=== PATIENT | female | born 1970 | race Caucasian/White ===

== ENCOUNTER 2020-02-27 15:23 | Outpatient (REF) | payer OTHER, SELFPAY ==
--- NOTE | 2020-02-27 | MM_ITS ---
EXAMINATION: MM SCREENING DIGITAL BREAST TOMOSYNTHESIS, BILATERAL CLINICAL INFORMATION: Screening. Asymptomatic. The lifetime risk of breast cancer based on the Tyrer-Cuzick Model is 11%. COMPARISON: Mammography: 08/27/2018, 07/08/2012 TECHNIQUE: Digital breast tomosynthesis is performed in both the craniocaudal and mediolateral oblique views along with computer-aided detection (CAD). Synthesized 2D images are generated from the tomosynthesis. FINDINGS: There are scattered areas of fibroglandular density (ACR BI-RADS breast composition Category b). There are no significant masses, abnormal calcifications, or other abnormalities. Parenchymal pattern is similar to prior studies. No significant changes. MM/MM tomosynthesis screening BI IMPRESSION: No mammographic evidence of malignancy. ASSESSMENT: BI-RADS 1: Negative RECOMMENDATION: Routine annual mammography screening. This patient's information was entered into a reminder system with a target due date for their next mammogram.
== END 2020-02-27 15:24 | disposition home or self-care (01) ==
LOC: HO.MAMMO 15:23
PROVIDERS: Visit Provider Nurse Practitioner Family
DX: Z12.31 Encounter for screening mammogram for malignant neoplasm of breast (principal)
CPT/HCPCS: 77063; 77067

== ENCOUNTER → 2020-09-26 10:32 | Outpatient (BNVA) | payer OTHER, SELFPAY | PROVIDERS: PCP Nurse Practitioner Family; Visit Provider Physician Assistant | DX: S80.01XA Contusion of right knee, initial encounter (principal); S39.012A Strain of muscle, fascia and tendon of lower back, initial encounter; W18.39XA Other fall on same level, initial encounter | CPT/HCPCS: 73564; 99203 ==

== ENCOUNTER → 2020-10-02 09:33 | Outpatient (BNVA) | payer OTHER, SELFPAY | PROVIDERS: PCP Nurse Practitioner Family; Visit Provider Physician Assistant | DX: S80.01XA Contusion of right knee, initial encounter (principal); S39.012A Strain of muscle, fascia and tendon of lower back, initial encounter; X58.XXXA Exposure to other specified factors, initial encounter | CPT/HCPCS: 99213 ==

== ENCOUNTER → 2020-10-09 09:43 | Outpatient (BNVA) | payer OTHER, SELFPAY | PROVIDERS: PCP Nurse Practitioner Family; Visit Provider Physician Assistant | DX: S80.01XA Contusion of right knee, initial encounter (principal); S39.012A Strain of muscle, fascia and tendon of lower back, initial encounter; X58.XXXA Exposure to other specified factors, initial encounter | CPT/HCPCS: 99213 ==

== ENCOUNTER 2020-10-28 08:16 | Emergency (ER) | payer OTHER, SELFPAY ==
--- NOTE | ~2020-10-28 | XR_ITS ---
EXAMINATION: XR CHEST CLINICAL INFORMATION: Cough, shortness of breath COMPARISON: 11/29/2016 TECHNIQUE: 2 views of the chest were obtained. FINDINGS: No significant abnormality is noted involving the heart, lungs, mediastinum, bony thorax or soft tissues. Right middle and lower lobe calcified granulomas. XR/XR chest 2V IMPRESSION: No acute cardiopulmonary findings.
[2020-10-28 08:45] VITALS: BP 149/86; PULSE 89; RESP 16; TEMP 36.8; O2SAT 99; BMI 21.4
--- NOTE | 2020-10-28 09:09 | ED_ITS ---
HPI - URI/Sore Throat General Chief Complaint: Upper Respiratory Symptoms Stated Complaint: COUGH SORE THROAT Time Seen by Provider: 10/28/20 08:50 Source: patient Mode of arrival: ambulatory Limitations: no limitations History of Present Illness HPI Narrative: 50-year-old female here with dry cough x1 week. No fevers, chills, shortness of breath or chest pain. Patient does smoke cigarettes. She has not received a COVID vaccine Related Data Previous Rx's Medication Instructions Recorded gabapentin 100 mg capsule 100 mg PO TID #90 cap 03/19/20 omeprazole 20 mg capsule,delayed 20 mg PO DAILY #90 cap 04/27/20 release albuterol sulfate 90 mcg/actuation 1 inh INHALATION Q4-6H PRN 30 Days 08/20/20 breath activated powder inhaler #1 ea alprazolam 0.5 mg tablet 0.5 mg PO BID PRN 30 Days #60 tab 09/24/20 lisinopril 5 mg tablet 5 mg PO DAILY #90 tab 10/01/20 azithromycin See Rx Instructions .ROUTE 10/28/20 .COMPLEX #6 tab benzonatate [Tessalon Perles] 100 mg PO TID PRN #20 cap 10/28/20 hydrocodone-homatropine [Hycodan 5 ml PO Q6H PRN 5 Days #236 ml 10/28/20 (with homatropine)] prednisone 40 mg PO DAILY #10 tab 10/28/20 Allergies Allergy/AdvReac Type Severity Reaction Status Date / Time No Known Allergies Allergy Verified 08/20/20 15:42 Review of Systems Review of Systems: Yes all other systems are reviewed and are negative Constitutional: Constitutional: Reports no additional constitutional complaints, Denies body ache(s), Denies chills, Denies fever(s), Denies headache(s) and Denies weakness Eyes: Eyes: Reports no additional eye complaints and Denies change in vision ENT: Reports system reviewed and no additional complaints, except as documented, Denies dizziness, Denies headache(s), Denies nasal congestion, Denies nasal discharge and Denies neck pain Cardiovascular: Cardiovascular: Reports no additional cardiovascular complaints, Denies chest pain, Denies leg edema and Denies dyspnea Respiratory: Respiratory: Reports no additional respiratory complaints, Reports cough and Denies dyspnea Gastrointestinal: Gastrointestinal: Reports no additional gastrointestinal complaints, Denies abdominal pain, Denies diarrhea, Denies nausea and Denies vomiting Genitourinary: Genitourinary: Reports no additional female genitourinary complaints and Denies urinary incontinence Musculoskeletal: Musculoskeletal: Reports no additional musculoskeletal complaints, Denies back pain, Denies arthralgias, Denies joint swelling, Denies neck pain, Denies numbness and Denies tingling Integumentary/Breasts: Skin/Breast: Reports system reviewed and no additional complaints, except as docu and Denies rash Neurologic: Denies Abnormal speech present, Denies dizziness, Denies headache(s), Denies numbness, Denies tingling and Denies weakness PMFSH Past Medical History Attestation statement: The following information was validated with the patient. Source: old records reviewed and nursing notes reviewed Medical History Hypertension Seborrheic keratosis Surgical History History of facial surgery Social History Social History Advance Directives: Yes Advance Directives Information Provided: No Advance Directives on File: No Patient : No Physical Exam Vital Signs: Vital Signs: Last Vital Signs Temp 98.2 F 10/28/20 08:45 Pulse 89 10/28/20 09:26 Resp 16 10/28/20 08:45 BP 149/86 H 10/28/20 08:45 Pulse Ox 99 10/28/20 08:45 Body Mass Index 21.4 Const: General: cooperative, healthy appearing, comfortable and no acute distress Orientation/consciousness: patient oriented x3 Limitations: no limitations HENMT: Head: Yes normal to inspection Ears: hearing grossly normal bilaterally General nose exam: Normal external nose present Face and sinus: Yes normal facial exam Mouth: Normal oral and palatal mucosa present Throat: Yes posterior oropharynx normal Eyes: General: appearance normal, both eyes and all related structures Pupils: Equal, round and reactive pupils present Neck: Neck: Yes normal visual inspection Chest: Chest palpation & inspection: normal inspection of the chest Resp: Other: Mild expiratory wheezing throughout Effort & Inspection: normal respiratory effort Cardio: Rate: regular rate Rhythm: regular rhythm Peripheral pulses: Peripheral pulses 2+ throughout GI: Inspection: Yes normal to inspection Palpation (GI): Soft to palpation and nontender Auscultation: normal bowel sounds Back/Spine/Pelvis: Thoracic/Lumbar Spine: thoracic and lumbar spine normal to inspection Skin: General skin exam: no rashes or lesions noted Neuro: General: patient oriented x3, no focal motor deficits and normal sensation to monofilament Cranial nerves: Yes Equal, round and reactive pupils present Cognition (Neuro): normal cognition Speech: No Abnormal speech present Gait exam (Neuro): Normal gait present Motor exam (neuro): 5/5 motor strength present throughout Extrem: General: Yes normal to inspection, Yes no pedal edema and Yes no calf tenderness Course Course Course Narrative: Dry cough x1 week unrelieved with [id number] medications. Will check x-ray to rule out pneumonia. Check COVID screen. Provide albuterol MDI and reassess 0940-chest x-ray shows no acute finding. COVID screen negative. Will treat with course of antibiotics and prednisone for acute bronchitis. Reviewed worrisome signs and symptoms and when to return to the emergency department. Comfortable discharge home. MDM - URI/Sore Throat MDM Narrative Medical decision making narrative: Pneumonia Differential Diagnosis Differential diagnosis: Likely upper respiratory infection and viral infection Medical Records Attestation: I reviewed the patient's medical records. Lab Data Attestation: I reviewed the patient's lab results. Labs: Lab Results 10/28/20 Range/Units 09:17 COVID-19 ([facility]) Negative (Negative) COVID-19 Clin Com See Note Imaging Data Chest x-ray: Attestation: I personally reviewed and interpreted this imaging study as follows: Radiologist's impression: [address] [id number] ReportSigned Patient: Juliana Altman JMR#: [id number]: 1970Acct:[id number]/Sex: 50 / FADM Date: 10/28/20Loc: [address] Dr: Ordering Physician: ZACHARY VINES NP Date of Service: 10/28/20 Procedure(s): XR chest 2V Accession Number(s): [id number] cc: ZACHARY VINES NP~ EXAMINATION: XR CHEST CLINICAL INFORMATION: Cough, shortness of breath COMPARISON: 11/29/2016 TECHNIQUE: 2 views of the chest were obtained. FINDINGS: No significant abnormality is noted involving the heart, lungs, mediastinum, bony thorax or soft tissues. Right middle and lower lobe calcified granulomas. XR/XR chest 2V IMPRESSION: No acute cardiopulmonary findings. Discharge Plan Discharge Clinical Impression: Bronchitis Patient Disposition: Home, Self-Care Instructions: Acute Bronchitis (ED) Additional Instructions: Use inhaler 2 puffs every 4-6 hours as needed for cough or wheezing Your x-ray did not show pneumonia. Your COVID screen was negative. Increase fluids, rest Take Motrin or Tylenol if able as needed for pain or fever Prescriptions: New azithromycin 250 mg tablet See Rx Instructions .ROUTE .COMPLEX Qty: 6 RF: 0 prednisone 20 mg tablet 40 mg PO DAILY Qty: 10 RF: 0 benzonatate [Tessalon Perles] 100 mg capsule 100 mg PO TID PRN (Reason: cough) Qty: 20 RF: 0 hydrocodone-homatropine [Hycodan (with homatropine)] 5-1.5 mg/5 mL syrup 5 ml PO Q6H PRN (Reason: cough) 5 Days Qty: 236 RF: 0 No Action gabapentin 100 mg capsule 100 mg PO TID Qty: 90 RF: 3 omeprazole 20 mg capsule,delayed release(DR/EC) 20 mg PO DAILY Qty: 90 RF: 1 alprazolam 0.5 mg tablet 0.5 mg PO BID PRN (Reason: anxiety) 30 Days Qty: 60 RF: 0 lisinopril 5 mg tablet 5 mg PO DAILY Qty: 90 RF: 1 albuterol sulfate 90 mcg/actuation aerosol powdr breath activated 1 inh inhalation Q4-6H PRN (Reason: shortness of breath or wheezing) 30 Days Qty: 1 RF: 1 Referrals: Raffaele Desir, PROGRAM SCHEDULER-BC [Primary Care Provider] - 2 days Interventions: ED Discharge Assessment Last Done: 10/28/20 10:18 Discharge Date/Time: 10/28/20 10:18
[2020-10-28 09:26] VITALS: PULSE 89; O2SAT 99
[2020-10-28] MEDS: Albuterol Sulfate 90 MCG 8 GM INHALER 2 PUFF INHALE (09:26)
[2020-10-28 09:37] LABS: COVID-19 Test Negative (Negative); IDNOW Serial# 9DD0AD1C
== END 2020-10-28 10:18 | disposition home or self-care (01) ==
PROVIDERS: Nurse Practitioner Family; Emergency Provider Emergency Medicine; PCP Nurse Practitioner Family
DX: J40 Bronchitis, not specified as acute or chronic (principal); I10 Essential (primary) hypertension; Z20.822 Contact with and (suspected) exposure to COVID-19
CPT/HCPCS: 36415; 71046; 87635; 94640; 94664; 99283; 99284

== ENCOUNTER 2020-11-23 09:34 | Outpatient (REF) | payer OTHER, SELFPAY ==
--- NOTE | ~2020-11-23 | XR_ITS ---
EXAMINATION: XR RIBS, RIGHT CLINICAL INFORMATION: Pleurodynia COMPARISON: Right-sided rib pain. TECHNIQUE: 3 views of the right ribs were obtained. FINDINGS: Multiple views of right ribs reveal no visible fracture or bony abnormality. There are small calcified nodules seen in the right upper lobe, right middle lobe and right lower lobe. A marker has been placed along the right lower lobe. No visible rib fracture or bony abnormality seen where a lead marker has been placed. The lungs are clear. XR/XR ribs RT 2V IMPRESSION: No visible right rib fractures seen. A lead marker has been placed along the chest wall. There are several calcified granulomas in the right upper, mid and lower lobes.
== END 2020-11-23 09:35 | disposition home or self-care (01) ==
LOC: HO.XRAY 09:34
PROVIDERS: PCP Nurse Practitioner Family; Visit Provider Nurse Practitioner Family
DX: R07.81 Pleurodynia (principal)
CPT/HCPCS: 71100

== ENCOUNTER 2020-12-04 09:54 | Outpatient (REF) | payer OTHER, SELFPAY ==
[2020-12-06 09:07] LABS: BV Int Neg Control Negative (Negative); BV Int Pos Control Positive (Positive)
[2020-12-06 09:31] LABS: CT PCR NOT DETECTED (Not Detect.); NG PCR NOT DETECTED (Not Detect.)
[2020-12-07 16:22] LABS: HPV mRNA E6/E7 rflx Not Detected (Not Detected)
== END 2020-12-04 09:55 | disposition home or self-care (01) ==
LOC: HO.LAB 09:54
PROVIDERS: Visit Provider Advanced Practice Midwife
DX: Z01.419 Encounter for gynecological examination (general) (routine) without abnormal findings (principal); Z11.51 Encounter for screening for human papillomavirus (HPV); Z11.3 Encounter for screening for infections with a predominantly sexual mode of transmission; Z20.2 Contact with and (suspected) exposure to infections with a predominantly sexual mode of transmission
CPT/HCPCS: 87480; 87491; 87510; 87591; 87624; 87660; 88142

== ENCOUNTER 2021-09-24 10:00 | Outpatient (RCR) | payer OTHER, SELFPAY ==
--- NOTE | 2021-09-04 14:41 | MHC.PT.EP ---
[facility] Office [place] Office [place] Office [address] Sigifredo Solo [address] [phone] F: [phone] F: [phone] F: [phone] F: [phone] Physical Therapy Plan of Care Date of Evaluation: Date of Surgery: Diagnosis: Patient is a 51 yo female presenting to skilled PT with a script for low back pain. Assessment: Patient is a 51 yo female presenting to skilled PT with a script for low back pain. Patient has a history of back pain starting about a year ago when she was at work attempting to reach while at a vehicle. She hit her R knee, fell back and hit her L side low back on the edge of the door but was able to grab onto the car to prevent further fall to ground. She originally went to work connection 1 year ago and did not have PT as she thought it would improve with time. Now however her pain has started to increase again (about 5 weeks ago; and she has not worked since increasing onset). Pain increases with quick twisting motions, rolling in bed, climbing stairs, walking and driving. She has been using lumbar support, ice and heating pad. Pain is constant, it is located in the left side lower back but then radiates to the leg and into the L foot (pain runs anteriorly down the leg). Pain is described as stabbing, uncomfortable , numbness in leg, and L foot is cold . She went to the [facility] on 08/27, was prescribed a muscle relaxant and anti-inflammatory as well as a script for PT but no work note (still not at work however, waiting to see PCP next week). Assessment reveals pain that ranges up to a 10/10, pain is constant, nonchanging with positional directions and not improving since onset. She demos decreased lumbar and L hip ROM, decreased core, back and BLE strength, impaired gait pattern as described in evaluation above, impaired lumbar joint mobility due to pain with tenderness to light palpation as well as gross functional decline with functional movements, work related tasks and ADL's. She is a good candidate for skilled PT 2x/wk for 5wks. Frequency and Duration: The patient will be seen 2x/wk for 5wks Short Term Goals: I in HEP Centralize symptoms in 2 weeks Improve gait pattern to normal without deviations or increase in pain noted while walking through clinic [facility] Goals: Demos functional lumbar and hip ROM and strength Improve oswestry by at least 10 points Improve pain at the worst to no more than 2/10 Demo proper lifting techniques without increase in pain or radiating symptoms Treatment Plan: Modalities to reduce pain, spasms and effusion. Manual therapy to restore motion and function. Therapeutic exercise to improve strength and flexibility. Neuromuscular re-education for posture and balance. Therapeutic activities to return to functional activities of daily living. Electronically signed by: Marianne Fierro PT Please sign and return to therapist. Thank you for your referral.
--- NOTE | 2021-10-28 17:38 | MHC.PT.DC ---
[facility] [place] Office [place] Office [place] Office [address] Sigifredo Solo 140 [facility] [phone] F: [phone] F: [phone] F: [phone] F: [phone] Physical Therapy Discharge Report Diagnosis: Patient is a 51 yo female presenting to skilled PT with a script for low back pain. Date of Surgery: Date of Evaluation: 09/04/21 Date of Discharge: 10/28/21 Treatments to Date: 7 Cancellations to Date: 0 No Shows to Date: 0 Discharge Status: Discharge Summary: At the last session, patient reporting pain is in the same locations. Her RLE continues to have numbness in the RLE into the foot still as well. States that she has been doing HEP and rolling muscles. She reports STM is very helpful however does not report lasting effects past a day with this and then pain comes back. She has 3 more appts booked but is waiting for workman's comp to start before scheduling more however, patient did not come for remaining visits. Chart was kept open for 30 days and then DC'd. Electronically signed by: Marianne Fierro PT Please sign and return to therapist. Thank you for your referral.
== END 2021-10-28 17:38 | disposition home or self-care (01) ==
LOC: HO.PTCHIC 10:00
PROVIDERS: PCP Nurse Practitioner Family; Visit Provider Internal Medicine
DX: M54.50 Low back pain, unspecified (principal)
CPT/HCPCS: 97014; 97110; 97140; 97162

== ENCOUNTER 2021-11-19 09:35 | Outpatient (REF) | payer OTHER, SELFPAY ==
--- NOTE | ~2021-11-19 | XR_ITS ---
EXAMINATION: XR LUMBOSACRAL SPINE CLINICAL INFORMATION: Low back pain COMPARISON: None TECHNIQUE: Three views of the lumbosacral spine. FINDINGS: There is mild straightening of lumbar lordosis. The vertebral heights and alignment is normal. There is mild loss of L4-L5 and L5-S1 disc levels with mild ventral spondylosis L3-L4, L4-L5 and L5-S1 disc levels. No lytic or sclerotic process seen. SI joints are symmetrical and normal. XR/XR lumbar spine 2-3V IMPRESSION: Mild degenerative disc changes L4-L5 and L5/S1 disc levels with ventral spondylosis. No visible acute fracture or dislocation seen.
== END 2021-11-19 09:36 | disposition home or self-care (01) ==
LOC: HO.XRAY 09:35
PROVIDERS: PCP Nurse Practitioner Family; Visit Provider Nurse Practitioner Family
DX: M54.50 Low back pain, unspecified (principal); M79.606 Pain in leg, unspecified
CPT/HCPCS: 72100

== ENCOUNTER 2021-12-02 10:31 | Outpatient (REF) | payer OTHER, SELFPAY ==
--- NOTE | ~2021-12-02 | MR_ITS ---
EXAMINATION: MR LUMBAR SPINE WITHOUT CONTRAST CLINICAL INFORMATION: Low back pain. COMPARISON: Plain films of the lumbar spine 11/19/2021. CT scan of the abdomen and pelvis 03/05/2017. TECHNIQUE: MRI of the lumbar spine was obtained using routine sequences without contrast. FINDINGS: VERTEBRAL BODIES AND PARASPINAL STRUCTURES: There is a mild levoscoliosis. There is multilevel narrowing of intervertebral disc height with loss of signal which is most severe at L4-L5. There are degenerative endplate contour changes at this level with fatty endplate signal changes; there are similar changes toward the right at L5-S1. There are multilevel Schmorl's nodes at adjacent endplates. Vertebral body heights are maintained and no fractures are demonstrated. Overall, marrow signal is slightly heterogenous. The visualized retroperitoneal structures are unremarkable. The uterus is moderately bulky. CONUS MEDULLARIS AND CAUDA EQUINA: Normal, terminating at the level of T12-L1. The lower thoracic spinal cord appears normal. The cauda equina nerve roots and filum terminale appear normal. SPINAL LEVELS: T12-L1: The facet joints appear normal bilaterally. Disc contour is normal. There is no central stenosis or foraminal narrowing. L1-L2: There is mild bilateral facet arthropathy. Disc contour is normal. There is no central stenosis or foraminal narrowing. L2-L3: There is moderate bilateral facet arthropathy. There is a mild diffuse disc bulge with with minimal distortion of the ventral thecal sac on the left but there is no central stenosis. There are small inferior foraminal disc protrusions bilaterally without exiting nerve root impingement. L3-L4: There is moderate to severe bilateral facet arthropathy with ligamenta flava hypertrophy and facet joint effusions. There is a posterior disc protrusion extending into the neural foramina bilaterally with impingement on the exiting L3 nerve roots. There is narrowing of the bilateral subarticular recesses and there is mild central stenosis. The dorsal thecal sac is compressed by epidural lipomatosis. L4-L5: There is severe bilateral facet arthropathy with ligamenta flava hypertrophy and facet joint effusions. There is a posterior disc protrusion extending into the neural foramina bilaterally, and far laterally on the left with impingement on the extraforaminal left L4 nerve root as well as on the exiting right L4 nerve root. There is narrowing of the bilateral subarticular recesses, and there is mild central stenosis. L5-S1: There is markedly severe right and severe left facet arthropathy. There is a broad-based posterior disc protrusion with an extruded component extending into the right subarticular recess with mass effect on the traversing right S1 nerve root. There is minimal distortion of the ventral thecal sac. There is no central stenosis. The protrusion extends into the right neural foramen with impingement on the exiting right L5 nerve root. MR/MR lumbar spine wo con IMPRESSION: 1. At L5-S1 there is bilateral facet arthropathy and there is a posterior disc protrusion/extrusion extending into the right neural foramen and right subarticular recess with impingement on the exiting right L5 and traversing right S1 nerve roots. There is no central stenosis. 2. At L4-L5 there is severe facet arthropathy. There is a disc protrusion extending far laterally on the left with impingement on the extraforaminal left L4 nerve root. There is mild impingement on the exiting right L4 nerve root. There is mild central stenosis. 3. At L3-L4 there is facet arthropathy. There is a posterior disc protrusion extending into the neural foramina with impingement on the exiting L3 nerve roots. There is mild central stenosis.
== END 2021-12-02 10:32 | disposition home or self-care (01) ==
LOC: HO.MRI 10:31
PROVIDERS: Visit Provider Nurse Practitioner Family
DX: M54.50 Low back pain, unspecified (principal); M79.606 Pain in leg, unspecified
CPT/HCPCS: 72148

== ENCOUNTER 2022-01-02 10:00 | Outpatient (RCR) | payer OTHER, SELFPAY ==
--- NOTE | 2021-11-21 12:40 | MHC.PT.EP ---
[facility] Office [place] Office [place] Office [address] Sigifredo Solo [address] [phone] F: [phone] F: [phone] F: [phone] F: [phone] Physical Therapy Plan of Care Date of Evaluation: Date of Surgery: Diagnosis: Patient is a 51 yo female presenting to skilled PT with a script for low back pain and pain in the leg. Assessment: Patient is a 51 yo female presenting to skilled PT with a script for low back pain and pain in the leg. Patient has recently here at this facility but then stopped coming and her chart was DC'd after 30 days without tx. Patient has a history of back pain starting over a year ago when she was at work attempting to reach while at a vehicle. She hit her R knee, fell back and hit her L side low back on the edge of the door but was able to grab onto the car to prevent further fall to ground. She originally went to work connection when she had the injury but did not have PT as she thought it would improve with time. She then came for 7 appointments of PT this year 2021 from August to September, DC note states: At the last session, patient reporting pain is in the same locations. Her RLE continues to have numbness in the RLE into the foot still as well. States that she has been doing HEP and rolling muscles. She reports STM is very helpful however does not report lasting effects past a day with this and then pain comes back. She has 3 more appts booked but is waiting for workman's comp to start before scheduling more however, patient did not come for remaining visits. Chart was kept open for 30 days and then DC'd. Now she returns without change from PT from a month a go. Pain increases with lifting, bending, climbing, stairs, work related tasks, twisting. She needs assist with ADLs using her UE and her fianc? needs to assist with housework, yardwork and grocery shopping. She had x-ray which showed mild degenerative disc changes L4-5 and L5/S1. She is awaiting an MRI and returns to see her PCP on 12/05. For pain she has been doing the heating pad, 1-3 exercises that she remembers from last time on occasion, she has gotten a new bed and started a new script for meloxicam. Pain is constant, it is located in the left side lower back (achy and sharp) but then radiates to the anterior/lateral L hip (sharp) and into the leg (anterior and tight) and into the L foot (pain runs anteriorly down the leg as well and described as numb and L foot is cold ). Assessment reveals pain that ranges up to a 10/10, pain is pretty much constant, nonchanging with positional directions and not improving since onset or since last PT tx in September 2021. She demos decreased lumbar and L hip ROM, decreased core, back and BLE strength, impaired gait pattern as described in evaluation above, impaired lumbar joint mobility due to pain with tenderness to light palpation at L hip and low back as well as gross functional decline with functional movements, work related tasks and ADL's. She is a fair candidate for skilled PT 2x/wk for 4 wks due to lack of improvements from PT last trial a few months ago. Frequency and Duration: The patient will be seen 2x/wk for 4wks Short Term Goals: I in HEP Centralize symptoms in 2 weeks Improve gait pattern to normal without deviations or increase in pain noted while walking through clinic [employer] Goals: Demos functional lumbar and hip ROM and strength Improve oswestry by at least 10 points Improve pain at the worst to no more than 2/10 Demo proper lifting techniques without increase in pain or radiating symptoms Treatment Plan: Modalities to reduce pain, spasms and effusion. Manual therapy to restore motion and function. Therapeutic exercise to improve strength and flexibility. Neuromuscular re-education for posture and balance. Therapeutic activities to return to functional activities of daily living. Electronically signed by: Marianne Fierro PT Please sign and return to therapist. Thank you for your referral.
--- NOTE | 2021-12-05 14:04 | MHC.PT.EP ---
[facility] [place] [facility] [place] [facility] [place] [facility] [address] Sigifredo Solo [address] [phone] F: [phone] F: [phone] F: [phone] F: [phone] Physical Therapy Plan of Care Date of Evaluation: Date of Surgery: Diagnosis: Patient is a 51 yo female presenting to skilled PT with a script for low back pain and pain in the leg. Assessment: Patient is a 51 yo female presenting to skilled PT with a script for low back pain and pain in the leg. Patient has recently here at this facility but then stopped coming and her chart was DC'd after 30 days without tx. Patient has a history of back pain starting over a year ago when she was at work attempting to reach while at a vehicle. She hit her R knee, fell back and hit her L side low back on the edge of the door but was able to grab onto the car to prevent further fall to ground. She originally went to work [facility] when she had the injury but did not have PT as she thought it would improve with time. She then came for 7 appointments of PT this year 2021 from August to September, DC note states: At the last session, patient reporting pain is in the same locations. Her RLE continues to have numbness in the RLE into the foot still as well. States that she has been doing HEP and rolling muscles. She reports STM is very helpful however does not report lasting effects past a day with this and then pain comes back. She has 3 more appts booked but is waiting for workman's comp to start before scheduling more however, patient did not come for remaining visits. Chart was kept open for 30 days and then DC'd. Now she returns without change from PT from a month a go. Pain increases with lifting, bending, climbing, stairs, work related tasks, twisting. She needs assist with ADLs using her UE and her fianc? needs to assist with housework, yardwork and grocery shopping. She had x-ray which showed mild degenerative disc changes L4-5 and L5/S1. She is awaiting an MRI and returns to see her PCP on 12/05. For pain she has been doing the heating pad, 1-3 exercises that she remembers from last time on occasion, she has gotten a new bed and started a new script for meloxicam. Pain is constant, it is located in the left side lower back (achy and sharp) but then radiates to the anterior/lateral L hip (sharp) and into the leg (anterior and tight) and into the L foot (pain runs anteriorly down the leg as well and described as numb and L foot is cold ). Assessment reveals pain that ranges up to a 10/10, pain is pretty much constant, nonchanging with positional directions and not improving since onset or since last PT tx in September 2021. She demos decreased lumbar and L hip ROM, decreased core, back and BLE strength, impaired gait pattern as described in evaluation above, impaired lumbar joint mobility due to pain with tenderness to light palpation at L hip and low back as well as gross functional decline with functional movements, work related tasks and ADL's. She is a fair candidate for skilled PT 2x/wk for 4 wks due to lack of improvements from PT last trial a few months ago. Frequency and Duration: The patient will be seen 2x/wk for 4wks Short Term Goals: I in HEP Centralize symptoms in 2 weeks Improve gait pattern to normal without deviations or increase in pain noted while walking through clinic [employer] Goals: Demos functional lumbar and hip ROM and strength Improve oswestry by at least 10 points Improve pain at the worst to no more than 2/10 Demo proper lifting techniques without increase in pain or radiating symptoms Treatment Plan: Modalities to reduce pain, spasms and effusion. Manual therapy to restore motion and function. Therapeutic exercise to improve strength and flexibility. Neuromuscular re-education for posture and balance. Therapeutic activities to return to functional activities of daily living. Electronically signed by: Marianne Fierro PT Please sign and return to therapist. Thank you for your referral.
--- NOTE | 2022-06-05 09:30 | MHC.PT.DC ---
[facility] [place] Office [place] [facility] [place] Office [address] Sigifredo Solo [address] [phone] F: [phone] F: [phone] F: [phone] F: [phone] Physical Therapy Discharge Report Diagnosis: Patient is a 51 yo female presenting to skilled PT with a script for low back pain and pain in the leg. Date of Surgery: Date of Evaluation: 11/21/21 Date of Discharge: 06/05/22 Treatments to Date: 8 Cancellations to Date: 0 No Shows to Date: 0 Discharge Status: Independent with HEP Insurance Declined Tx Recommend MD Follow-up Discharge Summary: Pt reports getting relief from PT, but symptoms always return and she has no mcfp gains. Pt continues with an antalgic gait pattern due to pain. Pt DC with F/U with MD recommended. Pt visits limited by insurance. Electronically signed by: Marianne Fierro PT Please sign and return to therapist. Thank you for your referral.
== END 2022-06-05 09:30 | disposition home or self-care (01) ==
LOC: HO.PTCHIC 10:00
PROVIDERS: PCP Nurse Practitioner Family; Visit Provider Nurse Practitioner Family
DX: M54.50 Low back pain, unspecified (principal); M79.605 Pain in left leg; M79.604 Pain in right leg
CPT/HCPCS: 97014; 97110; 97140; 97162

== ENCOUNTER 2022-01-19 16:46 | Emergency (ER) | payer OTHER, SELFPAY ==
[2022-01-19 16:54] VITALS: BP 229/107; PULSE 70; RESP 20; TEMP 36.7; O2SAT 100
[2022-01-19 16:57] VITALS: BP 190/114; PULSE 66; O2SAT 99; BMI 24.0
--- NOTE | 2022-01-19 17:00 | ED_ITS ---
HPI - General Adult General Chief complaint: Nausea/Vomiting/Diarrhea Stated complaint: Nausea vomiting Time Seen by Provider: 01/19/22 17:00 Source: patient and family (father) Mode of arrival: ambulatory Limitations: no limitations History of Present Illness HPI narrative: Patient is a 51 year old female presenting to the emergency department today with nausea and vomiting. Patient states that she had a similar issue 3 years ago. Patient states that she has been vomiting on and off for the last few hours. Patient states that she has a history of hypertension for which is prescribed amlodipine and losartan but she doesn't take those medications like she is supposed to. Patient states that her blood pressure is normally at 200 for the top number . Patient states that she is a daily drinker and does not want to stop or get detox. Patient denies any dizziness, lightheadedness, abdominal pain, fever, chills, blurry vision, double vision, loss of vision, chest pain, difficulty breathing, shortness of breath, back pain, night sweats, pain with urination, increased urinary frequency, increased urinary urgency, blood in her urine or stool, syncope or a near syncopal episode, recent trauma or falls, bowel incontinence, bladder incontinence, bowel retention, bladder retention, or any other complaints at this time. Onset (ago): hour(s) Severity: mild Severity scale (1-10): 2 Relieving factors: none Exacerbating factors: none Associated symptoms: nausea/vomiting Treatments prior to arrival: none Related Data Previous Rx's Medication Instructions Recorded albuterol sulfate 90 mcg/actuation 1 inh inhalation Q4-6H PRN 08/20/20 breath activated powder inhaler shortness of breath or wheezing 30 days #1 ea amlodipine 5 mg tablet 5 mg PO DAILY 90 days #90 tabs 07/31/21 gabapentin 100 mg capsule 100 mg PO TID 30 days #90 caps 10/03/21 losartan 50 mg tablet 50 mg PO DAILY 90 days #90 tabs 10/03/21 cyclobenzaprine 10 mg tablet 10 mg PO BEDTIME #14 tabs 10/15/21 dexamethasone 4 mg tablet 4 mg PO .COMPLEX 9 days #18 tabs 11/25/21 alprazolam 0.5 mg tablet 0.5 mg PO BID PRN anxiety 30 days 12/24/21 #60 tabs omeprazole 20 mg capsule,delayed 20 mg PO DAILY #90 caps 01/02/22 release tramadol 50 mg tablet 50 mg PO BID PRN pain 14 days #14 01/06/22 tabs meloxicam 15 mg tablet 15 mg PO DAILY 30 days #30 tabs 01/13/22 promethazine 12.5 mg rectal 12.5 mg NM TID PRN nausea and 01/19/22 suppository vomiting #12 ea Allergies Allergy/AdvReac Type Severity Reaction Status Date / Time No Known Allergies Allergy Verified 12/05/21 14:16 Review of Systems Constitutional: Constitutional: Reports no additional constitutional complaints, Denies chills, Denies fever(s) and Denies night sweats Eyes: Eyes: Reports no additional eye complaints, Denies blurry vision, Denies change in vision, Denies diplopia, Denies eye discharge, Denies loss of vision and Denies eye pain ENT: Denies dizziness Cardiovascular: Cardiovascular: Reports no additional cardiovascular complaints, Denies chest pain, Denies lightheadedness, Denies Loss of Consciousness and Denies dyspnea Respiratory: Respiratory: Reports no additional respiratory complaints and Denies dyspnea Gastrointestinal: Gastrointestinal: Reports no additional gastrointestinal complaints, Denies abdominal pain, Denies melena, Denies hematochezia, Denies change in bowel habits, Denies change in stool character, Reports nausea and Reports vomiting Genitourinary: Genitourinary: Denies hematuria, Denies urinary frequency, Denies dysuria, Denies urinary incontinence, Denies urinary hesitancy and Denies urinary urgency Musculoskeletal: Musculoskeletal: Reports no additional musculoskeletal complaints, Denies numbness and Denies tingling Neurologic: Denies dizziness, Denies loss of vision, Denies numbness and Denies tingling Psychiatric: Psychiatric: Reports no additional psychiatric complaints Endocrine: Endocrine: Reports no additional endocrine complaints Hematologic/Lymphatic: Hematologic/Lymphatic: Reports no additional hematologic/lymphatic complaints Allergic/Immunologic: Allergic/Immunologic: Reports no additional allerg ic/immunologic complaints [facility] Past Medical History Attestation statement: The following information was validated with the patient. Source: old records reviewed Medical History Hypertension Seborrheic keratosis Surgical History History of facial surgery Family History Family History Maternal Grandmother Mental health disorder Social History Social History Housing: House Alcohol intake: current Alcohol intake frequency: 3 or more drinks per day Alcohol type: hard liquor Patient Tobacco Use Status: Current everyday Tobacco user Cigarettes Per Day: 7 e-Cigarette/Vaping Use: Never Used Second Hand Smoke Exposure: No Use of substances other than those prescribed or required for medical reasons: No Advance Directives: No Advance Directives Information Provided: No Patient : No Current occupational status: unemployed Cognitive needs: No Hearing needs: No Vision needs: Yes Physical Exam ED Vital Signs: Vital Signs - 24 hr 01/19/22 16:54 01/19/22 18:54 01/19/22 19:39 Temperature 98.1 F Pulse Rate 70 68 69 Respiratory Rate 20 18 Blood Pressure 229/107 H 227/105 H 220/98 H Pulse Oximetry 100 99 Oxygen Delivery Method Room Air Room Air 01/19/22 20:10 Temperature Pulse Rate 74 Respiratory Rate 18 Blood Pressure 196/99 H Pulse Oximetry 100 Oxygen Delivery Method Room Air BMI result Body Mass Index 24.0 Const General: cooperative, no acute distress, alert and awake Nutritional Appearance: well nourished Orientation/consciousness: patient oriented x3 Limitations: no limitations HENAL Head: Yes normal to inspection and Yes atraumatic Ears: hearing grossly normal bilaterally and external ears normal General nose exam: Normal external nose present, no nasal discharge noted and no epistaxis Face and sinus: Yes normal facial exam, No abrasion and No laceration Mouth: Normal oral and palatal mucosa present, no drooling and no muffled voice Eyes General: appearance normal, both eyes and all related structures Periorbital: periorbital findings normal Eyelids: Yes eyelids normal Conjunctivae: conjunctivae normal Pupils: Equal, round and reactive pupils present EOM: EOMs intact bilaterally Neck Neck: Yes normal visual inspection, Yes full ROM and Yes no lymphadenopathy Chest Chest palpation & inspection: normal inspection of the chest Resp Effort & Inspection: normal respiratory effort and able to speak in complete sentences Auscultation: clear to auscultation bilaterally Cardio Rate: regular rate Rhythm: regular rhythm GI Inspection: Yes normal to inspection Palpation (GI): Soft to palpation, not firm, nontender, no guarding and not rigid Neuro General: patient oriented x3 and moves all extremities Cranial nerves: Yes Equal, round and reactive pupils present Cognition (Neuro): normal cognition Motor exam (neuro): 5/5 motor strength present throughout Sensory Exam: Normal double simultaneous stimulation for sensation Coordination: [id number] test normal Extrem General: Yes normal to inspection, Yes full ROM and Yes capillary refill normal Psych Appearance: grossly normal Mental Status: mental status grossly normal Affect: normal affect Attitude: cooperative Thought process: Normal thought process present Thought content: Normal thought content present Insight: Good insight present (Psych) Medical Decision Making MDM Narrative Medical decision making narrative: Patient is a 51 year old female presenting to the emergency department today with nausea and vomiting. Patient's physical exam was unremarkable. Patient's blood work showed a slightly decreased sodium of 133 and magnesium of 1.5. Patient's urine showed no acute process. Patient's EKG was unremarkable. Patient was consistently hypertensive throughout her time in the department. Patient was given lopressor IV. Patient's normal blood pressure medications were ordered however, she refused them. I explained to the patient that continuing to refuse taking her medications and letting her blood pressure remain that high could result in , stroke, or permanent disability. Patient verbalized understanding and stated that she still did not want medication for her blood pr essure. Patient asked repeatedly for phenergan and something for her anxiousness. When I explained to the patient that she may be going through alcohol withdrawal, she declined. She stated that it isn't possible because she doesn't drink enough to be going through withdrawal. Patient was able to rudolph erate a PO intake and requested to leave. I explained my physical exam findings as well as all test results to the patient. I answered all questions asked by the patient and the patient's father. I stressed the importance of the patient taking her medication as prescribed. I stressed the importance of the patient following up with her primary care provider. I stressed the importance of the patient returning to the emergency department immediately if her symptoms were to worsen or if she were to develop any dizziness, shortness of breath, difficulty breathing, chest pain, blurry vision, loss of vision, nausea, vomiting, abdominal pain, fever, chills, back pain, or any other complaints. Patient and the patient's father verbalized agreement and understanding with this treatment plan and discharge. Medical Records Medical records reviewed: Yes I reviewed the patient's medical records. Lab Data Lab results reviewed: Yes I reviewed the patient's lab results. Result diagrams: 01/19/22 17:20 01/19/22 18:04 Labs: Lab Results 01/19/22 01/19/22 01/19/22 Range/Units 17:20 17:20 18:04 WBC 7.2 (4.8-10.8) X10*3/uL RBC 3.77 L (4.20-5.50) X10*6/uL Hgb 10.5 L (12.0-16.0) g/dl Hct 32.3 L (37.0-47.0) % MCV 85.7 (80.0-98.0) fL MCH 27.9 (27.0-33.0) pg MCHC 32.5 (31.0-35.0) g/dl RDW 19.1 H (11.0-16.0) % Plt Count 199 (160-400) X10*3/uL MPV 9.4 (9.4-12.3) fL Immature Gran % (Auto) 0.7 H (0.0-0.4) % Neut % (Auto) 90.5 H (45-73) % Lymph % (Auto) 6.0 L (20-40) % Smyth % (Auto) 2.4 (2-11) % Eos % (Auto) 0.0 (0-4) % Baso % (Auto) 0.4 (0-2) % Lymph # (Auto) 0.4 L (1.2-4.9) X10*3/uL Smyth # (Auto) 0.2 (0.1-1.2) X10*3/uL Eos # (Auto) 0.0 (0.0-0.4) X10*3/uL Baso # (Auto) 0.0 (0.0-0.2) X10*3/uL Abs Immat Gran (auto) 0.05 H (0.00-0.03) X10*3/uL Absolute Neuts (auto) 6.5 (2.0-8.3) x10*3/uL Absolute Nucleated RBC 0.000 (0.0-0.012) X10*3/uL Nucleated RBC % (auto) 0.0 (0.0-0.2) /100WBC Smear Tech's Comments VERIFIED Sodium 133 L (135-145) mmol/L Potassium 3.8 (3.3-5.1) mmol/L Chloride 99 (96-108) mmol/L Carbon Dioxide 17 L (22-29) mmol/L Anion Gap 21 H (12-20) BUN 10 (9-16) mg/dL Creatinine 0.98 (0.5-1.4) mg/dL Estim Creat Clear Calc 59.9 Estimated GFR > 60 Random Glucose 136 H (60-115) mg/dL Calcium 9.4 (8.4-10.2) mg/dL Magnesium 1.5 L (1.6-2.6) mg/dL Total Bilirubin 1.0 (0.0-1.0) mg/dL AST 40 H (5-31) U/L ALT 20 (0-31) U/L Alkaline Phosphatase 107 (39-117) U/L Troponin I High Sens < 3.5 (<3.5-17.0) ng/L Total Protein 8.2 H (6.5-8.0) g/dL Albumin 4.6 (3.5-5.0) g/dL Urine Color Urine Appearance Urine pH (5.0-9.0) Ur Specific [place] (1.005-1.025) Urine Protein (Neg-Trace) mg/dL Urine Glucose (UA) (Negative) mg/dL Urine Ketones (Negative) mg/dL Urine Blood (Negative) Urine Nitrite (Negative) Ur Leukocyte Esterase (Negative) Urine RBC (0-2) /HPF Urine WBC (0-5) /HPF Ur Squamous Epith Cells (0-2) /HPF Urine Bacteria (None Seen) Hyaline Casts (0-2) /LPF Urine Opiates Screen (Not Detect) Urine Fentanyl Screen (Not Detect) Ur Barbiturates Screen (Not Detect) Ur Phencyclidine Scrn (Not Detect) Ur Amphetamines Screen (Not Detect) U Benzodiazepines Scrn (Not Detect) Urine Cocaine Screen (Not Detect) U Marijuana (THC) Screen (Not Detect) Ethyl Alcohol < 10 mg/dL 01/19/22 01/19/22 Range/Units 19:02 19:02 WBC (4.8-10.8) X10*3/uL RBC (4.20-5.50) X10*6/uL Hgb (12.0-16.0) g/dl Hct (37.0-47.0) % MCV (80.0-98.0) fL MCH (27.0-33.0) pg MCHC (31.0-35.0) g/dl RDW (11.0-16.0) % Plt Count (160-400) X10*3/uL MPV (9.4-12.3) fL Immature Gran % (Auto) (0.0-0.4) % Neut % (Auto) (45-73) % Lymph % (Auto) (20-40) % Smyth % (Auto) (2-11) % Eos % (Auto) (0-4) % Baso % (Auto) (0-2) % Lymph # (Auto) (1.2-4.9) X10*3/uL Smyth # (Auto) (0.1-1.2) X10*3/uL Eos # (Auto) (0.0-0.4) X10*3/uL Baso # (Auto) (0.0-0.2) X10*3/uL Abs Immat Gran (auto) (0.00-0.03) X10*3/uL Absolute Neuts (auto) (2.0-8.3) x10*3/uL Absolute Nucleated RBC (0.0-0.012) X10*3/uL Nucleated RBC % (auto) (0.0-0.2) /100WBC Smear Tech's Comments Sodium (135-145) mmol/L Potassium (3.3-5.1) mmol/L Chloride (96-108) mmol/L Carbon Dioxide (22-29) mmol/L Anion Gap (12-20) BUN (9-16) mg/dL Creatinine (0.5-1.4) mg/dL Estim Creat Clear Calc Estimated GFR Random Glucose (60-115) mg/dL Calcium (8.4-10.2) mg/dL Magnesium (1.6-2.6) mg/dL Total Bilirubin (0.0-1.0) mg/dL AST (5-31) U/L ALT (0-31) U/L Alkaline Phosphatase (39-117) U/L Troponin I High Sens (<3.5-17.0) ng/L Total Protein (6.5-8.0) g/dL Albumin (3.5-5.0) g/dL Urine Color Yellow Urine Appearance Cloudy Urine pH 6.5 (5.0-9.0) Ur Specific [place] 1.015 (1.005-1.025) Urine Protein 100 (2+) H (Neg-Trace) mg/dL Urine Glucose (UA) 500 H (Negative) mg/dL Urine Ketones 15 (Negative) mg/dL Urine Blood Trace H (Negative) Urine Nitrite Negative (Negative) Ur Leukocyte Esterase Negative (Negative) Urine RBC 0-2 (0-2) /HPF Urine WBC 6-10 (0-5) /HPF Ur Squamous Epith Cells 0-2 (0-2) /HPF Urine Bacteria 4+ (None Seen) Hyaline Casts 0-2 (0-2) /LPF Urine Opiates Screen Not Detected (Not Detect) Urine Fentanyl Screen Not Detected (Not Detect) Ur Barbiturates Screen Not Detected (Not Detect) Ur Phencyclidine Scrn Not Detected (Not Detect) Ur Amphetamines Screen Not Detected (Not Detect) U Benzodiazepines Scrn POSITIVE H (Not Detect) Urine Cocaine Screen Not Detected (Not Detect) U Marijuana (THC) Screen POSITIVE H (Not Detect) Ethyl Alcohol mg/dL ECG Data Attestation: I personally reviewed and interpreted this ECG as follows: Prior ECG tracings: available for review Interpretation: Vent. Rate: 065 BPM ? ? Atrial Rate: 227 BPM P-R Int: 104 ms? QRS Dur: 096 ms QT Int: 462 ms ? ? ? P-R-T Axes: 163 027 030 degrees QTc Int: 480 ms ? Undetermined rhythm Septal infarct , age undetermined Cannot rule out Inferior infarct , age undetermined Abnormal ECG When compared with ECG of 29-NOV-2016 18:37, Current undetermined rhythm precludes rhythm comparison, needs review Minimal criteria for Inferior infarct are now Present ? DD/ [id number] Discharge Plan Discharge Clinical Impression: Nausea, Hypertension Patient Disposition: Home, Self-Care Instructions: Acute Nausea and Vomiting (ED), Hypertension (ED) Additional Instructions: Follow up with your primary care provider. Return to the emergency department immediately if your symptoms worsen or if you develop any dizziness, shortness of breath, difficulty breathing, chest pain, blurry vision, loss of vision, nausea, vomiting, abdominal pain, fever, chills, back pain, or any other complaints. Prescriptions: New promethazine 12.5 mg suppository 12.5 mg NM TID PRN (Reason: nausea and vomiting) Qty: 12 0RF Rx Instructions: do not give 3rd daily dose after evening meal or within 4hr before bed No Action amlodipine 5 mg tablet 5 mg PO DAILY 90 Days Qty: 90 0RF gabapentin 100 mg capsule 100 mg PO TID 30 Days Qty: 90 2RF losartan 50 mg tablet 50 mg PO DAILY 90 Days Qty: 90 1RF dexamethasone 4 mg tablet 4 mg PO .COMPLEX 9 Days Qty: 18 0RF Rx Instructions: 4 mg orally 3 times a day for 3 days, twice a day for 3 days, daily for 3 days; alprazolam 0.5 mg tablet 0.5 mg PO BID PRN (Reason: anxiety) 30 Days Qty: 60 0RF omeprazole 20 mg capsule,delayed release(DR/EC) 20 mg PO DAILY Qty: 90 1RF tramadol 50 mg tablet 50 mg PO BID PRN (Reason: pain) 14 Days Qty: 14 0RF meloxicam 15 mg tablet 15 mg PO DAILY 30 Days Qty: 30 0RF albuterol sulfate 90 mcg/actuation aerosol powdr breath activated 1 inh inhalation Q4-6H PRN (Reason: shortness of breath or wheezing) 30 Days Qty: 1 1RF cyclobenzaprine 10 mg tablet 10 mg PO BEDTIME Qty: 14 0RF Referrals: Raffaele Desir, [employer] [Primary Care Provider] - Interventions: ED Discharge Assessment Last Done: 01/19/22 21:15 Discharge Date/Time: 01/19/22 21:16 Print Language: [place]an
--- NOTE | 2022-01-19 17:05 | ECG_ITS ---
Test Reason : NAUSEA Blood Pressure : / mmHG Vent. Rate : 065 BPM Atrial Rate : 227 BPM P-R Int : 104 ms QRS Dur : 096 ms QT Int : 462 ms P-R-T Axes : 163 027 030 degrees QTc Int : 480 ms Poor data quality, interpretation may be adversely affected Normal sinus rhythm Septal infarct , age undetermined Abnormal ECG When compared with ECG of 29-NOV-2016 18:37, No significant change was found Referred By: Justyna Gómez Electronically Signed By:JOSÉ MANUEL JARAMILLO
[2022-01-19] MEDS: Metoprolol Tartrate 5 MG/5 ML VIAL 2.5 MG IVPUSH (17:29)
[2022-01-19 17:32] LABS: Basophils Percent Auto 0.4 % (0-2); Hematocrit 32.3 % (37.0-47.0); Hemoglobin 10.5 g/dl (12.0-16.0); Imm Gran Abs Auto 0.05 X10*3/uL (0.00-0.03); Imm Gran Pct Auto 0.7 % (0.0-0.4); Lymphocytes Absolute Auto 0.4 X10*3/uL (1.2-4.9); MANUAL DIFF FLAG SCAN; Mean Corpuscular HGB Conc 32.5 g/dl (31.0-35.0); Mean Corpuscular Hemoglobin 27.9 pg (27.0-33.0); Mean Corpuscular Volume 85.7 fL (80.0-98.0); Mean Platelet Volume 9.4 fL (9.4-12.3); Monocytes Absolute Auto 0.2 X10*3/uL (0.1-1.2); Monocytes Percent Auto 2.4 % (2-11); Neutrophils Absolute Auto 6.5 x10*3/uL (2.0-8.3); Neutrophils Percent Auto 90.5 % (45-73); Platelet Count 199 X10*3/uL (160-400); Red Blood Count 3.77 X10*6/uL (4.20-5.50); Red Cell Distribution Width 19.1 % (11.0-16.0); SCAN SMEAR FLAG 1; White Blood Count 7.2 X10*3/uL (4.8-10.8)
[2022-01-19] MEDS: 0.9 % Sodium Chloride 500 ML IV (17:33)
[2022-01-19 17:50] LABS: SLIDE REVIEW VERIFIED
[2022-01-19 17:55] LABS: Troponin-I High Sensitivity < 3.5 ng/L (<3.5-17.0)
[2022-01-19 18:31] LABS: Alanine Aminotransferase 20 U/L (0-31); Albumin Level 4.6 g/dL (3.5-5.0); Alkaline Phosphatase 107 U/L (39-117); Anion Gap 21 (12-20); Aspartate Amino Transferase 40 U/L (5-31); Blood Urea Nitrogen 10 mg/dL (9-16); Calcium 9.4 mg/dL (8.4-10.2); Carbon Dioxide 17 mmol/L (22-29); Chloride 99 mmol/L (96-108); Creatinine Clr Calc Pharmacy 59.9; Estimated Glomerular Filt Rate > 60; Glucose Random 136 mg/dL (60-115); Magnesium 1.5 mg/dL (1.6-2.6); Potassium 3.8 mmol/L (3.3-5.1); Sodium 133 mmol/L (135-145); Total Protein 8.2 g/dL (6.5-8.0)
[2022-01-19] MEDS: LORazepam 1 MG TABLET 2 MG PO (18:46)
[2022-01-19] MEDS: Magnesium Oxide 400 MG TABLET 800 MG PO (18:46)
[2022-01-19 18:54] VITALS: BP 227/105; PULSE 68
[2022-01-19 19:13] LABS: Appearance Urine Cloudy; Color Urine Yellow; Glucose Urine UA 500 mg/dL (Negative); Leukocyte Esterase Urine Negative (Negative); Nitrite Urine Negative (Negative); PH 6.5 (5.0-9.0); Specific Gravity - Urine 1.015 (1.005-1.025); UMIC TRIGGER UACC YES; Urine Blood Trace (Negative); Urine Ketones 15 mg/dL (Negative); Urine Protein 100 (2+) mg/dL (Neg-Trace)
[2022-01-19 19:25] LABS: Ethanol < 10 mg/dL
[2022-01-19 19:27] LABS: Amphetamine Screen Urine Not Detected (Not Detect); Barbiturates, Urine Not Detected (Not Detect); Benzodiazepines Screen Urine POSITIVE (Not Detect); Cannabinoid Screen Urine POSITIVE (Not Detect); Cocaine Screen Urine Not Detected (Not Detect); Fentanyl, urine Not Detected (Not Detect); Opiate Screen Urine Not Detected (Not Detect); Phencyclidine Screen Urine Not Detected (Not Detect)
[2022-01-19 19:30] LABS: Bacteria Urine 4+ (None Seen); Hyaline Casts Urine 0-2 /LPF (0-2); RBC Urine 0-2 /HPF (0-2); Squamous Epithelial Cell Urine 0-2 /HPF (0-2); UACC Culture Trigger YES
--- NOTE | 2022-01-19 19:33 | PC.NURSE ---
Pt refused PO amlodipine and losartan due to nausea and vomiting after taking the PO meds prior.
[2022-01-19] MEDS: Metoprolol Tartrate 5 MG/5 ML VIAL IVPUSH (19:37)
[2022-01-19 19:39] VITALS: BP 220/98; PULSE 69; RESP 18; O2SAT 99
[2022-01-19 20:10] VITALS: BP 196/99; PULSE 74; RESP 18; O2SAT 100
== END 2022-01-19 21:16 | disposition home or self-care (01) ==
PROVIDERS: Physician Assistant Medical; Emergency Provider Internal Medicine; PCP Nurse Practitioner Family
DX: R11.2 Nausea with vomiting, unspecified (principal); I10 Essential (primary) hypertension; F17.210 Nicotine dependence, cigarettes, uncomplicated; Z71.6 Tobacco abuse counseling; Z79.899 Other long term (current) drug therapy
CPT/HCPCS: 36415; 80053; 80307; 81001; 82077; 83735; 84484; 85025; 87086; 87088; 87186; 93005; 96374; 96375; 99285; J2550

== ENCOUNTER 2022-01-21 09:26 | Inpatient (IN) | payer OTHER, SELFPAY ==
[2022-01-21] VITALS (12 sets, daily range): BP systolic 128–228; BP diastolic 73–115; PULSE 67–98; RESP 17–23; TEMP 36.7–37.2; O2SAT 97–100; BMI 24.0
--- NOTE | ~2022-01-21 | CT_ITS ---
EXAMINATION: CT ABDOMEN AND PELVIS WITHOUT CONTRAST CLINICAL INFORMATION: Epigastric pain COMPARISON: 03/05/2017 TECHNIQUE: Multidetector volumetric imaging was performed from the superior aspect of the liver through the pubic symphysis. Sagittal and coronal reformatted images were obtained on the technologist's workstation. This CT examination was performed using dose optimization techniques as appropriate, variously including the following: *Automated exposure control *Adjustment of mA and/or kV according to patient size (this includes techniques or standardized protocols for targeted exams where dose is matched to indication/reason for exam; i.e. extremities or head) *Use of iterative reconstruction technique DLP: 479 mGy-cm FINDINGS: LUNG BASES: The visualized lung bases are unremarkable. LIVER, GALLBLADDER, AND BILIARY TREE: Nodular hepatic surface contour. Diffuse hepatic steatosis. No focal liver lesions. No intra or extra hepatic biliary dilatation. PANCREAS: Unremarkable. SPLEEN: Unremarkable. ADRENAL GLANDS: Unremarkable. KIDNEYS AND URETERS: The kidneys are normal in size, shape, and attenuation. No hydronephrosis, hydroureter, or calculi seen. Mild bilateral perinephric fat stranding. BLADDER: Unremarkable. GASTROINTESTINAL TRACT: Scattered colonic diverticula. No evidence of diverticulitis. Normal appendix. ABDOMINAL WALL: No significant hernia is appreciated. LYMPH NODES: Normal. VASCULAR: Unremarkable. PELVIC VISCERA: Uterus and adnexa unremarkable. OSSEOUS STRUCTURES: No acute or suspicious osseous abnormalities. Endplate osteophytes present throughout the lumbar spine with accompanying loss of disc space height at L4-L5 and L5-S1. CT/CT abdomen pelvis wo IV con IMPRESSION: * Hepatic steatosis. Lobular hepatic surface contour suggesting developing cirrhosis. * Nonspecific mild bilateral perinephric fat stranding could reflect pyelonephritis. Please correlate with urinalysis. * Scattered colonic diverticula without evidence of diverticulitis.
--- NOTE | ~2022-01-21 | US_ITS ---
EXAMINATION: US RETROPERITONEAL COMPLETE (RENAL) CLINICAL INFORMATION: MARK. COMPARISON: CT abdomen and pelvis without contrast 01/21/2022. Ultrasound abdomen complete 08/14/2016 and 05/12/2012. TECHNIQUE: Real-time imaging of the kidneys and bladder. FINDINGS: RIGHT KIDNEY: 9.5 x 5.1 x 3.8 cm (SAG x AP x TRV). The kidney is normal in size, contour, and echogenicity. Renal cortical thickness is normal. No calculi or focal parenchymal lesions. No hydronephrosis. LEFT KIDNEY: 10.2 x 4.5 x 4.1 cm (SAG x AP x TRV). The kidney is normal in size, contour, and echogenicity. Renal cortical thickness is normal. No calculi or focal parenchymal lesions. No hydronephrosis. BLADDER: Well distended and normal. Bilateral ureteral jets are demonstrated. Prevoid bladder volume is 169.0 mL. Postvoid bladder volume is 0.6 mL. US/US retroperitoneal comp IMPRESSION: Unremarkable renal ultrasound.
--- NOTE | ~2022-01-21 | XR_ITS ---
EXAMINATION: XR CHEST CLINICAL INFORMATION: Vomiting. COMPARISON: Rib radiographs dated 11/23/2020. TECHNIQUE: Frontal view of the chest was obtained. FINDINGS: The lungs show several calcified granulomas without significant change, but otherwise are clear. The heart and mediastinal structures are unremarkable. XR/XR chest 1V IMPRESSION: Right lung calcified granulomas without significant change. No acute cardiopulmonary process.
--- NOTE | 2022-01-21 09:32 | ED.NAVMDI ---
HPI - Nausea/Vomiting/Diarrhea General Chief complaint: Nausea/Vomiting/Diarrhea Stated complaint: Vomiting Chills Time Seen by Provider: 01/21/22 09:32 Source: patient, EMS and old records reviewed Mode of arrival: EMS Limitations: no limitations History of Present Illness HPI Narrative: 51 yo female with hx of HTN - compliant with all of her blood pressure medications, daily drinker has not drank in 2 days, anxiety, asthma, GERD, here with c/o vomiting since this AM and shaking. Unable to take her BP medications this morning. States she normally takes them every day but has been dealing with vomiting. MD elicited complaint: nausea, vomiting and abdominal pain Pertinent past history: alcohol abuse Onset (ago): hour(s) (3) Description of vomiting: food contents and watery Associated nausea: Yes Associated abdominal pain: Yes Location of pain: epigastric Radiation: epigastric Pain consistency: constant Severity: moderate Quality: aching and constant Exacerbating factors: eating Relieving factors: none Context: alcohol abuse Associated symptoms: loss of appetite, malaise, nausea/vomiting, weakness and anxiety Treatment prior to arrival: other (omeprazole, gabapentin) Related Data Home Medications Medication Instructions Recorded Confirmed gabapentin 100 mg capsule 100 mg PO DAILY 01/21/22 01/21/22 Previous Rx's Medication Instructions Recorded albuterol sulfate 90 mcg/actuation 1 inh inhalation Q4-6H PRN 08/20/20 breath activated powder inhaler shortness of breath or wheezing 30 days #1 ea amlodipine 5 mg tablet 5 mg PO DAILY 90 days #90 tabs 07/31/21 losartan 50 mg tablet 50 mg PO DAILY 90 days #90 tabs 10/03/21 omeprazole 20 mg capsule,delayed 20 mg PO DAILY #90 caps 01/02/22 release tramadol 50 mg tablet 50 mg PO BID PRN pain 14 days #14 01/06/22 tabs meloxicam 15 mg tablet 15 mg PO DAILY 30 days #30 tabs 01/13/22 alprazolam 0.5 mg tablet 0.5 mg PO BID PRN anxiety 30 days 01/20/22 #60 tabs Allergies Allergy/AdvReac Type Severity Reaction Status Date / Time No Known Allergies Allergy Verified 12/05/21 14:16 Review of Systems Review of Systems: Constitutional : No Weight loss, No Fever, No Chills ENT/Mouth : No sore throat, No Rhinorrhea Eyes: No Swelling, No Redness Cardiovascular : No Chest Pain, No SOB, NoEdema Respiratory : No Cough, No Sputum, No Wheezing Gastrointestinal : Positive Nausea, Positive Vomiting, no Diarrhea, positive abdominal Pain, No Hematochezia, No Melena Genitourinary : No Dysuria, No Urinary Frequency, No Hematuria, No Urgency Musculoskeletal : No joint pain, No Myalgias, No Joint Swelling Skin : No Skin Lesions, No rash Neuro : pos Weakness, No Numbness, No Dizziness, No Headache Psych : pos Anxiety/Panic, No Depression Heme/Lymph: No Bruising, No Lymphadenopathy Endocrine : No Polyuria, No Polydipsia All other systems reviewed and are negative. Gastrointestinal: Gastrointestinal: Reports nausea PMFSH Past Medical History Attestation statement: The following information was validated with the patient. Source: old records reviewed Medical History Hypertension Seborrheic keratosis Surgical History History of facial surgery Family History Family History Maternal Grandmother Mental health disorder Social History Social History Housing: House Alcohol intake: current Alcohol intake frequency: 3 or more drinks per day Alcohol type: beer and hard liquor Patient Tobacco Use Status: Current everyday Tobacco user Cigarettes Per Day: 7 e-Cigarette/Vaping Use: Never Used Second Hand Smoke Exposure: No Use of substances other than those prescribed or required for medical reasons: No Advance Directives: No Patient : No Current occupational status: unemployed Cognitive needs: No Hearing needs: No Vision needs: Yes Physical Exam Vital Signs: Vital Signs: Last Vital Signs Temp 98.1 F 01/21/22 10:27 Pulse 84 01/21/22 14:56 Resp 19 01/21/22 12:09 BP 170/87 H 01/21/22 14:56 Pulse Ox 100 01/21/22 12:09 O2 Del Method 01/21/22 12:09 BMI result Body Mass Index 24.0 Appearance: Alert. Oriented X3. anxious, moderate acute distress. Eyes: Pupils equal, round and reactive to light. ENT: Pharynx with dry MM, tongue fasciculations Neck: Normal inspection. Neck supple. CVS: Normal heart rate and rhythm. Pulses normal. Respiratory: No respiratory distress. Breath sounds normal. Abdomen: Soft and mild epigastric pain no rebound or guarding Skin: Skin warm and dry. pale skin color. Normal skin turgor. Extremities: No lower extremity edema. No calf ttp Neuro: Oriented X 3. No motor deficit. No sensory deficit. tremors in both hands Course Course Course Narrative: CT scan for lipase - possible pancreatitis IV labetalol for blood pressure planned admit for HTN and alcohol withdrawal magnesium already ordered likely contaminated UA nonspecific stranding on CT scan possibly related to MARK denies urinary symptoms no WBC count afebrile MDM - Nausea/Vomiting/Diarrhea MDM Narrative Medical decision making narrative: 51 yo female with hx of HTN and ETOH abuse here with c/o HTN, vomiting - she has tremors in both hands as well as tongue fasciculations - concerning for ETOH withdrawal. At this time labs, IVF x 2L, IV versed, magnesium and thiamine ordered. will start on phenobarb protocol. If the patient is not responding to anxiolytics will dose with labetalol anticipate admit. Lab Data Result diagrams: 01/21/22 10:07 01/21/22 10:07 Labs: Lab Results 01/21/22 01/21/22 01/21/22 Range/Units 09:59 10:07 10:07 WBC 9.1 (4.8-10.8) X10*3/uL RBC 3.71 L (4.20-5.50) X10*6/uL Hgb 10.3 L (12.0-16.0) g/dl Hct 31.9 L (37.0-47.0) % MCV 86.0 (80.0-98.0) fL MCH 27.8 (27.0-33.0) pg MCHC 32.3 (31.0-35.0) g/dl RDW 19.6 H (11.0-16.0) % Plt Count 182 (160-400) X10*3/uL MPV 9.1 L (9.4-12.3) fL Immature Gran % (Auto) 0.7 H (0.0-0.4) % Neut % (Auto) 82.8 H (45-73) % Lymph % (Auto) 10.2 L (20-40) % [place] % (Auto) 5.7 (2-11) % Eos % (Auto) 0.0 (0-4) % Baso % (Auto) 0.6 (0-2) % Lymph # (Auto) 0.9 L (1.2-4.9) X10*3/uL [place] # (Auto) 0.5 (0.1-1.2) X10*3/uL Eos # (Auto) 0.0 (0.0-0.4) X10*3/uL Baso # (Auto) 0.1 (0.0-0.2) X10*3/uL Abs Immat Gran (auto) 0.06 H (0.00-0.03) X10*3/uL Absolute Neuts (auto) 7.5 (2.0-8.3) x10*3/uL Absolute Nucleated RBC 0.000 (0.0-0.012) X10*3/uL Nucleated RBC % (auto) 0.0 (0.0-0.2) /100WBC PT (10.0-13.1) SEC INR (0.9-1.1) APTT (26.0-36.4) SEC Sodium 129 L (135-145) mmol/L Potassium 3.5 (3.3-5.1) mmol/L Chloride 92 L (96-108) mmol/L Carbon Dioxide 19 L (22-29) mmol/L Anion Gap 22 H (12-20) BUN 19 H D (9-16) mg/dL Creatinine 2.45 H (0.5-1.4) mg/dL Estim Creat Clear Calc 24.0 Estimated GFR 21 Random Glucose 133 H (60-115) mg/dL Calcium 10.3 H D (8.4-10.2) mg/dL Magnesium 1.5 L (1.6-2.6) mg/dL Total Bilirubin 1.5 H (0.0-1.0) mg/dL Direct Bilirubin 0.6 H (0.0-0.5) mg/dL AST 99 H (5-31) U/L ALT 32 H (0-31) U/L Alkaline Phosphatase 112 (39-117) U/L Total Creatine Kinase 94 (26-140) U/L Troponin I High Sens (<3.5-17.0) ng/L Total Protein 8.9 H (6.5-8.0) g/dL Albumin 5.2 H (3.5-5.0) g/dL Lipase 150 H (8-78) U/L Urine Color Urine Appearance Urine pH (5.0-9.0) Ur Specific [place] (1.005-1.025) Urine Protein (Neg-Trace) mg/dL Urine Glucose (UA) (Negative) mg/dL Urine Ketones (Negative) mg/dL Urine Blood (Negative) Urine Nitrite (Negative) Ur Leukocyte Esterase (Negative) Urine RBC (0-2) /HPF Urine WBC (0-5) /HPF Ur Squamous Epith Cells (0-2) /HPF Urine Bacteria (None Seen) Hyaline Casts (0-2) /LPF Urine Test (NEGATIVE) Urine Opiates Screen (Not Detect) Urine Fentanyl Screen (Not Detect) Ur Barbiturates Screen (Not Detect) Ur Phencyclidine Scrn (Not Detect) Ur Amphetamines Screen (Not Detect) U Benzodiazepines Scrn (Not Detect) Urine Cocaine Screen (Not Detect) U Marijuana (THC) Screen (Not Detect) COVID-19 ([facility]) Negative (Negative) COVID-19 Clin Com See Note 01/21/22 01/21/22 01/21/22 Range/Units 10:07 10:07 11:34 WBC (4.8-10.8) X10*3/uL RBC (4.20-5.50) X10*6/uL Hgb (12.0-16.0) g/dl Hct (37.0-47.0) % MCV (80.0-98.0) fL MCH (27.0-33.0) pg MCHC (31.0-35.0) g/dl RDW (11.0-16.0) % Plt Count (160-400) X10*3/uL MPV (9.4-12.3) fL Immature Gran % (Auto) (0.0-0.4) % Neut % (Auto) (45-73) % Lymph % (Auto) (20-40) % [place] % (Auto) (2-11) % Eos % (Auto) (0-4) % Baso % (Auto) (0-2) % Lymph # (Auto) (1.2-4.9) X10*3/uL [place] # (Auto) (0.1-1.2) X10*3/uL Eos # (Auto) (0.0-0.4) X10*3/uL Baso # (Auto) (0.0-0.2) X10*3/uL Abs Immat Gran (auto) (0.00-0.03) X10*3/uL Absolute Neuts (auto) (2.0-8.3) x10*3/uL Absolute Nucleated RBC (0.0-0.012) X10*3/uL Nucleated RBC % (auto) (0.0-0.2) /100WBC PT 12.0 (10.0-13.1) SEC INR 1.0 (0.9-1.1) APTT 29.1 (26.0-36.4) SEC Sodium (135-145) mmol/L Potassium (3.3-5.1) mmol/L Chloride (96-108) mmol/L Carbon Dioxide (22-29) mmol/L Anion Gap (12-20) BUN (9-16) mg/dL Creatinine (0.5-1.4) mg/dL Estim Creat Clear Calc Estimated GFR Random Glucose (60-115) mg/dL Calcium (8.4-10.2) mg/dL Magnesium (1.6-2.6) mg/dL Total Bilirubin (0.0-1.0) mg/dL Direct Bilirubin (0.0-0.5) mg/dL AST (5-31) U/L ALT (0-31) U/L Alkaline Phosphatase (39-117) U/L Total Creatine Kinase (26-140) U/L Troponin I High Sens 6.1 D (<3.5-17.0) ng/L Total Protein (6.5-8.0) g/dL Albumin (3.5-5.0) g/dL Lipase (8-78) U/L Urine Color Yellow Urine Appearance Clear Urine pH 7.0 (5.0-9.0) Ur Specific [place] 1.010 (1.005-1.025) Urine Protein 30 (1+) H (Neg-Trace) mg/dL Urine Glucose (UA) 500 H (Negative) mg/dL Urine Ketones Trace (Negative) mg/dL Urine Blood Small (1+) H (Negative) Urine Nitrite Negative (Negative) Ur Leukocyte Esterase Trace H (Negative) Urine RBC 0-2 (0-2) /HPF Urine WBC 6-10 H (0-5) /HPF Ur Squamous Epith Cells 3-5 (0-2) /HPF Urine Bacteria 4+ (None Seen) Hyaline Casts 0-2 (0-2) /LPF Urine Test (NEGATIVE) Urine Opiates Screen (Not Detect) Urine Fentanyl Screen (Not Detect) Ur Barbiturates Screen (Not Detect) Ur Phencyclidine Scrn (Not Detect) Ur Amphetamines Screen (Not Detect) U Benzodiazepines Scrn (Not Detect) Urine Cocaine Screen (Not Detect) U Marijuana (THC) Screen (Not Detect) COVID-19 ([facility]) (Negative) COVID-19 Clin Com 01/21/22 01/21/22 Range/Units 11:34 11:34 WBC (4.8-10.8) X10*3/uL RBC (4.20-5.50) X10*6/uL Hgb (12.0-16.0) g/dl Hct (37.0-47.0) % MCV (80.0-98.0) fL MCH (27.0-33.0) pg MCHC (31.0-35.0) g/dl RDW (11.0-16.0) % Plt Count (160-400) X10*3/uL MPV (9.4-12.3) fL Immature Gran % (Auto) (0.0-0.4) % Neut % (Auto) (45-73) % Lymph % (Auto) (20-40) % [place] % (Auto) (2-11) % Eos % (Auto) (0-4) % Baso % (Auto) (0-2) % Lymph # (Auto) (1.2-4.9) X10*3/uL [place] # (Auto) (0.1-1.2) X10*3/uL Eos # (Auto) (0.0-0.4) X10*3/uL Baso # (Auto) (0.0-0.2) X10*3/uL Abs Immat Gran (auto) (0.00-0.03) X10*3/uL Absolute Neuts (auto) (2.0-8.3) x10*3/uL Absolute Nucleated RBC (0.0-0.012) X10*3/uL Nucleated RBC % (auto) (0.0-0.2) /100WBC PT (10.0-13.1) SEC INR (0.9-1.1) APTT (26.0-36.4) SEC Sodium (135-145) mmol/L Potassium (3.3-5.1) mmol/L Chloride (96-108) mmol/L Carbon Dioxide (22-29) mmol/L Anion Gap (12-20) BUN (9-16) mg/dL Creatinine (0.5-1.4) mg/dL Estim Creat Clear Calc Estimated GFR Random Glucose (60-115) mg/dL Calcium (8.4-10.2) mg/dL Magnesium (1.6-2.6) mg/dL Total Bilirubin (0.0-1.0) mg/dL Direct Bilirubin (0.0-0.5) mg/dL AST (5-31) U/L ALT (0-31) U/L Alkaline Phosphatase (39-117) U/L Total Creatine Kinase (26-140) U/L Troponin I High Sens (<3.5-17.0) ng/L Total Protein (6.5-8.0) g/dL Albumin (3.5-5.0) g/dL Lipase (8-78) U/L Urine Color Urine Appearance Urine pH (5.0-9.0) Ur Specific [place] (1.005-1.025) Urine Protein (Neg-Trace) mg/dL Urine Glucose (UA) (Negative) mg/dL Urine Ketones (Negative) mg/dL Urine Blood (Negative) Urine Nitrite (Negative) Ur Leukocyte Esterase (Negative) Urine RBC (0-2) /HPF Urine WBC (0-5) /HPF Ur Squamous Epith Cells (0-2) /HPF Urine Bacteria (None Seen) Hyaline Casts (0-2) /LPF Urine Test NEGATIVE (NEGATIVE) Urine Opiates Screen Not Detected (Not Detect) Urine Fentanyl Screen Not Detected (Not Detect) Ur Barbiturates Screen Not Detected (Not Detect) Ur Phencyclidine Scrn Not Detected (Not Detect) Ur Amphetamines Screen Not Detected (Not Detect) U Benzodiazepines Scrn POSITIVE H (Not Detect) Urine Cocaine Screen Not Detected (Not Detect) U Marijuana (THC) Screen POSITIVE H (Not Detect) COVID-19 ([facility]) (Negative) COVID-19 Clin Com Critical Care Time Critical Care Time Critical Care Time: Yes Total Critical Care Time: 60 Attestation: IVF< phenobarb protocol, repeat IV blood pressure medications, reassessments, admission I attest to this time spent taking care of the patient Discharge Plan Discharge Clinical Impression: Hypertension, uncontrolled, Hypomagnesemia, MARK (acute kidney injury), Elevated LFTs Alcohol withdrawal Qualifiers: Complication of substance-induced condition: uncomplicated Qualified Code(s): F10.930 - Alcohol use, unspecified with withdrawal, uncomplicated Vomiting Qualifiers: Vomiting type: unspecified Nausea presence: with nausea Qualified Code(s): R11.2 - Nausea with vomiting, unspecified Acute alcoholic gastritis Qualifiers: Gastritis bleeding: without bleeding Qualified Code(s): K29.20 - Alcoholic gastritis without bleeding Patient Disposition: Admitted As Inpatient
--- NOTE | 2022-01-21 09:38 | ECG_ITS ---
Test Reason : EPIGASTRIC PAIN Blood Pressure : / mmHG Vent. Rate : 072 BPM Atrial Rate : 072 BPM P-R Int : 130 ms QRS Dur : 082 ms QT Int : 404 ms P-R-T Axes : 045 035 038 degrees QTc Int : 442 ms Normal sinus rhythm with sinus arrhythmia Nonspecific ST abnormality Abnormal ECG When compared with ECG of 19-JAN-2022 17:32, Minimal criteria for Inferior infarct are no longer Present Referred By: Gricel Baer Electronically Signed By:JOSÉ MANUEL JARAMILLO
[2022-01-21 10:14] LABS: MANUAL DIFF FLAG NO
[2022-01-21 10:15] LABS: Basophils Absolute Auto 0.1 X10*3/uL (0.0-0.2); Basophils Percent Auto 0.6 % (0-2); Hematocrit 31.9 % (37.0-47.0); Hemoglobin 10.3 g/dl (12.0-16.0); Imm Gran Abs Auto 0.06 X10*3/uL (0.00-0.03); Imm Gran Pct Auto 0.7 % (0.0-0.4); Lymphocytes Absolute Auto 0.9 X10*3/uL (1.2-4.9); Lymphocytes Percent Auto 10.2 % (20-40); Mean Corpuscular HGB Conc 32.3 g/dl (31.0-35.0); Mean Corpuscular Hemoglobin 27.8 pg (27.0-33.0); Mean Platelet Volume 9.1 fL (9.4-12.3); Monocytes Absolute Auto 0.5 X10*3/uL (0.1-1.2); Monocytes Percent Auto 5.7 % (2-11); Neutrophils Absolute Auto 7.5 x10*3/uL (2.0-8.3); Neutrophils Percent Auto 82.8 % (45-73); Platelet Count 182 X10*3/uL (160-400); Red Blood Count 3.71 X10*6/uL (4.20-5.50); Red Cell Distribution Width 19.6 % (11.0-16.0); White Blood Count 9.1 X10*3/uL (4.8-10.8)
[2022-01-21] MEDS: 0.9 % Sodium Chloride 1,000 ML 999 ML IVCONT ×2 (10:17→11:56)
[2022-01-21] MEDS: Midazolam HCl/PF 2 MG/2 ML VIAL IVPUSH (10:19)
[2022-01-21] MEDS: Famotidine/PF 20 MG/2 ML VIAL IVPUSH (10:21)
--- NOTE | 2022-01-21 10:22 | PC.NURSE ---
Pt medicated per order for nausea and likely etoh withdrawal. Pt vomiting clear fluid and nauseated. IVF running. Warm blanket given.
[2022-01-21 10:35] LABS: Partial Thromboplastin Time 29.1 SEC (26.0-36.4)
[2022-01-21 10:38] LABS: Alanine Aminotransferase 32 U/L (0-31); Albumin Level 5.2 g/dL (3.5-5.0); Alkaline Phosphatase 112 U/L (39-117); Aspartate Amino Transferase 99 U/L (5-31); Bilirubin Direct 0.6 mg/dL (0.0-0.5); Bilirubin Total 1.5 mg/dL (0.0-1.0); Blood Urea Nitrogen 19 mg/dL (9-16); Calcium 10.3 mg/dL (8.4-10.2); Estimated Glomerular Filt Rate 21; Glucose Random 133 mg/dL (60-115); Lipase 150 U/L (8-78); Magnesium 1.5 mg/dL (1.6-2.6); Total Protein 8.9 g/dL (6.5-8.0)
[2022-01-21 10:39] LABS: Troponin-I High Sensitivity 6.1 ng/L (<3.5-17.0)
[2022-01-21 10:47] LABS: Anion Gap 22 (12-20); Carbon Dioxide 19 mmol/L (22-29); Chloride 92 mmol/L (96-108); Potassium 3.5 mmol/L (3.3-5.1); Sodium 129 mmol/L (135-145)
--- NOTE | 2022-01-21 11:10 | PHA.MEDREC ---
Pharmacy Consult ? Medication Reconciliation Pharmacy has completed the medication reconciliation.
[2022-01-21 11:12] LABS: COVID-19 Test Negative (Negative); IDNOW Serial# 55D5AD1C
[2022-01-21] MEDS: Magnesium Sulfate/H2O 2 GM/50 ML PIGGYBACK IV (11:25)
[2022-01-21] MEDS: PHENobarbitaL sodium 130 MG/ML IM ONCE 218.4 MG IM (11:25)
[2022-01-21 11:43] LABS: Appearance Urine Clear; Color Urine Yellow; Glucose Urine UA 500 mg/dL (Negative); Leukocyte Esterase Urine Trace (Negative); Nitrite Urine Negative (Negative); UMIC TRIGGER UACC YES; Urine Blood Small (1+) (Negative); Urine Ketones Trace mg/dL (Negative); Urine Protein 30 (1+) mg/dL (Neg-Trace)
[2022-01-21] MEDS: Labetalol HCL 100 MG/20 ML VIAL 10 MG IVPUSH ×2 (11:53→12:10)
[2022-01-21 11:54] LABS: Bacteria Urine 4+ (None Seen); Hyaline Casts Urine 0-2 /LPF (0-2); RBC Urine 0-2 /HPF (0-2); UACC Culture Trigger YES
[2022-01-21 12:05] LABS: Amphetamine Screen Urine Not Detected (Not Detect); Barbiturates, Urine Not Detected (Not Detect); Benzodiazepines Screen Urine POSITIVE (Not Detect); Cannabinoid Screen Urine POSITIVE (Not Detect); Cocaine Screen Urine Not Detected (Not Detect); Fentanyl, urine Not Detected (Not Detect); Opiate Screen Urine Not Detected (Not Detect); Phencyclidine Screen Urine Not Detected (Not Detect)
[2022-01-21] MEDS: Thiamine HCL 200 MG in 0.9 % Sodium Chloride 100 ML 204 MG IV (12:06)
[2022-01-21 12:46] LABS: UPreg QC Valid YES; Urine Pregnancy NEGATIVE (NEGATIVE)
[2022-01-21] MEDS: hydrALAZINE HCl 20 MG/ML VIAL 10 MG IVPUSH ×2 (12:50→13:54)
[2022-01-21] MEDS: PHENobarbitaL sodium 130 MG/ML VIAL IM Q3Hx2 165.1 MG IM ×2 (13:55→17:19)
--- NOTE | 2022-01-21 16:40 | P.HPHOSP_ITS ---
History of Present Illness Date of Service: 01/21/22 Attending physician on admission: Rosa Mora Chief Complaint: Alcohol withdrawal, persistent nausea vomiting, abdominal pain. 51-year-old female with past medical history of hypertension, alcohol use, anxiety, asthma, GERD-who said she was sober for 2-3 years and since July of this year she started again drinking alcohol( suercer ?beer /hard liquirs -6-7 drinks/day), smoker-patient last time drink on Thursday: She is having on and off nausea vomiting from 2-3 days, also has epigastric discomfort. She says that she is feeling anxious and tremulous. In addition her blood pressure was also significantly elevated. She denies any blood in the stool or in the vomitus. She is currently unable to eat also due to persistent nausea vomiting. In ED: Patient was found to have blood pressure 220 range, MARK, hyponatremia, hypomagnesemia. Mildly elevated liver function test and lipase. Abdominal CT possible hepatic steatosis. In ED patient received labetalol and hydralazine for blood pressure. Magnesium replacement, 2 L fluid for MARK: Seems to be improving. Review of Systems Review of Systems: Denies any new complaint of chest pain or shortness of breath or fever or chills. Denies any cough Denies any weakness or numbness. [facility] Medical History Hypertension Seborrheic keratosis Family History Maternal Grandmother Mental health disorder Pertinent family history: Patient's parents and brother all have htn. Surgical History History of facial surgery Social History Housing: House Alcohol intake: current Alcohol intake frequency: 3 or more drinks per day Alcohol type: beer and hard liquor Patient Tobacco Use Status: Current everyday Tobacco user Cigarettes Per Day: 7 e-Cigarette/Vaping Use: Never Used Second Hand Smoke Exposure: No Use of substances other than those prescribed or required for medical reasons: No Advance Directives: No Patient : No Current occupational status: unemployed Cognitive needs: No Hearing needs: No Vision needs: Yes Meds Allergies Allergy/AdvReac Type Severity Reaction Status Date / Time No Known Allergies Allergy Verified 12/05/21 14:16 Active Medications: Current Medications Albuterol Sulfate (Albuterol Sulfate 90 Mcg 8 Gm Inhaler) 1 puff INHALE Q4H PRN PRN Reason: shortness of breath or wheezing Alprazolam (Alprazolam 0.5 Mg Tablet) 0.5 mg PO BID PRN PRN Reason: anxiety Amlodipine Besylate (Amlodipine Besylate 5 Mg Tablet) 5 mg PO DAILY [facility]; Protocol Enoxaparin Sodium (Enoxaparin Sodium 40 Mg/0.4 Ml Syringe) 40 mg SUBCUT DAILY [facility] Folic Acid (Folic Acid 1 Mg Tablet) 1 mg PO DAILY [facility] Gabapentin (Gabapentin 100 Mg Capsule) 100 mg PO DAILY [facility] Thiamine HCl 100 mg/ Sodium (Chloride) 101 mls @ 202 mls/hr IV DAILY [facility] Ondansetron HCl (Ondansetron Hcl 4 Mg/2 Ml Vial) 4 mg IVPUSH Q6H [facility] Pantoprazole Sodium (Pantoprazole Sodium 40 Mg/10 Ml Vial) 40 mg IVPUSH BID@0630,1630 [facility] Pharmacy Consult (Consult Rx Perform Med Rec) 1 each MISCELLANE ONCE PRN PRN Reason: Consult order Pharmacy Consult (Consult Rx Etoh Phenob Im/Po) 1 each MISCELLANE ONCE PRN; Protocol PRN Reason: Consult order Phenobarbital (Phenobarbital 15 Mg Tablet) 45 mg PO BID [facility]; Protocol Stop: 01/23/22 09:01 Phenobarbital (Phenobarbital 15 Mg Tablet) 15 mg PO BID [facility] Stop: 01/25/22 09:01 Phenobarbital (Phenobarbital 15 Mg Tablet) 15 mg PO DAILY [facility]; Protocol Stop: 01/27/22 09:01 Sodium Chloride (0.9 % Sodium Chloride Flush 3 Ml Syringe) 3 ml IVFLUSH QSHIFT [facility] Home Medications Medication Instructions Recorded Confirmed Last Taken Type gabapentin 100 mg capsule 100 mg PO DAILY 01/21/22 01/21/22 01/21/22 History Physical Exam Vital Signs and Narrative: Vital Signs: Last Vital Signs Temp 98.1 F 01/21/22 10:27 Pulse 84 01/21/22 14:56 Resp 19 01/21/22 12:09 BP 170/87 H 01/21/22 14:56 Pulse Ox 100 01/21/22 12:09 O2 Del Method 01/21/22 12:09 BMI result Body Mass Index 24.0 Appearance: Alert.? Oriented X3.? not in distress.? Eyes: Pupils equal, round and reactive to light.? Sclera nonicteric.? ENT: Pharynx normal.?dry mucous membranes. cvs: rrr, [id number] . res: clear to auscultation ,no rhonchii or wheezing abd: no rebound or guarding ,mild epigastric discomfort, bs present. ext pulses present , no cyanosis . neuro: axo3 , nonfocal. Results Labs CBC and Chem 7: 01/21/22 10:07 01/21/22 10:07 Labs: Laboratory Results - last 24 hr 01/21/22 01/21/22 01/21/22 09:59 10:07 10:07 MCV 86.0 MCH 27.8 MCHC 32.3 RDW 19.6 H Plt Count 182 MPV 9.1 L Immature Gran % (Auto) 0.7 H Neut % (Auto) 82.8 H Lymph % (Auto) 10.2 L [place] % (Auto) 5.7 Eos % (Auto) 0.0 Baso % (Auto) 0.6 Lymph # (Auto) 0.9 L [place] # (Auto) 0.5 Eos # (Auto) 0.0 Baso # (Auto) 0.1 Abs Immat Gran (auto) 0.06 H Absolute Neuts (auto) 7.5 Absolute Nucleated RBC 0.000 Nucleated RBC % (auto) 0.0 PT INR APTT Anion Gap 22 H Estim Creat Clear Calc 24.0 Estimated GFR 21 Random Glucose 133 H Calcium 10.3 H D Magnesium 1.5 L Total Bilirubin 1.5 H Direct Bilirubin 0.6 H AST 99 H ALT 32 H Alkaline Phosphatase 112 Total Creatine Kinase 94 Troponin I High Sens Total Protein 8.9 H Albumin 5.2 H Lipase 150 H Urine Color Urine Appearance Urine pH Ur Specific Bow Urine Protein Urine Glucose (UA) Urine Ketones Urine Blood Urine Nitrite Ur Leukocyte Esterase Urine RBC Urine WBC Ur Squamous Epith Cells Urine Bacteria Hyaline Casts Urine Test Urine Opiates Screen Urine Fentanyl Screen Ur Barbiturates Screen Ur Phencyclidine Scrn Ur Amphetamines Screen U Benzodiazepines Scrn Urine Cocaine Screen U Marijuana (THC) Screen COVID-19 ([facility]) Negative COVID-19 Clin Com See Note 01/21/22 01/21/22 01/21/22 10:07 10:07 11:34 MCV MCH MCHC RDW Plt Count MPV Immature Gran % (Auto) Neut % (Auto) Lymph % (Auto) [place] % (Auto) Eos % (Auto) Baso % (Auto) Lymph # (Auto) [place] # (Auto) Eos # (Auto) Baso # (Auto) Abs Immat Gran (auto) Absolute Neuts (auto) Absolute Nucleated RBC Nucleated RBC % (auto) PT 12.0 INR 1.0 APTT 29.1 Anion Gap Estim Creat Clear Calc Estimated GFR Random Glucose Calcium Magnesium Total Bilirubin Direct Bilirubin AST ALT Alkaline Phosphatase Total Creatine Kinase Troponin I High Sens 6.1 D Total Protein Albumin Lipase Urine Color Yellow Urine Appearance Clear Urine pH 7.0 Ur Specific Bow 1.010 Urine Protein 30 (1+) H Urine Glucose (UA) 500 H Urine Ketones Trace Urine Blood Small (1+) H Urine Nitrite Negative Ur Leukocyte Esterase Trace H Urine RBC 0-2 Urine WBC 6-10 H Ur Squamous Epith Cells 3-5 Urine Bacteria 4+ Hyaline Casts 0-2 Urine Test Urine Opiates Screen Urine Fentanyl Screen Ur Barbiturates Screen Ur Phencyclidine Scrn Ur Amphetamines Screen U Benzodiazepines Scrn Urine Cocaine Screen U Marijuana (THC) Screen COVID-19 ([facility]) COVID-19 Clin Com 01/21/22 01/21/22 11:34 11:34 MCV MCH MCHC RDW Plt Count MPV Immature Gran % (Auto) Neut % (Auto) Lymph % (Auto) [place] % (Auto) Eos % (Auto) Baso % (Auto) Lymph # (Auto) [place] # (Auto) Eos # (Auto) Baso # (Auto) Abs Immat Gran (auto) Absolute Neuts (auto) Absolute Nucleated RBC Nucleated RBC % (auto) PT INR APTT Anion Gap Estim Creat Clear Calc Estimated GFR Random Glucose Calcium Magnesium Total Bilirubin Direct Bilirubin AST ALT Alkaline Phosphatase Total Creatine Kinase Troponin I High Sens Total Protein Albumin Lipase Urine Color Urine Appearance Urine pH Ur Specific Bow Urine Protein Urine Glucose (UA) Urine Ketones Urine Blood Urine Nitrite Ur Leukocyte Esterase Urine RBC Urine WBC Ur Squamous Epith Cells Urine Bacteria Hyaline Casts Urine Test NEGATIVE Urine Opiates Screen Not Detected Urine Fentanyl Screen Not Detected Ur Barbiturates Screen Not Detected Ur Phencyclidine Scrn Not Detected Ur Amphetamines Screen Not Detected U Benzodiazepines Scrn POSITIVE H Urine Cocaine Screen Not Detected U Marijuana (THC) Screen POSITIVE H COVID-19 ([facility]) COVID-19 Clin Com ECG Attestation: I personally reviewed and interpreted this ECG as follows: (nsr@72 bpm) Imaging Radiologist's Impressions: Impressions Chest X-Ray 01/21/22 10:12 IMPRESSION: Right lung calcified granulomas without significant change. No acute cardiopulmonary process. Abdomen/Pelvis CT 01/21/22 13:57 IMPRESSION: * Hepatic steatosis. Lobular hepatic surface contour suggesting developing cirrhosis. * Nonspecific mild bilateral perinephric fat stranding could reflect pyelonephritis. Please correlate with urinalysis. * Scattered colonic diverticula without evidence of diverticulitis. Assessment and Plan (1) Alcohol withdrawal: Qualifiers: Complication of substance-induced condition: uncomplicated Qualified Code(s): F10.930 - Alcohol use, unspecified with withdrawal, uncomplicated Status: Acute (2) Hypertension, uncontrolled: Status: Acute (3) Hypomagnesemia: Status: Acute (4) MARK (acute kidney injury): Status: Acute (5) Elevated LFTs: Status: Acute (6) Acute alcoholic gastritis: Qualifiers: Gastritis bleeding: without bleeding Qualified Code(s): K29.20 - Alcoh olic gastritis without bleeding Status: Acute (7) Vomiting: Qualifiers: Nausea presence: with nausea Vomiting type: unspecified Qualified Code(s): R11.2 - Nausea with vomiting, unspecified Status: Acute Plan 51-year-old female with past medical history of hypertension, alcohol use, anxiety, asthma, GERD-who said she was sober for 2-3 years and since July of this year she started again drinking alcohol. 1. Persistent nausea vomiting, epigastric discomfort.: Possibly related to alcoholic gastritis Given hydration, antiemetic, PPIs Continue hydration Gentle. 2. MARK with possible alcoholic ketoacidosis: Continue hydration Monitor BMP this evening. Hold the losartan and other medications that are nephrotoxic. 3. Uncontrolled hypertension: Received hydralazine and labetalol. Continue amlodipine and labetalol additional added. 4. Transaminitis mild: Possible related to alcohol use. Monitor LFT 5. Alcohol withdrawal: CIWA scale, thiamine, folic acid, phenobarb protocol. Addiction consult. 6 . Hypomagnesemia: Repleted monitor electrolytes closely. 7. Smoker: Placed on nicotine patch. 8. Hyponatremia: Possible related to fluid loss due to persistent nausea vomiting/alcohol use. Will add serum and urine osmolality and electrolytes, monitor BMP this morning. 9: Asthma: Stable Continue home medication. DVT prophylaxis: SubQ Lovenox Full code Considering alcohol withdrawal, MARK common controlled hypertension, electrolytic abnormalities patient will benefit -IV hydration, blood pressure monitoring, phenobarb protocol, electrolytic at replacements as well as monitoring and patient will benefit from 2 midnight stays. Quality Stroke Does the patient have a stroke diagnosis?: No VTE Prior VTE?: No VTE Risk Level:: Medical - low VTE Device Contraindication: N/A - Device Ordered VTE Drug Contraindication: N/A - Med Ordered
--- OUTSIDE RECORDS SUMMARY | 2022-01-21 16:41 | XMS_ITS | Continuity of Care Document ---
:1970 Author Organization [address], [address] [place] [address]- Care Team Providers Name Role Phone Raffaele Desir NP Primary Care Physician Encounter [facility] Date(s): 12/04/21 - 01/17/[address], [address] [place], [place] [address] Attending Physician: Delia MEJÍA, Santos Singh Referring Physician: Raffaele Desir NP Patient Care team information PersonnelName: Raffaele Desir NP Address: Address: [address] [place] [id number]
--- OUTSIDE RECORDS SUMMARY | 2022-01-21 16:41 | XMS_ITS | Continuity of Care Document ---
:1970 Author Organization [address], [address] [place] [address]- Care Team Providers Name Role Phone Raffaele Desir NP Primary Care Physician Encounter [facility] Date(s): 12/18/21 - 01/17/[address], [address] [place], [place] [address] Attending Physician: Admjules, Ar8 Admitting Physician: Admtr, Ar8 Referring Physician: Admtr, Ar8 Patient Care team information PersonnelName: Raffaele Desir NP Address: Address: [address] [place] [id number]
[2022-01-21] MEDS: ondansetron HCL 4 MG/2 ML VIAL IVPUSH (17:20)
[2022-01-21] MEDS: Nicotine 21 MG PATCH.TD24 TRANSDERMA (17:24)
--- NOTE | 2022-01-21 18:08 | PC.NURSE ---
Pt's BP noted to have one back up. MD notified and po labatalol ordered. When this RN went back togive po med pt sleeping and BP back in 160s systolic. notified and po labatalol held at this time.
[2022-01-21 18:45] LABS: Potassium Urine Random 21.1 mmol/L
[2022-01-21 18:51] LABS: Osmolality, Serum 275 mosm/kg (281-305)
[2022-01-21 18:53] LABS: Osmolality Urine 371 mosm/kg (373-1093)
[2022-01-21 20:19] LABS: Ethanol < 10 mg/dL
[2022-01-21 20:22] LABS: Anion Gap 19 (12-20); Blood Urea Nitrogen 16 mg/dL (9-16); Calcium 9.1 mg/dL (8.4-10.2); Carbon Dioxide 17 mmol/L (22-29); Chloride 97 mmol/L (96-108); Creatinine Clr Calc Pharmacy 34.9; Estimated Glomerular Filt Rate 32; Glucose Random 129 mg/dL (60-115); Potassium 3.4 mmol/L (3.3-5.1); Sodium 130 mmol/L (135-145)
[2022-01-21] MEDS: PHENobarbitaL 15 MG TABLET 45 MG PO (21:20)
[2022-01-21] MEDS: Labetalol HCL 100 MG TABLET PO (21:20)
[2022-01-21] MEDS: Prochlorperazine Edisylate 10 MG/2 ML VIAL 5 MG IVPUSH (21:50)
[2022-01-21] MEDS: hydrALAZINE HCl 20 MG/ML VIAL 5 MG IVPUSH (21:57)
[2022-01-21] MEDS: Acetaminophen 325 MG TABLET 650 MG PO (21:59)
[2022-01-21] MEDS: ALPRAZolam 0.5 MG TABLET PO (21:59)
--- NOTE | 2022-01-21 22:00 | PC.NURSE ---
Pt medicated by this float RN, BP improved, 128/73.
[2022-01-22] VITALS (7 sets, daily range): BP systolic 91–138; BP diastolic 57–77; PULSE 64–74; RESP 10–19; TEMP 36.2–37; O2SAT 98–100; BMI 24.0
[2022-01-22] MEDS: 0.9 % Sodium Chloride Flush 3 ML SYRINGE IVFLUSH ×2 (01:50→10:28)
[2022-01-22] MEDS: Pantoprazole Sodium 40 MG/10 ML VIAL IVPUSH ×2 (06:39→16:34)
[2022-01-22 07:19] LABS: Hematocrit 29.4 % (37.0-47.0); Hemoglobin 9.4 g/dl (12.0-16.0); Mean Corpuscular Hemoglobin 28.1 pg (27.0-33.0); Mean Corpuscular Volume 87.8 fL (80.0-98.0); Mean Platelet Volume 9.6 fL (9.4-12.3); Platelet Count 164 X10*3/uL (160-400); Red Blood Count 3.35 X10*6/uL (4.20-5.50); Red Cell Distribution Width 20.4 % (11.0-16.0); White Blood Count 7.3 X10*3/uL (4.8-10.8)
[2022-01-22 07:37] LABS: Alanine Aminotransferase 22 U/L (0-31); Albumin Level 4.5 g/dL (3.5-5.0); Alkaline Phosphatase 93 U/L (39-117); Anion Gap 18 (12-20); Aspartate Amino Transferase 56 U/L (5-31); Bilirubin Direct 0.5 mg/dL (0.0-0.5); Bilirubin Total 1.1 mg/dL (0.0-1.0); Blood Urea Nitrogen 24 mg/dL (9-16); Calcium 9.1 mg/dL (8.4-10.2); Carbon Dioxide 20 mmol/L (22-29); Chloride 96 mmol/L (96-108); Creatinine Clr Calc Pharmacy 25.5; Estimated Glomerular Filt Rate 23; Glucose Random 106 mg/dL (60-115); Potassium 3.2 mmol/L (3.3-5.1); Sodium 131 mmol/L (135-145); Total Protein 7.8 g/dL (6.5-8.0)
[2022-01-22 09:29] LABS: Magnesium 2.2 mg/dL (1.6-2.6)
[2022-01-22] MEDS: PHENobarbitaL 15 MG TABLET 45 MG PO ×2 (10:27→19:46)
[2022-01-22] MEDS: Thiamine HCL 100 MG TABLET PO (10:27)
[2022-01-22] MEDS: Labetalol HCL 100 MG TABLET PO (10:27)
[2022-01-22] MEDS: amLODIPine Besylate 5 MG TABLET PO (10:27)
[2022-01-22] MEDS: Gabapentin 100 MG CAPSULE PO (10:28)
[2022-01-22] MEDS: Folic Acid 1 MG TABLET PO (10:28)
[2022-01-22] MEDS: Nicotine 21 MG PATCH.TD24 TRANSDERMA (10:28)
[2022-01-22] MEDS: Lactated Ringers 1,000 ML 100 ML IVCONT (10:29)
[2022-01-22] MEDS: cefTRIAXone sodium 1 GM in 0.9 % Sodium Chloride 50 ML IV (10:29)
--- NOTE | 2022-01-22 11:34 | MHC.CM.PN ---
met with pt who is maggie silva an independent pt drives will; need to be seen by care team prior to dc
--- NOTE | 2022-01-22 15:21 | HO.PM.IMPN ---
Subjective Subjective Date of Service: 01/22/22 Interval History: mark , alcohol withdrawals Review of Systems Nausea vomiting seems to be improving, MARK somewhat worsening probably related to intractable nausea vomiting yesterday. Denies any abdominal pain or fever or chills or cough or phlegm. Physical Exam Vital Signs: Vital Signs: Last Vital Signs Temp 98.5 F 01/22/22 11:31 Pulse 64 01/22/22 11:31 Resp 14 01/22/22 11:31 BP 134/77 01/22/22 11:31 Pulse Ox 99 01/22/22 11:31 O2 Del Method 01/22/22 11:31 BMI result Body Mass Index 24.0 Appearance: Alert.? Oriented X3.tremers present cvs: rrr, [id number] . res: clear to auscultation ,no rhonchii or wheezing abd: no rebound or guarding ,mild epigastric discomfort improvin, bs present. ext pulses present , no cyanosis . neuro: axo3 , nonfocal. Objective Data Active Medications Albuterol Sulfate (Albuterol Sulfate 90 Mcg 8 Gm Inhaler) 1 puff INHALE Q4H PRN PRN Reason: shortness of breath or wheezing Alprazolam (Alprazolam 0.5 Mg Tablet) 0.5 mg PO BID PRN PRN Reason: anxiety Last Admin: 01/21/22 21:59 Dose: 0.5 mg Documented By: JAG Amlodipine Besylate (Amlodipine Besylate 5 Mg Tablet) 5 mg PO DAILY [facility]; Protocol Last Admin: 01/22/22 10:27 Dose: 5 mg Documented By: SAURABH Enoxaparin Sodium (Enoxaparin Sodium 40 Mg/0.4 Ml Syringe) 40 mg SUBCUT Q24H [facility] Folic Acid (Folic Acid 1 Mg Tablet) 1 mg PO DAILY [facility] Last Admin: 01/22/22 10:28 Dose: 1 mg Documented By: SAURABH Gabapentin (Gabapentin 100 Mg Capsule) 100 mg PO DAILY [facility] Last Admin: 01/22/22 10:28 Dose: 100 mg Documented By: SAURABH Ceftriaxone Sodium 1 gm/ (Sodium Chloride) 50 mls @ 100 mls/hr IV Q24H [facility] Last Infusion: 01/22/22 11:23 Dose: 0 mls/hr Documented By: SAURABH Lactated Ringer's (Lr) 1,000 mls @ 100 mls/hr IVCONT .Q10H [facility] Last Admin: 01/22/22 10:29 Dose: 100 mls/hr Documented By: SAURABH Labetalol HCl (Labetalol Hcl 100 Mg Tablet) 100 mg PO BID [facility]; Protocol Last Admin: 01/22/22 10:27 Dose: 100 mg Documented By: SAURABH Magnesium Oxide (Magnesium Oxide 400 Mg Tablet) 800 mg PO DAILY [facility] Nicotine (Nicotine 21 Mg Patch.Td24) 21 mg TRANSDERMA DAILY [facility] Last Admin: 01/22/22 10:28 Dose: 21 mg Documented By: SAURABH Ondansetron HCl (Ondansetron Hcl 4 Mg/2 Ml Vial) 4 mg IVPUSH Q6H PRN PRN Reason: nausea and vomiting Pantoprazole Sodium (Pantoprazole Sodium 40 Mg/10 Ml Vial) 40 mg IVPUSH BID@0630,1630 [facility] Last Admin: 01/22/22 06:39 Dose: 40 mg Documented By: ASYA Pharmacy Consult (Consult Rx Perform Med Rec) 1 each MISCELLANE ONCE PRN PRN Reason: Consult order Pharmacy Consult (Consult Rx Etoh Phenob Im/Po) 1 each MISCELLANE ONCE PRN; Protocol PRN Reason: Consult order Phenobarbital (Phenobarbital 15 Mg Tablet) 45 mg PO BID [facility]; Protocol Stop: 01/23/22 09:01 Last Admin: 01/22/22 10:27 Dose: 45 mg Documented By: SAURABH Phenobarbital (Phenobarbital 15 Mg Tablet) 15 mg PO BID [facility] Stop: 01/25/22 09:01 Phenobarbital (Phenobarbital 15 Mg Tablet) 15 mg PO DAILY [facility]; Protocol Stop: 01/27/22 09:01 Sodium Chloride (0.9 % Sodium Chloride Flush 3 Ml Syringe) 3 ml IVFLUSH QSHIFT [facility] Last Admin: 01/22/22 10:28 Dose: 3 ml Documented By: SAURABH Thiamine HCl (Thiamine Hcl 100 Mg Tablet) 100 mg PO DAILY [facility] Last Admin: 01/22/22 10:27 Dose: 100 mg Documented By: SAURABH Labs CBC & Chem 7: 01/22/22 07:00 01/22/22 07:00 Labs: Laboratory Results - last 24 hr 01/21/22 01/21/22 01/21/22 10:07 10:07 11:34 MCV MCH MCHC RDW Plt Count MPV Absolute Nucleated RBC Nucleated RBC % (auto) Anion Gap Estim Creat Clear Calc Estimated GFR Random Glucose Osmolality 275 L Calcium Magnesium Total Bilirubin Direct Bilirubin AST ALT Alkaline Phosphatase Total Protein Albumin Urine Osmolality 371 L Ur Random Sodium Ur Random Potassium Ur Random Chloride Ethyl Alcohol < 10 01/21/22 01/21/22 01/22/22 11:34 19:30 07:00 MCV 87.8 MCH 28.1 MCHC 32.0 RDW 20.4 H Plt Count 164 MPV 9.6 Absolute Nucleated RBC 0.000 Nucleated RBC % (auto) 0.0 Anion Gap 19 Estim Creat Clear Calc 34.9 Estimated GFR 32 Random Glucose 129 H Osmolality Calcium 9.1 D Magnesium Total Bilirubin Direct Bilirubin AST ALT Alkaline Phosphatase Total Protein Albumin Urine Osmolality Ur Random Sodium 118.0 Ur Random Potassium 21.1 Ur Random Chloride 101.0 Ethyl Alcohol 01/22/22 07:00 MCV MCH MCHC RDW Plt Count MPV Absolute Nucleated RBC Nucleated RBC % (auto) Anion Gap 18 Estim Creat Clear Calc 25.5 Estimated GFR 23 Random Glucose 106 Osmolality Calcium 9.1 Magnesium 2.2 Total Bilirubin 1.1 H Direct Bilirubin 0.5 AST 56 H ALT 22 Alkaline Phosphatase 93 Total Protein 7.8 Albumin 4.5 Urine Osmolality Ur Random Sodium Ur Random Potassium Ur Random Chloride Ethyl Alcohol Assessment and Plan (1) Alcohol withdrawal: Status: Acute (2) Hypomagnesemia: Status: Acute (3) MARK (acute kidney injury): Status: Acute (4) Acute alcoholic gastritis: Status: Acute (5) Elevated LFTs: Status: Acute Plan 51-year-old female with past medical history of hypertension, alcohol use, anxiety, asthma, GERD-who said she was sober for 2-3 years and since July of this year she started again drinking alcohol. 1. Persistent nausea vomiting, epigastric discomfort.:improving.? Possibly related to alcoholic gastritis Given hydration, antiemetic, PPIs Continue hydration. 2. MARK with possible alcoholic ketoacidosis:worsenin Continue hydration Hold the losartan and other medications that are nephrotoxic. added nephrology eval 3. Uncontrolled hypertension:improving,blood presure flactuatin Continue amlodipine and hold labetalol -blood presure flactuatin. 4. Transaminitis mild: Possible related to alcohol use. Monitor LFT 5. Alcohol withdrawal: CIWA scale, thiamine, folic acid, phenobarb protocol. Addiction consult. 6 .? Hypomagnesemia: Repleted monitor electrolytes closely. 7. Smoker:? Placed on nicotine patch. 8. Hyponatremia:? Possible related to fluid loss due to persistent nausea vomiting/alcohol use. Will add serum and urine osmolality and electrolytes, monitor BMP this morning. 9:? Asthma: Stable Continue home medication. DVT prophylaxis:? SubQ Lovenox Full code inpatient need: MARK requiring IV hydration, electrolytic abnormalities need repletion of electrolytes, alcohol withdrawal on phenobarb. Quality Stroke Does the patient have a stroke diagnosis?: No VTE Prior VTE?: No VTE Risk Level:: Medical - low VTE Device Contraindication: N/A - Device Ordered VTE Drug Contraindication: N/A - Med Ordered
[2022-01-22] MEDS: Lidocaine 4 % Patch ADH..PATCH 1 PATCH TRANSDERMA (16:31)
[2022-01-22] MEDS: Potassium Chloride Packet 20 MEQ PACKET PO (16:33)
[2022-01-22] MEDS: Acetaminophen 325 MG TABLET 650 MG PO (16:33)
[2022-01-22] MEDS: Magnesium Oxide 400 MG TABLET 800 MG PO (16:33)
[2022-01-22] MEDS: Enoxaparin Sodium 40 MG/0.4 ML SYRINGE SUBCUT (16:34)
[2022-01-22] MEDS: traZODone HCL 25 MG HALFTAB PO (19:47)
[2022-01-22 21:54] LABS: Creatinine Urine 132.92 mg/dL
[2022-01-23] MEDS: Lactated Ringers 1,000 ML 100 ML IVCONT (01:09)
[2022-01-23] MEDS: ALPRAZolam 0.5 MG TABLET PO ×2 (01:15→23:02)
[2022-01-23 04:00] VITALS: PULSE 66; RESP 16
[2022-01-23] MEDS: Pantoprazole Sodium 40 MG/10 ML VIAL IVPUSH ×2 (05:54→17:27)
[2022-01-23 06:37] LABS: Anion Gap 12 (12-20); Blood Urea Nitrogen 18 mg/dL (9-16); Calcium 8.7 mg/dL (8.4-10.2); Carbon Dioxide 23 mmol/L (22-29); Chloride 97 mmol/L (96-108); Creatinine Clr Calc Pharmacy 33.7; Estimated Glomerular Filt Rate 31; Glucose Random 90 mg/dL (60-115); Potassium 3.2 mmol/L (3.3-5.1); Sodium 129 mmol/L (135-145)
[2022-01-23 08:00] VITALS: BP 139/81; PULSE 71; RESP 18; TEMP 36.6; O2SAT 98
[2022-01-23] MEDS: Nicotine 21 MG PATCH.TD24 TRANSDERMA (09:55)
[2022-01-23] MEDS: Lidocaine 4 % Patch ADH..PATCH 1 PATCH TRANSDERMA (09:57)
[2022-01-23] MEDS: Magnesium Oxide 400 MG TABLET 800 MG PO (09:57)
[2022-01-23] MEDS: Potassium Chloride Packet 20 MEQ PACKET 40 MEQ PO (09:57)
[2022-01-23] MEDS: PHENobarbitaL 15 MG TABLET 45 MG PO (09:57)
[2022-01-23] MEDS: traZODone HCL 25 MG HALFTAB PO ×2 (09:57→21:23)
[2022-01-23] MEDS: Acetaminophen 325 MG TABLET 650 MG PO ×3 (09:57→21:22)
[2022-01-23] MEDS: amLODIPine Besylate 5 MG TABLET PO (09:58)
[2022-01-23] MEDS: Thiamine HCL 100 MG TABLET PO (09:58)
[2022-01-23] MEDS: 0.9 % Sodium Chloride Flush 3 ML SYRINGE IVFLUSH ×3 (09:58→23:03)
[2022-01-23] MEDS: Gabapentin 100 MG CAPSULE PO (09:58)
[2022-01-23] MEDS: 0.9 % Sodium Chloride 1,000 ML 80 ML IVCONT (10:00)
[2022-01-23] MEDS: Folic Acid 1 MG TABLET PO (10:08)
--- NOTE | 2022-01-23 10:22 | PM.PNNEP ---
Subjective Subjective Date of Service: 01/23/22 Interval history: Seen and examoned, events noted Physical Exam Vital Signs: Vital Signs: Last Vital Signs Temp 97.9 F 01/23/22 08:00 Pulse 71 01/23/22 08:00 Resp 18 01/23/22 08:00 BP 139/81 01/23/22 08:00 Pulse Ox 98 01/23/22 08:00 O2 Del Method 01/23/22 08:00 BMI result Body Mass Index 24.0 Objective Data Labs CBC & Chem 7: 01/22/22 07:00 01/23/22 05:37 Labs: Laboratory Results - last 24 hr 01/22/22 01/22/22 01/23/22 21:27 21:27 05:37 Sodium 129 L Potassium 3.2 L Chloride 97 Carbon Dioxide 23 Anion Gap 12 BUN 18 H Creatinine 1.74 H Estim Creat Clear Calc 33.7 Estimated GFR 31 Random Glucose 90 Calcium 8.7 Ur Random Sodium 20.0 Urine Creatinine Cancelled 132.92 Procedures Date of Service Date of Service: 01/23/22 Assessment & Plan Assessment and plan (1) Alcohol withdrawal: Status: Acute (2) Hypomagnesemia: Status: Acute (3) MARK (acute kidney injury): Status: Acute (4) Acute alcoholic gastritis: Status: Acute (5) Elevated LFTs: Status: Acute Plan 51-year-old female with past medical history of hypertension, alcohol use, anxiety, asthma, GERD-who said she was sober for 2-3 years and since July of this year she started again drinking alcohol Asked to see for MARK, hypoNa 1. MARK: most c/w renal hemodynamixc issues including: hypoperfsuion and HTN acute kidney injury complicate by epsidoe of transient low BP: her Scr has been up and down and now appears to be recovering based on htis am labs 2. Euvolemic HypoNa: ques vol depletion as well given Ollie low 3. HypoK REC: cont IVF and track renal func; avpoid NToxins; avoid too low BP will follow with team Time Spent With Patient Time: Total time spent is greater than 50% in coordination of care (as documented) at patient's floor/unit and/or counseling patient: Progress Note: Quality Stroke Does the patient have a stroke diagnosis?: No
--- NOTE | 2022-01-23 10:58 | CONS_ITS ---
DATE OF SERVICE: 01/22/2022 REASON FOR CONSULTATION: I was asked to see patient to assist in evaluation and management of her acute kidney injury as reflected by serum creatinine of 2.45 yesterday on admission, actually went down to 1.68 at 7:30 p.m., and this morning is back to 2.30. Her previous creatinine was 0.98 on 01/19/2022. HISTORY OF PRESENT ILLNESS: In summary, patient is a 51-year-old female with a history of hypertension, alcohol use, anxiety, asthma, and GERD, who was sober for 2 to 3 years, who started drinking again in July. She presents to the hospital having nausea on and off for the past several days along with some abdominal pain and feeling anxious. She was noted to be very hypertensive initially on admission and had abnormal LFTs and lipase. Presently, she is feeling better. She continues to be nauseous. Poor p.o. intake. MEDICATIONS: On admission, unclear. Medications presently are noted in the MAR. PAST MEDICAL HISTORY: As mentioned above. SOCIAL HISTORY: She has alcohol abuse. She smokes cigarettes. Denies NSAID use. FAMILY HISTORY: Noncontributory. REVIEW OF SYSTEMS: As noted above. PHYSICAL EXAMINATION: VITAL SIGNS: Blood pressure 134/70 with a heart rate in the 60s. Afebrile. HEENT: Head is atraumatic and normocephalic. NECK: Supple. Mucous membranes are moist. LUNGS: Breath sounds bilaterally. CARDIAC: Regular rate and rhythm without rub. ABDOMEN: Soft, nontender. Good bowel sounds. LABORATORY DATA: An ultrasound showed right kidney 9.5 cm, left to be 10.2 with no hydro. She had a CT without IV contrast again showing no hydro. Her labs showed a hemoglobin 9.4, hematocrit 29.4, white blood cell count 7.3. Sodium 131, potassium 3.2, chloride 96, bicarb 20, BUN 24, creatinine 2.3. As mentioned, her creatinine was 1.68 last night and 2.45 yesterday morning. In reviewing her blood pressures, they were markedly elevated with blood pressures systolic of over 200 and diastolic of 100 and then an episode of blood pressure 90/50. Her medications now include phenobarbital, amlodipine 5 mg, Neurontin, Protonix, labetalol. She had received additional antihypertensive agents previously and they have been cut back. IMPRESSION: A 51-YEAR-OLD, ADMITTED WITH GI SYMPTOMS, CONCERN FOR ALCOHOL ABUSE WITH POTENTIAL WITHDRAWAL, HYPONATREMIA, AND ACUTE KIDNEY INJURY. 1. Acute kidney injury. This is most likely due to multiple factors including severe hypertension on admission and then episode of blood pressure bottoming out causing relative renal hypoperfusion and ischemic acute tubular necrosis. Other possibilities need to be ruled out with serologic and urine studies. Obstructive uropathy has been ruled out with the ultrasound. 2. Episode of severe hypertension. It is most likely due to alcohol withdrawal and hyper catecholamine state. Blood pressure seems to be doing better now. 3. Hyponatremia. Serum sodium was as low as 129, now it is doing better. Again, this is multifactorial. SUGGESTIONS: At this time include continue IV fluids. We will check urine sodium, urine creatinine, and urine protein. Additional serologies depending on her urine studies. Avoid hypotension. Further evaluation depending on her renal function over the next 24 hours. We will also send a CPK to make sure she is not having rhabdomyolysis in the phase of her alcohol withdrawal. ADDENDUM: Her CPK was 94, so this is not rhabdomyolysis. MD LOIDA Ngo/ELISE / [phone]
[2022-01-23 11:59] VITALS: BP 184/88; PULSE 75; RESP 18; TEMP 36.7; O2SAT 100
--- NOTE | 2022-01-23 13:22 | HO.PM.IMPN ---
Subjective Subjective Date of Service: 01/23/22 Interval History: mark , alcohol withdrawals, uncontrolled hypertension. Review of Systems Tremor seems to be improving, denies any chest pain or shortness of breath or fever chills. P.o. intake improving. Physical Exam Vital Signs: Vital Signs: Last Vital Signs Temp 98.0 F 01/23/22 11:59 Pulse 75 01/23/22 11:59 Resp 18 01/23/22 11:59 BP 184/88 H 01/23/22 11:59 Pulse Ox 100 01/23/22 11:59 O2 Del Method 01/23/22 11:59 BMI result Body Mass Index 24.0 ? Appearance: Alert.? Oriented X3.tremers present cvs: rrr, [id number] . res: clear to auscultation ,no rhonchii or wheezing abd: no rebound or guarding ,mild epigastric discomfort improvin, bs present. ext pulses present , no cyanosis . neuro: axo3 , nonfocal. ? Objective Data Active Medications Acetaminophen (Acetaminophen 325 Mg Tablet) 650 mg PO Q6H [facility] Last Admin: 01/23/22 09:57 Dose: 650 mg Documented By: AMOS Albuterol Sulfate (Albuterol Sulfate 90 Mcg 8 Gm Inhaler) 1 puff INHALE Q4H PRN PRN Reason: shortness of breath or wheezing Alprazolam (Alprazolam 0.5 Mg Tablet) 0.5 mg PO BID PRN PRN Reason: anxiety Last Admin: 01/23/22 01:15 Dose: 0.5 mg Documented By: BISMARK Amlodipine Besylate (Amlodipine Besylate 5 Mg Tablet) 5 mg PO DAILY [facility]; Protocol Last Admin: 01/23/22 09:58 Dose: 5 mg Documented By: AMOS Enoxaparin Sodium (Enoxaparin Sodium 40 Mg/0.4 Ml Syringe) 40 mg SUBCUT Q24H [facility] Last Admin: 01/22/22 16:34 Dose: 40 mg Documented By: SAURABH Folic Acid (Folic Acid 1 Mg Tablet) 1 mg PO DAILY [facility] Last Admin: 01/23/22 10:08 Dose: 1 mg Documented By: AMOS Gabapentin (Gabapentin 100 Mg Capsule) 100 mg PO DAILY [facility] Last Admin: 01/23/22 09:58 Dose: 100 mg Documented By: AMOS Sodium Chloride (Ns) 1,000 mls @ 80 mls/hr IVCONT .[id number] [facility] Last Infusion: 01/23/22 10:17 Dose: 0 mls/hr Documented By: AMOS Ceftriaxone Sodium 1 gm/ (Sodium Chloride) 50 mls @ 100 mls/hr IV Q24H [facility] Labetalol HCl (Labetalol Hcl 100 Mg Tablet) 100 mg PO BID [facility]; Protocol Last Admin: 01/22/22 10:27 Dose: 100 mg Documented By: SAURABH Lidocaine (Lidocaine 4 % Patch Adh..Patch) 1 patch TRANSDERMA DAILY [facility]; Protocol Last Admin: 01/23/22 09:57 Dose: 1 patch Documented By: AMOS Magnesium Oxide (Magnesium Oxide 400 Mg Tablet) 800 mg PO DAILY [facility] Last Admin: 01/23/22 09:57 Dose: 800 mg Documented By: AMOS Nicotine (Nicotine 21 Mg Patch.Td24) 21 mg TRANSDERMA DAILY [facility] Last Admin: 01/23/22 09:55 Dose: 21 mg Documented By: AMOS Ondansetron HCl (Ondansetron Hcl 4 Mg/2 Ml Vial) 4 mg IVPUSH Q6H PRN PRN Reason: nausea and vomiting Pantoprazole Sodium (Pantoprazole Sodium 40 Mg/10 Ml Vial) 40 mg IVPUSH BID@0630,1630 [facility] Last Admin: 01/23/22 05:54 Dose: 40 mg Documented By: BISMARK Pharmacy Consult (Consult Rx Perform Med Rec) 1 each MISCELLANE ONCE PRN PRN Reason: Consult order Pharmacy Consult (Consult Rx Etoh Phenob Im/Po) 1 each MISCELLANE ONCE PRN; Protocol PRN Reason: Consult order Phenobarbital (Phenobarbital 15 Mg Tablet) 15 mg PO BID [facility] Stop: 01/25/22 09:01 Phenobarbital (Phenobarbital 15 Mg Tablet) 15 mg PO DAILY [facility]; Protocol Stop: 01/27/22 09:01 Sodium Chloride (0.9 % Sodium Chloride Flush 3 Ml Syringe) 3 ml IVFLUSH QSHIFT [facility] Last Admin: 01/23/22 09:58 Dose: 3 ml Documented By: AMOS Thiamine HCl (Thiamine Hcl 100 Mg Tablet) 100 mg PO DAILY [facility] Last Admin: 01/23/22 09:58 Dose: 100 mg Documented By: AMOS Trazodone HCl (Trazodone Hcl 25 Mg Halftab) 25 mg PO BID [facility] Last Admin: 01/23/22 09:57 Dose: 25 mg Documented By: AMOS Labs CBC & Chem 7: 01/22/22 07:00 01/23/22 05:37 Labs: Laboratory Results - last 24 hr 01/22/22 01/22/22 01/23/22 21:27 21:27 05:37 Anion Gap 12 Estim Creat Clear Calc 33.7 Estimated GFR 31 Random Glucose 90 Calcium 8.7 Ur Random Sodium 20.0 Urine Creatinine Cancelled 132.92 Assessment and Plan (1) Alcohol withdrawal: Status: Acute (2) Hypomagnesemia: Status: Acute (3) MARK (acute kidney injury): Status: Acute (4) Acute alcoholic gastritis: Status: Acute (5) Elevated LFTs: Status: Acute Plan 51-year-old female with past medical history of hypertension, alcohol use, anxiety, asthma, GERD-who said she was sober for 2-3 years and since July of this year she started again drinking alcohol. 1. Persistent nausea vomiting, epigastric discomfort.:improving.? Possibly related to alcoholic gastritis Given hydration, antiemetic, PPIs Continue hydration. 2. MARK with possible alcoholic ketoacidosis:worsenin Continue hydration Hold the losartan and other medications that are nephrotoxic. added nephrology eval 3. Uncontrolled hypertension:improving,blood presure flactuatin Continue amlodipine and hold labetalol -blood presure flactuatin. 4. Transaminitis mild: Possible related to alcohol use. Monitor LFT 5. Alcohol withdrawal: CIWA scale, thiamine, folic acid, phenobarb protocol. Addiction consult. 6 .? Hypomagnesemia: Repleted monitor electrolytes closely. 7. Smoker:? Placed on nicotine patch. 8. Hyponatremia:? Possible related to fluid loss due to persistent nausea vomiting/alcohol use. Will add serum and urine osmolality and electrolytes, monitor BMP this morning. 9:? Asthma: Stable Continue home medication. DVT prophylaxis:? SubQ Lovenox Full code inpatient need: MARK requiring IV hydration, electrolytic abnormalities need repletion of electrolytes, alcohol withdrawal on phenobarb. Quality Stroke Does the patient have a stroke diagnosis?: No VTE Prior VTE?: No VTE Risk Level:: Medical - low VTE Device Contraindication: N/A - Device Ordered VTE Drug Contraindication: N/A - Med Ordered
--- NOTE | 2022-01-23 13:38 | MHC.RECOVRN ---
T/W met w/ pt, pt alert, eating when entered room. Pt reports no alcohol use for approximately 3 years. Pt reports that after the last hospitalization, pt stopped drinking. Pt reports big stressors in the past year, including injury on the job and out of work. Pt reports since being out of work, started drinking 6 hard seltzers and several shots hard alcohol daily. Pt reports no history of treatment for AUD, no history of medications for AUD. Pt reports no history of withdrawals or seizures. T/W reivewed risks associated with ETOH withdrawal, pt verbalized understanding. T/W and pt discussed resources. Pt reports not interested at this time in resources, therapy, debt recovery officer, or medications for alcohol use. Pt reports has a supportive family and fiance. Pt reports feels committed to recovery after being hospitalized. Contact information for Addiction/Recovery team given.
[2022-01-23 14:21] LABS: Alanine Aminotransferase 22 U/L (0-31); Albumin Level 3.9 g/dL (3.5-5.0); Alkaline Phosphatase 78 U/L (39-117); Aspartate Amino Transferase 40 U/L (5-31); Bilirubin Direct 0.3 mg/dL (0.0-0.5); Bilirubin Total 0.6 mg/dL (0.0-1.0); Total Protein 6.5 g/dL (6.5-8.0)
[2022-01-23 15:29] VITALS: BP 164/73; PULSE 80; RESP 18; TEMP 36.7; O2SAT 98
[2022-01-23] MEDS: cefTRIAXone sodium 1 GM in 0.9 % Sodium Chloride 50 ML IV (17:26)
[2022-01-23] MEDS: Enoxaparin Sodium 40 MG/0.4 ML SYRINGE SUBCUT (17:27)
[2022-01-23 19:22] VITALS: PULSE 81; RESP 18; TEMP 36.6; O2SAT 100
[2022-01-23] MEDS: PHENobarbitaL 15 MG TABLET PO (20:23)
[2022-01-24] VITALS: BP 140/67; PULSE 63; RESP 16; TEMP 36.6; O2SAT 96
[2022-01-24 03:33] VITALS: BP 122/76; PULSE 78; RESP 20; TEMP 36.6; O2SAT 99
[2022-01-24] MEDS: Acetaminophen 325 MG TABLET 650 MG PO ×2 (04:24→09:34)
[2022-01-24] MEDS: Pantoprazole Sodium 40 MG/10 ML VIAL IVPUSH (05:36)
[2022-01-24 06:20] LABS: Anion Gap 15 (12-20); Blood Urea Nitrogen 10 mg/dL (9-16); Calcium 8.9 mg/dL (8.4-10.2); Carbon Dioxide 21 mmol/L (22-29); Chloride 102 mmol/L (96-108); Estimated Glomerular Filt Rate 48; Glucose Random 89 mg/dL (60-115); Potassium 3.8 mmol/L (3.3-5.1); Sodium 134 mmol/L (135-145)
[2022-01-24] MEDS: Gabapentin 100 MG CAPSULE PO (07:46)
[2022-01-24] MEDS: 0.9 % Sodium Chloride Flush 3 ML SYRINGE IVFLUSH (07:46)
[2022-01-24] MEDS: Thiamine HCL 100 MG TABLET PO (07:46)
[2022-01-24] MEDS: PHENobarbitaL 15 MG TABLET PO (07:47)
[2022-01-24] MEDS: traZODone HCL 25 MG HALFTAB PO (07:47)
[2022-01-24] MEDS: Magnesium Oxide 400 MG TABLET 800 MG PO (07:47)
[2022-01-24] MEDS: Folic Acid 1 MG TABLET PO (07:47)
[2022-01-24] MEDS: Nicotine 21 MG PATCH.TD24 TRANSDERMA (07:48)
[2022-01-24] MEDS: Lidocaine 4 % Patch ADH..PATCH 1 PATCH TRANSDERMA (07:48)
[2022-01-24] MEDS: amLODIPine Besylate 2.5 MG TABLET 7.5 MG PO (07:48)
[2022-01-24 08:00] VITALS: BP 162/77; PULSE 73; RESP 18; TEMP 36.3; O2SAT 98
--- NOTE | 2022-01-24 08:37 | P.DS_ITS ---
DS: Providers Provider Date of Service: 01/24/22 Date of admission: 01/21/22 16:29 Primary care physician: Raffaele Desir [facility] Admitting clinician: Rosa Mora Attending physician on admission: Rosa Mora Consults: 01/21/22 16:51 Addiction Medicine Routine Consulting Provider: Vivian Aviles Reason for consultation: alcohol abuse Has provider been notified: No 01/22/22 09:03 Consult to Nephrology Routine Consulting Provider: Scott Guan Reason for consultation: mark/htn Has provider been notified: No DS: Diagnosis Discharge Diagnosis (1) Alcohol withdrawal: Status: Acute (2) Hypomagnesemia: Status: Acute (3) MARK (acute kidney injury): Status: Acute (4) Acute alcoholic gastritis: Status: Acute (5) Elevated LFTs: Status: Acute DS: Summary Hospital Course Hospital Course: 51-year-old female with past medical history of hypertension, alcohol use, anxiety, asthma, GERD-who said she was sober for 2-3 years and since July of this year she started again drinking alcohol( suercer ?beer /hard liquirs -6-7 drinks/day), smoker-patient last time drink on Thursday:? She is having on and off nausea vomiting from 2-3 days, also has epigastric discomfort.? She says that she is feeling anxious and tremulous.? In addition her blood pressure was also significantly elevated. She denies any blood in the stool or in the vomitus. She is currently unable to eat also due to persistent nausea vomiting. In ED:? Patient was found to have blood pressure 220 range, MARK, hyponatremia, hypomagnesemia. Mildly elevated liver function test and lipase. Abdominal CT possible hepatic steatosis. In ED patient received labetalol and hydralazine for blood pressure.? Magnesium replacement, 2 L fluid for MARK: Seems to be improving. Hospital course: Patient admitted because of alcohol withdrawal, MARK, UTI, uncontrolled hypertension: Patient was started on phenobarb protocol for alcohol withdrawal, antibiotic for UTI, blood pressure was thought to be elevated secondary to alcohol withdrawal which responded well to her home medication amlodipine and in addition of labetalol subsequently amlodipine was continued only because blood pressure was stable with amlodipine, MARK improved with hydration-will hold off nephrotoxic medications for few days including losartan. Hypomagnesemia: Repleted monitor electrolytes closely.limited po supply given. Patient is to repeat BMP next week with PCP and start back losartan if renal function allows. Hyponatremia:? Possible related to fluid loss due to persistent nausea vomiting/alcohol use.improved with hydration and po intake. Transaminitis mild:improving, Possible related to alcohol use,Monitor LFToutpatient . Patient was strongly advised to abstain from alcohol. Further management out patiently with PCP. plan: Complete course of antibiotic for UTI. Extra supply of amlodipine 2.5 mg daily was given-until off losartan. Repeat BMP next week with PCP and and losartan as per PCP if needed for blood pressure and and if the renal function allows. Avoid nephrotoxic medications, encouraged for hydration. follow bmp,magnesium,lFt's outpatient. Follow-up with PCP. Time Spent with Patient Time attestation: Total time spent providing and/or coordinating discharge services: Discharge coordination time: Greater than 30 minutes Quality: Safe Use of Opioids Does Pt have an Active Cancer Diagnosis on the Problem List?: No Quality: Stroke Does the patient have a stroke diagnosis?: No Physical Exam Vital Signs: Vital Signs: Last Vital Signs Temp 97.8 F 01/24/22 03:33 Pulse 78 01/24/22 03:33 Resp 20 01/24/22 03:33 BP 122/76 01/24/22 03:33 Pulse Ox 99 01/24/22 03:33 O2 Del Method 01/24/22 03:33 BMI result Body Mass Index 24.0 Appearance: Alert.? Oriented X3.tremers present cvs: rrr, [id number] . res: clear to auscultation ,no rhonchii or wheezing abd: no rebound or guarding ,nt, bs present. ext pulses present , no cyanosis . neuro: axo3 , nonfocal. DS: Data Data Completed and Pending Labs on day of discharge: Laboratory Results - last 24 hr 01/23/22 01/24/22 05:37 05:36 Sodium 134 L Potassium 3.8 Chloride 102 Carbon Dioxide 21 L Anion Gap 15 BUN 10 Creatinine 1.20 Estim Creat Clear Calc 49.0 Estimated GFR 48 Random Glucose 89 Calcium 8.9 Total Bilirubin 0.6 Direct Bilirubin 0.3 AST 40 H ALT 22 Alkaline Phosphatase 78 Total Creatine Kinase 218 H D Total Protein 6.5 Albumin 3.9 Additional Comments Additional comments: US/US retroperitoneal comp IMPRESSION: Unremarkable renal ultrasound. CT/CT abdomen pelvis wo IV con IMPRESSION: *? Hepatic steatosis. Lobular hepatic surface contour suggesting developing cirrhosis. *? Nonspecific mild bilateral perinephric fat stranding could reflect pyelonephritis. Please correlate with urinalysis. *? Scattered colonic diverticula without evidence of diverticulitis. Discharge Plan Discharge Anticipated Discharge Date/Time: 01/24/22 08:08 Patient Disposition: Home, Self-Care Discharge Diagnosis: Alcohol withdrawal, alcoholic gastritis, elevated LFTs, MARK. Referrals: Raffaele Desir, [employer] [Primary Care Provider] - 1 Week Discharge Medications: New magnesium oxide 400 mg (241.3 mg magnesium) Tablet 800 mg PO DAILY Qty: 5 0RF thiamine mononitrate (vit B1) 100 mg Tablet 100 mg PO DAILY Qty: 30 0RF lidocaine [Lidocaine Pain Relief] 4 % Adhesive Patch,Medicated 1 patch transdermal DAILY Qty: 10 0RF Protocol: Apply to: Apply to: back pain area folic acid 1 mg Tablet 1 mg PO DAILY Qty: 30 0RF acetaminophen 325 mg Tablet 650 mg PO Q6H PRN (Reason: Pain (Scale Score 1-3)) Qty: 10 0RF amlodipine 2.5 mg tablet 2.5 mg PO DAILY Qty: 4 0RF cefuroxime axetil 250 mg tablet 250 mg PO Q12H Qty: 10 0RF nicotine 21 mg/24 hr Patch 24 Hour 21 mg transdermal DAILY Qty: 7 0RF Continued amlodipine 5 mg tablet 5 mg PO DAILY 90 Days Qty: 90 0RF omeprazole 20 mg capsule,delayed release(DR/EC) 20 mg PO DAILY Qty: 90 1RF alprazolam 0.5 mg tablet 0.5 mg PO BID PRN (Reason: anxiety) 30 Days Qty: 60 0RF gabapentin 100 mg capsule 100 mg PO DAILY albuterol sulfate 90 mcg/actuation aerosol powdr breath activated 1 inh inhalation Q4-6H PRN (Reason: shortness of breath or wheezing) 30 Days Qty: 1 1RF Held losartan 50 mg tablet 50 mg PO DAILY 90 Days Qty: 90 1RF Hold Instructions: Resume on 01/27/22. tramadol 50 mg tablet 50 mg PO BID PRN (Reason: pain) 14 Days Qty: 14 0RF Hold Instructions: Resume on 01/27/22. meloxicam 15 mg tablet 15 mg PO DAILY 30 Days Qty: 30 0RF Hold Instructions: Resume on 01/27/22. Discharge Orders: Discharge Order (Routine); Ordered 01/24/22 Ordered By: Rosa Mora Diet: Advance to usual diet Activity on Discharge: As tolerated Stand Alone Forms: Patient Portal Discharge page Other Ambulatory Orders: Basic Metabolic Panel (Routine) Timeframe: 1 Week Facility: [facility] - Location: Laboratory Ordered By: Rosa Mora Liver Panel (Routine) Timeframe: 1 Week Facility: [facility] - Location: Laboratory Ordered By: Rosa Mora Magnesium (Routine) Timeframe: 1 Week Facility: [facility] - Location: Laboratory Ordered By: Rosa Mora Care Plan Goals: Patient admitted because of alcohol withdrawal, MARK, UTI, uncontrolled hypertension: Patient was started on phenobarb protocol for alcohol withdrawal, antibiotic for UTI, blood pressure was thought to be elevated secondary to alcohol withdrawal which responded well to her home medication amlodipine and in addition of labetalol subsequently amlodipine was continued only because blood pressure was stable with amlodipine, MARK improved with hydration-will hold off nephrotoxic medications for few days including losartan. Patient is to repeat BMP next week with PCP and start back losartan if renal function allows. Patient was strongly advised to abstain from alcohol and smoking. Further management out patiently with PCP. Health Concerns: As above. Plan of Treatment: Complete course of antibiotic for UTI. Extra supply of amlodipine 2.5 mg daily was given-until off losartan. Repeat BMP next week with PCP and and losartan as per PCP if needed for blood pressure and and if the renal function allows. Avoid nephrotoxic medications, encouraged for hydration. Follow-up with PCP . Assessment: As above. Patient Instructions: Acute Kidney Injury (DC), Alcohol Withdrawal (DC), Urinary Tract Infection in Older Adults (DC) Discharge Date/Time: 01/24/22 12:20
--- NOTE | 2022-01-24 08:51 | MHC.CM.PN ---
pt dcd home no skilled servcis ordered by
== END 2022-01-24 12:20 | disposition home or self-care (01) | DRG 241 ==
LOC: HO.ED 11:34 → HO.EDOVER 16:39 → HO.IMC 01-22 16:22
PROVIDERS: Internal Medicine Nephrology; Admitting Provider Internal Medicine; Emergency Provider Emergency Medicine; PCP Nurse Practitioner Family; Visit Provider Internal Medicine
DX: K29.20 Alcoholic gastritis without bleeding (principal); E87.1 Hypo-osmolality and hyponatremia; E87.20 Acidosis, unspecified; E87.6 Hypokalemia; J45.909 Unspecified asthma, uncomplicated; E83.42 Hypomagnesemia; F10.939 Alcohol use, unspecified with withdrawal, unspecified; Y90.0 Blood alcohol level of less than 20 mg/100 ml; F17.210 Nicotine dependence, cigarettes, uncomplicated; F41.9 Anxiety disorder, unspecified; Z20.822 Contact with and (suspected) exposure to COVID-19; Z56.0 Unemployment, unspecified; Z71.6 Tobacco abuse counseling; Z79.899 Other long term (current) drug therapy
CPT/HCPCS: 36415; 71045; 74176; 76770; 80048; 80076; 80307; 81001; 81025; 82077; 82436; 82550; 83690; 83735; 83930; 83935; 84133; 84300; 84484; 85025; 85027; 85610; 85730; 87635; 93005; 99285; J0696; J1650; J2250; J2405; J2550; J2560; J3411; J3475

== ENCOUNTER 2022-01-27 10:28 | Outpatient (REF) | payer OTHER, SELFPAY ==
[2022-01-27 11:16] LABS: MANUAL DIFF FLAG NO
[2022-01-27 11:25] LABS: Appearance Urine Cloudy; Color Urine Yellow; Glucose Urine UA 100 mg/dL (Negative); Leukocyte Esterase Urine Large (3+) (Negative); Nitrite Urine Negative (Negative); PH 6.5 (5.0-9.0); Specific Gravity - Urine <= 1.005 (1.005-1.025); UMIC TRIGGER UACC YES; Urine Blood Negative (Negative); Urine Ketones Negative (Negative); Urine Protein Negative (Neg-Trace)
[2022-01-27 11:25] LABS: Basophils Absolute Auto 0.1 X10*3/uL (0.0-0.2); Basophils Percent Auto 1.1 % (0-2); Eosinophils Percent Auto 0.4 % (0-4); Hemoglobin 9.2 g/dl (12.0-16.0); Imm Gran Abs Auto 0.02 X10*3/uL (0.00-0.03); Imm Gran Pct Auto 0.3 % (0.0-0.4); Lymphocytes Absolute Auto 1.5 X10*3/uL (1.2-4.9); Lymphocytes Percent Auto 20.1 % (20-40); Mean Corpuscular HGB Conc 31.7 g/dl (31.0-35.0); Mean Corpuscular Hemoglobin 28.2 pg (27.0-33.0); Monocytes Absolute Auto 0.7 X10*3/uL (0.1-1.2); Monocytes Percent Auto 9.6 % (2-11); Neutrophils Absolute Auto 5.2 x10*3/uL (2.0-8.3); Neutrophils Percent Auto 68.5 % (45-73); Platelet Count 247 X10*3/uL (160-400); Red Blood Count 3.26 X10*6/uL (4.20-5.50); White Blood Count 7.6 X10*3/uL (4.8-10.8)
[2022-01-27 11:45] LABS: Bacteria Urine None Seen (None Seen); Hyaline Casts Urine 0-2 /LPF (0-2); RBC Urine 0-2 /HPF (0-2); UACC Culture Trigger YES; WBC Urine 21-50 /HPF (0-5)
[2022-01-27 12:13] LABS: TSH reflex Free T4 1.15 uIU/mL (0.32-4.0)
[2022-01-27 13:19] LABS: Alanine Aminotransferase 29 U/L (0-31); Albumin Level 4.7 g/dL (3.5-5.0); Alkaline Phosphatase 89 U/L (39-117); Anion Gap 18 (12-20); Aspartate Amino Transferase 51 U/L (5-31); Bilirubin Direct 0.3 mg/dL (0.0-0.5); Bilirubin Total 0.7 mg/dL (0.0-1.0); Blood Urea Nitrogen 8 mg/dL (9-16); Calcium 9.8 mg/dL (8.4-10.2); Carbon Dioxide 24 mmol/L (22-29); Chloride 95 mmol/L (96-108); Estimated Glomerular Filt Rate > 60; Glucose Random 95 mg/dL (60-115); Magnesium 1.4 mg/dL (1.6-2.6); Potassium 3.6 mmol/L (3.3-5.1); Sodium 133 mmol/L (135-145); Total Protein 7.9 g/dL (6.5-8.0)
== END 2022-01-27 10:29 | disposition home or self-care (01) ==
LOC: HO.HMGCLDS 10:28
PROVIDERS: PCP Nurse Practitioner Family; Visit Provider Nurse Practitioner Family
DX: N17.9 Acute kidney failure, unspecified (principal); F10.939 Alcohol use, unspecified with withdrawal, unspecified; E83.42 Hypomagnesemia; I10 Essential (primary) hypertension; R79.89 Other specified abnormal findings of blood chemistry; R11.10 Vomiting, unspecified; K29.20 Alcoholic gastritis without bleeding
CPT/HCPCS: 36415; 80053; 81001; 82248; 83735; 84443; 85025; 87086

== ENCOUNTER 2022-02-28 07:34 | Outpatient (REF) | payer OTHER, SELFPAY ==
[2022-02-28 11:53] LABS: Appearance Urine Cloudy; Color Urine Red; Glucose Urine UA Negative (Negative); Leukocyte Esterase Urine Moderate (2+) (Negative); Nitrite Urine Negative (Negative); UMIC TRIGGER UACC YES; Urine Blood Large (3+) (Negative); Urine Ketones Negative (Negative); Urine Protein 100 (2+) mg/dL (Neg-Trace)
[2022-02-28 11:54] LABS: Bacteria Urine Trace (None Seen); Hyaline Casts Urine 0-2 /LPF (0-2); RBC Urine >20 /HPF (0-2); UACC Culture Trigger YES; WBC Urine >50 /HPF (0-5)
[2022-02-28 12:54] LABS: Alanine Aminotransferase 15 U/L (0-31); Albumin Level 4.2 g/dL (3.5-5.0); Alkaline Phosphatase 103 U/L (39-117); Anion Gap 17 (12-20); Aspartate Amino Transferase 24 U/L (5-31); Bilirubin Total 0.5 mg/dL (0.0-1.0); Blood Urea Nitrogen 13 mg/dL (9-16); Calcium 9.5 mg/dL (8.4-10.2); Carbon Dioxide 23 mmol/L (22-29); Chloride 101 mmol/L (96-108); Estimated Glomerular Filt Rate 58; Glucose Random 92 mg/dL (60-115); Magnesium 1.9 mg/dL (1.6-2.6); Potassium 4.7 mmol/L (3.3-5.1); Sodium 136 mmol/L (135-145); Total Protein 7.3 g/dL (6.5-8.0)
== END 2022-02-28 07:35 | disposition home or self-care (01) ==
LOC: HO.HMGCLDS 07:34
PROVIDERS: PCP Nurse Practitioner Family; Visit Provider Nurse Practitioner Family
DX: F10.939 Alcohol use, unspecified with withdrawal, unspecified (principal); E83.42 Hypomagnesemia; I10 Essential (primary) hypertension; N17.9 Acute kidney failure, unspecified; R79.89 Other specified abnormal findings of blood chemistry; R11.10 Vomiting, unspecified; K29.20 Alcoholic gastritis without bleeding
CPT/HCPCS: 36415; 80053; 81001; 83735; 87086

== ENCOUNTER 2022-06-12 13:38 | Outpatient (REF) | payer OTHER, SELFPAY ==
[2022-06-12 15:30] LABS: Hematocrit 32.4 % (37.0-47.0); Hemoglobin 10.4 g/dl (12.0-16.0); Mean Corpuscular HGB Conc 32.1 g/dl (31.0-35.0); Mean Corpuscular Hemoglobin 27.4 pg (27.0-33.0); Mean Corpuscular Volume 85.5 fL (80.0-98.0); Mean Platelet Volume 9.8 fL (9.4-12.3); Platelet Count 271 X10*3/uL (160-400); Red Blood Count 3.79 X10*6/uL (4.20-5.50); Red Cell Distribution Width 17.7 % (11.0-16.0); White Blood Count 11.2 X10*3/uL (4.8-10.8)
[2022-06-12 16:12] LABS: Alanine Aminotransferase 8 U/L (0-31); Aspartate Amino Transferase 19 U/L (5-31); Blood Urea Nitrogen 10 mg/dL (9-16); Estimated Glomerular Filt Rate > 60
[2022-06-12 16:27] LABS: TSH reflex Free T4 2.17 uIU/mL (0.32-4.0)
[2022-06-13 18:48] LABS: Follicle Stimulating Hormone 10.1 mIU/mL
== END 2022-06-12 13:39 | disposition home or self-care (01) ==
LOC: HO.LNP 13:38
PROVIDERS: PCP Nurse Practitioner Family; Visit Provider Advanced Practice Midwife
DX: N93.9 Abnormal uterine and vaginal bleeding, unspecified (principal); R79.89 Other specified abnormal findings of blood chemistry; Z79.899 Other long term (current) drug therapy
CPT/HCPCS: 58100; 82565; 83001; 84443; 84450; 84460; 84520; 85027; 88305; 88341; 88342

== ENCOUNTER 2022-06-17 15:26 | Outpatient (REF) | payer OTHER, SELFPAY ==
--- NOTE | ~2022-06-17 | US_ITS ---
EXAMINATION: US PELVIS CLINICAL INFORMATION: Abnormal uterine and vaginal bleeding. COMPARISON: CT abdomen/pelvis from 01/21/2022 TECHNIQUE: Ultrasound of the pelvis is performed using both transabdominal and transvaginal transducers along with Doppler. Transvaginal imaging is performed due to inadequate visualization transabdominally. FINDINGS: UTERUS AND CERVIX The retroflexed uterus measures 8 x 4.6 x 5.8 cm ([id number] x AP x transverse dimension). The myometrial echotexture is normal. No evidence of leiomyoma. The cervix is 3.3 cm in length. A few small nabothian cysts of cervix are noted. The endometrium has a normal multilayered appearance and measures 0.8 cm. No evidence of an endometrial polyp. ADNEXA: The right ovary is 2.6 x 2.1 x 2.5 cm, volume of 7 mL. There appear to be two abutting follicles of the right ovary, one that measures up to 1.8 cm and the other 1.5 cm maximum dimension. The left ovary is 4.4 x 2.6 x 3.8 cm, volume of 23 mL. Large, cystic left ovary also observed on 01/21/2022. The left ovary has a cluster of follicles or single cyst of 3.6 cm maximum dimension containing few smooth vascularized septations, O-RADS 3, low risk of malignancy. FREE FLUID: None. OTHER: Color Doppler flow is detected within the dilated left parauterine veins (image 95 of 97 US/US pelvic and transvaginal IMPRESSION: * No evidence of uterine leiomyoma. * The endometrium is normal. * A cyst with a few thin septations of the left ovary measures up to 3.6 cm maximum dimension, O-RADS 3, low risk of malignancy.
== END 2022-06-17 15:27 | disposition home or self-care (01) ==
LOC: HO.HMGCX 15:26
PROVIDERS: PCP Nurse Practitioner Family; Visit Provider Advanced Practice Midwife
DX: N93.9 Abnormal uterine and vaginal bleeding, unspecified (principal); R79.89 Other specified abnormal findings of blood chemistry
CPT/HCPCS: 76830; 76856

== ENCOUNTER → 2022-06-18 14:58 | Outpatient (BNVA) | payer OTHER, SELFPAY | PROVIDERS: PCP Nurse Practitioner Family; Visit Provider Advanced Practice Midwife | DX: Z13.89 Encounter for screening for other disorder (principal) ==

== ENCOUNTER 2022-07-16 08:04 | Outpatient (REF) | payer OTHER, SELFPAY | END 2022-07-16 08:05 | disposition home or self-care (01) | LOC: HO.LNP 08:04 | PROVIDERS: PCP Nurse Practitioner Family; Visit Provider Obstetrics & Gynecology | DX: N93.9 Abnormal uterine and vaginal bleeding, unspecified (principal); N83.299 Other ovarian cyst, unspecified side | CPT/HCPCS: 58100; 81025; 88305 ==

== ENCOUNTER 2022-07-16 09:16 | Outpatient (REF) | payer OTHER, SELFPAY ==
[2022-07-16 09:41] LABS: Prothrombin Time 11.1 SEC (10.0-13.1)
[2022-07-18 10:29] LABS: CA-125 22 U/mL (<35)
== END 2022-07-16 09:17 | disposition home or self-care (01) ==
LOC: HO.LAB 09:16
PROVIDERS: Advanced Practice Midwife; PCP Nurse Practitioner Family; Visit Provider Obstetrics & Gynecology
DX: N83.299 Other ovarian cyst, unspecified side (principal); N93.9 Abnormal uterine and vaginal bleeding, unspecified
CPT/HCPCS: 36415; 85610; 86304

== ENCOUNTER 2022-07-22 10:14 | Outpatient (REF) | payer OTHER, SELFPAY ==
--- NOTE | ~2022-07-22 | MM_ITS ---
EXAMINATION: MM SCREENING DIGITAL BREAST TOMOSYNTHESIS, BILATERAL CLINICAL INFORMATION: Screening. Asymptomatic. The lifetime risk of breast cancer based on the Tyrer-Cuzick Model is 13%. COMPARISON: Mammography: 02/27/2020, 08/27/2018, 07/08/2012 TECHNIQUE: Digital breast tomosynthesis is performed in both the craniocaudal and mediolateral oblique views along with computer-aided detection (CAD). Synthesized 2D images are generated from the tomosynthesis. FINDINGS: There are scattered areas of fibroglandular density (ACR BI-RADS breast composition Category b). There are no significant masses, abnormal calcifications, or other abnormalities. Parenchymal pattern is similar to prior studies. There is no developing density or architectural abnormality. The axilla and skin contours are unremarkable. No significant changes. MM/MM tomosynthesis screening BI IMPRESSION: No mammographic evidence of malignancy. ASSESSMENT: BI-RADS 1: Negative RECOMMENDATION: Routine annual mammography screening. This patient's information was entered into a reminder system with a target due date for their next mammogram.
== END 2022-07-22 10:15 | disposition home or self-care (01) ==
LOC: HO.MAMMO 10:14
PROVIDERS: PCP Nurse Practitioner Family; Visit Provider Obstetrics & Gynecology
DX: Z12.31 Encounter for screening mammogram for malignant neoplasm of breast (principal)
CPT/HCPCS: 77063; 77067

== ENCOUNTER 2022-07-22 13:54 | Outpatient (REF) | payer OTHER, SELFPAY ==
--- NOTE | ~2022-07-22 | US_ITS ---
EXAMINATION: US PELVIS CLINICAL INFORMATION: Ovarian cyst, had a biopsy 07/16/2022 with prolonged bleeding. COMPARISON: None available. TECHNIQUE: Ultrasound of the pelvis is performed using both transabdominal and transvaginal transducers along with Doppler. Transvaginal imaging is performed due to inadequate visualization transabdominally. FINDINGS: Uterus: The uterus is retroverted, retroflexed and measures 10.1 x 5.9 x 6.2 cm. The double wall endometrial thickness is 0.62 cm. The uterus is smooth in contour and has normal myometrial echogenicity. No visible fibroid. Adnexa: Both ovaries are visualized. There is normal color flow to the adnexa. There is no ovarian torsion. There is no pelvic ascites or fluid collection. Right ovary measures 3.4 x 1.7 x 2.3 cm. Volume 6.8 mL. There is no focal lesion seen. Left ovary measures 4.6 x 2.9 x 2.5 cm cm. Volume 17.8 mL. There are 2 anechoic corpus luteal cysts measuring 1.8 x 2.0 x 1.7 cm and 2.2 x 2.1 x 2.0 cm. There is trace free fluid in cul-de-sac. US/US pelvic and transvaginal IMPRESSION: 2 small anechoic corpus luteal cysts left ovary. Trace free fluid in the cul-de-sac and around the left ovary. The uterus is unremarkable.
== END 2022-07-22 13:55 | disposition home or self-care (01) ==
LOC: HO.HMGCX 13:54
PROVIDERS: PCP Nurse Practitioner Family; Visit Provider Obstetrics & Gynecology
DX: N83.299 Other ovarian cyst, unspecified side (principal)
CPT/HCPCS: 76830; 76856

== ENCOUNTER → 2022-08-05 09:50 | Outpatient (BNVA) | payer OTHER, SELFPAY | PROVIDERS: PCP Nurse Practitioner Family; Visit Provider Obstetrics & Gynecology | DX: Z13.89 Encounter for screening for other disorder (principal) ==

== ENCOUNTER 2023-01-15 10:02 | Outpatient (REF) | payer OTHER, SELFPAY ==
--- NOTE | ~2023-01-15 | XR_ITS ---
EXAMINATION: XR CERVICAL SPINE CLINICAL INFORMATION: Cervical disc disease. COMPARISON: None available. TECHNIQUE: Frontal, lateral and odontoid views are obtained. FINDINGS: Vertebral body heights are normal. At C4-C5, there is a 3 mm anterolisthesis. At C5-C6 and C6-C7, is moderately severe disc space narrowing, with anterior spondylosis. At C7-T1, there is a 4 mm anterolisthesis and mild anterior spondylosis. The remaining disc spaces are relatively well-maintained. No acute fracture or spondylolisthesis is seen. The posterior elements are intact. There is multi-level cervical facet arthropathy. There is no prevertebral soft tissue swelling. The dens and C7-T1 interface are normal. XR/XR cervical spine 2V IMPRESSION: 1. No acute fracture or spondylolisthesis is seen. 2. There is moderately severe degenerative disc disease at C5-C6 and C6-C7, and mild degenerative disc disease is seen at C4-C5 and C7-T1. 3. There is multi-level cervical spondylosis and facet arthropathy.
== END 2023-01-15 10:03 | disposition home or self-care (01) ==
LOC: HO.HMGCX 10:02
PROVIDERS: PCP Nurse Practitioner Family; Visit Provider Nurse Practitioner Family
DX: M50.90 Cervical disc disorder, unspecified, unspecified cervical region (principal)
CPT/HCPCS: 72040

== ENCOUNTER 2023-01-19 07:15 | Outpatient (AMB) | payer OTHER, SELFPAY ==
--- NOTE | 2023-01-19 07:07 | MHC.PC.OV ---
Intake Visit Reasons: [place] [phone] Allergies No Known Allergies Allergy (Verified 12/30/22 07:50) Tobacco use date assessed: 09/25/22 [facility] [phone] HPI Details Pt reports ongoing lower back pain and cervical neck pain with numbness and tingling of her RUE. Pt had a recent XR of her cervical spine, not yet resulted. She also reports trigger finger of her left thumb. Pt needs [facility] paperwork filled out for intermittent leave (from ongoing intermittent flares of lower back pain and cervical neck pain). Will fill this out. Denies fever, chills, and dizziness. [facility] Medical History Hypertension Seborrheic keratosis Surgical History History of facial surgery Family History Maternal Grandmother Mental health disorder Social History Household Members: Family Housing: House Do you presently have visiting nurse or other home services: Yes Alcohol intake: current Alcohol intake frequency: 3 or more drinks per day Alcohol type: beer and hard liquor Patient Tobacco Use Status: Current everyday Tobacco user Tobacco use type: Cigarette Cigarette Packs Per Day: 0.5 Cigarettes Per Day: 10.0 Years Smoked: 20 Packs Per Year: 10 Packs per year/per ci.00 e-Cigarette/Vaping Use: Never Used Second Hand Smoke Exposure: No service: No Current occupational status: employed Cognitive needs: No Hearing needs: No Vision needs: Yes Female Reproductive History Menstrual Age of Menarche: 13 Questionnaire Thrive Questionnaire Date Thrive assessed: 09/19/21 MASOOD-7 AMB Questionnaire MASOOD-7 Date MASOOD - 7 assessed: 09/19/21 Source: Developed by Drs. Santos Vargas, Mayi Jorge, Josh Domínguez and colleagues, with an educational micky from [employer] Review of Systems Const Reports as per HPI Physical exam (Primary Care) Tobacco/Smoking Status: Tobacco use Status Tobacco use date assessed 09/25/22 01/19/23 07:08 Patient Tobacco Use Status Current everyday Tobacco 01/19/23 07:08 Tobacco use type Cigarette 01/19/23 07:08 e-Cigarette/Vaping Use Never Used 01/19/23 07:08 Thrive Assessment: Date of Thrive Assessment Date Thrive assessed 09/19/21 01/19/23 07:08 Const General: cooperative Orientation/consciousness: patient oriented x3 Neuro General: patient oriented x3 Psych Appearance: grossly normal Mental Status: mental status grossly normal Speech and movement: Clear speech present Affect: normal affect Attitude: cooperative Thought process: Normal thought process present Thought content: Normal thought content present Insight: Good insight present (Psych) Judgement: Good judgement present (Psych) Telehealth Telehealth Location of provider rendering services: practice address Location of patient: address on file Patient Identification confirmed using: Name, : Yes Telehealth method: video Patient verbally consented to treatment: Yes Patient verbally consented to billing insurance company: Yes Patient informed of any privacy concerns related to visit: Yes Minutes spent on Phone/Video with Pt.: 10 Assessment and Plan Assessment & Plan (1) Low back pain radiating to lower extremity: Code(s): M54.50 - Low back pain, unspecified; M79.606 - Pain in leg, unspecified (2) Cervical neck pain with evidence of disc disease: Code(s): M50.90 - Cervical disc disorder, unspecified, unspecified cervical region Plan The patient agreed to the use of a director biomedical engineering for this encounter. Scribed for [employer] by Rupali Macias director biomedical engineering, on 01/19/2023 at 07:10 EST Medications: Refilled alprazolam 0.5 mg PO BID 30 days PRN 60 tabs 1RF anxiety meloxicam 15 mg PO DAILY 30 days 30 tabs 1RF meloxicam 15 mg PO DAILY 30 days 30 tabs 1RF Coding Level of Care Code Tele Est Pt Level 3 (63032) Diagnoses Low back pain radiating to lower extremity M54.50; M79.606 Cervical neck pain with evidence of disc disease M50.90
== END 2023-01-19 16:42 | disposition home or self-care (01) ==
PROVIDERS: PCP Nurse Practitioner Family; Visit Provider Nurse Practitioner Family
DX: M54.50 Low back pain, unspecified (principal); M79.606 Pain in leg, unspecified; M50.90 Cervical disc disorder, unspecified, unspecified cervical region
CPT/HCPCS: 99213

== ENCOUNTER 2023-01-29 10:25 | Outpatient (AMB) | payer OTHER, SELFPAY ==
[2023-01-29 10:34] VITALS: BMI 27.5
--- NOTE | 2023-01-29 10:34 | A.OFFVIS_ITS ---
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 States her right thumb started to lock approx in September and has worsen. She is currently using a finger splint to sleep due to increase pain in the morning. Hx of cervical pain. States she has pins and needles sensation in her right arm and hand. Also numbness only in her left hand. No injury she can recall. Denies any prior treatment for her hands. No EMG done. Allergies No Known Allergies Allergy (Verified 01/29/23 10:42) Medication List - Last Reconciled 01/29/23 by Charis Reno MD acetaminophen 650 mg (2 x 325 mg) PO Q6H PRN albuterol sulfate 90 mcg/actuation 1 inh inhalation Q4-6H PRN 30 days alprazolam 0.5 mg PO BID PRN 30 days amlodipine 5 mg PO DAILY ferrous sulfate 325 mg PO TID ferrous sulfate 324 mg PO TID gabapentin 100 mg PO TID 30 days losartan 100 mg PO DAILY 90 days magnesium oxide 400 mg PO DAILY meloxicam 15 mg PO DAILY 30 days multivitamin with iron (Daily Multiple Vitamins with Iron tablet) 1 tab PO DAILY omeprazole 20 mg PO DAILY prazosin 2 mg PO BEDTIME psyllium husk (with sugar) 3.4 gram/12 gram (Metamucil (with sugar)) 1 tbsp PO DAILY tramadol 50 mg PO DAILY PRN 14 days HPI HPI Comments History of Present Illness Details Here mainly for left thumb. double jointed when younger. Used to be able to pop both thumbs. But now thumb locks. She reports numbness on all her fingers and discomfort on left medial hand/pinky area. She borrowed finger splint from mom and that has helped. Worst at night because it stays locked. Reviewed notes from PCP-patient has ongoing/chronic back and neck pain, with numbness tingling right upper extremity. Treated with NSAIDs. Cervical x-ray done recently, reviewed independently, showed spondylosis. Had first evaluate from [facility] for his neck. As for now, they are trying to get an MRI done. No EMG scheduled. [facility] Medical History (Updated 01/29/23 @ 11:05 by Charis Reno MD) Pain of left thumb Degenerative disc disease, cervical Hypertension Seborrheic keratosis Surgical History History of facial surgery Family History Maternal Grandmother Mental health disorder Social History (Updated 01/29/23 @ 10:43 by Nessa Reynoso [facility]) Household Members: Family Housing: House Do you presently have visiting nurse or other home services: Yes Alcohol intake: current Alcohol intake frequency: 3 or more drinks per day Alcohol type: beer and hard liquor Patient Tobacco Use Status: Current everyday Tobacco user Tobacco use type: Cigarette Cigarette Packs Per Day: 0.5 Cigarettes Per Day: 10.0 Years Smoked: 20 e-Cigarette/Vaping Use: Never Used Second Hand Smoke Exposure: No service: No Current occupational status: employed Current occupation: [employer]/ [employer] Cognitive needs: No Hearing needs: No Vision needs: Yes Female Reproductive History Menstrual Age of Menarche: 13 Review of Systems Const All systems reviewed & are unremarkable except as noted in HPI and below Physical Exam Vital Signs: BMI result Body Mass Index 27.5 Constitutional: Patient appears to be in no acute distress, well nourished and well developed. MSK: Both thumbs appear hyper extended address on MCP joints bilateral. No swelling. No intrinsic hand weakness noted. No atrophy noted. Vincent test negative. Carpal compression test bilateral positive. Tinel sign positive elbow left. Trigger thumb left, no nodule palpable. Tender on left IP joint and mild on left CMC 1st digit. Strength is 5/5 in all muscle groups tested. No increased tone noted. Neurological: Neurologic examination of the upper and lower extremities was nonfocal with intact sensation, muscle stretch reflexes and without focal motor deficits . Adan?s negative bilaterally. Gait is non-antalgic without loss of balance. Results Reviewed Results Reviewed: As above. Also sending for left hand x-ray which will be reviewed. Assessment & Plan Assessment & Plan (1) Pain of left thumb: Code(s): M79.645 - Pain in left finger(s) (2) Trigger thumb of left hand: Code(s): M65.312 - Trigger thumb, left thumb Plan: She is here today primarily for her left trigger thumb. We will put her on a finger splint that she can wear during the day, even during the night if she has locking while sleeping. She has some tenderness over IP and CMC joints. We will send her for x-rays to rule out DJD. No signs of de Quervain on exam today. (3) Numbness in both hands: Code(s): R20.0 - Anesthesia of skin Plan: She has numbness on both hands and median distribution. She has numbness on left ulnar distribution as well. We will schedule for EMG bilateral upper e xtremities. Plan Assessment and plan discussed with patient, and patient was agreeable. All questions were answered thoroughly. Charis Reno MD, SAMANTA Board Certified, [place] [employer] and Rehabilitation (ABPMR) Board Certified, [place] Board [employer] Electrodiagnostic Medicine (ABEM) Orders: Orders NE electromyogram (EMG) Today M65.312 - Trigger thumb, left thumb, M79.645 - Pain in left finger(s), R20.0 - Anesthesia of skin NE nerve conduction velocity Today M65.312 - Trigger thumb, left thumb, M79.645 - Pain in left finger(s), R20.0 - Anesthesia of skin XR hand LT min 3V Today M65.312 - Trigger thumb, left thumb, M79.645 - Pain in left finger(s), R20.0 - Anesthesia of skin Coding Level of Care Code New Pt Level 4 (77065) Diagnoses Pain of left thumb M79.645 Trigger thumb of left hand M65.312 Numbness in both hands R20.0
== END 2023-01-29 11:20 | disposition home or self-care (01) ==
PROVIDERS: PCP Nurse Practitioner Family; Visit Provider Physical Medicine & Rehabilitation
DX: M79.645 Pain in left finger(s) (principal); M65.312 Trigger thumb, left thumb; R20.0 Anesthesia of skin
CPT/HCPCS: 99204

== ENCOUNTER 2023-01-29 10:25 | Outpatient (REF) | payer OTHER, SELFPAY ==
--- NOTE | ~2023-01-29 | XR_ITS ---
EXAMINATION: XR HAND, LEFT CLINICAL INFORMATION: Pain of left fingers. COMPARISON: None available. TECHNIQUE: PA, lateral, and oblique views of the left hand. FINDINGS: Bony alignment and mineralization are normal. There is a neutral ulnar variance. No fracture or dislocation is seen. The proximal and distal carpal rows are intact. There is marked osteoarthritic change of the first carpometacarpal joint. No abnormal bone erosion is seen. There is no focal soft tissue swelling, gas or foreign body. XR/XR hand LT min 3V IMPRESSION: 1. No fracture or dislocation is seen. 2. There is marked osteoarthritic change of the left first carpometacarpal joint. 3. No focal bone erosion is noted.
== END 2023-01-29 10:26 | disposition home or self-care (01) ==
LOC: HO.HOSX 10:25
PROVIDERS: PCP Nurse Practitioner Family; Visit Provider Physical Medicine & Rehabilitation
DX: M79.645 Pain in left finger(s) (principal); M65.312 Trigger thumb, left thumb; R20.0 Anesthesia of skin; Z79.899 Other long term (current) drug therapy
CPT/HCPCS: 73130

== ENCOUNTER 2023-02-05 13:46 | Outpatient (REF) | payer OTHER, SELFPAY ==
--- NOTE | 2023-02-05 13:49 | EMG_ITS ---
Chief complaint: Hand numbness Reason for referral: Evaluate for Carpal Tunnel Syndrome versus ulnar neuropathy Procedure done: Bilateral upper extremities NCS/EMG Precautions and/or limitations: None The limb temperature was monitored continuously and remained between 32-36 degrees C during the performance of the NCS. Nerve Conduction Studies Anti Sensory Summary Table ?Stim Site NR Onset (ms) Norm Onset (ms) Peak (ms) Norm Peak (ms) O-P Amp (?V) Norm O-P Amp Site1 Site2 Delta-0 (ms) Dist (cm) Tomas (m/s) Norm Tomas (m/s) Left Median Anti Sensory (2nd Digit) Wrist ? 4.6 5.0 <3.6 2.5 >10 Wrist 2nd Digit 4.6 14.0 30 Right Median Anti Sensory (2nd Digit) Wrist ? 2.6 3.4 <3.6 2.2 >10 Wrist 2nd Digit 2.6 14.0 54 Left Ulnar Anti Sensory (5th Digit) Wrist ? 1.5 3.1 <3.7 22.6 >15.0 Wrist 5th Digit 1.5 14.0 93 Right Ulnar Anti Sensory (5th Digit) Wrist ? 1.9 3.0 <3.7 5.2 >15.0 Wrist 5th Digit 1.9 14.0 74 Motor Summary Table ?Stim Site NR Onset (ms) Norm Onset (ms) O-P Amp (mV) Norm O-P Amp iAmp (mV) Amp (1st) (%) Site1 Site2 Delta-0 (ms) Dist (cm) Tomas (m/s) Norm Tomas (m/s) Left Median Motor (Abd Poll Brev) Wrist ? 2.9 <3.9 6.7 >4.5 8.2 100.0 Elbow Wrist 3.5 19.0 54 >45 Elbow ? 6.4 6.7 8.5 100.0 Right Median Motor (Abd Poll Brev) Wrist ? 3.1 <3.9 9.9 >4.5 12.4 100.0 Elbow Wrist 3.5 17.5 50 >45 Elbow ? 6.6 11.5 14.1 116.2 Left Ulnar Motor (Abd Dig Minimi) Wrist ? 2.2 <3.0 8.7 >5 11.9 100.0 B Elbow Wrist 3.3 17.0 52 >45 B Elbow ? 5.5 8.9 11.8 102.3 A Elbow B Elbow 1.4 10.0 71 >45 A Elbow ? 6.9 8.4 10.8 96.6 Right Ulnar Motor (Abd Dig Minimi) Wrist ? 2.8 <3.0 9.2 >5 10.8 100.0 B Elbow Wrist 2.7 15.6 58 >45 B Elbow ? 5.5 8.8 10.4 95.7 A Elbow B Elbow 1.5 5.0 33 >45 A Elbow ? 7.0 8.2 9.8 89.1 Comparison Summary Table ?Stim Site NR Peak (ms) Norm Peak (ms) P-T Amp (?V) Site1 Site2 Delta-P (ms) Norm Delta (ms) ?(Digit 1 - 10cm) Median ? 3.3 <2.9 156.8 Median Radial 0.5 Radial ? 2.8 <2.8 3.1 EMG ?Side Muscle Nerve Root Ins Act Fibs Psw Amp Dur Poly Recrt Int Pat Comment Right 1stDorInt Ulnar C8-T1 Nml Nml Nml Nml Nml 0 Nml Complete Right FlexCarRad Median C6-7 Nml Nml Nml Nml Nml 0 Nml Complete Right Biceps Musculocut C5-6 Nml Nml Nml Nml Nml 0 Nml Complete Right Triceps Radial C6-7-8 Nml Nml Nml Nml Nml 0 Nml Complete Right Deltoid Axillary C5-6 Nml Nml Nml Nml Nml 0 Nml Complete Left 1stDorInt Ulnar C8-T1 Nml Nml Nml Nml Nml 0 Nml Complete Left FlexCarRad Median C6-7 Nml Nml Nml Nml Nml 0 Nml Complete Left Biceps Musculocut C5-6 Nml Nml Nml Nml Nml 0 Nml Complete Left Triceps Radial C6-7-8 Nml Nml Nml Nml Nml 0 Nml Complete Left Deltoid Axillary C5-6 Nml Nml Nml Nml Nml 0 Nml Complete Paraspinal EMG ?Side Muscle Nerve Root Ins Act Fibs Psw Comment Right Cervical Upper Rami Nml Nml Nml Right Cervical Mid Rami Nml Nml Nml Right Cervical Lower Rami Nml Nml Nml Left Cervical Upper Rami Nml Nml Nml Left Cervical Mid Rami Nml Nml Nml Left Cervical Lower Rami Nml Nml Nml FINDINGS: Right ulnar motor nerve showed normal distal latency, normal amplitude and slow conduction velocity across elbow. Right median sensory nerve showed small amplitude. Interlatency difference between right median and radial sensory nerves was 0.5 Right ulnar sensory nerve showed small amplitude. Left median sensory nerve showed prolonged peak latency and small amplitude. All other nerves tested were within normal. Concentric needle EMG was performed in selected muscles of the bilateral upper extremities and cervical paraspinals. Study did not reveal signs of electric abnormalities as shown in the table below. IMPRESSION: 1. This is an abnormal study. 2. There is electrodiagnostic evidence for bilateral mild median neuropathy at the wrist, consistent with carpal tunnel syndrome. 3. There is electrodiagnostic evidence for right ulnar neuropathy at elbow. 4. There is no electrodiagnostic evidence for brachial plexopathy or cervical radiculopathy. Thank you for your kind referral. Charis Reno MD, SAMANTA Board Certified, [place] Board of Physical Medicine and Rehabilitation (ABPMR) Board Certified, [place] Board of Electrodiagnostic Medicine (ABEM) [place]OD[place] [id number] [facility]
== END 2023-02-05 13:47 | disposition home or self-care (01) ==
LOC: HO.NEURO 13:46
PROVIDERS: PCP Nurse Practitioner Family; Visit Provider Physical Medicine & Rehabilitation
DX: R20.0 Anesthesia of skin (principal); M65.312 Trigger thumb, left thumb; M79.645 Pain in left finger(s)
CPT/HCPCS: 95886; 95911

== ENCOUNTER → 2023-02-05 13:49 | Outpatient (BNV) | payer OTHER, SELFPAY | PROVIDERS: PCP Nurse Practitioner Family; Visit Provider Physical Medicine & Rehabilitation | DX: G56.13 Other lesions of median nerve, bilateral upper limbs (principal); G56.03 Carpal tunnel syndrome, bilateral upper limbs; G56.21 Lesion of ulnar nerve, right upper limb | CPT/HCPCS: 95886; 95911 ==

== ENCOUNTER 2023-05-30 09:24 | Outpatient (REF) | payer OTHER, SELFPAY ==
[2023-05-30 11:00] LABS: MANUAL DIFF FLAG NO
[2023-05-30 11:03] LABS: Basophils Absolute Auto 0.1 X10*3/uL (0.0-0.2); Eosinophils Percent Auto 0.6 % (0-4); Hematocrit 38.9 % (37.0-47.0); Hemoglobin 13.5 g/dl (12.0-16.0); Imm Gran Abs Auto 0.03 X10*3/uL (0.00-0.03); Imm Gran Pct Auto 0.5 % (0.0-0.4); Lymphocytes Absolute Auto 0.9 X10*3/uL (1.2-4.9); Mean Corpuscular HGB Conc 34.7 g/dl (31.0-35.0); Mean Corpuscular Hemoglobin 36.4 pg (27.0-33.0); Mean Corpuscular Volume 104.9 fL (80.0-98.0); Mean Platelet Volume 9.5 fL (9.4-12.3); Monocytes Absolute Auto 0.6 X10*3/uL (0.1-1.2); Monocytes Percent Auto 10.2 % (2-11); Neutrophils Absolute Auto 4.5 x10*3/uL (2.0-8.3); Neutrophils Percent Auto 72.7 % (45-73); Platelet Count 176 X10*3/uL (160-400); Red Blood Count 3.71 X10*6/uL (4.20-5.50); Red Cell Distribution Width 13.9 % (11.0-16.0); White Blood Count 6.2 X10*3/uL (4.8-10.8)
[2023-05-30 11:26] LABS: Alanine Aminotransferase 29 U/L (0-31); Albumin Level 4.1 g/dL (3.5-5.0); Alkaline Phosphatase 154 U/L (39-117); Anion Gap 16 (12-20); Aspartate Amino Transferase 72 U/L (5-31); Bilirubin Total 0.5 mg/dL (0.0-1.0); Blood Urea Nitrogen 5 mg/dL (9-16); Calcium 9.3 mg/dL (8.4-10.2); Carbon Dioxide 24 mmol/L (22-29); Chloride 96 mmol/L (96-108); Cholesterol 180 mg/dL (<200); Estimated Glomerular Filt Rate 60; Glucose Fasting 137 mg/dL (60-99); HDL Cholesterol 53 mg/dL (>40); LDL Cholesterol Calculated 88 mg/dL (<100); Magnesium 1.6 mg/dL (1.6-2.6); Potassium 3.5 mmol/L (3.3-5.1); Sodium 132 mmol/L (135-145); Total Protein 7.4 g/dL (6.5-8.0); Triglycerides 197 mg/dL (<150)
[2023-05-30 11:41] LABS: TSH reflex Free T4 2.05 uIU/mL (0.32-4.0)
== END 2023-05-30 09:25 | disposition home or self-care (01) ==
LOC: HO.HMGCLDS 09:24
PROVIDERS: PCP Nurse Practitioner Family; Visit Provider Nurse Practitioner Family
DX: Z00.00 Encounter for general adult medical examination without abnormal findings (principal)
CPT/HCPCS: 36415; 80053; 80061; 83735; 84443; 85025

== ENCOUNTER 2023-06-10 08:39 | Outpatient (AMB) | payer OTHER, SELFPAY ==
[2023-06-10 08:44] VITALS: BMI 27.5
--- NOTE | 2023-06-10 08:44 | A.OFFVIS_ITS ---
Intake Vital Signs 06/10/23 08:44 Height 5 ft 4 in Weight 160 lb BMI 27.5 Intake Visit Reasons: O/V Diss. CTR and trigger release Intake Note: Fifi 53 yr old right hand dominant female presents today for her follow up visit for bilateral CTS and left trigger thumb. Patient reports her left is currently worse. She is also having spasm in her index and pinky finger that radiates to her arm. Last seen with Dr. Goins who referred patient for further evaluation. States she would like to discuss surgery. Allergies No Known Allergies Allergy (Verified 06/10/23 08:56) HPI O/V Diss. CTR and trigger release HPI Details fifi is a 53 year old right hand dominant woman who presents for a NCS review for bilateral hand numbness, L>R. She also complains of a left trigger thumb. She complains of numbness in the thumb, index, and middle fingers of her bilateral hands. Symptoms intermittent, but daily, worse at night. She reports a hx of neuropathy due to malnutrition several years ago. She complains of painful locking and catching of her left thumb. She says she has some relief wearing a thumb brace at night, but when she does not she has to manually extend her thumb when it locked at night. She reports feeling spasms or cramping in her left index & small fingers, which radiate up into her forearm. She says these fingers start twitching at times. She denies any prior treatment. She reports a hx of C-spine & lumbar spine steroid injections. She says she is retired currently, but worked at an [employer] for ~27 years which she says was very physically demanding. 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 [facility] Medical History (Updated 06/10/23 @ 08:50 by Luigi Ashraf) Pain of left thumb Degenerative disc disease, cervical Hypertension Seborrheic keratosis Surgical History History of facial surgery Family History Maternal Grandmother Mental health disorder Social History Household Members: Family Housing: House Do you presently have visiting nurse or other home services: Yes Alcohol intake: current Alcohol intake frequency: 3 or more drinks per day Alcohol type: beer and hard liquor Comment: Pt refuses alarm system Patient Tobacco Use Status: Current everyday Tobacco user Tobacco use type: Cigarette Cigarette Packs Per Day: 0.5 Cigarettes Per Day: 10.0 Years Smoked: 20 e-Cigarette/Vaping Use: Never Used Second Hand Smoke Exposure: No service: No Current occupational status: employed 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 Cognitive needs: No Hearing needs: No Vision needs: Yes Female Reproductive History Menstrual Age of Menarche: 13 Review of Systems Const All systems reviewed & are unremarkable except as noted in HPI and below Physical Exam Vital Signs: BMI result Body Mass Index 27.5 Const General: cooperative, healthy appearing and no acute distress Orientation/consciousness: patient oriented x3 HEENT Head: Yes normocephalic and Yes atraumatic Eyes EOM: EOMs intact bilaterally Resp Effort & Inspection: normal respiratory effort and able to speak in complete sentences Cardio Jugular venous distension: no JVD Skin General skin exam: turgor normal Rashes: no rashes Neuro General: patient oriented x3 Extrem Other: Evaluation of Bilateral Upper Extremity: The patient is alert, oriented, and in no acute distress Neuro: Dense numbness in the median nerve distribution bilaterally today in clinic. Dense numbness in the ulnar nerve distribution bilaterally today in clinic. 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 Vascular: Cap refill brisk ROM: She can make a fist and extend all her digits No visible locking or catching of the left thumb seen today, but patient reports locking and catching of her left thumb happens near daily Skin: No lacerations or abrasions. General: No Ecchymosis. No Erythema or evidence of infection. + shoulder sign on the left Mild tenderness about the basal joint on the left. Nerve Conduction study: IMPRESSION: 1. This is an abnormal study. 2. There is electrodiagnostic evidence for bilateral mild median neuropathy at the wrist, consistent with carpal tunnel syndrome. 3. There is electrodiagnostic evidence for right ulnar neuropathy at elbow. 4. There is no electrodiagnostic evidence for brachial plexopathy or cervical radiculopathy. Charis Reno MD, SAMANTA 02/05/23 Psych Appearance: grossly normal Affect: normal affect Attitude: cooperative Assessment & Plan Assessment & Plan (1) Carpal tunnel syndrome of right wrist: Code(s): G56.01 - Carpal tunnel syndrome, right upper limb (2) Cubital tunnel syndrome on right: Code(s): G56.21 - Lesion of ulnar nerve, right upper limb (3) Carpal tunnel syndrome of left wrist: Code(s): G56.02 - Carpal tunnel syndrome, left upper limb (4) Trigger thumb of left hand: Code(s): M65.312 - Trigger thumb, left thumb Plan Assessment & Plan: 1. Left carpal tunnel syndrome, mild With Dense numbness, worse at night 2. Left trigger thumb I educated her about these conditions I discussed operative and non-operative treatment options The patient would like to proceed with surgery, beginning with the right side The risks and benefits of operative treatment were discussed with the patient and the patient wishes to proceed with surgery. These risks include, but are not limited to risk of damage to blood vessels, nerves, tendons, infection, recurrence, incomplete relief of preoperative symptoms, persistent pain, possible need for further surgery and the risks associated with regional blocks and anesthesia. The plan is to take the patient to the operating room sometime in the next few weeks for the following procedures: 1. Left carpal tunnel release, under local 2. Left trigger thumb release, under local All of the preoperative paperwork including the consent was reviewed today. All the patient's questions were answered. The patient understands that they will be contacted by our neurosurgery spine physician soon to schedule this procedure She denies Diabetes, blood thinners, asthma, heart, lung, kidney issues 3. Patient reported hx of peripheral neuropathy Patient reports from malnutrition With numbness of all fingers bilaterally. May be contributing to symptoms. NCS negative for left Cubital tunnel syndrome, but she complains of numbness in the left ulnar nerve distribution 4. Right Carpal tunnel syndrome, mild With Dense numbness, worse at night 5. Right cubital tunnel syndrome With Dense numbness, worse at night Again there is the patient reported history of malnutrition related peripheral neuropathy which may be contributing to numbness in all of the fingers that is constant. However it is difficult to discriminate between this as a cause of numbness to her right small finger and the cubital tunnel syndrome picked up on nerve conduction study. For this reason, I am thinking we will likely need to proceed with a right cubital tunnel release as well. Her numbness in the small finger may not improve. She will follow up to discuss treatment after her left hand surgery 6. Left Basal joint arthritis Need X-rays to confirm at next appointment 7. Spasms in the left volar forearm and hypothenar areas Etiology unclear. I explained that this was not related to carpal tunnel syndrome. Please note that greater than 50 minutes was spent with this patient going over the history, evaluating the patient and radiographs, formulating possible treatment options, discussing them with the patient, and documenting the visit. Scribed for Tammie Sapp MD by Luigi Ashraf, medical reception, on 06/10/23 at 9:25 AM, EST. Coding Level of Care Code New Pt Level 5 (98573) Diagnoses Carpal tunnel syndrome of right wrist G56.01 Cubital tunnel syndrome on right G56.21 Carpal tunnel syndrome of left wrist G56.02 Trigger thumb of left hand M65.312
== END 2023-06-10 09:21 | disposition home or self-care (01) ==
PROVIDERS: PCP Nurse Practitioner Family; Visit Provider Orthopaedic Surgery
DX: G56.03 Carpal tunnel syndrome, bilateral upper limbs (principal); G56.21 Lesion of ulnar nerve, right upper limb; M65.312 Trigger thumb, left thumb
CPT/HCPCS: 99204

== ENCOUNTER → 2023-06-10 08:39 | Outpatient (BNVA) | payer OTHER, SELFPAY | PROVIDERS: PCP Nurse Practitioner Family; Visit Provider Orthopaedic Surgery ==

== ENCOUNTER 2023-08-24 08:11 | Day surgery (SDC) | payer OTHER, SELFPAY ==
--- NOTE | 2023-08-24 07:55 | W.PM.OPN ---
Operative Note Operative Note Date of Service: 08/24/23 Narrative: Preop diagnosis: 1. Left Carpal tunnel syndrome 2. Left trigger thumb Postop diagnosis: same Procedure: 1. Left Carpal tunnel release 2. Left trigger thumb release Surgeon: Tammie Sapp MD Anesthesia: local block using 1% lidocaine with epinephrine Findings: Thickened transverse carpal ligament. EBL: Less than 5 mL Specimens: None Complications: None Disposition: Brought to recovery room in stable condition Plan: Follow-up for 10-14 days for wound check and suture removal Indications: The patient is 53 years old, with left carpal tunnel syndrome and a left trigger thumb that have been unresponsive to nonoperative management. The risks and benefits of operative treatment including but not limited to risk of damage to blood vessels, nerves, tendons, infection, persistent pain, persistent symptoms, or possible need for additional surgery were discussed with the patient and the patient wishes to proceed with surgery. Procedure: Once consent was obtained a local block was performed using a combination of 1% lidocaine with epinephrine. The patient was then brought back to the operating suite and placed on the operative table in supine position. The left upper extremity was prepped and draped in a standard surgical fashion. Once assured that we had a good block, a 1.5 cm oblique incision was made centered over the A1 caroline of the left thumb . The incision was made through the skin to the subcutaneous tissues using a #15 blade. Careful dissection was made down to the level of the A1 caroline using tenotomy scissors, with care being taken to protect the nearby neurovascular structures. A longitudinal incision was made in the A1 caroline 1st using a #15 blade, then using tenotomy scissors under direct visualization. The A1 caroline was noted to be thickened. Following our A1 caroline release, we no longer saw any locking or catching of the digit with flexion and extension. Once assured that we had a good block, a 2.0 cm longitudinal incision was made centered over the carpal tunnel. The incision was made through the skin to the subcutaneous tissues using a #15 blade. Dissection was made down to the level of the transverse carpal ligament with care being taken to protect the palmar cutaneous nerve. Once the transverse carpal ligament was clearly visualized, a longitudinal incision was made in the transverse carpal ligament 1st using a #15 blade, then using tenotomy scissors under direct visualization. Care was taken to look for and protect the motor branch of the median nerve when seen in this area. Once satisfied with our carpal tunnel release the wound was copiously irrigated with normal saline and hemostasis was obtained with a brief period of local pressure. The skin edges were reapproximated with some 5.0 nylon suture material and a sterile dressing was applied. The patient appears to have tolerated the procedure well and with no complications. All digits were well vascularized at the conclusion of the case.
--- NOTE | 2023-08-24 07:56 | MHC.SHP ---
Pre-Procedural Eval Section A - 24 Hr Update-Section A only Date of Service: 08/24/23 The patient is an INPATIENT: No Section B - Complete if H&P > 30 days Chief Complaint: Carpal tunnel syndrome, left upper limb Allergies: Allergies Allergy/AdvReac Type Severity Reaction Status Date / Time No Known Allergies Allergy Verified 06/10/23 08:56 Exam Exam Comment: Left carpal tunnel syndrome and a left trigger thumb Plan Diagnosis/Plan: Unchanged I have reviewed the history and physical and performed a pertinent physical examination on my patient. No changes have occurred unless specified. Time Spent With Patient Time: Total time managing care of this patient today ____ minutes.
[2023-08-24 08:14] VITALS: BMI 24.0
[2023-08-24 08:26] VITALS: BP 168/93; PULSE 96; RESP 16; TEMP 36.6; O2SAT 95
[2023-08-24 11:42] VITALS: BP 145/84; PULSE 95; RESP 16; O2SAT 96
== END 2023-08-24 11:45 | disposition home or self-care (01) ==
PROVIDERS: PCP Nurse Practitioner Family; Visit Provider Orthopaedic Surgery
PROC: (CPT 64721; principal; 2023-08-24 09:00)
PROC: (CPT 26055; 2023-08-24 09:00)
DX: G56.02 Carpal tunnel syndrome, left upper limb (principal); R20.0 Anesthesia of skin; M65.312 Trigger thumb, left thumb; R25.2 Cramp and spasm; M18.12 Unilateral primary osteoarthritis of first carpometacarpal joint, left hand; I10 Essential (primary) hypertension; E46 Unspecified protein-calorie malnutrition; Z68.27 Body mass index [BMI] 27.0-27.9, adult; G63 Polyneuropathy in diseases classified elsewhere; M50.30 Other cervical disc degeneration, unspecified cervical region; L82.1 Other seborrheic keratosis; F17.210 Nicotine dependence, cigarettes, uncomplicated
CPT/HCPCS: 64721; 26055; J0171; J2795

== ENCOUNTER → 2023-08-24 08:11 | Outpatient (BNV) | payer OTHER, SELFPAY | PROVIDERS: PCP Nurse Practitioner Family; Visit Provider Orthopaedic Surgery | DX: M65.312 Trigger thumb, left thumb (principal); G56.02 Carpal tunnel syndrome, left upper limb | CPT/HCPCS: 26055; 64721 ==

== ENCOUNTER 2023-09-09 13:29 | Outpatient (AMB) | payer OTHER, SELFPAY ==
--- NOTE | 2023-09-09 13:44 | A.OFFVIS_ITS ---
Intake Visit Reasons: PO LT CTR, thumb trigger release 08/24/23 AR Intake Note: Fifi is a 53 year old right hand dominant female who presents today for a post op appointment s/p left CTR, thumb trigger release 08/24/23 AR. She states that her symptoms has improved, however she still is having numbness in her thumb and pain. Patient describes after surgery having off and on spasms that happens during the week on the ulnar aspect of her hand and on the thumb. Allergies No Known Allergies Allergy (Verified 08/24/23 08:16) HPI HPI PO LT CTR, thumb trigger release 08/24/23 AR: Details: fifi is a 53 year old right hand dominant woman who returns S/P left carpal tunnel release & trigger thumb release, DOS: 08/24/23 She says she is doing well and her sensation is now normal. She has good resolution of her locking & of her nighttime symptoms. She says she opened her hand wide a few days ago and felt a pop in her trigger thumb incision She reports a hx of C-spine & lumbar spine steroid injections. She is planning on having spine surgery sometime this summer. She says she is retired currently, but worked at an [employer] for ~27 years which she says was very physically demanding. 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 [facility] Medical History (Updated 06/10/23 @ 08:50 by Luigi Ashraf) Pain of left thumb Degenerative disc disease, cervical Hypertension Seborrheic keratosis Surgical History History of facial surgery Family History Maternal Grandmother Mental health disorder Social History Household Members: Family Housing: House Do you presently have visiting nurse or other home services: Yes Alcohol intake: current Alcohol intake frequency: holidays/special occasions only Alcohol type: beer and hard liquor Comment: counts correct Patient Tobacco Use Status: Current everyday Tobacco user Tobacco use type: Cigarette Cigarette Packs Per Day: 0.5 Cigarettes Per Day: 10 Years Smoked: 20 e-Cigarette/Vaping Use: Never Used Second Hand Smoke Exposure: No service: No Current occupational status: employed Current occupation: meter tech/ rt hand Cognitive needs: No Hearing needs: No Vision needs: Yes Female Reproductive History Menstrual Age of Menarche: 13 Review of Systems Const All systems reviewed & are unremarkable except as noted in HPI and below Physical Exam Const General: no acute distress and alert Orientation/consciousness: patient oriented x3 Neuro General: patient oriented x3 Extrem Other: The patient was alert oriented and in no acute distress The incision is healing well with no erythema drainage or evidence of infection. Most sutures removed and Steri-Strips applied, 2 sutures remaining in trigger thumb incision She has a little bit of opening of the distal aspect of the trigger thumb incision She can make a fist and extend all her digits Sensation is intact and now normal to the right median nerve distribution Cap refill is brisk Nerve Conduction study: IMPRESSION: 1. This is an abnormal study. 2. There is electrodiagnostic evidence for bilateral mild median neuropathy at the wrist, consistent with carpal tunnel syndrome. 3. There is electrodiagnostic evidence for right ulnar neuropathy at elbow. 4. There is no electrodiagnostic evidence for brachial plexopathy or cervical radiculopathy. Charis Reno MD, SAMANTA 02/05/23 Psych Appearance: grossly normal Affect: normal affect Attitude: cooperative Assessment & Plan Assessment & Plan (1) Carpal tunnel syndrome of right wrist: Code(s): G56.01 - Carpal tunnel syndrome, right upper limb Category: Medical (2) Cubital tunnel syndrome on right: Code(s): G56.21 - Lesion of ulnar nerve, right upper limb Category: Medical (3) Carpal tunnel syndrome of left wrist: Code(s): G56.02 - Carpal tunnel syndrome, left upper limb Category: Medical (4) Trigger thumb of left hand: Code(s): M65.312 - Trigger thumb, left thumb Category: Medical Plan Assessment & Plan: 1. Left carpal tunnel syndrome, S/P release DOS: 08/24/23 Pre-operative with dense numbness, worse at night Now with normal sensation and good resolution of her nightitme symptoms 2. Left trigger thumb, S/P release DOS: 08/24/23 The patient appears to be doing well post-operatively I educated her about the post-operative course I explained the signs and symptoms of infection, if the patient develops any new or worsening erythema, drainage, pain, or warmth they should contact the clinic or attend the ED. I discussed activity modifications, she is to lift nothing heavier than a cellphone for the next two weeks She will perform gentle ROM exercises at home She should avoid any underwater activities for the next 5 days She should gently massage about the incision site to reduce the risk of hypersensitivity She will follow up next week for her remaining suture removal 3. Patient reported hx of peripheral neuropathy Patient reports from malnutrition With numbness of all fingers bilaterally. May be contributing to symptoms. NCS negative for left Cubital tunnel syndrome, but she complains of numbness in the left ulnar nerve distribution 4. Right Carpal tunnel syndrome, mild With Dense numbness, worse at night 5. Right cubital tunnel syndrome With Dense numbness, worse at night Again there is the patient reported history of malnutrition related peripheral neuropathy which may be contributing to numbness in all of the fingers that is constant. However it is difficult to discriminate between this as a cause of numbness to her right small finger and the cubital tunnel syndrome picked up on nerve conduction study. For this reason, I am thinking we will likely need to proceed with a right cubital tunnel release as well. Her numbness in the small finger may not improve. She will follow up to discuss treatment after her left hand surgery She says she has a spine surgery planned for this summer, and would like to return sometime in the late summer/early fall in order to discuss surgery 6. Left Basal joint arthritis Need X-rays to confirm at next appointment 7. Spasms in the left volar forearm and hypothenar areas Etiology unclear. I explained that this was not related to carpal tunnel syndrome. Scribed for Tammie Sapp MD by Luigi Ashraf expert medical writer, on 09/09/23 at 1:55 PM EST. Scribe Plan - Not visible on output: Scribed for Tammie Sapp MD by Luigi Ashraf expert medical writer, on [ ] at [ ], EST. Coding Level of Care Code Global (07326) Diagnoses Carpal tunnel syndrome of right wrist G56.01 Cubital tunnel syndrome on right G56.21 Carpal tunnel syndrome of left wrist G56.02 Trigger thumb of left hand M65.312
== END 2023-09-09 14:06 | disposition home or self-care (01) ==
LOC: HO.HOS 13:41
PROVIDERS: PCP Nurse Practitioner Family; Visit Provider Orthopaedic Surgery
DX: G56.03 Carpal tunnel syndrome, bilateral upper limbs (principal); G56.21 Lesion of ulnar nerve, right upper limb; M65.312 Trigger thumb, left thumb
CPT/HCPCS: 99024

== ENCOUNTER → 2023-09-09 13:41 | Outpatient (BNVA) | payer OTHER, SELFPAY | PROVIDERS: PCP Nurse Practitioner Family; Visit Provider Orthopaedic Surgery | DX: G56.03 Carpal tunnel syndrome, bilateral upper limbs (principal); G56.21 Lesion of ulnar nerve, right upper limb; M65.312 Trigger thumb, left thumb | CPT/HCPCS: 99212 ==

== ENCOUNTER 2023-09-16 14:14 | Outpatient (AMB) | payer OTHER, SELFPAY ==
--- NOTE | 2023-09-16 14:58 | MHC.OFFVIS ---
Intake Visit Reasons: PO LT CTR, thumb trigger release 08/24/23 AR Intake Note: Juliana is a 53 year odl female who presents today for a PO appointment s/p left CTR, thumb trigger release 08/24/23 AR. Patient reports she is doing well. She expresses having soreness in her CMC joint. Having improvements in her numbness and tingling. Allergies No Known Allergies Allergy (Verified 08/24/23 08:16) HPI HPI PO LT CTR, thumb trigger release 08/24/23 AR: Details: Juliana is a 53 year old right hand dominant woman who returns S/P left carpal tunnel release & trigger thumb release, DOS: 08/24/23. She is here for a wound check and remaining suture removal She says she is doing well and her sensation is now normal. She has good resolution of her locking & of her nighttime symptoms. She is noticing that she still gets an achy pain or spasms in the thenar and hypothenar masses in her hand. She was getting these before surgery as well. She reports a hx of C-spine & lumbar spine steroid injections. She is planning on having spine surgery sometime this summer. She says she is retired currently, but worked at an [employer] for ~27 years which she says was very physically demanding. 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 [facility] Medical History (Updated 06/10/23 @ 08:50 by Luigi Ashraf) Pain of left thumb Degenerative disc disease, cervical Hypertension Seborrheic keratosis Surgical History History of facial surgery Family History Maternal Grandmother Mental health disorder Social History Household Members: Family Housing: House Do you presently have visiting nurse or other home services: Yes Alcohol intake: current Alcohol intake frequency: holidays/special occasions only Alcohol type: beer and hard liquor Comment: counts correct Patient Tobacco Use Status: Current everyday Tobacco user Tobacco use type: Cigarette Cigarette Packs Per Day: 0.5 Cigarettes Per Day: 10 Years Smoked: 20 e-Cigarette/Vaping Use: Never Used Second Hand Smoke Exposure: No service: No Current occupational status: employed Current occupation: meter tech/ rt hand Cognitive needs: No Hearing needs: No Vision needs: Yes Female Reproductive History Menstrual Age of Menarche: 13 Physical Exam Const General: no acute distress and alert Orientation/consciousness: patient oriented x3 Neuro General: patient oriented x3 Extrem Other: The patient was alert oriented and in no acute distress The incision is healing well with no erythema drainage or evidence of infection. Remaining sutures removed and Steri-strips applied. She can make a fist and extend all her digits Good flexion extension of the thumb with no locking or catching. Sensation is intact and now normal to the right median nerve distribution Cap refill is brisk She does have a positive shoulder sign, and basal joint arthritis may be contributing to her occasional achy symptoms in the thenar mass Nerve Conduction study: IMPRESSION: 1. This is an abnormal study. 2. There is electrodiagnostic evidence for bilateral mild median neuropathy at the wrist, consistent with carpal tunnel syndrome. 3. There is electrodiagnostic evidence for right ulnar neuropathy at elbow. 4. There is no electrodiagnostic evidence for brachial plexopathy or cervical radiculopathy. Charis Reno MD, SAMANTA 02/05/23 Psych Appearance: grossly normal Affect: normal affect Attitude: cooperative Assessment & Plan Assessment & Plan (1) Carpal tunnel syndrome of right wrist: Code(s): G56.01 - Carpal tunnel syndrome, right upper limb Category: Medical (2) Cubital tunnel syndrome on right: Code(s): G56.21 - Lesion of ulnar nerve, right upper limb Category: Medical (3) Carpal tunnel syndrome of left wrist: Code(s): G56.02 - Carpal tunnel syndrome, left upper limb Category: Medical (4) Trigger thumb of left hand: Code(s): M65.312 - Trigger thumb, left thumb Category: Medical Plan Assessment & Plan: 1. Left carpal tunnel syndrome, S/P release DOS: 08/24/23 Pre-operative with dense numbness, worse at night Now with normal sensation and good resolution of her nightitme symptoms 2. Left trigger thumb, S/P release DOS: 08/24/23 The patient appears to be doing well post-operatively I educated her about the post-operative course I explained the signs and symptoms of infection, if the patient develops any new or worsening erythema, drainage, pain, or warmth they should contact the clinic or attend the ED. I discussed activity modifications, she is to lift nothing heavier than a cellphone for the next two weeks She will perform gentle ROM exercises at home She should gently massage about the incision site to reduce the risk of hypersensitivity She can follow up prn. 3. Patient reported hx of peripheral neuropathy Patient reports from malnutrition With numbness of all fingers bilaterally. May be contributing to symptoms. NCS negative for left Cubital tunnel syndrome, but prior to surgery she complained of numbness in the left ulnar nerve distribution. 4. Right Carpal tunnel syndrome, mild With Dense numbness, worse at night 5. Right cubital tunnel syndrome With Dense numbness, worse at night Again there is the patient reported history of malnutrition related peripheral neuropathy which may be contributing to numbness in all of the fingers that is constant. However it is difficult to discriminate between this as a cause of numbness to her right small finger and the cubital tunnel syndrome picked up on nerve conduction study. For this reason, I am thinking we will likely need to proceed with a right cubital tunnel release as well. Her numbness in the small finger may not improve. She will follow up to discuss treatment after her left hand surgery She says she has a spine surgery planned for this summer, and would like to return sometime in the late summer/early fall in order to discuss surgery 6. Left Basal joint arthritis Need X-rays to confirm at next appointment 7. Spasms in the left volar forearm and hypothenar areas Etiology unclear. I explained that this was not related to carpal tunnel syndrome. Scribed for Tammie Sapp MD by wanda Muse, on 09/16/23 at 3:20 PM EST. Scribe Plan - Not visible on output: Scribed for Tammie Sapp MD by Luigi Ashraf medical orderly, on [ ] at [ ], EST. Coding Level of Care Code Global (15837) Diagnoses Carpal tunnel syndrome of right wrist G56.01 Cubital tunnel syndrome on right G56.21 Carpal tunnel syndrome of left wrist G56.02 Trigger thumb of left hand M65.312
== END 2023-09-16 15:14 | disposition home or self-care (01) ==
LOC: HO.HOS 14:14
PROVIDERS: PCP Nurse Practitioner Family; Visit Provider Orthopaedic Surgery
DX: G56.03 Carpal tunnel syndrome, bilateral upper limbs (principal); G56.21 Lesion of ulnar nerve, right upper limb; M65.312 Trigger thumb, left thumb
CPT/HCPCS: 99024

== ENCOUNTER → 2023-09-16 14:14 | Outpatient (BNVA) | payer OTHER, SELFPAY | PROVIDERS: PCP Nurse Practitioner Family; Visit Provider Orthopaedic Surgery | DX: G56.03 Carpal tunnel syndrome, bilateral upper limbs (principal); G56.21 Lesion of ulnar nerve, right upper limb; M65.312 Trigger thumb, left thumb; Z48.02 Encounter for removal of sutures | CPT/HCPCS: 99212 ==

== ENCOUNTER 2023-09-28 15:27 | Outpatient (AMB) | payer OTHER, SELFPAY ==
--- NOTE | 2023-09-28 15:30 | A.OFFPC_ITS ---
Vital Signs 09/28/23 15:31 Height 5 ft 4 in Weight 158 lb BMI 27.1 BP 114/80 Blood Pressure Location Lt brachial Position Sitting Pulse 97 Pulse Source Pulse Oximeter Pulse Oximetry (%) 99 Oxygen Delivery Method Room Air Intake Visit Reasons: PE Intake Note: PT here for annual PE. Last mammogram 07/22/22. Last Pap 12/06/20 Allergies No Known Allergies Allergy (Verified 09/28/23 16:10) Medication List - Last Reconciled 09/28/23 by MIRNA Sotelo acetaminophen 650 mg (2 x 325 mg) PO Q6H PRN albuterol sulfate 90 mcg/actuation 1 inh inhalation Q4-6H PRN 30 days alprazolam 0.5 mg PO DAILY PRN 30 days amlodipine 5 mg PO DAILY cyclobenzaprine 10 mg PO BID PRN ferrous sulfate 325 mg PO TID ferrous sulfate 2 Tabs orally daily; gabapentin 100 mg PO QID lorazepam 1 mg PO losartan 100 mg PO DAILY 90 days magnesium oxide 400 mg PO DAILY meloxicam 15 mg PO DAILY 30 days multivitamin with iron (Daily Multiple Vitamins with Iron tablet) 1 tab PO DAILY omeprazole 20 mg PO DAILY psyllium husk (with sugar) 3.4 gram/12 gram (Metamucil (with sugar)) 1 tbsp PO DAILY Tobacco use date assessed: 09/25/22 Dental Screening Dental Screen Date: 09/28/23 Did you have a dental visit in the last 12 months?: No Did you have a dental problem in the last 6 months where you did not have access to dental care?: No Was dental information given to patient?: Patient has dentist HPI HPI Comments History of Present Illness Details Patient is a 53-year-old female who I am meeting for the 1st time here for physical exam. Patient's last mammogram was over 1 year ago, patient states she will schedule 1 after her lumbar surgery in 2 days. Patient has established care with OBGYN. Patient does not know when her last Tdap vaccine was does not want today in office today. Patient will get shingles vaccine later this year. Has a past medical history significant for: Hypertension-continues to use losartan and amlodipine with good effect. Lumbar discomfort-patient having elective surgery 2 days on L5-S1. Utilizes gabapentin for neuropathy. Cervical discomfort-utilizing meloxicam. Cyclobenzaprine p.o. b.i.d. PRN. She understands to hold this medication prior to surgery. Reactive Airway Disease- Taking Albuterol PRN. Anxiety disorder- patient taking alprazolam 0.5 p.o. b.i.d. Gastric reflux- 20 mg omeprazole PO daily. [facility] Medical History Pain of left thumb Degenerative disc disease, cervical Hypertension Seborrheic keratosis Surgical History H/O carpal tunnel repair History of facial surgery Family History Maternal Grandmother Mental health disorder Social History Household Members: Family Housing: House Do you presently have visiting nurse or other home services: Yes Alcohol intake: current Alcohol intake frequency: holidays/special occasions only Alcohol type: beer and hard liquor Comment: counts correct Patient Tobacco Use Status: Current everyday Tobacco user Tobacco use type: Cigarette Cigarette Packs Per Day: 0.5 Cigarettes Per Day: 10 Years Smoked: 20 e-Cigarette/Vaping Use: Never Used Second Hand Smoke Exposure: No service: No Current occupational status: employed Current occupation: [employer] Cognitive needs: No Hearing needs: No Vision needs: Yes Female Reproductive History Menstrual Age of Menarche: 13 Questionnaire PHQ-9 Over the last 2 weeks, how often have you been bothered by any of the following problems? 1. Little interest or pleasure in doing things: several days 2. Feeling down, depressed, or hopeless: several days 3. Trouble falling or staying asleep, or sleeping too much: nearly every day 4. Feeling tired or having little energy: not at all 5. Poor appetite or overeating: not at all 6. Feeling bad about yourself - or that you are a failure or have let yourself or your family down: several days 7. Trouble concentrating on things, such as reading the newspaper or watching television: not at all 8. Moving or speaking so slowly that other people could have noticed. Or the opposite - being so fidgety or restless that you have been moving around a lot more than usual: not at all 9. Thoughts that you would be better off or of hurting yourself in some way: not at all Total score: 6 Depression Screening Interpretation: Negative Depression Screening Done: Yes 68383 - PHQ-9 Billing: Yes Source: Developed by Drs. Santos Vargas, Josh Chin and colleagues, with an educational micky from [email or web address]. Thrive Questionnaire Date Thrive assessed: 09/19/21 AUDIT C Alcohol Use Questionnaire (AUDIT-C) 1. How often do you have a drink containing alcohol?: 2-4 times a month 2. How many drinks containing alcohol do you have on a typical day when you are drinking?: 1 or 2 3. How often do you have six or more drinks on one occasion?: Never Total Score: 2 MASOOD-7 AMB Questionnaire MASOOD-7 Date MASOOD - 7 assessed: 09/28/23 Feeling nervous, anxious, or on edge: 3 = Nearly every day Not being able to stop or control worryin = Nearly every day Worrying too much about different things: 3 = Nearly every day Trouble relaxin = Nearly every day Being so restless that it is hard to sit still: 1 = Several days Becoming easily annoyed or irritable: 3 = Nearly every day Feeling afraid as if something awful might happen: 0 = Not at all Total MASOOD-7 score (0-4 normal; 5-9 mild; 10-14 moderate; 15-21 severe): 16 Source: Developed by Drs. Santos Vargas, Mayi Jorge, Josh Domínguez and colleagues, with an educational micky from [employer]. MASOOD-7 Assessment Billing MASOOD-7 Assessment Tool: MASOOD-7 Assessment 16390 (Patient states she nervous due to her surgery. Taking medication. ) Review of Systems Const All systems reviewed & are unremarkable except as noted in HPI and below Physical exam (Primary Care) Care Plan Goal for BP management: Blood pressure controlled. Tobacco/Smoking Status: Tobacco use Status Tobacco use date assessed 09/25/22 09/09/23 11:17 Patient Tobacco Use Status Current everyday Tobacco 09/09/23 11:17 Tobacco use type Cigarette 09/09/23 11:17 e-Cigarette/Vaping Use Never Used 09/09/23 11:17 Depression Screening Interpretation: Negative Thrive Assessment: Date of Thrive Assessment Date Thrive assessed 09/19/21 09/09/23 11:17 Const Other: Appearance: Alert.? Oriented X3.? No acute distress.? Head: Normocephalic, atraumatic, no step-offs or deformities Eyes: Pupils equal, round and reactive to light.? ENT: Pharynx normal.? Neck: Normal inspection.? Neck supple.? CVS: Normal heart rate and rhythm.? Pulses normal.? Respiratory: No respiratory distress.? Breath sounds normal.? Abdomen: Soft and nontender.? Skin: Skin warm and dry.? Normal skin color.? Normal skin turgor.? Extremities: No lower extremity edema.? No calf ttp. 5/5 strength to bilateral upper and lower extremities Back: Lumbar tenderness, no C-spine tenderness, Limited range of motion to flexion and extension, no CVA tenderness bilaterally Neuro: Oriented X 3.? No motor deficit.? No sensory deficit. CN 2-12 intact Assessment and Plan Assessment & Plan (1) Physical exam: Comment: Will draw labs today CBC/CMP. Also get UA. Code(s): Z00.00 - Encounter for general adult medical examination without abnormal findings (2) Low back pain: Comment: Patient having surgery and L5-S1 to relieve nerve compression. Surgery of [facility]. Preop clearance has been given through [facility]. Code(s): M54.50 - Low back pain, unspecified Qualifiers: Chronicity: unspecified Back pain laterality: bilateral Sciatica presence: with sciatica Sciatica laterality: sciatica of left side Qualified Code(s): M54.42 - Lumbago with sciatica, left side (3) HTN (hypertension): Comment: Controlled with amlodipine and losartan. Code(s): I10 - Essential (primary) hypertension Qualifiers: Hypertension type: primary hypertension Qualified Code(s): I10 - Essential (primary) hypertension (4) Hypomagnesemia: Comment: Utilizing magnesium supplement will redraw magnesium blood draw. Code(s): E83.42 - Hypomagnesemia (5) Cervical neck pain with evidence of disc disease: Comment: Recent steroid injection has relief pain. Patient has no complaints at appointment Code(s): M50.90 - Cervical disc disorder, unspecified, unspecified cervical region (6) Carpal tunnel syndrome of right wrist: Comment: Will have surgery at the end of the year. Code(s): G56.01 - Carpal tunnel syndrome, right upper limb (7) Carpal tunnel syndrome of left wrist: Comment: Recent corrective surgery of left carpal tunnel syndrome with good effect. Code(s): G56.02 - Carpal tunnel syndrome, left upper limb Plan: Draw labs for Plan Follow-up 4 months Orders: Orders MM tomosynthesis screening BI Today MIRNA Sotelo Z12.31 - Encounter for screening mammogram for malignant neoplasm of breast Magnesium Today MIRNA Sotelo Z91.89 - Other specified personal risk factors, not elsewhere classified Comprehensive Met. Panel Today MIRNA Sotelo Z91.89 - Other specified personal risk factors, not elsewhere classified Complete Blood Count Auto Diff Today MIRNA Sotelo Z13.0 - Encounter for screening for diseases of the blood and blood-forming organs and certain disorders involving the immune mechanism Medications: Changed From gabapentin 200 mg (2 x 100 mg) PO TID 30 days 180 caps 2RF To gabapentin 100 mg PO QID ADRIAN Goodrich From ferrous sulfate 324 mg PO TID 300 tabs 1RF To ferrous sulfate 2 Tabs orally daily; ADRIAN Goodrich Coding Level of Care Code Est Pt Prev Care 40-64y(43079) Diagnoses Physical exam Z00.00 Bilateral low back pain with left-sided sciatica, unspecified chronicity M54.42 Chronicity: unspecified Back pain laterality: bilateral Sciatica presence: with sciatica Sciatica laterality: sciatica of left side Primary hypertension I10 Hypertension type: primary hypertension Hypomagnesemia E83.42 Cervical neck pain with evidence of disc disease M50.90 Carpal tunnel syndrome of right wrist G56.01 Carpal tunnel syndrome of left wrist G56.02 Additional Codes MASOOD-7 Assessment Billing - MASOOD-7 Assessment Tool: MASOOD-7 Assessment 89429 ([id number]) Time Spent (min) 35
[2023-09-28 15:31] VITALS: BP 114/80; PULSE 97; O2SAT 99; BMI 27.1
== END 2023-09-28 16:42 | disposition home or self-care (01) ==
PROVIDERS: PCP Nurse Practitioner Family; Visit Provider Nurse Practitioner Primary Care
DX: Z00.00 Encounter for general adult medical examination without abnormal findings (principal); M54.42 Lumbago with sciatica, left side; I10 Essential (primary) hypertension; E83.42 Hypomagnesemia; M50.90 Cervical disc disorder, unspecified, unspecified cervical region; G56.03 Carpal tunnel syndrome, bilateral upper limbs
CPT/HCPCS: 99396

== ENCOUNTER 2024-01-27 09:56 | Outpatient (AMB) | payer OTHER, SELFPAY ==
--- NOTE | 2024-01-27 09:57 | MHC.PC.OV ---
Vital Signs 01/27/24 09:58 01/27/24 10:35 Height 5 ft 4 in Weight 163 lb 8 oz BMI 28.1 BP 158/90 H 148/90 H Blood Pressure Location Lt brachial Rt brachial Position Sitting Sitting Pulse 98 Pulse Source Pulse Oximeter Pulse Oximetry (%) 98 Oxygen Delivery Method Room Air Intake Visit Reasons: Carpal tunnel F/u Intake Note: pt is here for carpal tunnel f/up Director Of Religious Life Required: No Accompanied by: Self / Same As Patient Allergies No Known Allergies Allergy (Verified 01/27/24 09:58) Medication List - Last Reconciled 01/27/24 by ADRIAN Goodrich acetaminophen 650 mg (2 x 325 mg) PO Q6H PRN albuterol sulfate 90 mcg/actuation 1 inh inhalation Q4-6H PRN 30 days alprazolam 0.5 mg PO DAILY PRN 30 days amlodipine 5 mg PO DAILY cyclobenzaprine 10 mg PO BID PRN ferrous sulfate 2 Tabs orally daily; gabapentin 100 mg PO QID lorazepam 1 mg PO losartan 100 mg PO DAILY 90 days magnesium oxide 400 mg PO DAILY meloxicam 15 mg PO DAILY 30 days multivitamin with iron (Daily Multiple Vitamins with Iron tablet) 1 tab PO DAILY omeprazole 20 mg PO DAILY psyllium husk (with sugar) 3.4 gram/12 gram (Metamucil (with sugar)) 1 tbsp PO DAILY Tobacco use date assessed: 01/27/24 Dental Screening Dental Screen Date: 09/28/23 HPI Carpal tunnel F/u HPI Details carpel tunnel/trigger finger surgically repaired in August. Reports some residual weakness with hand graps, but overall, doing well. HTN: Pt reports more stability at home. Will send me values via the portal. Denies chest pain, shortness of breath, headache, dizziness, and blurred vision. Pt is tachycardic today, EKG is WNL. Pt has been smoking up to a pack a day since age 16. Will refer for low-dose CT. [facility] Medical History Pain of left thumb Degenerative disc disease, cervical Hypertension Seborrheic keratosis Surgical History H/O carpal tunnel repair History of facial surgery Family History Maternal Grandmother Mental health disorder Social History Household Members: Family Housing: House Do you presently have visiting nurse or other home services: Yes Alcohol intake: current Alcohol intake frequency: holidays/special occasions only Alcohol type: beer and hard liquor Comment: counts correct Patient Tobacco Use Status: Current everyday Tobacco user Tobacco use type: Cigarette Cigarette Packs Per Day: 0.5 Cigarettes Per Day: 10 Years Smoked: 20 e-Cigarette/Vaping Use: Never Used Second Hand Smoke Exposure: No service: No Current occupational status: employed Current occupation: [employer] Cognitive needs: No Hearing needs: No Vision needs: Yes Female Reproductive History Menstrual Age of Menarche: 13 Questionnaire PHQ-9 Over the last 2 weeks, how often have you been bothered by any of the following problems? 1. Little interest or pleasure in doing things: several days 2. Feeling down, depressed, or hopeless: several days 3. Trouble falling or staying asleep, or sleeping too much: several days 4. Feeling tired or having little energy: several days 5. Poor appetite or overeating: several days 6. Feeling bad about yourself - or that you are a failure or have let yourself or your family down: several days 7. Trouble concentrating on things, such as reading the newspaper or watching television: several days 8. Moving or speaking so slowly that other people could have noticed. Or the opposite - being so fidgety or restless that you have been moving around a lot more than usual: not at all 9. Thoughts that you would be better off or of hurting yourself in some way: not at all Total score: 7 Depression Screening Interpretation: Negative Depression Screening Done: Yes 63972 - PHQ-9 Billing: Yes Source: Developed by Drs. Santos Vargas, Mayi Jorge, Josh Domínguez and colleagues, with an educational micky from [employer]. Thrive Questionnaire Date Thrive assessed: 01/27/24 I am a: Patient What is your living situation today?: I have a steady place to live Within the past 12 months, did the food you bought not last and you didn't have the money to get more?: I choose not to answer this question Within the past 12 months, did you worry whether your food would run out before you got money to buy more?: I choose not to answer this question Do you have trouble paying for medicines?: I choose not to answer this question Do you have trouble getting transportation to medical appointments?: No Do you have trouble paying your heating and electricity bill?: I choose not to answer this question Do you have trouble taking care of your child, family member or friend?: No Do you have trouble with day-to-day activities such as bathing, preparing meals, shopping, managing finances, etc.?: No Are you interested in more education?: Yes Please select the resources that you would like help with: None Currently or been in a relationship where the following occur: No concerns reported THRIVE Score: 0 AUDIT C Alcohol Use Questionnaire (AUDIT-C) 1. How often do you have a drink containing alcohol?: 4 or more times a week 2. How many drinks containing alcohol do you have on a typical day when you are drinking?: 1 or 2 3. How often do you have six or more drinks on one occasion?: Less than monthly Total Score: 5 Score Reviewed/Action Taken: Yes MASOOD-7 AMB Questionnaire MASOOD-7 Date MASOOD - 7 assessed: 01/27/24 Feeling nervous, anxious, or on edge: 3 = Nearly every day Not being able to stop or control worryin = Several days Worrying too much about different things: 1 = Several days Trouble relaxin = Several days Being so restless that it is hard to sit still: 0 = Not at all Becoming easily annoyed or irritable: 3 = Nearly every day Feeling afraid as if something awful might happen: 1 = Several days Total MASOOD-7 score (0-4 normal; 5-9 mild; 10-14 moderate; 15-21 severe): 10 Source: Developed by Drs. Santos Vargas, Mayi Jorge, Josh Domínguez and colleagues, with an educational micky from [employer] MASOOD-7 Assessment Billing MASOOD-7 Assessment Tool: MASOOD-7 Assessment 48917 Review of Systems Const Reports as per HPI Physical exam (Primary Care) Vital Signs: Last Vital Signs Pulse 98 01/27/24 09:58 BP 148/90 H 01/27/24 10:35 Pulse Ox 98 01/27/24 09:58 Oxygen Delivery Method Room Air 01/27/24 09:58 BMI result Body Mass Index 28.1 Tobacco/Smoking Status: Tobacco use Status Tobacco use date assessed 01/27/24 01/27/24 09:59 Patient Tobacco Use Status Current everyday Tobacco 01/27/24 09:59 Tobacco use type Cigarette 01/27/24 09:59 e-Cigarette/Vaping Use Never Used 01/27/24 09:59 PHQ-9: PHQ-9 Score PHQ-9: Total score 7 01/27/24 10:35 Depression Screening Interpretation: Negative Thrive Assessment: Date of Thrive Assessment Date Thrive assessed 01/27/24 01/27/24 09:59 Currently or been in a relationship where the following occur: No concerns reported Const General: cooperative Orientation/consciousness: patient oriented x3 Resp Effort & Inspection: normal respiratory effort Auscultation: clear to auscultation bilaterally Cardio Rate: tachycardic Rhythm: regular rhythm Heart sounds: S1 normal heart sound present and S2 normal heart sound present Skin Other: fair skinned, multiple freckles, large white macular blotch to anterior neck, ? tinea vs pigmentation issue Neuro General: patient oriented x3 Extrem Other: slight weak left hand grasp noted Psych Appearance: grossly normal Mental Status: mental status grossly normal Speech and movement: Normal speech and movement present Affect: normal affect Attitude: cooperative Thought process: Normal thought process present Thought content: Normal thought content present Insight: Good insight present (Psych) Judgement: Good judgement present (Psych) Coding Level of Care Code Est Pt Level 3 (67538) Diagnoses Tachycardia R00.0 Primary hypertension I10 Hypertension type: primary hypertension Carpal tunnel syndrome of left wrist G56.02 Skin lesion L98.9 Smoker F17.200 Additional Codes MASOOD-7 Assessment Billing - MASOOD-7 Assessment Tool: MASOOD-7 Assessment 36224 ([id number]) Assessment & Plan Assessment & Plan (1) Tachycardia: Code(s): R00.0 - Tachycardia, unspecified Category: Medical Plan: EKG done in office, encouraged to get labs drawn (2) HTN (hypertension): Code(s): I10 - Essential (primary) hypertension Category: Medical Qualifiers: Hypertension type: primary hypertension Qualified Code(s): I10 - Essential (primary) hypertension Plan: send me BPs from home (less anxious at home) (3) Carpal tunnel syndrome of left wrist: Comment: surg in August 2023 Code(s): G56.02 - Carpal tunnel syndrome, left upper limb Category: Medical Plan: referring to OT (4) Skin lesion: Code(s): L98.9 - Disorder of the skin and subcutaneous tissue, unspecified Category: Medical Plan: fair skinned, referred to derm (5) Smoker: Code(s): F17.200 - Nicotine dependence, unspecified, uncomplicated Category: Social Hx Plan: educated on risk.dangers of smoking, pt qualifys for LDCT Plan The patient agreed to the use of a clinical laboratory medical director for this encounter. Scribed for MIRNA Law-SAKINA by Rupali Macias clinical laboratory medical director, on 01/27/2024 at 10:15 EST. Orders: Orders AMB EKG-In Office Today R00.0 - Tachycardia, unspecified Comprehensive [place]. Panel Fast Today I10 - Essential (primary) hypertension TSH reflex Free T4 Today I10 - Essential (primary) hypertension UA CC w/rflx Micro + Cult Today I10 - Essential (primary) hypertension Complete Blood Count Auto Diff Today I10 - Essential (primary) hypertension Lipid Panel Today I10 - Essential (primary) hypertension OT Evaluation and Treatment Today G56.02 - Carpal tunnel syndrome, left upper limb Referrals Lung Cancer Screening Referral F17.200 - Nicotine dependence, unspecified, uncomplicated Dermatology Referral L98.9 - Disorder of the skin and subcutaneous tissue, unspecified
[2024-01-27 09:58] VITALS: BP 158/90; PULSE 98; O2SAT 98; BMI 28.1
[2024-01-27 10:35] VITALS: BP 148/90
== END 2024-01-27 10:59 | disposition home or self-care (01) ==
PROVIDERS: PCP Nurse Practitioner Family; Visit Provider Nurse Practitioner Family
DX: R00.0 Tachycardia, unspecified (principal); I10 Essential (primary) hypertension; G56.02 Carpal tunnel syndrome, left upper limb; L98.9 Disorder of the skin and subcutaneous tissue, unspecified; F17.200 Nicotine dependence, unspecified, uncomplicated

== ENCOUNTER → 2024-01-27 09:56 | Outpatient (BNVA) | payer OTHER, SELFPAY | PROVIDERS: PCP Nurse Practitioner Family; Visit Provider Nurse Practitioner Family | DX: R00.0 Tachycardia, unspecified (principal); I10 Essential (primary) hypertension; G56.02 Carpal tunnel syndrome, left upper limb; L98.9 Disorder of the skin and subcutaneous tissue, unspecified; F17.200 Nicotine dependence, unspecified, uncomplicated; Z71.6 Tobacco abuse counseling | CPT/HCPCS: 96127; 99212 ==

== ENCOUNTER 2024-03-25 10:52 | Outpatient (AMB) | payer OTHER, SELFPAY ==
--- NOTE | 2024-03-25 07:53 | A.OFFVIS_ITS ---
Intake Visit Reasons: Current Smoker Allergies No Known Allergies Allergy (Verified 01/27/24 09:58) HPI HPI Current Smoker: Details: Initial visit for this 54yo smoker with a 35PYH. Patient started smoking at age 17 for 37 years at 1ppd. . Denies marijuana use. Denies second hand smoke exposure. Denies exposure to chemicals or substances like asbestos. . Denies known family history of lung cancer. Denies personal history of cancers. Denies chest CT in last year. . Denies recent travel outside the [place]. Denies recent respiratory illness or recent hospitalization for respiratory issues. Reports testing positive for COVID. Admits receiving COVID Vaccine. . Denies fever, chills, new/worsening cough, hemoptysis, hoarseness or dysphagia. Denies significant chest pain, significant dyspnea or unintentional weight loss. Patient Lung Cancer Screening Questionnaire reviewed with patient by provider. . Shared Decision Making Completed. Patient meets criteria. Discussed in detail with patient, the risk vs benefit of LDCT screening. Patient consents to proceed with scan. Discussed smoking cessation. [facility] Medical History (Updated 03/25/24 @ 11:17 by Justine Ramos PA-C) HTN (hypertension) Nicotine dependence, cigarettes, uncomplicated Pain of left thumb Degenerative disc disease, cervical Seborrheic keratosis Surgical History (Updated 03/25/24 @ 11:09 by Justine Ramos PA-C) History of back surgery H/O carpal tunnel repair History of facial surgery Family History Maternal Grandmother Mental health disorder Social History (Updated 03/25/24 @ 11:17 by Justine Ramos PA-C) Household Members: Family Housing: House Do you presently have visiting nurse or other home services: Yes Alcohol intake: current Alcohol intake frequency: holidays/special occasions only Alcohol type: beer and hard liquor Comment: counts correct Patient Tobacco Use Status: Current everyday Tobacco user Tobacco use type: Cigarette Years Smoked: (onset 17yo, 1ppd x 37yrs, 35pyh) e-Cigarette/Vaping Use: Never Used Second Hand Smoke Exposure: No service: No Current occupational status: employed Current occupation: meter tech/ [employer] Cognitive needs: No Hearing needs: No Vision needs: Yes Female Reproductive History Menstrual Age of Menarche: 13 Assessment & Plan Assessment & Plan (1) Nicotine dependence, cigarettes, uncomplicated: Comment: (onset 17yo, 1ppd x 37yrs, 35pyh) Code(s): F17.210 - Nicotine dependence, cigarettes, uncomplicated Category: Medical Plan: - SDM visit completed today in office. - Patient meets criteria for LDCT for lung cancer screening purposes and is asymptomatic. - Smoking cessation counseling offered. Patients can always call [phone]. - Will arrange for a LDCT scan of the chest for screening purposes at [facility]. - Risks, benefits, and alternatives were discussed in detail and the patient agrees to proceed. - Risks discussed include but are not limited to: radiation exposure, anxiety during testing and while awaiting results, false negatives, false positives and possibility of additional intervention such as further imaging or surgical procedures for benign disease. - Benefits are obviously detection of lung cancer at an early stage which can lead to improved outcomes. - Discussed the importance of screening program compliance with adherence to yearly LDCT scan as scheduled - or sooner interval scans for personalized screening regimen. - Discussed follow up plan. Our office will send a letter discussing results and if needed set up phone call and office visit based on CT findings. - Patient educated on results categorization and the management decisions for suspicious findings potentially found on the screening LDCT scan. Any patient with a Lung RADS score of 3 or 4 will be reviewed by a multidisciplinary team at [facility] to form a plan of action in regards to scan findings. - If further work up is warranted for a suspicious lung finding this will be followed by the Lung Cancer Screening program in conjunction with the Thoracic Surgery Department at [facility]. - A copy of the office note and LDCT will be sent to the patient's PCP - as well as documentation on any associated further plans of care. - Incidental findings on LDCT are the PCP's responsibility. These findings are indicated with an S finding on the LDCT Assessment. A note discussing the findings will be sent to the PCP who is then responsible for further management. - All questions answered.? Coding Level of Care Code Lung Cancer Screening G0296 Diagnoses Nicotine dependence, cigarettes, uncomplicated F17.210
== END 2024-03-25 13:28 | disposition home or self-care (01) ==
PROVIDERS: PCP Nurse Practitioner Family; Visit Provider Physician Assistant Medical
DX: F17.210 Nicotine dependence, cigarettes, uncomplicated (principal)
CPT/HCPCS: G0296

== ENCOUNTER 2024-03-25 11:19 | Outpatient (REF) | payer OTHER, SELFPAY ==
--- NOTE | ~2024-03-25 | CT_ITS ---
EXAMINATION: CT LOW-DOSE SCREENING CHEST WITHOUT CONTRAST CLINICAL INFORMATION: Nicotine dependence, cigarettes, uncomplicated. The patient is a current smoker with a 36 pack-year history of smoking. COMPARISON: X-ray chest 01/21/2022. CT chest 05/12/2012. TECHNIQUE: Multidetector volumetric CT imaging of the chest is performed on a Siemens SOMATOM Definition scanner without contrast using low dose technique. Additional 2D coronal and sagittal reformatted images and axial 3D maximum intensity projection (MIP) images are generated on the CT workstation. This CT examination was performed using dose optimization techniques as appropriate, variously including the following: *Automated exposure control *Adjustment of mA and/or kV according to patient size (this includes techniques or standardized protocols for targeted exams where dose is matched to indication/reason for exam; i.e. extremities or head) *Use of iterative reconstruction technique TOTAL EXAM DLP: 53 mGy-cm. CTDIvol: 1.50 mGy. FINDINGS: PULMONARY NODULES: There are multiple bilateral present calcified granulomas. The largest calcified nodules measure 6 mm right middle lobe. No noncalcified nodule seen. LUNGS: Lungs bilaterally symmetrically expanded. No effusion or pneumothorax. Central airways patent. MEDIASTINUM: Thyroid lobes are symmetric and normal. The central trachea and the bronchi are widely patent. There are small shotty mediastinal lymph nodes. Previously seen calcified right paratracheal lymph node is not visualized at this time. Mild atherosclerotic calcification of aortic arch is noted without dilation. Central trachea and the bronchi are widely patent no pericardial effusion seen.. CORONARY ARTERY CALCIFICATION: None visualized on this study. CARDIOVASCULAR STRUCTURES: Aortic and heart size normal. No pericardial effusion. CHEST WALL/AXILLA: Unremarkable. UPPER ABDOMEN: Visualized liver, spleen, pancreas and bilateral adrenal glands are unremarkable. OSSEOUS STRUCTURES: No suspicious focal findings. CT/CT lung screening IMPRESSION: Multiple cysts small bilateral calcified nodules likely granuloma. Previously seen calcified there is a lymph nodes are not seen at this time. ASSESSMENT: 1. Lung-RADS Category 2: Benign appearance or behavior of nodules. 2. Lung-RADS Category S: None RECOMMENDATION: Low-dose annual CT chest exam. Electronically signed by: Nikhil Reeves MD 05/16/2024 11:43 AM [facility] [place]
== END 2024-03-25 11:20 | disposition home or self-care (01) ==
LOC: HO.CT 11:19
PROVIDERS: PCP Nurse Practitioner Family; Visit Provider Physician Assistant Medical
DX: Z12.2 Encounter for screening for malignant neoplasm of respiratory organs (principal); F17.210 Nicotine dependence, cigarettes, uncomplicated
CPT/HCPCS: 71271; G0296

== ENCOUNTER → 2024-03-25 11:20 | Outpatient (BNV) | payer OTHER, SELFPAY | PROVIDERS: PCP Nurse Practitioner Family; Visit Provider Radiology Diagnostic Radiology | DX: J84.9 Interstitial pulmonary disease, unspecified (principal) | CPT/HCPCS: 71271 ==

== ENCOUNTER 2024-05-17 09:04 | Outpatient (AMB) | payer OTHER, SELFPAY ==
--- OUTSIDE RECORDS SUMMARY | 2024-05-17 09:28 | XMS_ITS | Clinical Summary ---
Author Organization [facility] Facility Address [address] [address] Care Team Providers Care Shipper Receiver Name Role Phone Raffaele Desir NP Primary Care Provider [phone] Social History Tobacco Use Types Packs/Day Years Used Date Smoking Tobacco: Never Assessed Comments Unknown Sex and Gender Information Value Date Recorded Sex Assigned at Not on file Legal Sex Female 8:16 AM EDT Gender Identity Not on file Sexual Orientation Not on file Plan of Treatment Health Maintenance Due Date Last Done Comments Breast Cancer Screening 1972 Hepatitis B Vaccine (1 of 3 - 19+ 3-dose series) 1991 Colorectal Cancer Screening: Annual FOBT 2021 Colorectal Cancer Screening: Colonoscopy 2021 Colorectal Cancer Screening: Sigmoidoscopy 2021 Influenza Vaccine (#1) 2023 Pneumococcal Vaccine: Pediat rics (0 to 5 Years) and At-Risk Patients (6 to 64 Years) Aged Out No longer eligible b ased on patient's age to complete this topic Insurance [facility] Care Teams Shipper Receiver Relationship Specialty Start Date End Date Raffaele Desir NP [facility] [place], [place] [id number] PCP - General Nurse Practitioner 01/23/22
--- NOTE | 2024-05-17 10:37 | AM.OFFWIN_ITS ---
Intake Vital Signs 05/17/24 10:39 Height 5 ft 4 in Weight 171 lb BMI 29.3 BP 136/90 H Blood Pressure Location Lt brachial Position Sitting Pulse 101 H Pulse Source Pulse Oximeter Pulse Oximetry (%) 98 Oxygen Delivery Method Room Air Intake Visit Reasons: EP LT rotator cuff pain Intake Note: Patient here left shoulder pain that has been present for at least 1 month. Patient Tobacco Use Status: Current everyday Tobacco user Allergies No Known Allergies Allergy (Verified 05/17/24 10:40) Do you need a note to return to daycare/school/sports/work: No HPI HPI Comments History of Present Illness Details This is a 54-year-old right-hand dominant female with a past medical history of hypertension, lumbar disc surgery and carpal tunnel surgery presenting for evaluation of left shoulder pain that she has had for the past 1 month. Patient states she had back surgery last year and returned to the gym in March 09, 2024. Patient states she was doing both aerobic activity and lifting weights. Patient noted left anterior shoulder pain when lifting weights approximately 1 month ago and discontinued weightlifting at that time. Patient has been taking meloxicam for relief of her left shoulder pain and states that the pain is constant and has not worsened. Patient denies any clavicular pain, numbness or tingling in her left upper extremity, chest pain, shortness of breath or dyspnea on exertion. [facility] Medical History (Updated 05/17/24 @ 11:14 by Latricia Diaz PA-C) HTN (hypertension) Nicotine dependence, cigarettes, uncomplicated Pain of left thumb Degenerative disc disease, cervical Seborrheic keratosis Surgical History (Updated 03/25/24 @ 11:09 by Justine Ramos PA-C) History of back surgery H/O carpal tunnel repair History of facial surgery Family History Maternal Grandmother Mental health disorder Social History (Updated 03/25/24 @ 11:17 by Justine Ramos PA-C) Household Members: Family Housing: House Do you presently have visiting nurse or other home services: Yes Alcohol intake: current Alcohol intake frequency: holidays/special occasions only Alcohol type: beer and hard liquor Comment: counts correct Patient Tobacco Use Status: Current everyday Tobacco user Tobacco use type: Cigarette Years Smoked: (onset 17yo, 1ppd x 37yrs, 35pyh) e-Cigarette/Vaping Use: Never Used Second Hand Smoke Exposure: No service: No Current occupational status: employed 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 Cognitive needs: No Hearing needs: No Vision needs: Yes Female Reproductive History Menstrual Age of Menarche: 13 Review of Systems Const All systems reviewed & are unremarkable except as noted in HPI and below Eyes Reports no additional complaints ENT Reports no additional complaints Card Reports no additional complaints, Denies chest pain and Denies dyspnea Resp Reports no additional complaints, Denies cough and Denies dyspnea GI Reports no additional complaints Reports no additional complaints Musc Reports arthralgias (left shoulder), Denies numbness and Denies tingling Skin/Breast Reports system reviewed and no additional complaints, except as documented Neuro Reports no additional complaints, Denies numbness and Denies tingling Psych Reports no additional complaints Endo Reports no additional complaints Kahlil/Lymph Reports no additional complaints Physical Exam Vital Signs: Last Vital Signs Pulse 101 H 05/17/24 10:39 BP 136/90 H 05/17/24 10:39 Pulse Ox 98 05/17/24 10:39 Oxygen Delivery Method Room Air 05/17/24 10:39 BMI result Body Mass Index 29.3 Const General: cooperative, healthy appearing, comfortable, no acute distress, well developed, alert, awake and Physically active; No lethargic Nutritional Appearance: average body habitus Orientation/consciousness: patient oriented x3 and No lethargic Limitations: no limitations Cardio Rate: regular rate Rhythm: regular rhythm Skin General skin exam: no rashes or lesions noted Neuro General: patient oriented x3 Extrem Other: Left shoulder pain is exacerbated with abduction of the left upper extremity against resistance and external rotation of the left upper extremity. Director Of Grants strength is equal bilaterally, patient is able to lift arms overhead equally and bilaterally. Left upper extremity: normal to inspection; no edema, joint enlargement noted and shoulder/upper arm not examined (pain to palpation left anterior shoulder; no left clavicular pain) Psych Appearance: grossly normal Mental Status: mental status grossly normal Insight: Good insight present (Psych) Judgement: Good judgement present (Psych) Results Reviewed Results Reviewed: No acute findings noted on imaging of the left shoulder. Assessment & Plan Assessment & Plan (1) Left shoulder pain: Comment: There are no acute findings noted on imaging. Patient will continue to take meloxicam as previously prescribed and follow up with Orthopedics as an outpatient. Code(s): M25.512 - Pain in left shoulder Qualifiers: Chronicity: acute Qualified Code(s): M25.512 - Pain in left shoulder Plan: Orthopedics, [facility]. Referral is placed. Meloxicam daily as previously prescribed. Orders: Orders XR shoulder LT min 2V Today M25.512 - Pain in left shoulder Referrals Orthopedics Referral M25.512 - Pain in left shoulder Coding Level of Care Code Est Pt Level 3 (16921) Diagnoses Acute pain of left shoulder M25.512 Chronicity: acute Time Spent (min) 25
[2024-05-17 10:39] VITALS: BP 136/90; PULSE 101; O2SAT 98; BMI 29.3
== END 2024-05-17 12:20 | disposition home or self-care (01) ==
PROVIDERS: PCP Nurse Practitioner Family; Visit Provider Physician Assistant
DX: M25.512 Pain in left shoulder (principal)

== ENCOUNTER 2024-05-17 09:04 | Outpatient (REF) | payer OTHER, SELFPAY ==
--- NOTE | ~2024-05-17 | XR_ITS ---
EXAMINATION: XR SHOULDER, LEFT CLINICAL INFORMATION: M25.512 - Pain in left shoulder COMPARISON: None available. TECHNIQUE: AP external rotation, Grashey, scapular Y, and axillary views of the left shoulder. FINDINGS: The bones and soft tissues are normal. No fracture. Glenohumeral and acromioclavicular alignment is anatomic with normal joint space. No abnormal soft tissue calcifications. XR/XR shoulder LT min 2V IMPRESSION: Normal left shoulder. Electronically signed by: Filemon Todd MD 05/17/2024 11:44 AM BERNA
--- OUTSIDE RECORDS SUMMARY | 2024-05-17 12:24 | XMS_ITS | Clinical Summary ---
Author Organization [facility] Facility Address [address] [address] Care Team Providers Care Assembler Metal Building Name Role Phone Raffaele Desir NP Primary Care Provider [phone] Social History Tobacco Use Types Packs/Day Years [...] patient's age to complete this topic Insurance [facility] Care Teams Assembler Metal Building Relationship Specialty Start Date End Date Raffaele Desir NP [facility] [place], [place] [id number] PCP - General Nurse Practitioner 01/23/22
== END 2024-05-17 09:05 | disposition home or self-care (01) ==
LOC: HO.HMGCX 09:04
PROVIDERS: PCP Nurse Practitioner Family; Visit Provider Physician Assistant
DX: M25.512 Pain in left shoulder (principal)
CPT/HCPCS: 73030; 99212

== ENCOUNTER → 2024-05-17 11:24 | Outpatient (BNV) | payer OTHER, SELFPAY | PROVIDERS: PCP Nurse Practitioner Family; Visit Provider Radiology Diagnostic Radiology | DX: M25.512 Pain in left shoulder (principal) | CPT/HCPCS: 73030 ==

== ENCOUNTER 2024-06-22 11:45 | Outpatient (REF) | payer OTHER, SELFPAY ==
--- OUTSIDE RECORDS SUMMARY | 2024-06-22 14:12 | XMS_ITS | Clinical Summary ---
Author Organization [facility] Facility Address [address] [address] Care Team Providers Care Stock Checker Name Role Phone Raffaele Desir NP Primary Care Provider [phone] Social History Tobacco Use Types Packs/Day Years [...] patient's age to complete this topic Insurance [facility] Care Teams Stock Checker Relationship Specialty Start Date End Date Raffeale Desir NP [facility] [place], [place] [phone] PCP - General Nurse Practitioner 01/23/22
== END 2024-06-22 11:46 | disposition home or self-care (01) ==
LOC: HO.MAMMO 11:45
PROVIDERS: PCP Nurse Practitioner Family; Visit Provider Nurse Practitioner Family
DX: Z12.31 Encounter for screening mammogram for malignant neoplasm of breast (principal)
CPT/HCPCS: 77063; 77067

== ENCOUNTER → 2024-06-22 11:45 | Outpatient (BNV) | payer OTHER, SELFPAY | PROVIDERS: PCP Nurse Practitioner Family; Visit Provider Internal Medicine | DX: Z12.31 Encounter for screening mammogram for malignant neoplasm of breast (principal) | CPT/HCPCS: 77063; 77067 ==

== ENCOUNTER 2024-06-29 11:43 | Outpatient (AMB) | payer OTHER, SELFPAY ==
--- NOTE | 2024-06-29 11:47 | MHC.OFFVIS ---
Vital Signs 06/29/24 12:04 Height 5 ft 4 in Weight 160 lb BMI 27.5 Intake Visit Reasons: OV new problem - Pain in LT shoulder Intake Note: Juliana is a 54 year old right hand dominant female who presents today for a new problem visit with complaints of left shoulder pain. Patient was [facility] at [facility] on 05/17[facility]24 where she reported ongoing pain for about one month. She was advised to take Meloxicam. She denies injury, she had back surgery in 2023. Car Painter Required: No Allergies No Known Allergies Allergy (Verified 06/29/24 12:03) Medication List - Last Reconciled 06/29/24 by Sunni Bang, RN acetaminophen 650 mg (2 x 325 mg) PO Q6H PRN albuterol sulfate 90 mcg/actuation 1 inh inhalation Q4-6H PRN 30 days alprazolam 0.5 mg PO DAILY PRN 30 days amlodipine 5 mg PO DAILY cyclobenzaprine 10 mg PO BID PRN ferrous sulfate 2 Tabs orally daily; gabapentin 200 mg (2 x 100 mg) PO TID 30 days lorazepam 1 mg PO losartan 100 mg PO DAILY 90 days magnesium oxide 400 mg PO DAILY meloxicam 15 mg PO DAILY 30 days multivitamin with iron (Daily Multiple Vitamins with Iron tablet) 1 tab PO DAILY omeprazole 20 mg PO DAILY psyllium husk (with sugar) 3.4 gram/12 gram (Metamucil (with sugar)) 1 tbsp PO DAILY HPI HPI OV new problem - Pain in LT shoulder: Details: 54 yo female presents to the office today for left shoulder pain . She states she recalls an incident where she was at the gym doing a triceps extension on it tricep extension machine when she felt a pull in the anterior lateral aspect of the shoulder. She continues to have discomfort with certain positions such as reaching or going behind the plane of the body. At times she experiences some weakness with lifting. Denies numbness and tingling down the arm into the hands and fingers. [facility] Medical History (Updated 06/29/24 @ 12:16 by Beth Be PA-C) HTN (hypertension) Nicotine dependence, cigarettes, uncomplicated Pain of left thumb Degenerative disc disease, cervical Seborrheic keratosis Surgical History (Updated 03/25/24 @ 11:09 by Justine Ramos PA-C) History of back surgery H/O carpal tunnel repair History of facial surgery Family History Maternal Grandmother Mental health disorder Social History (Updated 03/25/24 @ 11:17 by Justine Ramos PA-C) Household Members: Family Housing: House Do you presently have visiting nurse or other home services: Yes Alcohol intake: current Alcohol intake frequency: holidays/special occasions only Alcohol type: beer and hard liquor Comment: counts correct Patient Tobacco Use Status: Current everyday Tobacco user Tobacco use type: Cigarette Years Smoked: (onset 17yo, 1ppd x 37yrs, 35pyh) e-Cigarette/Vaping Use: Never Used Second Hand Smoke Exposure: No service: No Current occupational status: employed Current occupation: [employer] Cognitive needs: No Hearing needs: No Vision needs: Yes Female Reproductive History Menstrual Age of Menarche: 13 Review of Systems Const All systems reviewed & are unremarkable except as noted in HPI and below Physical Exam Vital Signs: BMI result Body Mass Index 27.5 Const General: cooperative and no acute distress Orientation/consciousness: patient oriented x3 Resp Effort & Inspection: normal respiratory effort and able to speak in complete sentences Cardio Peripheral pulses: Peripheral pulses 2+ throughout Neuro General: patient oriented x3 Extrem Other: Left shoulder normal to inspection. She has full range of motion in all planes. She has a positive Prosperity's with tenderness to palpation over the proximal biceps. 5/5 rotator cuff strength with discomfort in internal rotation. Results Reviewed Results Reviewed: X-rays of the left shoulder obtained on 05/17/2024 show type 2 acromion Assessment & Plan Assessment & Plan (1) Left shoulder tendonitis: Code(s): M77.8 - Other enthesopathies, not elsewhere classified Category: Medical Plan: We discussed options today which include physical therapy to work on range of motion, rotator cuff and periscapular stabilization. I explained over the next several weeks she should focus on movements that are below shoulder height to avoid irritation of the shoulder. If symptoms persist or worsen over the next several weeks she will contact our office to discuss steroid injection otherwise follow up as needed. Orders: Orders PT Evaluation and Treatment Today M77.8 - Other enthesopathies, not elsewhere classified Coding Level of Care Code New Pt Level 3 (83842) Complex EM visit Add On G2211 Diagnoses Left shoulder tendonitis M77.8
[2024-06-29 12:04] VITALS: BMI 27.5
--- OUTSIDE RECORDS SUMMARY | 2024-06-29 13:49 | XMS_ITS | Clinical Summary ---
Author Organization [facility] Facility Address [address] [address] Care Team Providers Care School Counselor Name Role Phone Raffaele Desir NP Primary Care Provider [phone] Social History Tobacco Use Types Packs/Day Years [...] patient's age to complete this topic Insurance [facility] Care Teams School Counselor Relationship Specialty Start Date End Date Raffaele Desir NP [facility] [place], [place] [id number] PCP - General Nurse Practitioner 01/23/22
== END 2024-06-29 13:16 | disposition home or self-care (01) ==
LOC: HO.HOS 11:44
PROVIDERS: PCP Nurse Practitioner Family; Visit Provider Physician Assistant
DX: M77.8 Other enthesopathies, not elsewhere classified (principal)
CPT/HCPCS: 99203; G2211

== ENCOUNTER → 2024-06-29 11:43 | Outpatient (BNVA) | payer OTHER, SELFPAY | PROVIDERS: PCP Nurse Practitioner Family; Visit Provider Physician Assistant | DX: M77.8 Other enthesopathies, not elsewhere classified (principal) | CPT/HCPCS: 99202 ==

== ENCOUNTER 2024-08-01 09:57 | Outpatient (AMB) | payer OTHER, SELFPAY ==
[2024-08-01 10:04] VITALS: BP 144/90; PULSE 95; O2SAT 98; BMI 30.7
--- NOTE | 2024-08-01 10:04 | A.OFFPC_ITS ---
Vital Signs 08/01/24 10:04 Height 5 ft 4 in Weight 179 lb BMI 30.7 BP 144/90 H Blood Pressure Location Lt brachial Position Sitting Pulse 95 Pulse Source Pulse Oximeter Pulse Oximetry (%) 98 Oxygen Delivery Method Room Air Intake Visit Reasons: 6 months f/up~needs to update PCP with insurance Web User Experience Strategist Required: No Accompanied by: Self / Same As Patient Allergies No Known Allergies Allergy (Verified 08/01/24 10:39) Medication List - Last Reconciled 08/01/24 by MIRNA Goodrich- acetaminophen 650 mg (2 x 325 mg) PO Q6H PRN albuterol sulfate 90 mcg/actuation 1 inh inhalation Q4-6H PRN 30 days alprazolam 0.5 mg PO DAILY PRN 30 days amlodipine 2.5 mg PO DAILY cyclobenzaprine 10 mg PO BID PRN ferrous sulfate 2 Tabs orally daily; gabapentin 200 mg (2 x 100 mg) PO TID 30 days lorazepam 1 mg PO losartan-hydrochlorothiazide 100-12.5 mg 1 tab PO DAILY magnesium oxide 400 mg PO DAILY meloxicam 15 mg PO DAILY 30 days multivitamin with iron (Daily Multiple Vitamins with Iron tablet) 1 tab PO DAILY omeprazole 20 mg PO DAILY psyllium husk (with sugar) 3.4 gram/12 gram (Metamucil (with sugar)) 1 tbsp PO DAILY Tobacco use date assessed: 08/01/24 Dental Screening Dental Screen Date: 08/01/24 Did you have a dental visit in the last 12 months?: Yes Did you have a dental problem in the last 6 months where you did not have access to dental care?: No Was dental information given to patient?: Patient has dentist HPI 6 months f/up~needs to update PCP with insurance HPI Details Chief Complaint The patient reports elevated blood pressure readings at home and issues with medication adherence due to side effects. History of Present Illness The patient is a 54-year-old female presenting with issues concerning her hypertension management and menopausal symptoms. She has noted elevated blood pressure readings at home due to inconsistent adherence to her amlodipine regimen, linked to adverse effects, including swelling in her extremities. She denies additional symptoms such as chest pain, dizziness, or headaches, which might indicate further complications from hypertension. The swelling has led to modifying her medication dosage. Additionally, she is experiencing challenging menopausal symptoms impacting daily activities, alongside previous surgical needs concerning a pinched nerve and discomforts related to her knee and shoulder. These medical issues align with her history of menopause and its pervasive effects. Social History - Exercise: Patient attempts to exercise three times a week. - Employment: Recently retired due to upcoming surgeries and health issues. - Activities: Previously faced an intens e work routine but not currently working due to health concerns. Health Maintenance Review of Systems - Cardiovascular: Denies chest pain. - Respiratory: Denies shortness of breat h. - Neurological: Denies dizziness, headac hes, or blurred vision. - Musculoskeletal: Notes issues with kne e and shoulder related to surgical history. Physical Exam General: Cooperative, healthy appearing, comfortable, no acute distress and well developed, obese Orientation: Patient oriented x3 Limitations: Limitations due to knee issues and rotator cuff problems Head: Normal to inspection Ears: Hearing grossly normal bilaterally Nose: Normal external nose present Face and sinus: Normal facial exam Eyes: Appearance normal, both eyes and all related structures Neck: Normal visual inspection and Yes full ROM Respiratory: Normal respiratory effort and able to speak in complete sentences. Clear to auscultation bilaterally Cardiovascular: Regular rate and rhythm. Normal S1 and S2 GI: Normal to inspection. Soft to palpation and nontender Skin: No rashes or lesions noted Neuro: Patient oriented x3 Extremities: Swelling in bilateral extremities noted Results Plan 1. 5 mg daily to mitigate the edema side effect while maintaining losartan and initiating hydrochlorothiazide 12.5 mg. It is essential to ensure laboratory monitoring to assess her response and ongoing management needs. Further evaluation of her menopausal symptoms will be addressed via lab tests, with a follow-up scheduled with her OBGYN. Instructions include adherence to the modified medication regimen and planning for lab work to assess blood pressure control and overall wellness.: Discussion Notes I discussed with the patient the management strategy for her hypertension, emphasizing the importance of medication adherence, adjusting amlodipine to 2.5 mg daily, and adding hydrochlorothiazide. The potential benefits of these changes include improved blood pressure control and reduced side effects. We also reviewed upcoming lab work to monitor her condition thoroughly. For menopausal symptoms, I reiterated the need for laboratory evaluation and follow- up with her OBGYN. I reassured her about addressing any menopausal challenges as part of her comprehensive care plan. I encouraged the adherence to lifestyle modifications, including exercise, and stressed adequate follow-up and monitoring. encouraged pt getting her labs drawn in the near future Patient Instructions - Continue taking losartan as prescribed . - Adjust amlodipine dosage to 2.5 mg carmina ly. - Begin taking hydrochlorothiazide 12.5 mg daily. - Schedule and complete laboratory tests as discussed. - Follow up with your OBGYN for curtis al symptom evaluation. - Maintain regular exercise routine and monitor symptoms. - Report any new or worsening symptoms p romptly. [facility] Medical History HTN (hypertension) Nicotine dependence, cigarettes, uncomplicated Pain of left thumb Degenerative disc disease, cervical Seborrheic keratosis Surgical History History of back surgery H/O carpal tunnel repair History of facial surgery Family History Maternal Grandmother Mental health disorder Social History Household Members: Family Housing: House Do you presently have visiting nurse or other home services: Yes Alcohol intake: current Alcohol intake frequency: holidays/special occasions only Alcohol type: beer and hard liquor Comment: counts correct Patient Tobacco Use Status: Current everyday Tobacco user Tobacco use type: Cigarette Years Smoked: (onset 17yo, 1ppd x 37yrs, 35pyh) e-Cigarette/Vaping Use: Never Used Second Hand Smoke Exposure: No service: No Current occupational status: employed Current occupation: [employer]/ rt hand Cognitive needs: No Hearing needs: No Vision needs: Yes Female Reproductive History Menstrual Age of Menarche: 13 Questionnaire PHQ-9 Over the last 2 weeks, how often have you been bothered by any of the following problems? 1. Little interest or pleasure in doing things: several days 2. Feeling down, depressed, or hopeless: several days 3. Trouble falling or staying asleep, or sleeping too much: several days 4. Feeling tired or having little energy: more than half the days 5. Poor appetite or overeating: several days 6. Feeling bad about yourself - or that you are a failure or have let yourself or your family down: several days 7. Trouble concentrating on things, such as reading the newspaper or watching television: not at all 8. Moving or speaking so slowly that other people could have noticed. Or the opposite - being so fidgety or restless that you have been moving around a lot more than usual: not at all 9. Thoughts that you would be better off or of hurting yourself in some way: not at all Total score: 7 Depression Screening Interpretation: Negative Depression Screening Done: Yes 39388 - PHQ-9 Billing: Yes Source: Developed by Drs. Santos Vargas, Mayi Jorge, Josh Domínguez and colleagues, with an educational micky from [employer]. Thrive Questionnaire Date Thrive assessed: 08/01/24 I am a: Patient What is your living situation today?: I have a steady place to live Within the past 12 months, did the food you bought not last and you didn't have the money to get more?: I choose not to answer this question Within the past 12 months, did you worry whether your food would run out before you got money to buy more?: I choose not to answer this question Do you have trouble paying for medicines?: No Do you have trouble getting transportation to medical appointments?: No Do you have trouble paying your heating and electricity bill?: No Do you have trouble taking care of your child, family member or friend?: I choose not to answer this question Do you have trouble with day-to-day activities such as bathing, preparing meals, shopping, managing finances, etc.?: No Are you currently unemployed and looking for a job?: I choose not to answer this question Are you interested in more education?: I choose not to answer this question Please select the resources that you would like help with: None Currently or been in a relationship where the following occur: No concerns reported THRIVE Score: 0 AUDIT C Alcohol Use Questionnaire (AUDIT-C) 1. How often do you have a drink containing alcohol?: 2-3 times a week 2. How many drinks containing alcohol do you have on a typical day when you are drinking?: 1 or 2 3. How often do you have six or more drinks on one occasion?: Never Total Score: 3 Score Reviewed/Action Taken: Yes MASOOD-7 AMB Questionnaire MASOOD-7 Date MASOOD - 7 assessed: 08/01/24 Feeling nervous, anxious, or on edge: 1 = Several days Not being able to stop or control worryin = Several days Worrying too much about different things: 1 = Several days Trouble relaxin = Several days Being so restless that it is hard to sit still: 1 = Several days Becoming easily annoyed or irritable: 1 = Several days Feeling afraid as if something awful might happen: 0 = Not at all Total MASOOD-7 score (0-4 normal; 5-9 mild; 10-14 moderate; 15-21 severe): 6 Source: Developed by Drs. Santos Vargas, Mayi Jorge, Josh Domínguez and colleagues, with an educational micky from [employer]. MASOOD-7 Assessment Billing MASOOD-7 Assessment Tool: MASOOD-7 Assessment 12869 Physical exam (Primary Care) Vital Signs: Last Vital Signs Pulse 95 08/01/24 10:04 BP 144/90 H 08/01/24 10:04 Pulse Ox 98 08/01/24 10:04 Oxygen Delivery Method Room Air 08/01/24 10:04 BMI result Body Mass Index 30.7 Tobacco/Smoking Status: Tobacco use Status Tobacco use date assessed 08/01/24 08/01/24 10:07 Patient Tobacco Use Status Current everyday Tobacco 08/01/24 10:06 Tobacco use type Cigarette 08/01/24 10:06 e-Cigarette/Vaping Use Never Used 08/01/24 10:06 PHQ-9: PHQ-9 Score PHQ-9: Total score 7 08/01/24 10:07 Depression Screening Interpretation: Negative Thrive Assessment: Date of Thrive Assessment Date Thrive assessed 08/01/24 08/01/24 10:07 Currently or been in a relationship where the following occur: No concerns reported Coding Level of Care Code Est Pt Level 3 (61283) Diagnoses Primary hypertension I10 Hypertension type: primary hypertension Additional Codes MASOOD-7 Assessment Billing - MASOOD-7 Assessment Tool: MASOOD-7 Assessment 35870 ([id number]) PHQ-9 - 05245 - PHQ-9 Billing: Yes ([id number]) Assessment & Plan Assessment & Plan (1) HTN (hypertension): Code(s): I10 - Essential (primary) hypertension Category: Medical Qualifiers: Hypertension type: primary hypertension Qualified Code(s): I10 - Essential (primary) hypertension Plan . Medications: New losartan-hydrochlorothiazide 100-12.5 mg 1 tab PO DAILY 90 tabs 1RF Changed From amlodipine 5 mg PO DAILY 90 tabs 1RF To amlodipine 2.5 mg PO DAILY 90 tabs 1RF
--- OUTSIDE RECORDS SUMMARY | 2024-08-01 11:12 | XMS_ITS | Clinical Summary ---
Author Organization [facility] Facility Address [address] [address] Care Team Providers Care Differential Repairer Name Role Phone Raffaele Desir NP Primary Care Provider [phone] Social History Tobacco Use Types Packs/Day Years [...] Colorectal Cancer Screening: Sigmoidoscopy 2021 Influenza Vaccine (Season Ended) 2024 Pneumococcal Vaccine: Peds ( 0 to 5 Years) and At-Risk Patients (6 to 49 Years) Aged Out No longer eligible b ased on patient's age to complete this topic Insurance [facility] Care Teams Differential Repairer Relationship Specialty Start Date End Date Raffaele Desir NP [facility] [place], [place] [id number] PCP - General Nurse Practitioner 01/23/22
== END 2024-08-01 10:45 | disposition home or self-care (01) ==
LOC: HO.HMCC 09:58
PROVIDERS: PCP Nurse Practitioner Family; Visit Provider Nurse Practitioner Family
DX: I10 Essential (primary) hypertension (principal)

== ENCOUNTER → 2024-08-01 09:57 | Outpatient (BNVA) | payer OTHER, SELFPAY | PROVIDERS: PCP Nurse Practitioner Family; Visit Provider Nurse Practitioner Family | DX: I10 Essential (primary) hypertension (principal); F17.210 Nicotine dependence, cigarettes, uncomplicated; Z78.0 Asymptomatic menopausal state; Z79.899 Other long term (current) drug therapy | CPT/HCPCS: 96127; 99212 ==

== ENCOUNTER 2024-08-06 10:10 | Outpatient (AMB) | payer OTHER, SELFPAY ==
[2024-08-06 12:01] VITALS: BP 142/90; PULSE 88; RESP 16; TEMP 36.8; O2SAT 96; BMI 31.1
--- NOTE | 2024-08-06 12:01 | AM.OFFWIN_ITS ---
Intake Vital Signs 08/06/24 12:01 Height 5 ft 4 in Weight 181 lb BMI 31.1 BP 142/90 H Blood Pressure Location Rt brachial Position Sitting Respiration 16 Pulse 88 Pulse Source Pulse Oximeter Temp 98.2 F Temp Source Oral Pulse Oximetry (%) 96 Oxygen Delivery Method Room Air Intake Visit Reasons: EP- Fell and injured Mid back/ Pain Intake Note: Pt is here today took a fall 3 days ago at home down the stairs landed on back. Lt side of mid back pain Patient Tobacco Use Status: Current everyday Tobacco user Allergies No Known Allergies Allergy (Verified 08/06/24 12:06) HPI EP- Fell and injured Mid back/ Pain HPI Details Patient is a 54-year-old female comes to the walk-in clinic 4 days after she misstepped and fell onto her left posterior chest wall on her stairs. She slid just a few steps down before coming to the split landing. She reports that she thought her symptoms were going to improve in a few days, so she did not get evaluated yet. She reports waking up today with worsening pain to her left posterior chest wall, worse with breathing or moving She denies weakness, dizziness, nausea vomiting diarrhea, cough, fever or chills, blood in her urine or other urinary symptoms,back pain, flank pain, abdominal pain, anorexia, or other significant associated symptoms. She reports that she has a history of spinal procedure. [facility] Medical History HTN (hypertension) Nicotine dependence, cigarettes, uncomplicated Pain of left thumb Degenerative disc disease, cervical Seborrheic keratosis Surgical History History of back surgery H/O carpal tunnel repair History of facial surgery Family History Maternal Grandmother Mental health disorder Social History Household Members: Family Housing: House Do you presently have visiting nurse or other home services: Yes Alcohol intake: current Alcohol intake frequency: holidays/special occasions only Alcohol type: beer and hard liquor Comment: counts correct Patient Tobacco Use Status: Current everyday Tobacco user Tobacco use type: Cigarette Years Smoked: (onset 17yo, 1ppd x 37yrs, 35pyh) e-Cigarette/Vaping Use: Never Used Second Hand Smoke Exposure: No service: No Current occupational status: employed Current occupation: [employer] rt hand Cognitive needs: No Hearing needs: No Vision needs: Yes Female Reproductive History Menstrual Age of Menarche: 13 Review of Systems Const All systems reviewed & are unremarkable except as noted in HPI and below Physical Exam Vital Signs: Last Vital Signs Temp 98.2 F 08/06/24 12:01 Pulse 88 08/06/24 12:01 Resp 16 08/06/24 12:01 BP 142/90 H 08/06/24 12:01 Pulse Ox 96 08/06/24 12:01 Oxygen Delivery Method Room Air 08/06/24 12:01 BMI result Body Mass Index 31.1 Const General: cooperative, no acute distress, alert, awake, Physically active and well groomed; No anxious, diaphoretic, ill appearing, intoxicated appearing, poor hygiene or tired appearing Nutritional Appearance: average body habitus Orientation/consciousness: oriented to person Limitations: no limitations Neck Neck: Yes normal visual inspection, Yes full ROM, Yes trachea midline, Yes supple and No anterior neck swelling Chest Chest palpation & inspection: normal inspection of the chest, no crepitus, localized rib tenderness with anteroposterior compression (Left midthoracic ribs, anterior and posterior) and other Resp Effort & Inspection: normal respiratory effort, able to speak in complete sen tences, normal respiratory pattern, no audible wheezes, no cough, no grunting, not labored, no nasal flaring, no paradoxical thoraco-abdom movements, no respiratory distress, no retractions, no segmental paradox chest wall movement, not tachypneic, no tripod positioning, No prolonged expiratory phase and symmetric chest movement Auscultation: clear to auscultation bilaterally, no crackles, no rales, no rhonchi, no wheezes, lung sounds not diminished and No rub present Cardio Palpation: normal PMI Rate: regular rate Rhythm: regular rhythm Heart sounds: S1 normal heart sound present and S2 normal heart sound present General: Yes no CVA tenderness Back/Spine/Pelvis Back: no CVA tenderness Thoracic/Lumbar Spine: No thoracic and lumbar spine normal to inspection (Scar over lumbosacral spine) and thoraco-lumbar ROM normal Sacrum: no swelling and no tenderness Coccyx: no swelling Skin Other: Good color, warm and dry Neuro General: oriented to person Psych Appearance: grossly normal Mental Status: mental status grossly normal Speech and movement: Normal speech and movement present Affect: normal affect Attitude: cooperative Thought process: Normal thought process present Insight: Good insight present (Psych) Judgement: Good judgement present (Psych) Assessment & Plan Assessment & Plan (1) Rib injury: Code(s): S29.9XXA - Unspecified injury of thorax, initial encounter Plan Patient is a 54-year-old female with history of lumbosacral spinal surgical repair, her comes to the walk-in clinic complaining of severe posterior greater than anterior rib pain after slip and fall on the stairs 4 days ago. She reports that she did not get evaluated as she thought it would improve, but she woke up even more in pain today. She is overall stable, and has no flank or CVA tenderness suggestive of retroperitoneal injury, however she does have mid posterior chest wall pain with palpation to the left upper quadrant of the abdomen, which could suggest splenic injury. Even though her rib x-ray came back normal, I did tell her that it is possible that she injured an abdominal organ, and should go to the emergency department for CT scan of the abdomen and or chest, due to her severe pain complaint and in light of the normal x-rays. She refused this today, but did agree to go tomorrow to the emergency department if her symptoms were not improving, or if she were to develop any worrisome symptoms otherwise. She declined Toradol injection today. She reports that meloxicam and Flexeril are not alleviating her symptoms at all. She requests pain management. I told her I could write her for short course of Percocet for the pain, however only a short course, as if her pain persists this severely, she should be evaluated in the emergency department. She also has alprazolam at home, which she could trial for nighttime use to help with sleeping comfortably. Otherwise she should use heat and NSAIDs. Her lung sounds are clear, and she is not coughing or have signs suggesting pneumonia. Incentive breathing was discussed. Also advised sitting and sleeping semi upright, to help alleviate symptoms. Otherwise, as we discussed, she will go to the emergency department tomorrow for further evaluation and treatment unless her symptoms are resolving. Orders: Orders XR ribs LT min 3V w CXR1V Today R07.81 - Pleurodynia Medications: New oxycodone-acetaminophen 5-325 mg (Percocet) Partial Fill upon patient request. 1 tab PO BID PRN 4 tabs 0RF pain, severe 2 days Coding Level of Care Code Est Pt Level 4 (64192) Diagnoses Rib injury S29.9XXA
== END 2024-08-06 14:33 | disposition home or self-care (01) ==
LOC: HO.HMCWIC 10:10
PROVIDERS: PCP Nurse Practitioner Family; Visit Provider Physician Assistant Medical
DX: S29.9XXA Unspecified injury of thorax, initial encounter (principal)

== ENCOUNTER 2024-08-06 10:10 | Outpatient (REF) | payer OTHER, SELFPAY ==
--- NOTE | ~2024-08-06 | XR_ITS ---
CLINICAL HISTORY: R07.81 - Pleurodynia --- Additional Notes or Special Instructions: severe left side rib pain after fall on stairs 5 view, chest and left ribs Comparison: None Findings: Bones intact. No dislocations. The lungs are unremarkable. IMPRESSION: No acute rib fractures. This document has been electronically signed by: Derrick Hilton MD on 08/06/2024 14:10:31
== END 2024-08-06 10:11 | disposition home or self-care (01) ==
LOC: HO.HMGCX 10:10
PROVIDERS: PCP Nurse Practitioner Family; Visit Provider Physician Assistant Medical
DX: R07.81 Pleurodynia (principal); S29.9XXA Unspecified injury of thorax, initial encounter
CPT/HCPCS: 71101; 99212

== ENCOUNTER → 2024-08-06 13:11 | Outpatient (BNV) | payer OTHER, SELFPAY | PROVIDERS: PCP Nurse Practitioner Family; Visit Provider Specialist | DX: R07.81 Pleurodynia (principal) | CPT/HCPCS: 71101 ==

== ENCOUNTER 2024-09-17 09:07 | Outpatient (REF) | payer OTHER, SELFPAY ==
--- NOTE | ~2024-09-17 | XR_ITS ---
CLINICAL HISTORY: S99.921A - Unspecified injury of right foot, initial encounter --- Additional Notes or Special Instructions: twisted foot 3 months ago, has pain over top of foot generally speaking; wo rse over the visible lump 3 view right foot Comparison: None Findings: Small accessory ossicle projecting over the dorsal aspect of the proximal midfoot on the lateral view noted incidentally. Old small fracture fragment versus heterotopic ossification projecting over the plantar aspect of the 1st interphalangeal joint. Normal alignment without acute fracture. No radiopaque foreign body. 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 Posterior calcaneal spurs. IMPRESSION: 1. No acute fracture. This document has been electronically signed by: Betsy Noel MD on 09/17/2024 10:33:47
== END 2024-09-17 09:08 | disposition home or self-care (01) ==
LOC: HO.HMGCX 09:07
PROVIDERS: PCP Nurse Practitioner Family; Visit Provider Nurse Practitioner Family
DX: S99.921A Unspecified injury of right foot, initial encounter (principal)
CPT/HCPCS: 73630

== ENCOUNTER 2024-09-17 09:07 | Outpatient (AMB) | payer OTHER, SELFPAY ==
--- OUTSIDE RECORDS SUMMARY | 2024-09-17 09:09 | XMS_ITS | Clinical Summary ---
Author Organization [facility] Facility Address [address] [address] Care Team Providers Care Equipment Service Technician Name Role Phone Raffaele Desir NP Primary Care Provider [phone] Social History Tobacco Use Types Packs/Day Years [...] (1 of 3 - 19+ 3-dose series) 03/01 Colorectal Cancer Screening: Annual FOBT 2021 Colorectal Cancer Screening: Colonoscopy 2021 Colorectal Cancer Screening: Sigmoidoscopy 2021 Pneumococcal Vaccine: 50+ Years (1 of 1 - PCV) 022 Influenza Vaccine (Season Ended) 2024 Insurance [facility] Care Teams Equipment Service Technician Relationship Specialty Start Date End Date Raffaele Desir NP 1959 [place], [place] [phone] PCP - General Nurse Practitioner 01/23/22
[2024-09-17 09:12] VITALS: BP 114/74; PULSE 94; RESP 16; TEMP 36.8; O2SAT 95; BMI 30.9
--- NOTE | 2024-09-17 09:12 | AM.OFFWIN_ITS ---
Intake Vital Signs 3 09/17/24 09:12 Height 5 ft 4 in Weight 180 lb BMI 30.9 BP 114/74 Blood Pressure Location Rt brachial Position Sitting Respiration 16 Pulse 94 Pulse Source Pulse Oximeter Temp 98.3 F Temp Source Oral Pulse Oximetry (%) 95 Oxygen Delivery Method Room Air Intake Visit Reasons: EP pain on RT foot & bump on top Intake Note: Pt is here today c/o Rt foot pain and has a lump on top: Step the wrong way while walking [id number] ago with no improvement Patient Tobacco Use Status: Current everyday Tobacco user Allergies No Known Allergies Allergy (Verified 09/17/24 09:37) Medication List - Last Reconciled 09/17/24 by Fabienne Gilman, ANIMATION DIRECTOR- acetaminophen 650 mg (2 x 325 mg) PO Q6H PRN albuterol sulfate 90 mcg/actuation 1 inh inhalation Q4-6H PRN 30 days alprazolam 0.5 mg PO DAILY PRN 30 days amlodipine 2.5 mg PO DAILY cyclobenzaprine 10 mg PO BID PRN ferrous sulfate 2 Tabs orally daily; gabapentin 200 mg (2 x 100 mg) PO TID 30 days losartan-hydrochlorothiazide 100-12.5 mg 1 tab PO DAILY magnesium oxide 400 mg PO DAILY meloxicam 15 mg PO DAILY 30 days multivitamin with iron (Daily Multiple Vitamins with Iron tablet) 1 tab PO DAILY omeprazole 20 mg PO DAILY psyllium husk (with sugar) 3.4 gram/12 gram (Metamucil (with sugar)) 1 tbsp PO DAILY HPI HPI Comments 2 History of Present Illness0 Details History of Present Illness - The patient is a 54-year-old female pr esenting with right foot pain and a lump. - Foot pain and lump started after adithya ing the wrong way while walking 12 weeks ago. - Initially had swelling, bruising, and pain suggesting a possible sprain. - No improvement in symptoms despite res t over three months. - Pain worsens with pressure, limits yoly lity to walk fast. - Describes lump as hard Review of Systems - Musculoskeletal: Reports right foot pa in and lump on right foot. - Neurological: Denies other neurologica l symptoms. Results - Tests: X-ray of the right foot Rad fausto d pending; i reviewed the film and did not see any obvious acute findings. Discussion Notes I discussed with the patient the likelihood of a fracture or bone-related injury given her history and symptoms. We agreed to perform an x-ray to assess the current condition of her foot. I explained that if there is a fracture, we would consider placing her in a supportive boot and referring her to orthopedics for further evaluation and management. We discussed the importance of this follow-up to ensure proper healing and avoid complications. The patient consented to the x-ray and understands the necessity of returning to the room after imaging for further discussion on the findings. Assessment and Plan 1. Right foot pain and lump - Possible fracture; obtain right foot x -ray. - If fracture present, immobilization wi th boot and orthopedic referral. - Avoid weight-bearing activities until further assessment. Xray results reviewed w/ patient. Plan to place podiatry referral, treat w/ topical diclofenac 3% BID prn and place in boot for comfort only. She will be sent a portal message if the xray shows anything acute. Edu on reasons to fu or seek additional care. Consent Patient was informed and verbally consented to the use of an ambient scribe for clinic note documentation during this visit. Total time spent caring for the patient today was 30 minutes. This includes time spent before the visit reviewing the chart, time spent during the visit, and time spent after the visit on documentation, reviewing laboratory results, diagnostic imaging, medications, performing a medically necessary evaluation, counseling on diagnoses, care coordination, ordering appropriate tests, ordering appropriate medications, review of tests performed by other providers, reporting test results with the patient, communication with other healthcare providers. Exam Right foot neurovasc intact; antalgic gait favoring R side; pain with palp over dorsum of foot generally speaking; worse over visible lump. See Picture below. [facility] Medical History HTN (hypertension) Nicotine dependence, cigarettes, uncomplicated Pain of left thumb Degenerative disc disease, cervical Seborrheic keratosis Surgical History History of back surgery H/O carpal tunnel repair History of facial surgery Family History Maternal Grandmother Mental health disorder Social History Household Members: Family Housing: House Do you presently have visiting nurse or other home services: Yes Alcohol intake: current Alcohol intake frequency: holidays/special occasions only Alcohol type: beer and hard liquor Comment: counts correct Patient Tobacco Use Status: Current everyday Tobacco user Tobacco use type: Cigarette Years Smoked: (onset 17yo, 1ppd x 37yrs, 35pyh) e-Cigarette/Vaping Use: Never Used Second Hand Smoke Exposure: No service: No Current occupational status: employed Current occupation: [employer]/ rt hand Cognitive needs: No Hearing needs: No Vision needs: Yes Female Reproductive History Menstrual Age of Menarche: 13 Physical Exam Vital Signs: Last Vital Signs Temp 98.3 F 09/17/24 09:12 Pulse 94 09/17/24 09:12 Resp 16 09/17/24 09:12 BP 114/74 09/17/24 09:12 Pulse Ox 95 09/17/24 09:12 Oxygen Delivery Method Room Air 09/17/24 09:12 BMI result Body Mass Index 30.9 Assessment & Plan Assessment & Plan (1) Right foot injury: Code(s): S99.921A - Unspecified injury of right foot, initial encounter Qualifiers: Encounter type: initial encounter Qualified Code(s): S99.921A - Unspecified injury of right foot, initial encounter Plan: . Plan . Orders: Orders 2 XR foot RT min 3V Today S99.921A - Unspecified injury of right foot, initial encounter Referrals 2 Podiatry Referral S99.921A - Unspecified injury of right foot, initial encounter Medications: New 2 diclofenac sodium 3% 1 appl topical BID PRN 100 grams 0RF pain Coding Level of Care Code Est Pt Level 4 (10157) Diagnoses Injury of right foot, initial encounter S99.921A Encounter type: initial encounter
== END 2024-09-17 10:29 | disposition home or self-care (01) ==
PROVIDERS: PCP Nurse Practitioner Family; Visit Provider Nurse Practitioner Family
DX: S99.921A Unspecified injury of right foot, initial encounter (principal)

== ENCOUNTER → 2024-09-17 10:03 | Outpatient (BNV) | payer OTHER, SELFPAY | PROVIDERS: PCP Nurse Practitioner Family; Visit Provider Radiology Diagnostic Radiology | DX: M19.071 Primary osteoarthritis, right ankle and foot (principal) | CPT/HCPCS: 73630 ==

== ENCOUNTER 2024-11-05 08:13 | Outpatient (REF) | payer OTHER, SELFPAY ==
--- OUTSIDE RECORDS SUMMARY | 2024-11-05 08:15 | XMS_ITS | Clinical Summary ---
Author Organization [facility] Facility Address [address] [address] Care Team Providers Care Chain Hooker Name Role Phone Raffaele Desir NP Primary Care Provider Social History Tobacco Use Types Packs/Day Years [...] of 1 - PCV) 022 Influenza Vaccine (#1) 2024 Insurance [facility] Care Teams Chain Hooker Relationship Specialty Start Date End Date Raffaele Desir NP [address] [place], [place] [phone] PCP - General Nurse Practitioner 01/23/22
--- OUTSIDE RECORDS SUMMARY | 2024-11-05 08:15 | XMS_ITS | Clinical Summary ---
Author Organization [facility] Address [address] [place] [address] Phone Care Team Providers Care Client Sales And Service Officer Name Role Phone Fabienne Gilman Primary Care Provider Social History Tobacco Use Types Packs/Day Years Used Date Smoking Tobacco: Never Assessed Comments Unknown Sex and Gender Information Value Date Recorded Sex Assigned at Not on file Legal Sex Female 8:20 AM EDT Gender Identity Not on file Sexual Orientation Not on file Plan of Treatment Upcoming Encounters Date Type Department Care Team ([facility] Contact Info) Description 11/30/2024 9:15 AM EDT Office Visit Orthopedic Surgery - [place] [id number] [phone] Jonathon Forrest, VINICIUS [address] [address] Health Maintenance Due Date Last Done Comments Breast Cancer Screening 1972 DTaP,Tdap,and Td Vaccines (1 - Tdap) 1991 Hepatitis B Vaccines (1 of 3 - 19+ 3-dose series) 1991 Cervical Cancer Screening: P ap Smear 1993 Pneumococcal Vaccine: 50+ Ye ars (1 of 1 - PCV) 2022 Zoster Vaccines (1 of 2) 2022 COVID-19 Vaccine ( - 2023-2 5 season) 2023 Colorectal Cancer Screening: Colonoscopy 09/20/2024 Depression Screening 09/20/2024 HIV Screening 09/20/2024 Hepatitis C Screening 09/20/2024 Social Influencers of Health Screening 09/20/2024 Influenza Vaccine (#1) 2024 HIB Vaccines Aged Out No longer eligi ble based on patient's age to complete this topic HPV Vaccines Aged Out No longer eligi ble based on patient's age to complete this topic Hepatitis A Vaccines Aged Out No long er eligible based on patient's age to complete this topic IPV Vaccines Aged Out No longer eligi ble based on patient's age to complete this topic MMR Vaccines Aged Out No longer eligi ble based on patient's age to complete this topic Meningococcal ACWY Vaccine Aged Out N o longer eligible based on patient's age to complete this topic Meningococcal B Vaccine Aged Out No l onger eligible based on patient's age to complete this topic RSV Immunization Patients Un iona 20 months Aged Out No longer eligible b ased on patient's age to complete this topic Varicella Vaccines Aged Out No longer eligible based on patient's age to complete this topic Insurance MEDICAID - [place] Care Teams Client Sales And Service Officer Relationship Specialty Start Date End Date Fabienne Gilman FNP [address] [place] [phone] PCP - General Nurse Practitioner 09/20/24
[2024-11-05 11:15] LABS: MANUAL DIFF FLAG NO
[2024-11-05 11:20] LABS: Hematocrit 35.3 % (37.0-47.0); Hemoglobin 12.7 g/dl (12.0-16.0); Imm Gran Abs Auto 0.02 X10*3/uL (0.00-0.03); Imm Gran Pct Auto 0.3 % (0.0-0.4); Lymphocytes Absolute Auto 1.3 X10*3/uL (1.2-4.9); Mean Corpuscular HGB Conc 36.0 g/dl (31.0-35.0); Mean Corpuscular Hemoglobin 36.4 pg (27.0-33.0); Mean Corpuscular Volume 101.1 fL (80.0-98.0); NRBC Abs Auto 0.000 X10*3/uL (0.0-0.012); NRBC Pct Auto 0.0 /100WBC (0.0-0.2); Platelet Count 227 X10*3/uL (160-400); Red Blood Count 3.49 X10*6/uL (4.20-5.50); White Blood Count 7.2 X10*3/uL (4.8-10.8)
[2024-11-05 11:47] LABS: Alanine Aminotransferase 66 U/L (0-31); Albumin Level 4.5 g/dL (3.5-5.0); Alkaline Phosphatase 207 U/L (39-117); Anion Gap 15 (12-20); Aspartate Amino Transferase 122 U/L (5-31); Blood Urea Nitrogen 15 mg/dL (9-16); Calcium 9.5 mg/dL (8.4-10.2); Carbon Dioxide 30 mmol/L (22-29); Chloride 79 mmol/L (96-108); Cholesterol 170 mg/dL (<200); Estimated Glomerular Filt Rate 32; HDL Cholesterol 34 mg/dL (>40); Potassium 4.1 mmol/L (3.3-5.1); Total Protein 7.5 g/dL (6.5-8.0); Triglycerides 244 mg/dL (<150)
[2024-11-05 12:45] LABS: Sodium 120 mmol/L (135-145)
[2024-11-07 08:57] LABS: Follicle Stimulating Hormone 62.9 mIU/mL
== END 2024-11-05 08:14 | disposition home or self-care (01) ==
LOC: HO.HMGCLDS 08:13
PROVIDERS: PCP Nurse Practitioner Family; Visit Provider Nurse Practitioner Family
DX: I10 Essential (primary) hypertension (principal); N95.1 Menopausal and female climacteric states
CPT/HCPCS: 36415; 80053; 80061; 82672; 83001; 83002; 84443; 85025

== ENCOUNTER 2024-11-05 14:56 | Inpatient (IN) | payer OTHER, SELFPAY ==
--- NOTE | 2024-11-05 | ECG_ITS ---
Test Reason : seizures Blood Pressure : */* mmHG Vent. Rate : 70 BPM Atrial Rate : 70 BPM P-R Int : 196 ms QRS Dur : 96 ms QT Int : 426 ms P-R-T Axes : 27 16 34 degrees QTcB Int : 460 ms Normal sinus rhythm Low voltage QRS Borderline ECG When compared with ECG of 21-Jan-2022 09:57, No significant changes seen Referred By: Generic ED Physician Electronically Signed By: KYREE BAEZ
--- NOTE | ~2024-11-05 | US_ITS ---
EXAMINATION: US KIDNEY BILATERAL HISTORY: AMRK TECHNIQUE: Real-time grayscale ultrasound imaging of the kidneys was performed and images were reviewed. COMPARISON: Comparison is made with the prior examination dated 01/22/2022. FINDINGS: Right kidney: The right kidney measures 9.4 x 4.8 x 4.3 cm. Renal parenchymal echotexture and thickness are normal. There are no masses. There is no hydronephrosis or renal calculi. Left Kidney: The left kidney measures 8.6 x 4.3 x 4.0 cm. Renal parenchymal echotexture and thickness are normal. There are no masses. There is no hydronephrosis or renal calculi. US/US renal BI IMPRESSION: Unremarkable renal ultrasound. Electronically signed by: Santos Pierce MD 11/08/2024 06:59 AM EDT
[2024-11-05 15:06] VITALS: BP 110/66; BP 160/80; PULSE 79; PULSE 95; RESP 19; TEMP 36.6; O2SAT 97; BMI 30.9
[2024-11-05 15:27] LABS: MANUAL DIFF FLAG NO
--- NOTE | 2024-11-05 15:28 | ED_ITS ---
HPI - General Adult General Chief complaint: Recheck/Abnormal Lab/Rx Stated complaint: HAD BLOOD TEST LOW SODIUM Time Seen by Provider: 11/05/24 15:27 Source: patient and EMS Mode of arrival: EMS Limitations: no limitations History of Present Illness ED Provider: Justyna Gómez PA-C HPI narrative: Patient is a 54 year old assigned female at with a history of HTN and alcohol use presenting to the emergency department today with a low sodium. Patient states that she was called today by her PCP because her outpatient lab work showed a sodium of 120. Patient states that she believes she had a seizure last week but didn't get evaluated for it and isn't 100% sure that's what happened. Patient states that she still partakes in occasional alcohol use. Patient denies any dizziness, lightheadedness, abdominal pain, nausea, vomiting, fever, chills, blurry vision, double vision, loss of vision, chest pain, difficulty breathing, shortness of breath, back pain, night sweats, pain with urination, increased urinary frequency, increased urinary urgency, blood in her urine or stool, syncope or a near syncopal episode, recent trauma or falls, bowel incontinence, bladder incontinence, or any other complaints at this time. Relieving factors: none Exacerbating factors: none Associated symptoms: seizure (sometime last week) Treatments prior to arrival: none Related Data Home Medications ?Medication ?Instructions ?Recorded ?Confirmed ferrous sulfate 324 mg (65 mg 324 mg PO 2XW 09/28/23 0 11/05/24 iron) tablet,delayed release acetaminophen 500 mg tablet 1,000 mg PO Q6H PRN Pain 0 11/05/24 11/05/24 cyclobenzaprine 10 mg tablet 10 mg PO BID@0600,1400 fo r muscle 11/05/24 11/05/24 spasm multivitamin 1 tab PO DAILY 11/05/2410/18 psyllium husk (with sugar) 3.4 1 tbsp PO DAILY PRN Con stipation 11/05/24 11/05/24 gram/12 gram oral powder (Metamucil (with sugar)) Previous Rx's ?Medication ?Instructions ?Recorded magnesium oxide 400 mg (241.3 mg 400 mg PO DAILY #90 t abs 08/26/22 magnesium) tablet albuterol sulfate 90 mcg/actuation 1 inh inhalation Q4 -6H PRN 08/03/23 breath activated powder inhaler shortness of breath or wheezing 30 days #1 ea omeprazole 20 mg capsule,delayed 20 mg PO DAILY #90 ca ps 06/26/24 release amlodipine 2.5 mg tablet 2.5 mg PO DAILY #90 tabs losartan 100 1 tab PO DAILY #90 tabs 07/19 08/12 mg-hydrochlorothiazide 12.5 mg tablet gabapentin 100 mg capsule 200 mg (2 x 100 mg) PO TID 3 0 days 08/29/24 #180 caps meloxicam 15 mg tablet 15 mg PO DAILY 30 days #30 t abs 09/19/24 diclofenac sodium 3 % topical gel 1 appl topical BID P RN pain #100 09/20/24 grams alprazolam 0.5 mg tablet 0.5 mg PO DAILY PRN anxiety 30 09/28/24 days #30 tabs Allergies Allergy/AdvReac Type Severity Reaction Status Date / Time No Known Allergies Allergy Verified 11/05/24 15:08 Review of Systems 2 Constitutional: Constitutional: Reports no additional constitutional complaints, Denies chills, Denies fever(s) and Denies night sweats Eyes: Eyes: Reports no additional eye complaints, Denies blurry vision, Denies change in vision, Denies diplopia, Denies eye discharge, Denies loss of vision and Denies eye pain ENT: Denies dizziness Cardiovascular: Cardiovascular: Reports no additional cardiovascular complaints, Denies chest pain, Denies lightheadedness, Denies Loss of Consciousness and Denies dyspnea Respiratory: Respiratory: Reports no additional respiratory complaints and Denies dyspnea Gastrointestinal: Gastrointestinal: Reports no additional gastrointestinal complaints, Denies abdominal pain, Denies melena, Denies hematochezia, Denies change in bowel habits and Denies change in stool character Genitourinary: Genitourinary: Denies hematuria, Denies urinary frequency, Denies dysuria, Denies urinary incontinence, Denies urinary hesitancy and Denies urinary urgency Musculoskeletal: Musculoskeletal: Reports no additional musculoskeletal complaints, Denies numbness and Denies tingling Neurologic: Denies dizziness, Denies loss of vision, Denies numbness, Reports seizure-like activity (sometime last week) and Denies tingling Psychiatric: Psychiatric: Reports no additional psychiatric complaints Endocrine: Endocrine: Reports no additional endocrine complaints Hematologic/Lymphatic: Hematologic/Lymphatic: Reports no additional hematologic/lymphatic complaints Allergic/Immunologic: Allergic/Immunologic: Reports no additional allergic/immunologic complaints [facility] Past Medical History Attestation statement: The following information was validated with the patient. Source: old records reviewed and nursing notes reviewed Medical History HTN (hypertension) Nicotine dependence, cigarettes, uncomplicated Pain of left thumb Degenerative disc disease, cervical Seborrheic keratosis Surgical History History of back surgery H/O carpal tunnel repair History of facial surgery Family History Family History Maternal Grandmother Mental health disorder Social History Social History Household Members: Family Housing: House Do you presently have visiting nurse or other home services: Yes Alcohol intake: current Alcohol intake frequency: a few times a month Alcohol type: beer and hard liquor Comment: counts correct Patient Tobacco Use Status: Current everyday Tobacco user Tobacco use type: Cigarette Years Smoked: (onset 17yo, 1ppd x 37yrs, 35pyh) Smoked in Last 30 Days: No e-Cigarette/Vaping Use: Never Used Second Hand Smoke Exposure: No Use of substances other than those prescribed or required for medical reasons: No Substance Use Frequency Other:: (occasional cbd gummy) Advance Directives: No Advance Directives Information Provided: No Do you have a plan to hurt others: No Plan service: No Current occupational status: employed Current occupation: meter tech/ rt hand Cognitive needs: No Hearing needs: No Vision needs: Yes Physical Exam ED Vital Signs: Vital Signs - 24 hr 11/05/24 15:06 Temperature 97.9 F Pulse Rate 79 Respiratory Rate 19 Blood Pressure 110/66 Pulse Oximetry 97 Oxygen Delivery Method Room Air BMI result Body Mass Index 30.9 Const General: cooperative, no acute distress, alert and awake Nutritional Appearance: well nourished Orientation/consciousness: patient oriented x3 HENMT Head: Yes normal to inspection and Yes atraumatic Ears: hearing grossly normal bilaterally and external ears normal General nose exam: Normal external nose present, no nasal discharge noted and no epistaxis Face and sinus: Yes normal facial exam, No abrasion and No laceration Mouth: Normal oral and palatal mucosa present, no drooling and no muffled voice Eyes General: appearance normal, both eyes and all related structures Periorbital: periorbital findings normal Eyelids: Yes eyelids normal Conjunctivae: conjunctivae normal Pupils: Equal, round and reactive pupils present EOM: EOMs intact bilaterally Neck Neck: Yes normal visual inspection, Yes full ROM and Yes no lymphadenopathy Resp Effort & Inspection: normal respiratory effort and able to speak in complete sentences Neuro General: patient oriented x3, moves all extremities and CN's II-XI intact bilaterally Cranial nerves: Yes Equal, round and reactive pupils present Cognition (Neuro): normal cognition Extrem General: Yes normal to inspection, Yes full ROM and Yes capillary refill normal Psych Appearance: grossly normal Mental Status: mental status grossly normal Affect: normal affect Attitude: cooperative Thought process: Normal thought process present Thought content: Normal thought content present Insight: Good insight present (Psych) Course Reevaluation(s) Reevaluation #1: 6:33 PM 11/05/2024 (Patricio NULL): Patient was signed out to this provider at shift change. In summary the patient is a 54-year-old female presenting to the ED for evaluation of alcohol dependency with history of withdrawal seizures, as well as hyponatremia. Per signout the patient is going to be admitted for hyponatremia and alcohol dependency/withdrawal, however is signed out pending the repeat CMP to determine medicine vs ICU admission. The repeat labs have resulted and the patient's sodium has improved from 120 to 121 creatinine has improved from 1.72 to 1.63, LFTs and CBC are largely unchanged. Repeat laboratory results were discussed with the hospitalist who will accept the patient to the medicine unit. Medications Administered Discontinued Medications Generic Name Dose Route Start Last Admin Trade Name Freq PRN Reason Stop Dose Admin Sodium Chloride 500 mls @ 70 mls/hr 11/05/24 15:30 11/05/24 17:25 Ns IV 11/05/24 22:38 Infused .[id number] ANA ROSA Infusion Phenobarbital Sodium 219 mg 11/05/24 17:00 11/05/24 17:07 Phenobarbital Sodium 130 Mg/Ml Im Once IM 11/05/24 17:01 219 mg ONCE@1700 ANA ROSA Administration Medical Decision Making Medical Decision Making MDM Narrative: Patient is a 54 year old assigned female at with a history of HTN and alcohol use presenting to the emergency department today with a low sodium. Patient's physical exam was unremarkable. Patient's blood work showed a sodium of 120. Patient's EKG was unremarkable. I spoke with my attending physician, Dr. Becerra, who stated that given this patient's unwitnessed seizure event was several days ago - we should not treat it as though it was a low sodium induced seizure and should start NS 0.9% at 70ml/hr. Patient was started on phenobarbital given her history of alcohol use / abuse and the reported seizure . I spoke to the hospitalist team who declined admission until nephrology has been consulted and a repeat sodium was drawn 2 hours after initial. I spoke with Dr. Cardenas, the registered massage therapist, who recommended fluid restriction of 1.5L/24 hours, PO NaCl 2 grams BID, PO urea 30 grams now, NO IV fluids, and repeating an Na in 4-6 hours. I explained my physical exam findings as well as all test results to the patient. I answered all questions asked by the patient. Patient signed out to kayla Colbert pending repeat sodium for admission to the hospitalist service vs. ICU. Differential Diagnosis Differential Diagnoses: The differential diagnosis associated with the presentation includes Hyponatremia Alcohol use disorder Alcohol withdrawal Admission/Observation Consideration of admission/observation: Escalation of care including admission/observation considered Patient's disposition will be determined after repeat sodium level and re- presentation to the hospitalist service. Consult Healthcare Provider Management of the patient was discussed with: Hospitalist (spoke to the hospitalist team as noted in the MDM Rationale portion of this note. ) and Roofing Contractor (spoke to the registered massage therapist as noted in the MDM Rationale portion of this note. ) Lab Data [facility] Lab Attestation statement: I reviewed the patient's lab results. My interpretation of these results are in the MDM Rationale portion of this note. 11/05/24 15:22 11/05/24 17:46 Labs: Lab Results 11/05/24 11/05/24 Range/Units 15:22 17:46 WBC 6.6 (4.8-10.8) X10*3/uL RBC 3.18 L (4.20-5.50) X10*6/uL Hgb 11.7 L (12.0-16.0) g/dl Hct 31.2 L (37.0-47.0) % MCV 98.1 H (80.0-98.0) fL MCH 36.8 H (27.0-33.0) pg MCHC 37.5 H (31.0-35.0) g/dl RDW 14.5 (11.0-16.0) % Plt Count 206 (160-400) X10*3/uL MPV 8.9 L (9.4-12.3) fL Immature Gran % (Auto) 0.3 (0.0-0.4) % Neut % (Auto) 67.7 (45-73) % Lymph % (Auto) 21.0 (20-40) % Elliott % (Auto) 9.1 (2-11) % Eos % (Auto) 1.1 (0-4) % Baso % (Auto) 0.8 (0-2) % Lymph # (Auto) 1.4 (1.2-4.9) X10*3/uL Elliott # (Auto) 0.6 (0.1-1.2) X10*3/uL Eos # (Auto) 0.1 (0.0-0.4) X10*3/uL Baso # (Auto) 0.1 (0.0-0.2) X10*3/uL Abs Immat Gran (auto) 0.02 (0.00-0.03) X10*3/uL Absolute Neuts (auto) 4.5 (2.0-8.3) x10*3/uL Absolute Nucleated RBC 0.000 (0.0-0.012) X10*3/uL Nucleated RBC % (auto) 0.0 (0.0-0.2) /100WBC Sodium 120 L* 121 L (135-145) mmol/L Potassium 3.6 3.6 (3.3-5.1) mmol/L Chloride 81 L 82 L (96-108) mmol/L Carbon Dioxide 25 25 (22-29) mmol/L Anion Gap 18 18 (12-20) BUN 15 14 (9-16) mg/dL Creatinine 1.72 H 1.63 H (0.5-1.4) mg/dL Estim Creat Clear Calc 39.5 41.7 Estimated GFR 31 33 Random Glucose 131 H 103 (60-115) mg/dL Calcium 8.9 D 8.8 (8.4-10.2) mg/dL Magnesium 2.6 (1.6-2.6) mg/dL Total Bilirubin 0.7 0.7 (0.0-1.0) mg/dL AST 114 H 106 H (5-31) U/L ALT 64 H 63 H (0-31) U/L Alkaline Phosphatase 183 H 185 H (39-117) U/L Total Protein 7.0 7.1 (6.5-8.0) g/dL Albumin 4.3 4.2 (3.5-5.0) g/dL Independent Interpretation I performed an independent interpretation of an: EKG Interpretation: I independently interpreted this EKG and am in agreement with the below findings: Vent. Rate: 70 BPM Atrial Rate: 70 BPM P-R Int: 196 ms QRS Dur: 96 ms QT Int: 426 ms P-R-T Axes: 27 16 34 degrees QTcB Int: 460 ms Normal sinus rhythm Low voltage QRS When compared with ECG of 21-Jan-2022 09:57, Non-specific change in ST segment in Inferior leads DD/ 1529 Independent Historian Clinical information obtained from an independent historian. History obtained from or confirmed by: EMS (EMS provided additional history and confirmed the history provided by the patient. ) Critical Care Time Critical Care Time Critical Care Time: Yes Total Critical Care Time: 48 Attestation: I spent 48 minutes of Critical Care Time with this patient. This does not include time spent on separately reported billable procedures. Discharge Plan Discharge Clinical Impression: Acute hyponatremia, Alcohol use Prescriptions: No Action magnesium oxide 400 mg (241.3 mg magnesium) tablet 400 mg PO DAILY Qty: 90 1RF albuterol sulfate 90 mcg/actuation aerosol powdr breath activated 1 inh inhalation Q4-6H PRN (Reason: shortness of breath or wheezing) 30 Days Qty: 1 1RF omeprazole 20 mg capsule,delayed release(DR/EC) 20 mg PO DAILY Qty: 90 1RF gabapentin 100 mg capsule 200 mg PO TID 30 Days Qty: 180 2RF meloxicam 15 mg tablet 15 mg PO DAILY 30 Days Qty: 30 3RF diclofenac sodium 3 % gel 1 appl topical BID PRN (Reason: pain) Qty: 100 0RF alprazolam 0.5 mg tablet 0.5 mg PO DAILY PRN (Reason: anxiety) 30 Days Qty: 30 1RF multivitamin Tablet 1 tab PO DAILY acetaminophen 500 mg Tablet 1,000 mg PO Q6H PRN (Reason: Pain) cyclobenzaprine 10 mg tablet 10 mg PO BID@0600,1400 Metamucil (with sugar) 3.4 gram/12 gram powder 1 tbsp PO DAILY PRN (Reason: Constipation) ferrous sulfate 324 mg (65 mg iron) tablet,delayed release (DR/EC) 324 mg PO 2XW amlodipine 2.5 mg tablet 2.5 mg PO DAILY Qty: 90 1RF losartan-hydrochlorothiazide 100-12.5 mg tablet 1 tab PO DAILY Qty: 90 1RF Print Language: Tajik
[2024-11-05 15:32] LABS: Hematocrit 31.2 % (37.0-47.0); Hemoglobin 11.7 g/dl (12.0-16.0); Imm Gran Abs Auto 0.02 X10*3/uL (0.00-0.03); Imm Gran Pct Auto 0.3 % (0.0-0.4); Lymphocytes Absolute Auto 1.4 X10*3/uL (1.2-4.9); Mean Corpuscular HGB Conc 37.5 g/dl (31.0-35.0); Mean Corpuscular Hemoglobin 36.8 pg (27.0-33.0); Mean Corpuscular Volume 98.1 fL (80.0-98.0); NRBC Abs Auto 0.000 X10*3/uL (0.0-0.012); NRBC Pct Auto 0.0 /100WBC (0.0-0.2); Platelet Count 206 X10*3/uL (160-400); Red Blood Count 3.18 X10*6/uL (4.20-5.50); White Blood Count 6.6 X10*3/uL (4.8-10.8)
[2024-11-05 15:47] LABS: Alanine Aminotransferase 64 U/L (0-31); Albumin Level 4.3 g/dL (3.5-5.0); Alkaline Phosphatase 183 U/L (39-117); Anion Gap 18 (12-20); Aspartate Amino Transferase 114 U/L (5-31); Blood Urea Nitrogen 15 mg/dL (9-16); Calcium 8.9 mg/dL (8.4-10.2); Carbon Dioxide 25 mmol/L (22-29); Chloride 81 mmol/L (96-108); Creatinine Clr Calc Pharmacy 39.5; Estimated Glomerular Filt Rate 31; Potassium 3.6 mmol/L (3.3-5.1); Sodium 120 mmol/L (135-145); Total Protein 7.0 g/dL (6.5-8.0)
[2024-11-05 16:37] LABS: Magnesium 2.6 mg/dL (1.6-2.6)
[2024-11-05] MEDS: PHENobarbitaL sodium 130 MG/ML IM ONCE 219 MG IM (17:07)
--- NOTE | 2024-11-05 17:18 | PHA.MEDREC ---
Addendum entered by Carisa Ji RPh 11/05/24 17:38: [facility] REVIEWED Original Note: Pharmacy Consult ? Medication Reconciliation Pharmacy has completed the medication reconciliation. Spoke with patient to confirm. She takes cyclobenzaprine in the morning and the second dose around 2 PM, she took both doses today along with first two doses of gabapentin. She takes iron 2x/week, last taken 1 week ago and does not remember the day nor has specific days she takes it on. She confirmed she is taking the combination of losartan with HCTZ and not losartan alone.
--- NOTE | 2024-11-05 17:30 | PC.NURSE ---
Pharmacy contacted for 30gm Urea dose. Awaiting arrival from pharmacy. Pt resting comfortably in bed, care ongoing.
[2024-11-05 18:08] LABS: Alanine Aminotransferase 63 U/L (0-31); Albumin Level 4.2 g/dL (3.5-5.0); Alkaline Phosphatase 185 U/L (39-117); Anion Gap 18 (12-20); Aspartate Amino Transferase 106 U/L (5-31); Blood Urea Nitrogen 14 mg/dL (9-16); Calcium 8.8 mg/dL (8.4-10.2); Carbon Dioxide 25 mmol/L (22-29); Chloride 82 mmol/L (96-108); Creatinine Clr Calc Pharmacy 41.7; Estimated Glomerular Filt Rate 33; Potassium 3.6 mmol/L (3.3-5.1); Sodium 121 mmol/L (135-145); Total Protein 7.1 g/dL (6.5-8.0)
--- NOTE | 2024-11-05 19:46 | PM.IMHP ---
History of Present Illness Date of Service: 11/05/24 Chief Complaint: Hyponatremia Pt is a 54-year-old female with a PMH significant for?hypertension, asthma, GERD, chronic hyponatremia, alcohol use disorder with hx of withdrawal, and anxiety who presents to the ED after routine outpatient labs from PCP showed sodium of 120. Pt reports she has been feeling overall weak for the past few weeks, especially in her legs. Yesterday especially noticed this when she felt very weak while walking in [employer]. Denies any significant change to p.o. intake, reporting she has been drinking and eating normally. Denies any GI losses from N/V/D or increased thirst. Does report sometime last week having a possible seizure-like episode that was witnessed by her boyfriend: Apparently pt had a 1-2 minute episode where her arms went straight out and were stiff, and had some convulsion like activity. Pt reports she felt like she ?dozed off? for a minute and then woke up. No apparent postictal state as pt says she was immediately aware of her surroundings and that her boyfriend was in front of her shouting at her to wake up. Denies hx of seizure or any similar activity. Pt reports she has ?learned her lesson? from previous heavy alcohol use. Continues to drink, though only 2-3 times per week when she has a couple of drinks. Denies any recent alcohol withdrawal occurrences. Denies nausea or vomiting. No headache or increased anxiety. No tremors. Denies auditory or visual hallucinations or tactile disturbances. No chest pain/pressure, palpitations. Denies shortness or breath or difficulty breathing. In the ED pt's vitals stable and WNL. Labs were significant for 120, chloride 81, creatinine 1.72 (previous 0.98), AST 106, ALT 63, and alk-phos 185. EKG demonstrated normal sinus rhythm without evidence of significant ischemia. Pt was treated in the ED initially with normal saline at 70mls/hr and started on phenobarb protocol. ED clinician contacted Nephrology who suggested p.o. urea 30 g x1 and sodium chloride 2 g tablets b.i.d.. Pt is admitted to the hospital for treatment and further evaluation of hyponatremia of unclear etiology. Review of Systems Review of Systems: Negative except for that which is stated in the [facility] Medical History HTN (hypertension) Nicotine dependence, cigarettes, uncomplicated Pain of left thumb Degenerative disc disease, cervical Seborrheic keratosis Family History Maternal Grandmother Mental health disorder Surgical History History of back surgery H/O carpal tunnel repair History of facial surgery Social History Household Members: Family Housing: House Do you presently have visiting nurse or other home services: Yes Alcohol intake: current Alcohol intake frequency: a few times a month Alcohol type: beer and hard liquor Comment: counts correct Patient Tobacco Use Status: Current everyday Tobacco user Tobacco use type: Cigarette Years Smoked: (onset 17yo, 1ppd x 37yrs, 35pyh) Smoked in Last 30 Days: No e-Cigarette/Vaping Use: Never Used Second Hand Smoke Exposure: No Use of substances other than those prescribed or required for medical reasons: No Substance Use Frequency Other:: (occasional cbd gummy) Advance Directives: No Advance Directives Information Provided: No Do you have a plan to hurt others: No Plan service: No Current occupational status: employed Current occupation: meter tech/ rt hand Cognitive needs: No Hearing needs: No Vision needs: Yes Meds Allergies Allergy/AdvReac Type Severity Reaction Status Date / Time No Known Allergies Allergy Verified 11/05/24 15:08 Active Medications: Current Medications Pharmacy Consult (Consult Rx Etoh Phenob Im/Po) 1 each MISCELLANE ONCE PRN; Protocol PRN Reason: Consult order Phenobarbital (Phenobarbital 15 Mg Tablet) 45 mg PO BID [facility] Stop: 11/07/24 21:01 Phenobarbital (Phenobarbital 15 Mg Tablet) 15 mg PO BID [facility] Stop: 11/09/24 21:01 Phenobarbital (Phenobarbital 15 Mg Tablet) 15 mg PO DAILY [facility] Stop: 11/11/24 09:01 Phenobarbital Sodium (Phenobarbital Sodium 130 Mg/Ml Vial Im Q3hx2) 164 mg IM 2000,2300 [facility] Stop: 11/05/24 23:01 Sodium Chloride (Sodium Chloride Tab 1 Gm Tablet) 2 gm PO BID [facility] Home Medications ?Medication ?Instructions ?Recorded ?Confirmed ?Last Taken ?Type ferrous sulfate 324 mg (65 mg 324 mg PO 2XW 09/28/23 11/05/24 Unknown History iron) tablet,delayed release acetaminophen 500 mg tablet 1,000 mg PO Q6H PRN Pain 11/05/24 11/05/24 Unknown History cyclobenzaprine 10 mg tablet 10 mg PO BID@0600,1400 for muscle 11/05/24 11/05/24 11/05/24 History spasm multivitamin 1 tab PO DAILY 11/05/24 11/05/24 11/05/24 History psyllium husk (with sugar) 3.4 1 tbsp PO DAILY PRN Constipation 11/05/24 11/05/24 Unknown History gram/12 gram oral powder (Metamucil (with sugar)) Physical Exam Vital Signs and Narrative: Vital Signs: Last Vital Signs Temp 97.9 F 11/05/24 15:06 Pulse 79 11/05/24 15:06 Resp 19 11/05/24 15:06 BP 110/66 11/05/24 15:06 Pulse Ox 97 11/05/24 15:06 O2 Del Method Room Air 11/05/24 15:06 BMI result Body Mass Index 30.9 General: AOx3, no acute distress Resp: CTA bilaterally CVS: S1, S2, RRR GI: +BS, NT, no distention Skin: Warm, dry Neuro: Cranial nerves II-XII grossly intact bilaterally. Motor grossly intact bilaterally. No tremors noted. Extremities: No edema Psych: Appropriate affect Results Labs 11/05/24 15:22 11/05/24 17:46 Labs: Laboratory Results - last 24 hr 11/05/24 11/05/24 15:22 17:46 MCV 98.1 H MCH 36.8 H MCHC 37.5 H RDW 14.5 Plt Count 206 MPV 8.9 L Immature Gran % (Auto) 0.3 Neut % (Auto) 67.7 Lymph % (Auto) 21.0 Preston % (Auto) 9.1 Eos % (Auto) 1.1 Baso % (Auto) 0.8 Lymph # (Auto) 1.4 Preston # (Auto) 0.6 Eos # (Auto) 0.1 Baso # (Auto) 0.1 Abs Immat Gran (auto) 0.02 Absolute Neuts (auto) 4.5 Absolute Nucleated RBC 0.000 Nucleated RBC % (auto) 0.0 Anion Gap 18 18 Estim Creat Clear Calc 39.5 41.7 Estimated GFR 31 33 Random Glucose 131 H 103 Calcium 8.9 D 8.8 Magnesium 2.6 Total Bilirubin 0.7 0.7 AST 114 H 106 H ALT 64 H 63 H Alkaline Phosphatase 183 H 185 H Total Protein 7.0 7.1 Albumin 4.3 4.2 Assessment and Plan (1) MARK (acute kidney injury): Status: Acute (2) Acute hyponatremia: Status: Acute Plan Pt is a 54-year-old female with a PMH significant for?hypertension, asthma, GERD, chronic hyponatremia, alcohol use disorder with hx of withdrawal, and anxiety who presents to the ED after routine outpatient labs from PCP showed sodium of 120. Pt is admitted to the hospital for treatment and further evaluation of hyponatremia of unclear etiology. Hyponatremia Outpatient labs with sodium 120, repeat in ED 120-->121 Unclear etiology: Pt denies changes to to eating or drinking; no GI losses; moderate alcohol intake; pt on losartan-htcz Fluid restriction 1.5 L daily, urea 30 g p.o. x1, NaCl 2 g p.o. b.i.d. No IVF Nephrology consult Check sodium q.4h for now Check urine osmolality and sodium, serum osmolality Monitor on telemetry MARK Creatinine 1.69, elevated from prior 0.98 on 05/30/2023 Pt on fluid restriction and no IVF due to hyponatremia Treat as above Nephrology consult Monitor kidney function Question of seizure activity Reports 1-2 minute episode of seizure-like activity witnessed by boyfriend No post-ictal state Pt being treated with phenobarb protocol Seizure precautions Alcohol dependence Previous hx of withdrawal Reports has cut way back on drinking; currently has a few drinks 2-3 days a week Started on phenobarb protocol in the ED, continue HTN Hold antihypertensive due to fluid restriction Hold losartan and hydrochlorothiazide due to MARK and hyponatremia GERD Continue PPI Full Code Attending:?Dr. Bernal DVT Prophylaxis: Lovenox Pt will require a hospitalization of at least two nights for treatment of MARK and acute hyponatremia requiring careful uncontrolled correction, close monitoring of labs, and specialist consultation with Nephrology. Quality Stroke Does the patient have a stroke diagnosis?: No VTE Prior VTE?: No VTE Risk Level:: Medical - moderate - high VTE Device Contraindication: Treatment Not Indicated VTE Drug Contraindication: N/A - Med Ordered
[2024-11-05] MEDS: PHENobarbitaL sodium 130 MG/ML VIAL IM Q3Hx2 164 MG IM ×2 (20:30→23:01)
[2024-11-05] MEDS: Sodium Chloride Tab 1 GM TABLET 2 GM PO (21:31)
[2024-11-05 21:36] VITALS: BP 95/57; PULSE 73; RESP 16; O2SAT 97
[2024-11-05 22:03] LABS: Appearance Urine Clear; Glucose Urine UA Negative (Negative); PH 7.0 (5.0-9.0); Specific Gravity - Urine <= 1.005 (1.005-1.025); UMIC TRIGGER UACC YES
[2024-11-05 22:08] LABS: UACC Culture Trigger YES
[2024-11-05 23:00] VITALS: PULSE 69; RESP 12; O2SAT 89
[2024-11-05 23:05] VITALS: PULSE 70; RESP 13; O2SAT 98
[2024-11-06] VITALS (8 sets, daily range): BP systolic 100–126; BP diastolic 55–77; PULSE 66–82; RESP 16–20; TEMP 36.1–37.2; O2SAT 94–100; BMI 27.7; BMI 31.0
[2024-11-06 00:54] LABS: Anion Gap 17 (12-20); Blood Urea Nitrogen 52 mg/dL (9-16); Calcium 9.6 mg/dL (8.4-10.2); Carbon Dioxide 28 mmol/L (22-29); Chloride 84 mmol/L (96-108); Creatinine Clr Calc Pharmacy 41.2; Estimated Glomerular Filt Rate 33; Potassium 3.9 mmol/L (3.3-5.1); Sodium 125 mmol/L (135-145)
[2024-11-06 02:32] LABS: Anion Gap 16 (12-20); Blood Urea Nitrogen 51 mg/dL (9-16); Calcium 9.3 mg/dL (8.4-10.2); Carbon Dioxide 26 mmol/L (22-29); Chloride 86 mmol/L (96-108); Creatinine Clr Calc Pharmacy 42.5; Estimated Glomerular Filt Rate 34; Potassium 4.1 mmol/L (3.3-5.1); Sodium 124 mmol/L (135-145)
[2024-11-06] MEDS: Nicotine 14 MG PATCH.TD24 TRANSDERMA ×2 (03:08→09:02)
--- NOTE | 2024-11-06 07:34 | PC.NURSE ---
This RN resumed care of patient at 0700, she is currently resting in bed, denies symptoms of Brown/HI/BROWN/SI/tremors/ sweating. She is a/ox4. Pt currently waiting for a bed upstairs. Pt remains on monitor, vitals stable. Call le within reach, seizure precautions maintained at this time. All needs met.
[2024-11-06 08:11] LABS: Anion Gap 18 (12-20); Blood Urea Nitrogen 45 mg/dL (9-16); Calcium 10.2 mg/dL (8.4-10.2); Carbon Dioxide 29 mmol/L (22-29); Chloride 85 mmol/L (96-108); Creatinine Clr Calc Pharmacy 43.9; Estimated Glomerular Filt Rate 35; Potassium 4.9 mmol/L (3.3-5.1); Sodium 127 mmol/L (135-145)
[2024-11-06] MEDS: 0.9 % Sodium Chloride Flush 3 ML SYRINGE IVFLUSH ×2 (09:01→17:56)
--- NOTE | 2024-11-06 09:09 | PC.NURSE ---
patient alert and oriented, medicated per the MAR. speech slow but appropriate, speaking in full clear sentences. pure wick in place, seizure precautions in place.
--- NOTE | 2024-11-06 10:42 | HO.PM.IMPN ---
Subjective Subjective Date of Service: 11/06/24 Review of Systems Follow up Hyponatremia denied pain, nausea or vomiting Physical Exam Exam: Exam: Appearing in no acute distress lung sounds are clear to auscultation heart regular rate rhythm, clear S1, S2 positive bowel sounds, abdomen is soft, nontender neuro patient is alert x3, no focal deficits Vital Signs: Vital Signs: Last Vital Signs Temp 98.9 F 11/06/24 07:29 Pulse 72 11/06/24 07:29 Resp 20 11/06/24 07:29 BP 117/72 11/06/24 07:29 Pulse Ox 97 11/06/24 07:29 O2 Del Method Room Air 11/06/24 07:29 O2 Flow Rate 2 11/06/24 05:21 BMI result Body Mass Index 30.9 Objective Data Active Medications Acetaminophen (Acetaminophen 325 Mg Tablet) 650 mg PO Q6H PRN PRN Reason: Pain, Mild 1-3,fever,headache Albuterol Sulfate (Albuterol Sulfate 90 Mcg 8 Gm Inhaler) 1 puff INHALE Q4H PRN PRN Reason: shortness of breath or wheezin Alprazolam (Alprazolam 0.5 Mg Tablet) 0.5 mg PO DAILY PRN PRN Reason: Anxiety Calcium Carbonate (Calcium Carbonate 750 Mg Tab.Chew) 750 mg PO Q4H PRN PRN Reason: Heartburn Cyclobenzaprine HCl (Cyclobenzaprine Hcl 10 Mg Tablet) 10 mg PO BID@0600,1400 [facility] Last Admin: 11/06/24 05:23 Dose: 10 mg Documented By: CHELSEY Enoxaparin Sodium (Enoxaparin Sodium 40 Mg/0.4 Ml Syringe) 40 mg SUBCUT Q24H [facility] Last Admin: 11/05/24 22:35 Dose: 40 mg Documented By: CRIS Ferrous Sulfate (Ferrous Sulfate 324 Mg Tablet.Dr) 324 mg PO MoTh@0900 [facility] Gabapentin (Gabapentin 100 Mg Capsule) 200 mg PO TID [facility] Last Admin: 11/06/24 09:03 Dose: 200 mg Documented By: CROW Magnesium Hydroxide (Milk Of Magnesia 30 Ml Oral.Susp) 30 ml PO DAILY PRN PRN Reason: Constipation Magnesium Oxide (Magnesium Oxide 400 Mg Tablet) 400 mg PO DAILY [facility] Last Admin: 11/06/24 09:03 Dose: 400 mg Documented By: CROW Multivitamins/Vitamin C (Multivitamin Tablet) 1 tab PO DAILY [facility] Last Admin: 11/06/24 09:02 Dose: 1 tab Documented By: CROW Naproxen (Naproxen 500 Mg Tablet) 500 mg PO BIDWM [facility] Last Admin: 11/06/24 09:02 Dose: 500 mg Documented By: CROW Nicotine (Nicotine 14 Mg Patch.Td24) 14 mg TRANSDERMA DAILY [facility] Last Admin: 11/06/24 09:02 Dose: 14 mg Documented By: CROW Omeprazole (Omeprazole 20 Mg Capsule.Dr) 20 mg PO DAILY@0630 [facility] Last Admin: 11/06/24 05:23 Dose: 20 mg Documented By: WILIANOPEIron Ondansetron HCl (Ondansetron Hcl 4 Mg/2 Ml Vial) 4 mg IVPUSH Q8H PRN PRN Reason: Nausea and Vomiting Pharmacy Consult (Consult Rx Etoh Phenob Im/Po) 1 each MISCELLANE ONCE PRN; Protocol PRN Reason: Consult order Phenobarbital (Phenobarbital 15 Mg Tablet) 45 mg PO BID [facility] Stop: 11/07/24 21:01 Last Admin: 11/06/24 09:02 Dose: 45 mg Documented By: CROW Phenobarbital (Phenobarbital 15 Mg Tablet) 15 mg PO BID [facility] Stop: 11/09/24 21:01 Phenobarbital (Phenobarbital 15 Mg Tablet) 15 mg PO DAILY [facility] Stop: 11/11/24 09:01 Sodium Chloride (Sodium Chloride Tab 1 Gm Tablet) 2 gm PO BID [facility] Last Admin: 11/05/24 21:31 Dose: 2 gm Documented By: SELINA Sodium Chloride (0.9 % Sodium Chloride Flush 3 Ml Syringe) 3 ml IVFLUSH QSHIFT [facility] Last Admin: 11/06/24 09:01 Dose: 3 ml Documented By: CROW Labs 11/05/24 15:22 11/06/24 07:52 Labs: Laboratory Results - last 24 hr 11/05/24 11/05/24 11/05/24 15:22 17:46 21:50 MCV 98.1 H MCH 36.8 H MCHC 37.5 H RDW 14.5 Plt Count 206 MPV 8.9 L Immature Gran % (Auto) 0.3 Neut % (Auto) 67.7 Lymph % (Auto) 21.0 [place] % (Auto) 9.1 Eos % (Auto) 1.1 Baso % (Auto) 0.8 Lymph # (Auto) 1.4 [place] # (Auto) 0.6 Eos # (Auto) 0.1 Baso # (Auto) 0.1 Abs Immat Gran (auto) 0.02 Absolute Neuts (auto) 4.5 Absolute Nucleated RBC 0.000 Nucleated RBC % (auto) 0.0 Anion Gap 18 18 Estim Creat Clear Calc 39.5 41.7 Estimated GFR 31 33 Random Glucose 131 H 103 Calcium 8.9 D 8.8 Magnesium 2.6 Total Bilirubin 0.7 0.7 AST 114 H 106 H ALT 64 H 63 H Alkaline Phosphatase 183 H 185 H Total Protein 7.0 7.1 Albumin 4.3 4.2 Urine Color Yellow Urine Appearance Clear Urine pH 7.0 Ur Specific [place] <= 1.005 Urine Protein Negative Urine Glucose (UA) Negative Urine Ketones Negative Urine Blood Negative Urine Nitrite Negative Ur Leukocyte Esterase Moderate (2+) H Urine RBC 0-2 Urine WBC 6-10 H Ur Squamous Epith Cells 0-2 Urine Bacteria 4+ Hyaline Casts 0-2 Urine Osmolality 133 L Ur Random Sodium 31.0 Ur Random Potassium 6.9 Ur Random Chloride 25.0 11/06/24 11/06/24 11/06/24 00:32 01:59 07:52 MCV MCH MCHC RDW Plt Count MPV Immature Gran % (Auto) Neut % (Auto) Lymph % (Auto) [place] % (Auto) Eos % (Auto) Baso % (Auto) Lymph # (Auto) [place] # (Auto) Eos # (Auto) Baso # (Auto) Abs Immat Gran (auto) Absolute Neuts (auto) Absolute Nucleated RBC Nucleated RBC % (auto) Anion Gap 17 16 18 Estim Creat Clear Calc 41.2 42.5 43.9 Estimated GFR 33 34 35 Random Glucose 114 111 113 Calcium 9.6 D 9.3 10.2 D Magnesium Total Bilirubin AST ALT Alkaline Phosphatase Total Protein Albumin Urine Color Urine Appearance Urine pH Ur Specific [place] Urine Protein Urine Glucose (UA) Urine Ketones Urine Blood Urine Nitrite Ur Leukocyte Esterase Urine RBC Urine WBC Ur Squamous Epith Cells Urine Bacteria Hyaline Casts Urine Osmolality Ur Random Sodium Ur Random Potassium Ur Random Chloride Assessment and Plan (1) Hyponatremia: Status: Acute Plan 54-year-old female with a PMH significant for?hypertension, asthma, GERD, chronic hyponatremia, alcohol use disorder with hx of withdrawal, and anxiety who presents to the ED after routine outpatient labs from PCP showed sodium of 120. Pt is admitted to the hospital for treatment and further evaluation of hyponatremia of unclear etiology. Hyponatremia Outpatient labs with sodium 120, repeat in ED 120-->127 Unclear etiology: Pt denies changes to to eating or drinking; no GI losses; moderate alcohol intake; pt on losartan-htcz Fluid restriction 1.5 L daily, urea 30 g p.o. x1, NaCl 2 g p.o. b.i.d. No IVF Nephrology consult Check sodium q.4h for now MARK Creatinine 1.69, elevated from prior 0.98 on 05/30/2023 Pt on fluid restriction and no IVF due to hyponatremia Treat as above Nephrology consult Monitor kidney function Question of seizure activity Reports 1-2 minute episode of seizure-like activity witnessed by boyfriend No post-ictal state Pt being treated with phenobarb protocol Seizure precautions could be from hyponatremia Alcohol dependence Previous hx of withdrawal Reports has cut way back on drinking; currently has a few drinks 2-3 days a week Started on phenobarb protocol in the ED, continue HTN Hold antihypertensive due to fluid restriction Hold losartan and hydrochlorothiazide due to MARK and hyponatremia GERD Continue PPI Normocytic anemia No acute blood loss Monitor Obesity class 1. BMI 30.9 Weight management Full Code DVT Prophylaxis: Lovenox Quality Stroke Does the patient have a stroke diagnosis?: No VTE Prior VTE?: No VTE Risk Level:: Medical - moderate - high VTE Device Contraindication: Treatment Not Indicated VTE Drug Contraindication: N/A - Med Ordered
[2024-11-06] MEDS: Sodium Chloride Tab 1 GM TABLET 2 GM PO (11:31)
[2024-11-07 03:49] VITALS: BP 103/63; PULSE 69; RESP 16; TEMP 36.1; O2SAT 94
[2024-11-07 07:36] LABS: Anion Gap 14 (12-20); Blood Urea Nitrogen 39 mg/dL (9-16); Calcium 9.7 mg/dL (8.4-10.2); Carbon Dioxide 31 mmol/L (22-29); Chloride 89 mmol/L (96-108); Creatinine Clr Calc Pharmacy 31.9; Estimated Glomerular Filt Rate 26; Potassium 4.6 mmol/L (3.3-5.1); Sodium 129 mmol/L (135-145)
[2024-11-07 07:46] VITALS: BP 101/66; PULSE 74; RESP 17; TEMP 36.2; O2SAT 91
--- NOTE | 2024-11-07 09:17 | PM.CNNEP ---
History of Present Illness Reason for Consult Consult date: 11/07/24 Chief Complaint Chief complaint: Hypomatremia History of Present Illness Narrative: 54 y/o female with HTN, asthma, GERD, chronic hyponatremia, alcohol use disorder with history of withdrawal, anxiety. 11/05 presented from PCP recommendation due to outpatient lab serum sodium of 120. Nephrology consulted for hyponatremia. urine osm 133, urine sodium 31 on 11/05 evening. patient on fluid restriction of 1.5L/24 hours, also had urea powder and salt tabs (d/c'd yesterday). BPs have been on low side, today 101/66 creatinine has been elevated since presentation- creatinine stable at 1.55-1.72, today bumped to 2.02. patient reports she is feeling ok today. reports lower extremities weak since admission but feeling some improvement, went for a walk up and down the hallway this a.m. Denies chest pain, shortness of breath, abdominal pain, urinary symptoms, lower extremity edema. Review of Systems Review of Systems Yes all other systems are reviewed and are negative [facility] Past Medical History Medical History HTN (hypertension) Nicotine dependence, cigarettes, uncomplicated Pain of left thumb Degenerative disc disease, cervical Seborrheic keratosis Family History Family History Maternal Grandmother Mental health disorder Surgical History Surgical History History of back surgery H/O carpal tunnel repair History of facial surgery Social History Social History Household Members: Significant Other Housing: House Do you presently have visiting nurse or other home services: Yes Alcohol intake: current Alcohol intake frequency: a few times a month Alcohol type: beer and hard liquor Comment: counts correct Patient Tobacco Use Status: Current everyday Tobacco user Tobacco use type: Cigarette Cigarette Packs Per Day: 0.5 Cigarettes Per Day: 10.0 Years Smoked: 33 e-Cigarette/Vaping Use: Never Used Second Hand Smoke Exposure: No service: No Current occupational status: employed Current occupation: [employer] rt [employer] Cognitive needs: No Hearing needs: No Vision needs: Yes Meds Allergies Allergy/AdvReac Type Severity Reaction Status Date / Time No Known Allergies Allergy Verified 11/05/24 15:08 Active Medications: Current Medications Acetaminophen (Acetaminophen 325 Mg Tablet) 650 mg PO Q6H PRN PRN Reason: Pain, Mild 1-3,fever,headache Albuterol Sulfate (Albuterol Sulfate 90 Mcg 8 Gm Inhaler) 1 puff INHALE Q4H PRN PRN Reason: shortness of breath or wheezin Alprazolam (Alprazolam 0.5 Mg Tablet) 0.5 mg PO DAILY PRN PRN Reason: Anxiety Last Admin: 11/06/24 23:47 Dose: 0.5 mg Calcium Carbonate (Calcium Carbonate 750 Mg Tab.Chew) 750 mg PO Q4H PRN PRN Reason: Heartburn Cyclobenzaprine HCl (Cyclobenzaprine Hcl 10 Mg Tablet) 10 mg PO BID@0600,1400 [facility] Last Admin: 11/07/24 06:22 Dose: 10 mg Enoxaparin Sodium (Enoxaparin Sodium 40 Mg/0.4 Ml Syringe) 40 mg SUBCUT Q24H [facility] Last Admin: 11/06/24 21:29 Dose: 40 mg Ferrous Sulfate (Ferrous Sulfate 324 Mg Tablet.) 324 mg PO MoTh@0900 [facility] Gabapentin (Gabapentin 100 Mg Capsule) 200 mg PO TID [facility] Last Admin: 11/06/24 21:27 Dose: 200 mg Sodium Chloride (Ns) 500 mls @ 250 mls/hr IVCONT .Q2H [facility] Stop: 11/07/24 11:14 Magnesium Hydroxide (Milk Of Magnesia 30 Ml Oral.Susp) 30 ml PO DAILY PRN PRN Reason: Constipation Magnesium Oxide (Magnesium Oxide 400 Mg Tablet) 400 mg PO DAILY [facility] Last Admin: 11/06/24 09:03 Dose: 400 mg Multivitamins/Vitamin C (Multivitamin Tablet) 1 tab PO DAILY [facility] Last Admin: 11/06/24 09:02 Dose: 1 tab Naproxen (Naproxen 500 Mg Tablet) 500 mg PO BIDWM [facility] Last Admin: 11/06/24 17:55 Dose: 500 mg Nicotine (Nicotine 14 Mg Patch.Td24) 14 mg TRANSDERMA DAILY [facility] Last Admin: 11/06/24 09:02 Dose: 14 mg Omeprazole (Omeprazole 20 Mg Capsule.) 20 mg PO DAILY@0630 [facility] Last Admin: 11/07/24 06:22 Dose: 20 mg Ondansetron HCl (Ondansetron Hcl 4 Mg/2 Ml Vial) 4 mg IVPUSH Q8H PRN PRN Reason: Nausea and Vomiting Pharmacy Consult (Consult Rx Etoh Phenob Im/Po) 1 each MISCELLANE ONCE PRN; Protocol PRN Reason: Consult order Phenobarbital (Phenobarbital 15 Mg Tablet) 45 mg PO BID [facility] Stop: 11/07/24 21:01 Last Admin: 11/06/24 21:28 Dose: 45 mg Phenobarbital (Phenobarbital 15 Mg Tablet) 15 mg PO BID [facility] Stop: 11/09/24 21:01 Phenobarbital (Phenobarbital 15 Mg Tablet) 15 mg PO DAILY [facility] Stop: 11/11/24 09:01 Sodium Chloride (0.9 % Sodium Chloride Flush 3 Ml Syringe) 3 ml IVFLUSH QSHIFT [facility] Last Admin: 11/07/24 02:32 Dose: Not Given Home Medications ?Medication ?Instructions ?Recorded ?Confirmed ?Last Taken ?Type ferrous sulfate 324 mg (65 mg 324 mg PO 2XW 09/28/23 11/05/24 Unknown History iron) tablet,delayed release acetaminophen 500 mg tablet 1,000 mg PO Q6H PRN Pain 11/05/24 11/05/24 Unknown History cyclobenzaprine 10 mg tablet 10 mg PO BID@0600,1400 for muscle 11/05/24 11/05/24 11/05/24 History spasm multivitamin 1 tab PO DAILY 11/05/24 11/05/24 11/05/24 History psyllium husk (with sugar) 3.4 1 tbsp PO DAILY PRN Constipation 11/05/24 11/05/24 Unknown History gram/12 gram oral powder (Metamucil (with sugar)) Physical Exam Vital Signs: Last Vital Signs Temp 97.2 F 11/07/24 07:46 Pulse 74 11/07/24 07:46 Resp 17 11/07/24 07:46 BP 101/66 11/07/24 07:46 Pulse Ox 91 L 11/07/24 07:46 O2 Del Method Room Air 11/07/24 07:46 O2 Flow Rate 2 11/06/24 05:21 BMI result Body Mass Index 27.7 Const General: no acute distress, alert and awake Resp Effort & Inspection: normal respiratory effort and able to speak in complete sentences Auscultation: clear to auscultation bilaterally Cardio Rate: regular rate Rhythm: regular rhythm Heart sounds: S1 normal heart sound present and S2 normal heart sound present GI Palpation (GI): Soft to palpation and nontender General: Yes no CVA tenderness Back/Spine/Pelvis Back: no CVA tenderness Skin Rashes: no rashes Extrem General: No edema Results Lab Results 11/05/24 15:22 11/07/24 07:13 Lab results: Chemistry 11/05/24 11/05/24 11/06/24 15:22 17:46 00:32 Sodium 120 L* 121 L 125 L Potassium 3.6 3.6 3.9 Carbon Dioxide 25 25 28 BUN 15 14 52 H Creatinine 1.72 H 1.63 H 1.65 H Calcium 8.9 D 8.8 9.6 D 11/06/24 11/06/24 11/07/24 01:59 07:52 07:13 Sodium 124 L 127 L 129 L Potassium 4.1 4.9 4.6 Carbon Dioxide 26 29 31 H BUN 51 H 45 H 39 H Creatinine 1.60 H 1.55 H 2.02 H Calcium 9.3 10.2 D 9.7 Hematology 11/05/24 15:22 WBC 6.6 Hgb 11.7 L Plt Count 206 Urinalysis 11/05/24 21:50 Urine Color Yellow Urine Appearance Clear Urine pH 7.0 Ur Specific [place] <= 1.005 Urine Protein Negative Urine Glucose (UA) Negative Urine Ketones Negative Urine Blood Negative Urine Nitrite Negative Ur Leukocyte Esterase Moderate (2+) H Urine RBC 0-2 Urine WBC 6-10 H Ur Squamous Epith Cells 0-2 Hyaline Casts 0-2 Urine Studies 11/05/24 21:50 Urine Osmolality 133 L Assessment and Plan (1) Hyponatremia: Status: Acute (2) MARK (acute kidney injury): Status: Acute Plan Hyponatremia, etiology unclear- likely multifactorial. Likely excess free water intake significant contributor given low urine osm; though pt denies drinking excess free water at home. May have component of SIADH- has had mild hyponatremia chronically in past- patient takes chronic nsaids, has chronic pain and also has alcohol use disorder, though patient denies recent daily/excessive alcohol use. Patient is on hctz at home, though would expect urine sodium to be higher, may have some effect will check urine fractional excretion of urea and sodium. Will re-check urine osm, urine sodium to further guide treatment. Hyponatremia is improving. Recommend continue fluid restriction 1.5L/24 hours. MARK, new. Likely secondary to decreased renal perfusion, patient appears dry with low blood pressures and bump in creatinine. May give 500mL NS bolus and reassess sodium level and creatinine tomorrow. May need additional bolus. Will continue oral fluid restriction. Recommend re-check electrolytes and renal function studies tomorrow. recommend avoiding nephrotoxins regular blood pressure checks, close I&O monitoring continue supportive care Discussed with Dr Cardenas. Procedures Date of Service Date of Service: 11/07/24
[2024-11-07] MEDS: Ferrous Sulfate 324 MG TABLET.DR PO (09:54)
[2024-11-07] MEDS: 0.9 % Sodium Chloride Flush 3 ML SYRINGE IVFLUSH ×2 (09:55→15:16)
[2024-11-07] MEDS: Nicotine 14 MG PATCH.TD24 TRANSDERMA (09:56)
--- NOTE | 2024-11-07 10:38 | MHC.CM.PN ---
Pt lives with her S.O., she does not use home health services or DME. PCP is confirmed: Raffaele Cortes. Pt. has her car in the parking lot. DCP: home, self care. CM to follow for DC needs.
[2024-11-07 11:43] LABS: Glucose, Whole Blood 145 mg/dL (60-115)
[2024-11-07 11:57] VITALS: BP 101/57; PULSE 90; RESP 16; TEMP 36.1; O2SAT 97
--- NOTE | 2024-11-07 12:11 | P.PNIM_ITS ---
Subjective Subjective Date of Service: 11/07/24 Review of Systems Follow up Hyponatremia denied pain, nausea or vomiting Physical Exam 2 Exam: Exam: Appearing in no acute distress lung sounds are clear to auscultation heart regular rate rhythm, clear S1, S2 positive bowel sounds, abdomen is soft, nontender neuro patient is alert x3, no focal deficits Vital Signs: Vital Signs: Last Vital Signs Temp 97.0 F 11/07/24 11:57 Pulse 90 11/07/24 11:57 Resp 16 11/07/24 11:57 BP 101/57 L 11/07/24 11:57 Pulse Ox 97 11/07/24 11:57 O2 Del Method Room Air 11/07/24 11:57 O2 Flow Rate 2 11/06/24 05:21 BMI result Body Mass Index 27.7 Objective Data Active Medications Acetaminophen (Acetaminophen 325 Mg Tablet) 650 mg PO Q6H PRN PRN Reason: Pain, Mild 1-3,fever,headache Albuterol Sulfate (Albuterol Sulfate 90 Mcg 8 Gm Inhaler) 1 puff INHALE Q4H PRN PRN Reason: shortness of breath or wheezin Alprazolam (Alprazolam 0.5 Mg Tablet) 0.5 mg PO DAILY PRN PRN Reason: Anxiety Last Admin: 11/06/24 23:47 Dose: 0.5 mg Documented By: RAEGAN Calcium Carbonate (Calcium Carbonate 750 Mg Tab.Chew) 750 mg PO Q4H PRN PRN Reason: Heartburn Cyclobenzaprine HCl (Cyclobenzaprine Hcl 10 Mg Tablet) 10 mg PO BID@0600,1400 [facility] Last Admin: 11/07/24 06:22 Dose: 10 mg Documented By: RAEGAN Enoxaparin Sodium (Enoxaparin Sodium 40 Mg/0.4 Ml Syringe) 40 mg SUBCUT Q24H [facility] Last Admin: 11/06/24 21:29 Dose: 40 mg Documented By: RAEGAN Ferrous Sulfate (Ferrous Sulfate 324 Mg Tablet.Dr) 324 mg PO MoTh@0900 [facility] Last Admin: 11/07/24 09:54 Dose: 324 mg Documented By: KIMBERLY Gabapentin (Gabapentin 100 Mg Capsule) 200 mg PO TID [facility] Last Admin: 11/07/24 10:31 Dose: 200 mg Documented By: KIMBERLY Magnesium Hydroxide (Milk Of Magnesia 30 Ml Oral.Susp) 30 ml PO DAILY PRN PRN Reason: Constipation Magnesium Oxide (Magnesium Oxide 400 Mg Tablet) 400 mg PO DAILY [facility] Last Admin: 11/07/24 09:54 Dose: 400 mg Documented By: KIMBERLY Multivitamins/Vitamin C (Multivitamin Tablet) 1 tab PO DAILY [facility] Last Admin: 11/07/24 09:54 Dose: 1 tab Documented By: KIMBERLY Naproxen (Naproxen 500 Mg Tablet) 500 mg PO BIDWM [facility] Last Admin: 11/07/24 09:54 Dose: 500 mg Documented By: KIMBERLY Nicotine (Nicotine 14 Mg Patch.Td24) 14 mg TRANSDERMA DAILY [facility] Last Admin: 11/07/24 09:56 Dose: 14 mg Documented By: KIMBERLY Omeprazole (Omeprazole 20 Mg Capsule.Dr) 20 mg PO DAILY@0630 [facility] Last Admin: 11/07/24 06:22 Dose: 20 mg Documented By: RAEGAN Ondansetron HCl (Ondansetron Hcl 4 Mg/2 Ml Vial) 4 mg IVPUSH Q8H PRN PRN Reason: Nausea and Vomiting Pharmacy Consult (Consult Rx Etoh Phenob Im/Po) 1 each MISCELLANE ONCE PRN; Protocol PRN Reason: Consult order Phenobarbital (Phenobarbital 15 Mg Tablet) 45 mg PO BID [facility] Stop: 11/07/24 21:01 Last Admin: 11/07/24 10:31 Dose: 45 mg Documented By: KIMBERLY Phenobarbital (Phenobarbital 15 Mg Tablet) 15 mg PO BID [facility] Stop: 11/09/24 21:01 Phenobarbital (Phenobarbital 15 Mg Tablet) 15 mg PO DAILY [facility] Stop: 11/11/24 09:01 Sodium Chloride (0.9 % Sodium Chloride Flush 3 Ml Syringe) 3 ml IVFLUSH QSHIFT [facility] Last Admin: 11/07/24 09:55 Dose: 3 ml Documented By: KIMBERLY Labs 11/05/24 15:22 11/07/24 07:13 Labs: Laboratory Results - last 24 hr 11/05/24 11/07/24 15:28 07:13 Hold Purple Top SEE NOTE Anion Gap 14 Estim Creat Clear Calc 31.9 Estimated GFR 26 POC Glucose 145 H Random Glucose 114 Calcium 9.7 Microbiology Microbiology Results: Microbiology 11/05/24 Unknown Urine Culture - Preliminary Urine clean catch - Clean Catch Midstream Gram negative aleksandr Assessment and Plan (1) Hyponatremia: Status: Acute Plan 54-year-old female with a PMH significant for?hypertension, asthma, GERD, chronic hyponatremia, alcohol use disorder with hx of withdrawal, and anxiety who presents to the ED after routine outpatient labs from PCP showed sodium of 120. Pt is admitted to the hospital for treatment and further evaluation of hyponatremia of unclear etiology. Hyponatremia Outpatient labs with sodium 120, repeat in ED 120-->129 Unclear etiology Pt denies changes to to eating or drinking; no GI losses; moderate alcohol intake; pt on losartan-htcz Fluid restriction 1.5 L daily, urea 30 g p.o. x1, s/p NaCl 2 g p.o. b.i.d. Nephrology consult Check sodium q.4h for now MARK Creatinine 2.02, elevated from prior 0.98 on 05/30/2023 Pt on fluid restriction and no IVF due to hyponatremia Nephrology consult>give 500ml bolus now Monitor kidney function Question of seizure activity Reports 1-2 minute episode of seizure-like activity witnessed by boyfriend No post-ictal state Pt being treated with phenobarb protocol Seizure precautions could be from hyponatremia Alcohol dependence Previous hx of withdrawal Reports has cut way back on drinking; currently has a few drinks 2-3 days a week Started on phenobarb protocol in the ED, continue HTN Hold antihypertensive due to fluid restriction Hold losartan and hydrochlorothiazide due to MARK and hyponatremia GERD Continue PPI Normocytic anemia No acute blood loss Monitor Obesity class 1. BMI 30.9 Weight management Full Code DVT Prophylaxis: Lovenox Quality Stroke Does the patient have a stroke diagnosis?: No VTE Prior VTE?: No VTE Risk Level:: Medical - moderate - high VTE Device Contraindication: Treatment Not Indicated VTE Drug Contraindication: N/A - Med Ordered
[2024-11-07 12:21] LABS: Appearance Urine Cloudy; Glucose Urine UA Negative (Negative); PH 6.0 (5.0-9.0); Specific Gravity - Urine 1.010 (1.005-1.025); UMIC TRIGGER UA YES
[2024-11-07 13:49] LABS: Protein/Creatinine Ratio, Ur 0.17 (<0.2); Total Protein Urine Random 10 mg/dL (<12)
[2024-11-07 16:00] VITALS: BP 100/56; PULSE 82; RESP 16; TEMP 36.3; O2SAT 95
[2024-11-07 19:37] VITALS: BP 112/65; PULSE 80; RESP 20; TEMP 36.4; O2SAT 97
[2024-11-07 23:52] VITALS: BP 90/58; PULSE 76; RESP 18; TEMP 36.2; O2SAT 98
[2024-11-08 03:48] VITALS: BP 120/67; PULSE 75; RESP 18; TEMP 36.1; O2SAT 97
[2024-11-08 08:00] VITALS: BP 113/67; PULSE 76; RESP 16; TEMP 36.2; O2SAT 95
[2024-11-08 08:01] LABS: Anion Gap 15 (12-20); Blood Urea Nitrogen 37 mg/dL (9-16); Calcium 9.2 mg/dL (8.4-10.2); Carbon Dioxide 28 mmol/L (22-29); Chloride 94 mmol/L (96-108); Creatinine Clr Calc Pharmacy 38.2; Estimated Glomerular Filt Rate 32; Potassium 4.5 mmol/L (3.3-5.1); Sodium 132 mmol/L (135-145)
--- NOTE | 2024-11-08 08:41 | P.DS_ITS ---
DS: Providers Provider Date of Service: 11/08/24 Date of admission: 11/05/24 18:59 Date of discharge: 11/08/24 Primary care physician: MIRNA Montenegro- Consults: 11/05/24 19:49 Consult to Nephrology Routine Consulting Provider: [facility] Reason for consultation: Hyponatremia starting at 120 Has provider been notified: Yes DS: Diagnosis Discharge Diagnosis (1) Hyponatremia: Status: Acute DS: Summary Hospital Course Hospital Course: History and physical as per admitting provider. Pt is a 54-year-old female with a PMH significant for?hypertension, asthma, GERD, chronic hyponatremia, alcohol use disorder with hx of withdrawal, and anxiety who presents to the ED after routine outpatient labs from PCP showed sodium of 120. Pt reports she has been feeling overall weak for the past few weeks, especially in her legs. Yesterday especially noticed this when she felt very weak while walking in [employer]. Denies any significant change to p.o. intake, reporting she has been drinking and eating normally. Denies any GI losses from N/V/D or increased thirst. Does report sometime last week having a possible seizure-like episode that was witnessed by her boyfriend: Apparently pt had a 1-2 minute episode where her arms went straight out and were stiff, and had some convulsion like activity. Pt reports she felt like she ?dozed off? for a minute and then woke up. No apparent postictal state as pt says she was immediately aware of her surroundings and that her boyfriend was in front of her shouting at her to wake up. Denies hx of seizure or any similar activity. Pt reports she has ?learned her lesson? from previous heavy alcohol use. Continues to drink, though only 2- 3 times per week when she has a couple of drinks. Denies any recent alcohol withdrawal occurrences. Denies nausea or vomiting. No headache or increased anxiety. No tremors. Denies auditory or visual hallucinations or tactile disturbances. No chest pain/pressure, palpitations. Denies shortness or breath or difficulty breathing. In the ED pt's vitals stable and WNL. Labs were significant for 120, chloride 81, creatinine 1.72 (previous 0.98), AST 106, ALT 63, and alk-phos 185. EKG demonstrated normal sinus rhythm without evidence of significant ischemia. Pt was treated in the ED initially with normal saline at 70mls/hr and started on phenobarb protocol. ED clinician contacted Nephrology who suggested p.o. urea 30 g x1 and sodium chloride 2 g tablets b.i.d.. Pt is admitted to the hospital for treatment and further evaluation of hyponatremia of unclear etiology. 54-year-old woman treated for acute hyponatremia of sodium of 120. Unclear etiology but possibly secondary to antihypertensive medication losartan and hydrochlorothiazide as well as alcohol use. Seen and evaluated by Nephrology. Patient treated with 1.5 L fluid restriction, received 1 dose of urea and salt tablets. Sodium has slowly trended up and is now at 132. Patient is encouraged to stick to fluid restriction for now of up to 2 L, check BNP in 1 week. Avoid alcohol. Losartan and hydrochlorothiazide have been stopped. MARK. Creatinine elevated from prior 0.98 on 05/30/2023. now 1.69. Patient treated on fluid restriction for hyponatremia but given a 500 cc bolus which seemed to help bring the creatinine back to baseline. Question of seizure activity. Reports 1-2 minute episode of seizure-like activity witnessed by boyfriend. No post-ictal state. Could have been because of hyponatremia. No seizure activity during hospitalization Alcohol dependence. Previous history of withdrawal. Patient reports that she does not drink as much as she used to. No withdrawal symptoms during hospitalization. Treated with phenobarbital protocol. HTN. Losartan and hydrochlorothiazide stopped, both of these medications could contribute to hyponatremia. Blood pressures actually have been stable off of any antihypertensive medications. May continue amlodipine 2.5 mg daily GERD Continue PPI Normocytic anemia No acute blood loss Obesity class 1. BMI 30.9 Weight management Time Attestation Discharge Coordination Time (in mins): 42 Quality: Safe Use of Opioids Does Pt have an Active Cancer Diagnosis on the Problem List?: No Quality: Stroke Does the patient have a stroke diagnosis?: No Physical Exam Exam: Exam: Appearing in no acute distress head is normocephalic atraumatic eyes pupils are PERRLA sclera is anicteric mouth throat mucous membranes are intact and moist neck is supple no lymphadenopathy, no JVD noted lung sounds are clear to auscultation heart regular rate rhythm, clear S1, S2 positive bowel sounds, abdomen is soft, nontender neuro patient is alert x3, no focal deficits Vital Signs: Vital Signs: Last Vital Signs Temp 97.1 F 11/08/24 08:00 Pulse 76 11/08/24 08:00 Resp 16 11/08/24 08:00 BP 113/67 11/08/24 08:00 Pulse Ox 95 11/08/24 08:00 O2 Del Method Room Air 11/08/24 08:00 O2 Flow Rate 2 11/06/24 05:21 BMI result Body Mass Index 27.7 DS: Data Data Completed and Pending Completed studies during hospitalization [Text1]: Procedures Detoxification Services for Substance Abuse Treatment (01/21/22) Labs on day of discharge: Laboratory Results - last 24 hr 11/05/24 11/07/24 11/07/24 15:28 11:11 11:11 Sodium Potassium Chloride Carbon Dioxide Anion Gap BUN Creatinine Estim Creat Clear Calc Estimated GFR POC Glucose 145 H Random Glucose Calcium Urine Color Yellow Urine Appearance Cloudy Urine pH 6.0 Ur Specific [place] 1.010 Urine Protein Negative Urine Glucose (UA) Negative Urine Ketones Negative Urine Blood Negative Urine Nitrite Negative Ur Leukocyte Esterase Large (3+) H Urine RBC 0-2 Urine WBC >50 H Ur Squamous Epith Cells 3-5 Urine Bacteria 4+ Hyaline Casts 0-2 Urine Osmolality 232 L U Random Total Protein 10 Ur Random Sodium < 20.0 Urine Creatinine 59.97 60.09 Protein/Creatinin Ratio 0.17 11/08/24 11/08/24 07:22 07:23 Sodium 132 L Cancelled Potassium 4.5 Cancelled Chloride 94 L Cancelled Carbon Dioxide 28 Cancelled Anion Gap 15 Cancelled BUN 37 H Cancelled Creatinine 1.69 H Cancelled Estim Creat Clear Calc 38.2 Cancelled Estimated GFR 32 Cancelled POC Glucose Random Glucose 130 H Cancelled Calcium 9.2 Cancelled Urine Color Urine Appearance Urine pH Ur Specific [place] Urine Protein Urine Glucose (UA) Urine Ketones Urine Blood Urine Nitrite Ur Leukocyte Esterase Urine RBC Urine WBC Ur Squamous Epith Cells Urine Bacteria Hyaline Casts Urine Osmolality U Random Total Protein Ur Random Sodium Urine Creatinine Protein/Creatinin Ratio Discharge Plan Discharge Anticipated Discharge Date/Time: 11/08/24 08:39 Patient Disposition: Home, Self-Care Discharge Diagnosis: Hyponatremia MARK Referrals: Raffaele Desir, STEPDOWN NURSE-BC [Primary Care Provider, Internal Medicine] - 1 Week Discharge Medications: Continued magnesium oxide 400 mg (241.3 mg magnesium) tablet 400 mg PO DAILY Qty: 90 1RF albuterol sulfate 90 mcg/actuation aerosol powdr breath activated 1 inh inhalation Q4-6H PRN (Reason: shortness of breath or wheezing) 30 Days Qty: 1 1RF omeprazole 20 mg capsule,delayed release(DR/EC) 20 mg PO DAILY Qty: 90 1RF gabapentin 100 mg capsule 200 mg PO TID 30 Days Qty: 180 2RF meloxicam 15 mg tablet 15 mg PO DAILY 30 Days Qty: 30 3RF diclofenac sodium 3 % gel 1 appl topical BID PRN (Reason: pain) Qty: 100 0RF alprazolam 0.5 mg tablet 0.5 mg PO DAILY PRN (Reason: anxiety) 30 Days Qty: 30 1RF multivitamin Tablet 1 tab PO DAILY acetaminophen 500 mg Tablet 1,000 mg PO Q6H PRN (Reason: Pain) cyclobenzaprine 10 mg tablet 10 mg PO BID@0600,1400 Metamucil (with sugar) 3.4 gram/12 gram powder 1 tbsp PO DAILY PRN (Reason: Constipation) ferrous sulfate 324 mg (65 mg iron) tablet,delayed release (DR/EC) 324 mg PO 2XW amlodipine 2.5 mg tablet 2.5 mg PO DAILY Qty: 90 1RF Discontinued losartan-hydrochlorothiazide 100-12.5 mg tablet 1 tab PO DAILY Qty: 90 1RF Discharge Orders: Discharge Order (Routine); Ordered 11/08/24 Ordered By: Jovita Norwood Diet: Advance to usual diet Activity on Discharge: As tolerated Stand Alone Forms: Patient Portal Discharge page Print Language: Namibian Other Ambulatory Orders: Basic Metabolic Panel (Routine) Timeframe: 1 Week Facility: [facility] - Location: Laboratory Ordered By: Jovita Norwood Care Plan Goals: Monitor the amount of fluids that you drink at home, continue restricting some fluids up to 48 oz daily Stop taking losartan, hydrochlorothiazide Health Concerns: Hyponatremia MARK Plan of Treatment: Follow up with primary care provider as needed Take all medications as prescribed Assessment: See discharge summary
[2024-11-08] MEDS: Nicotine 14 MG PATCH.TD24 TRANSDERMA (09:09)
[2024-11-08] MEDS: 0.9 % Sodium Chloride Flush 3 ML SYRINGE IVFLUSH (09:15)
--- NOTE | 2024-11-08 09:35 | PM.PNNEP ---
Subjective Subjective Date of Service: 11/08/24 Interval history: following for hyponatremia, MARK patient reports she feels well this a.m., more energy. No new concerns/symptoms. creatinine is down to 1.69 from 2.02 yesterday. Serum sodium 132. FeNA 0.5%. Physical Exam Vital Signs: Vital Signs: Last Vital Signs Temp 97.1 F 11/08/24 08:00 Pulse 76 11/08/24 08:00 Resp 16 11/08/24 08:00 BP 113/67 11/08/24 08:00 Pulse Ox 95 11/08/24 08:00 O2 Del Method Room Air 11/08/24 08:00 O2 Flow Rate 2 11/06/24 05:21 BMI result Body Mass Index 27.7 Const: General: no acute distress, alert and awake Resp: Effort & Inspection: normal respiratory effort and able to speak in complete sentences Auscultation: clear to auscultation bilaterally Cardio: Rate: regular rate Rhythm: regular rhythm Heart sounds: S1 normal heart sound present and S2 normal heart sound present GI: Palpation (GI): Soft to palpation and nontender : General: Yes no CVA tenderness Back/Spine/Pelvis: Back: no CVA tenderness Skin: Rashes: no rashes Extrem: General: No edema Objective Data Labs 11/05/24 15:22 11/08/24 07:22 Labs: Laboratory Results - last 24 hr 11/05/24 11/07/24 11/07/24 15:28 11:11 11:11 Sodium Potassium Chloride Carbon Dioxide Anion Gap BUN Creatinine Estim Creat Clear Calc Estimated GFR POC Glucose 145 H Random Glucose Calcium Urine Color Yellow Urine Appearance Cloudy Urine pH 6.0 Ur Specific [place] 1.010 Urine Protein Negative Urine Glucose (UA) Negative Urine Ketones Negative Urine Blood Negative Urine Nitrite Negative Ur Leukocyte Esterase Large (3+) H Urine RBC 0-2 Urine WBC >50 H Ur Squamous Epith Cells 3-5 Urine Bacteria 4+ Hyaline Casts 0-2 Urine Osmolality 232 L U Random Total Protein 10 Ur Random Sodium < 20.0 Urine Creatinine 59.97 60.09 Protein/Creatinin Ratio 0.17 11/08/24 11/08/24 07:22 07:23 Sodium 132 L Cancelled Potassium 4.5 Cancelled Chloride 94 L Cancelled Carbon Dioxide 28 Cancelled Anion Gap 15 Cancelled BUN 37 H Cancelled Creatinine 1.69 H Cancelled Estim Creat Clear Calc 38.2 Cancelled Estimated GFR 32 Cancelled POC Glucose Random Glucose 130 H Cancelled Calcium 9.2 Cancelled Urine Color Urine Appearance Urine pH Ur Specific [place] Urine Protein Urine Glucose (UA) Urine Ketones Urine Blood Urine Nitrite Ur Leukocyte Esterase Urine RBC Urine WBC Ur Squamous Epith Cells Urine Bacteria Hyaline Casts Urine Osmolality U Random Total Protein Ur Random Sodium Urine Creatinine Protein/Creatinin Ratio Microbiology Microbiology Results: Microbiology 11/05/24 Unknown Urine clean catch - Clean Catch Midstream Urine Culture - Final Escherichia coli Procedures Date of Service Date of Service: 11/08/24 Assessment & Plan Assessment and plan (1) Hyponatremia: Status: Acute Plan Hyponatremia- given low fractional excretion of sodium along with improvement in serum sodium with fluid bolus yesterday, hyponatremia likely exacerbated by hypovolemia. Hyponatremia is improving. MARK, improving. Likely secondary to hypovolemia given improvement overnight with fluids. Patient is ok to be discharged from a renal standpoint. Recommend patient eat and drink normally at home but should adhere to ~48 ounces of fluid intake daily; if particularly hot or thirsty may drink slightly more but should not drink significantly more than this daily. Will arrange for outpatient follow up next week. Discussed with Dr Cardenas. Time Spent With Patient Time: Total time managing care of this patient today ____ minutes. Progress Note: Quality Stroke Does the patient have a stroke diagnosis?: No
--- NOTE | 2024-11-08 10:30 | MHC.CM.PN ---
Pt is medically cleared for discharge home self-cre, pts to transport her home today.
--- NOTE | 2024-11-08 10:31 | MHC.CM.PN ---
Pt is medically cleared for discharge home self-care, pts to transport her home today.
[2024-11-09 21:28] LABS: Urea, Random Urine 404 mg/dL
--- NOTE | 2024-11-10 17:57 | PM.EVENT ---
Event Note Date of Service: 11/11/24 Event Note: Patient called for she is supposed to be on antibiotic for question of UTI, currently patient denies any symptoms except urine foul smellin She had UA done during recent admission and urine culture grew E coli. In discharge summary review and during the whole hospitalization patient was not on any antibiotics, ceftin 250 mg po bidadded ( discussed with her side effects in detail, also pharmacy informed to review it with patient when fish bait picker medication) In addition discussed with the patient if any new symptoms including fever or urinary complaints go to nearest emergency room. phone no [phone] Time Spent With Patient Time: Total time managing care of this patient today ____ minutes.
== END 2024-11-08 12:16 | disposition home or self-care (01) | DRG 426 ==
LOC: HO.ED 16:41 → HO.EDOVER 19:13 → HO.IMC 11-06 11:41
PROVIDERS: Nurse Practitioner Family; Physician Assistant Medical; Admitting Provider Student in an Organized Health Care Education/Training Program; Emergency Provider Emergency Medicine; PCP Nurse Practitioner Family; Visit Provider Nurse Practitioner Acute Care
DX: E87.1 Hypo-osmolality and hyponatremia (principal); N17.9 Acute kidney failure, unspecified; F17.210 Nicotine dependence, cigarettes, uncomplicated; E66.811 Obesity, class 1; E86.1 Hypovolemia; Z71.3 Dietary counseling and surveillance; Z68.30 Body mass index [BMI] 30.0-30.9, adult; N39.0 Urinary tract infection, site not specified; B96.20 Unspecified Escherichia coli [E. coli] as the cause of diseases classified elsewhere; T46.5X5A Adverse effect of other antihypertensive drugs, initial encounter; T50.2X5A Adverse effect of carbonic-anhydrase inhibitors, benzothiadiazides and other diuretics, initial encounter; Z71.6 Tobacco abuse counseling; F10.20 Alcohol dependence, uncomplicated; I10 Essential (primary) hypertension; D64.9 Anemia, unspecified; Z79.899 Other long term (current) drug therapy
CPT/HCPCS: 36415; 76775; 80048; 80053; 81001; 81003; 82436; 82570; 82947; 83735; 83935; 84133; 84156; 84300; 84540; 85025; 87086; 87088; 87186; 93005; 99285; J1650; J2560

== ENCOUNTER → 2024-11-05 15:29 | Outpatient (BNV) | payer OTHER, SELFPAY | PROVIDERS: Admitting Provider Student in an Organized Health Care Education/Training Program; Emergency Provider Emergency Medicine; PCP Nurse Practitioner Family; Visit Provider Internal Medicine | DX: R56.9 Unspecified convulsions (principal) | CPT/HCPCS: 93010 ==

== ENCOUNTER 2024-11-05 18:59 | Outpatient (BNV) | payer OTHER, SELFPAY | END 2024-11-07 16:40 | PROVIDERS: Admitting Provider Student in an Organized Health Care Education/Training Program; Emergency Provider Emergency Medicine; PCP Nurse Practitioner Family; Visit Provider Radiology Diagnostic Radiology | DX: E87.1 Hypo-osmolality and hyponatremia (principal) | CPT/HCPCS: 76775 ==

== ENCOUNTER → 2024-11-05 18:59 | Outpatient (BNV) | payer OTHER, SELFPAY | PROVIDERS: Admitting Provider Student in an Organized Health Care Education/Training Program; Emergency Provider Emergency Medicine; PCP Nurse Practitioner Family; Visit Provider Nurse Practitioner Acute Care | DX: E87.1 Hypo-osmolality and hyponatremia (principal) | CPT/HCPCS: 99223; 99232; 99239; 99499 ==

== ENCOUNTER → 2024-11-05 18:59 | Outpatient (BNV) | payer OTHER, SELFPAY | PROVIDERS: Admitting Provider Student in an Organized Health Care Education/Training Program; Emergency Provider Emergency Medicine; PCP Nurse Practitioner Family; Visit Provider Nurse Practitioner Family | DX: E87.1 Hypo-osmolality and hyponatremia (principal) | CPT/HCPCS: 99222; 99231 ==

== ENCOUNTER 2024-11-10 15:43 | Outpatient (AMB) | payer OTHER, SELFPAY ==
--- OUTSIDE RECORDS SUMMARY | 2024-11-10 15:47 | XMS_ITS | Clinical Summary ---
Author Organization [address] [facility] Address [address] [place] [address] Phone Care Team Providers Care Pmp Certified Project Manager Name Role Phone Fabienne Gilman Primary Care Provider Social History Tobacco Use Types Packs/Day Years Used Date Smoking Tobacco: Never Assessed Comments Unknown Sex and Gender Information Value Date Recorded Sex Assigned at Not on file Legal Sex Female 8:20 AM EDT Gender Identity Not on file Sexual Orientation Not on file Plan of Treatment Upcoming Encounters Date Type Department Care Team ([facility] Contact Info) Description 11/30/2024 9:15 AM EDT Office Visit Orthopedic Surgery [place] [id number] [id number] Jonathon Forrest, VINICIUS [address] [address] Health Maintenance Due Date Last Done Comments Breast Cancer Screening 1972 DTaP,Tdap,and Td Vaccines (1 - Tdap) 1991 Hepatitis B Vaccines (1 of 3 - 19+ 3-dose series) 1991 Cervical Cancer Screening: P ap Smear 1993 Pneumococcal Vaccine: 50+ Ye ars (1 of 1 - PCV) 2022 Zoster Vaccines (1 of 2) 2022 COVID-19 Vaccine ( - 2023-2 5 season) 2023 Depression Screening 04/20/2024 Colorectal Cancer Screening: Colonoscopy 09/20/2024 HIV Screening 09/20/2024 Hepatitis C Screening [...] topic Insurance MEDICAID - [place] Care Teams Pmp Certified Project Manager Relationship Specialty Start Date End Date Fabienne Gilman FNP [address] [place] [id number] PCP - General Nurse Practitioner 09/20/24
--- OUTSIDE RECORDS SUMMARY | 2024-11-10 15:47 | XMS_ITS | Clinical Summary ---
Author Organization [facility] Facility Address [address] [address] Care Team Providers Care Disc Ruler Operator Name Role Phone Raffaele Desir NP Primary Care Provider [phone] Social History Tobacco Use Types Packs/Day Years [...] PCV) 022 Influenza Vaccine (#1) 2024 Insurance [facility] Care Teams Disc Ruler Operator Relationship Specialty Start Date End Date Raffaele Desir NP [address] [place] [employer], [place] [id number] PCP - General Nurse Practitioner 01/23/22
--- NOTE | 2024-11-10 16:03 | MHC.OFFVIS ---
Vital Signs 11/10/24 16:04 Height 5 ft 4 in Weight 174 lb BMI 29.9 BP 138/74 Blood Pressure Location Lt brachial Position Sitting Intake Visit Reasons: Annual, Do Not R/S per Tiffany Intake Note: Annual Information Interpreted: non-clinical & clinical Senior Environmental Engineer: Senior Environmental Engineer Present (elida) Accompanied by: Self / Same As Patient Allergies cefuroxime Allergy (Verified 11/13/24 02:30) Hives Is last menstrual period known: Yes Last menstrual period: 09/25/24 Post menopausal: No Patient : No Do you need a note to return to daycare/school/sports/work: No HPI Comments Details: Patient is a premenopausal woman presenting for her new patient annual facility engineer examination. [employer] concerns: Reports adult acne, low libido, brain fog, wants hormones. Recently evaluated in the ED for seizure, UTI, admits to not picking up her prescriptions since discharge. She was found to be talking out loud alone in the bathroom and exam room areas. Inconsistent historian. Currently sexually active. LMP 09/25/24, skipped 10 months. Denies any vaginal dryness or irritation. STI testing offered; she declines. Attempting to eat a healthy diet with calcium and vitamin D. Last pap smear; 2020, negative. Last mammogram; 2024. Denies any family history of breast, ovarian or colon cancer. [facility] Medical History Alcohol use HTN (hypertension) Nicotine dependence, cigarettes, uncomplicated Pain of left thumb Degenerative disc disease, cervical Seborrheic keratosis Surgical History History of back surgery H/O carpal tunnel repair History of facial surgery Family History Maternal Grandmother Mental health disorder Social History Household Members: Significant Other Housing: House Do you presently have visiting nurse or other home services: Yes Alcohol intake: current Alcohol intake frequency: a few times a month Alcohol type: beer and hard liquor Comment: counts correct Patient Tobacco Use Status: Tobacco use Unknown Tobacco use type: Cigarette Cigarette Packs Per Day: 0.5 Cigarettes Per Day: 10.0 Years Smoked: 33 e-Cigarette/Vaping Use: Never Used Second Hand Smoke Exposure: No Advance Directives: No Advance Directives Information Provided: Yes service: No Current occupational status: employed Current occupation: meter tech/ rt hand Cognitive needs: No Hearing needs: No Vision needs: Yes Female Reproductive History Menstrual Age of Menarche: 13 Date of last menstrual period: 09/25/24 control method: none Total pregnancies: 2 Number of Living Children: 2 Date of last pap smear: 12/04/20 History of abnormal pap smear: No Date of Mammogram: 06/22/24 History of abnormal mammogram: No Review of Systems Const All systems reviewed & are unremarkable except as noted in HPI and below Reports as per HPI Eyes Reports no additional complaints ENT Reports no additional complaints Card Reports no additional complaints Resp Reports no additional complaints GI Reports as per HPI and Reports no additional complaints Reports as per HPI Musc Reports no additional complaints Skin/Breast Reports as per HPI Neuro Reports no additional complaints Psych Reports no additional complaints Endo Reports no additional complaints Kahlil/Lymph Reports no additional complaints Aller/Immun Reports no additional complaints Physical Exam Vital Signs: Last Vital Signs BP 138/74 11/10/24 16:04 BMI result Body Mass Index 29.9 Const General: cooperative, healthy appearing, no acute distress, well developed and alert Orientation/consciousness: patient oriented x3 HEENT Head: Yes normal to inspection Eyes General: appearance normal, both eyes and all related structures Neck Neck: Yes normal visual inspection Thyroid: Thyroid normal Chest Chest palpation & inspection: normal inspection of the chest and other (no puckering, dimpling, peau de orange, retraction, discharge, masses) Breast/axilla inspection: normal inspection of the breasts Breast/axilla palpation: normal palpation of the breasts Resp Effort & Inspection: normal respiratory effort GI Inspection: Yes normal to inspection Palpation (GI): Soft to palpation Rectal Exam - Female: deferred General: Yes bladder normal to palpation External Female Exam: normal external appearance and normal appearance of the urethra Speculum Exam - Vagina: normal appearance of the vagina, normal palpation and normal vaginal discharge Speculum Exam - Cervix: normal appearance of the cervix and normal palpation Bimanual exam- vagina & uterus: normal bimanual exam, normal palpation, uterine size normal, bladder normal to palpation, normal palpation and non-tender Bimanual Exam- Adnexa, other: no masses Skin Rashes: rashes noted (facial, erythematous raised bumps increased on bilateral cheek area) Neuro General: patient oriented x3 Cognition (Neuro): normal cognition Extrem General: Yes normal to inspection Psych Attitude: cooperative Thought process: Normal thought process present Results Reviewed Results Reviewed: Assessment & Plan Assessment & Plan (1) Well woman exam with routine gynecological exam: Code(s): Z01.419 - Encounter for gynecological examination (general) (routine) without abnormal findings Category: Medical Plan Discussed: Current recommendations for pap smears per ASCCP guidelines. Sign release for pap records. Breast awareness, periodic self breast exams and yearly mammogram. Maintain a healthy lifestyle, well balanced diet including Calcium 1,200 mg and Vitamin D 600 IU daily, and routine exercise. Menopause verses perimenopause. Menopause is definitive of 1 year of no menses or 12 months in succession. Report any abnormal uterine bleeding in example prolonged episodes, or short intervals less than 24 days. Advised to greens picker medication prescribed from discharge at pharmacy as soon as possible. Advised to discuss her skin concerns with her PCP as she may have other dermatological condition such as rosacea. Menopause.org handout provided, encouraged to review, I do not feel she is a candidate at this time due to ongoing medical issues. Patient verbalizes understanding. She was given opportunity to ask questions and all questions were answered to the best of my ability. RTO in 1 year for annual facility engineer exam. This note is constructed using voice recognition software. While every effort has been made to ensure accuracy, furniture salesperson errors may have been included. Coding Level of Care Code New Pt Prev Care 40-64y(17644) Diagnoses Well woman exam with routine gynecological exam Z01.419
[2024-11-10 16:04] VITALS: BP 138/74; BMI 29.9
== END 2024-11-10 18:33 | disposition home or self-care (01) ==
LOC: HO.HWS 15:43
PROVIDERS: PCP Nurse Practitioner Family; Visit Provider Advanced Practice Midwife
DX: Z01.419 Encounter for gynecological examination (general) (routine) without abnormal findings (principal)
CPT/HCPCS: 99386; 99459

== ENCOUNTER → 2024-11-10 15:43 | Outpatient (BNVA) | payer OTHER, SELFPAY | PROVIDERS: PCP Nurse Practitioner Family; Visit Provider Advanced Practice Midwife | DX: Z01.419 Encounter for gynecological examination (general) (routine) without abnormal findings (principal); R68.82 Decreased libido; L70.9 Acne, unspecified | CPT/HCPCS: 99386 ==

== ENCOUNTER 2024-11-13 02:20 | Inpatient (IN) | payer OTHER, SELFPAY ==
[2024-11-13] VITALS (11 sets, daily range): BP systolic 111–163; BP diastolic 76–101; PULSE 65–110; RESP 12–20; TEMP 36.7–37.4; O2SAT 94–100; BMI 30.3
--- NOTE | 2024-11-13 | EEG_ITS ---
This is a 16 channel EEG with an EKG lead. Patient is reported awake during the tracing. This EEG somewhat limited because of almost continuous artifact. This seems to be asymmetric left frontocentral slowing with occasional sharp waves at C3. The tail end of the tracing, when artifacts were almost not visible, left frontocentral asymmetric slowing was still noted lasting for couple of sec at a time. Photic stimulation did not produce any significant driving and hyperventilation was not performed. Impression: Somewhat limited but abnormal looking EEG suggestive of left frontocentral paroxysmal activity suggestive of seizure disorder MTDD
--- NOTE | ~2024-11-13 | MR_ITS ---
CLINICAL HISTORY: acute encpehalopathy-unclear etiology Pt motion throughout exam. Blade sequences used to compensate. Best possible images obtained. MR Brain without gadolinium Comparison: CT head 11/13/2024 Findings: No restricted diffusion. No intra-axial mass or hemorrhage. No midline shift. No hydrocephalus. Vascular flow voids are intact. Few scattered T2/FLAIR signal hyperintensities throughout supratentorial white matter. Orbital contents are unremarkable. The sinuses and mastoid air cells are clear. No focal bone lesion. IMPRESSION: 1. No acute intracranial abnormality identified. 2. Few scattered T2/FLAIR signal hyperintensities throughout supratentorial white matter. Differential diagnostic considerations include early white matter microvascular ischemic changes, sequela of prior infectious/inflammatory process, Sequela of prior migraine headaches or possible demyelinating process. 3. Additional findings as above. This document has been electronically signed by: Agustin Cortez MD on 11/13/2024 19:19:11
--- NOTE | ~2024-11-13 | CT_ITS ---
CLINICAL HISTORY: AMS CT Head WO Contrast COMPARISON: None provided FINDINGS: No acute intracranial hemorrhage. No evidence of acute infarction. Mild diffuse cortical volume loss. Mild nonspecific white matter hypodensities, most commonly associated with chronic microangiopathic changes. No mass-effect or midline shift. No hydrocephalus. Visualized orbits are normal. Clear paranasal sinuses. Clear mastoid air cells. No acute fracture. Unremarkable soft tissues. IMPRESSION: No acute intracranial findings. Nonemergent/incidental findings in the report. This document has been electronically signed by: Gallo Bernardo MD on 11/13/2024 05:02:03
--- NOTE | 2024-11-13 03:13 | ECG_ITS ---
Test Reason : AMS Blood Pressure : */* mmHG Vent. Rate : 73 BPM Atrial Rate : 73 BPM P-R Int : 180 ms QRS Dur : 88 ms QT Int : 400 ms P-R-T Axes : 48 30 48 degrees QTcB Int : 440 ms Normal sinus rhythm Normal ECG When compared with ECG of 05-Nov-2024 15:29, No significant change was found Referred By: Radha Otto Electronically Signed By: Everette Way
[2024-11-13 03:21] LABS: Hematocrit 33.5 % (37.0-47.0); Hemoglobin 12.0 g/dl (12.0-16.0); Imm Gran Abs Auto 0.02 X10*3/uL (0.00-0.03); Imm Gran Pct Auto 0.3 % (0.0-0.4); Lymphocytes Absolute Auto 1.3 X10*3/uL (1.2-4.9); MANUAL DIFF FLAG NO; Mean Corpuscular HGB Conc 35.8 g/dl (31.0-35.0); Mean Corpuscular Hemoglobin 36.8 pg (27.0-33.0); Mean Corpuscular Volume 102.8 fL (80.0-98.0); NRBC Abs Auto 0.000 X10*3/uL (0.0-0.012); NRBC Pct Auto 0.0 /100WBC (0.0-0.2); Platelet Count 233 X10*3/uL (160-400); Red Blood Count 3.26 X10*6/uL (4.20-5.50); White Blood Count 7.9 X10*3/uL (4.8-10.8)
[2024-11-13 03:27] LABS: Venous Blood Gas Refer to POC result
[2024-11-13 03:28] LABS: Appearance Urine Clear; Glucose Urine UA 100 mg/dL (Negative); PH 7.0 (5.0-9.0); Specific Gravity - Urine <= 1.005 (1.005-1.025); UMIC TRIGGER UACC YES
[2024-11-13 03:28] LABS: VBG HCO3 23 mmol/L (22-26); VBG O2 % Saturation 96.0 %
--- NOTE | 2024-11-13 03:40 | MHC.EDTECH ---
unable to obtain the rest of the labs and EKG, will obtain when patient is less altered. Kailee SMILEY and Dr.Garvin ga
[2024-11-13 03:42] LABS: Magnesium 1.8 mg/dL (1.6-2.6)
--- NOTE | 2024-11-13 03:43 | ED_ITS ---
HPI - Altered Mental Status General Chief Complaint: Altered Mental Status Stated Complaint: AMS UTI Current Med Giving rxn Time Seen by Provider: 11/13/24 02:34 Source: patient, family (Parents), EMS, RN notes reviewed and old records reviewed Mode of arrival: EMS Limitations: altered mental status History of Present Illness ED Provider: Dr. Radha Otto HPI narrative: 54-year-old female with extensive past medical history including hypertension, chronic hyponatremia, alcohol use disorder with a history of alcohol withdrawal seizure, asthma, GERD presenting via EMS with altered mental status from home. Patient is accompanied by both of her parents. She does not live with her parents but lives with her boyfriend. Evidently her mom states that her boyfriend called them saying that he was worried about her acting ?strange? for the last 5 hours. She is having outbursts, confusion, blabbering continuously nonsensical speech. The patient is alert and able to tell me that she is having a headache ?all over?. Unable to tell me when this started, what else is bothering her. She denies drug or alcohol use. She can not tell me when her last use of alcohol was. No report of seizure activity tonight. She was admitted to this hospital this past week on 11/07/2024 with hyponatremia of 120. She was ultimately discharged with improved sodium levels at 132. She was supposed to be having fluid restriction and her losartan and HCTZ had been stopped. Parents report that she was called at home yesterday and told that she had a UTI. Was told to start taking cefuroxime which she had a single dose of yesterday. Evidently had an adverse reaction to the cefuroxime in which she had muscle spasms that were transient. Parents report normal mentation Thursday morning. Symptoms began late Thursday night. No reported fever. No reported vomiting. Related Data Home Medications ?Medication ?Instructions ?Recorded ?Confirmed ferrous sulfate 324 mg (65 mg 324 mg PO 2XW 09/28/23 0 11/13/24 iron) tablet,delayed release acetaminophen 500 mg tablet 1,000 mg PO Q6H PRN Pain 0 11/05/24 11/13/24 cyclobenzaprine 10 mg tablet 10 mg PO BID@0600,1400 fo r muscle 11/05/24 11/13/24 spasm multivitamin 1 tab PO DAILY 11/05/24 07/11/11 psyllium husk (with sugar) 3.4 1 tbsp PO DAILY PRN Con stipation 11/05/24 11/13/24 gram/12 gram oral powder (Metamucil (with sugar)) Previous Rx's ?Medication ?Instructions ?Recorded magnesium oxide 400 mg (241.3 mg 400 mg PO DAILY #90 t abs 08/26/22 magnesium) tablet albuterol sulfate 90 mcg/actuation 1 inh inhalation Q4 -6H PRN 08/03/23 breath activated powder inhaler shortness of breath or wheezing 30 days #1 ea omeprazole 20 mg capsule,delayed 20 mg PO DAILY #90 ca ps 06/26/24 release amlodipine 2.5 mg tablet 2.5 mg PO DAILY #90 tabs gabapentin 100 mg capsule 200 mg (2 x 100 mg) PO TID 3 0 days 08/29/24 #180 caps meloxicam 15 mg tablet 15 mg PO DAILY 30 days #30 t abs 09/19/24 diclofenac sodium 3 % topical gel 1 appl topical BID P RN pain #100 09/20/24 grams alprazolam 0.5 mg tablet 0.5 mg PO DAILY PRN anxiety 30 09/28/24 days #30 tabs Allergies Allergy/AdvReac Type Severity Reaction Status Date / Time cefuroxime Allergy Hives Verified 11/13/24 02:30 Review of Systems 2 Review of Systems: Yes Unobtainable due to mental status [facility] Past Medical History Source: old records reviewed and obtained from family (Parents) Medical History Alcohol use HTN (hypertension) Nicotine dependence, cigarettes, uncomplicated Pain of left thumb Degenerative disc disease, cervical Seborrheic keratosis Surgical History History of back surgery H/O carpal tunnel repair History of facial surgery Family History Family History Maternal Grandmother Mental health disorder Social History Social History Household Members: Spouse Housing: House Do you presently have visiting nurse or other home services: No Alcohol intake: current Alcohol intake frequency: a few times a month Alcohol type: beer and hard liquor Comment: 1:1 Sitter in the room Patient Tobacco Use Status: Current everyday Tobacco user Tobacco use type: Cigarette Cigarette Packs Per Day: 0.5 Cigarettes Per Day: 10.0 Years Smoked: 33 e-Cigarette/Vaping Use: Never Used Second Hand Smoke Exposure: Yes service: No Current occupational status: employed Current occupation: [employer]/ rt hand Cognitive needs: No Hearing needs: No Vision needs: Yes Physical Exam ED Exam Exam: GENERAL: Appears intoxicated/altered, GCS 13, confused, slurred and tangential speech, no acute distress. SKIN: Normal skin color for ethnicity, warm, dry, scattered telangiectasias of the face and chest. HEENT: Normocephalic, atraumatic, no stridor, posterior oropharynx nonerythematous, dentition intact, EOMI, pupils are 3mm bilaterally, reactive to light. NECK: Soft, supple, no step-offs, no deformities, no lymphadenopathy. CHEST: Heart regular rhythm, no murmurs, symmetric chest rise and fall. PULMONARY: Clear to auscultation bilaterally, diminished at the bases, no labored breathing, no wheezes/rhales/rhonchi. ABDOMINAL: Soft, nondistended, positive bowel sounds in all quadrants. : Deferred. MUSCULOSKELETAL: Normal tone, full range of motion, no deformities, no peripheral edema. NEURO: GCS 13, confused, slightly slurred speech, CN II through XII intact, equal strength and sensation bilateral upper and lower extremities, no focal neurologic deficits. PSYCHIATRIC: Delirious, tangential Vital Signs: Vital Signs - 24 hr 11/13/24 02:51 11/13/24 03:43 11/13/24 04:14 Temperature 99.4 F Pulse Rate 80 76 Respiratory Rate 14 Blood Pressure 111/83 163/91 H Pulse Oximetry 100 Oxygen Delivery Method Nasal Cannula Oxygen Flow Rate 2 11/13/24 06:00 11/13/24 06:16 Temperature 98.1 F Pulse Rate 77 70 Respiratory Rate 12 18 Blood Pressure 149/79 H 135/77 Pulse Oximetry 98 98 Oxygen Delivery Method Room Air Room Air Oxygen Flow Rate BMI result Body Mass Index 30.3 Medications Administered Generic Name Dose Route Start Last Admin Trade Name Freq PRN Reason Stop Dose Admin Acetaminophen 650 mg 11/13/24 07:23 11/16/24 11:30 Acetaminophen 325 Mg Tablet PO 650 mg Q6H PRN Administration Pain, Mild 1-3,fever,headache Amlodipine Besylate 2.5 mg 11/14/24 09:00 11/16/24 08:41 Amlodipine Besylate 2.5 Mg Tablet PO 2.5 mg DAILY ANA ROSA Administration Protocol Diazepam 7.5 mg 11/13/24 20:24 11/14/24 01:29 Diazepam 10 Mg/2 Ml Cartridge IVPUSH 7.5 mg Q6H PRN Administration agitation Divalproex Sodium 250 mg 11/16/24 15:00 11/16/24 16:19 Divalproex Sodium 250 Mg Tablet. PO 250 mg BID ANA ROSA Administration Enoxaparin Sodium 40 mg 11/13/24 16:00 11/16/24 15:52 Enoxaparin Sodium 40 Mg/0.4 Ml Syringe SUBCUT 40 mg Q24H ANA ROSA Administration Ferrous Sulfate 324 mg 11/14/24 09:00 11/14/24 07:32 Ferrous Sulfate 324 Mg Tablet. PO 324 mg MoTh@0900 ANA ROSA Administration Folic Acid 1 mg 11/13/24 09:00 11/16/24 08:41 Folic Acid 1 Mg Tablet PO 1 mg DAILY ANA ROSA Administration Gabapentin 200 mg 11/13/24 15:00 11/16/24 19:55 Gabapentin 100 Mg Capsule PO 200 mg TID ANA ROSA Administration Thiamine HCl 200 mg/ Sodium 102 mls @ 204 mls/hr 11/13/24 09:00 11/16/24 17:28 Chloride IV Infused Q8H ANA ROSA Infusion Magnesium Oxide 400 mg 11/14/24 09:00 11/16/24 08:41 Magnesium Oxide 400 Mg Tablet PO 400 mg DAILY ANA ROSA Administration Multivitamins/Vitamin C 1 tab 11/14/24 09:00 11/16/24 08:41 Multivitamin Tablet PO 1 tab DAILY ANA ROSA Administration Olanzapine 5 mg 11/13/24 13:59 11/16/24 15:52 Olanzapine 5 Mg Tablet PO 5 mg TID PRN Administration agitation Omeprazole 20 mg 11/14/24 06:30 11/16/24 06:07 Omeprazole 20 Mg Capsule. PO 20 mg DAILY@0630 ANA ROSA Administration Phenobarbital 30 mg 11/15/24 21:00 11/16/24 19:55 Phenobarbital 30 Mg Tablet PO 11/17/24 09:01 30 mg BID ANA ROSA Administration Protocol Sodium Chloride 3 ml 11/13/24 08:00 11/16/24 15:53 0.9 % Sodium Chloride Flush 3 Ml Syringe IVFLUSH 3 ml QSHIFT ANA ROSA Administration Discontinued Medications Generic Name Dose Route Start Last Admin Trade Name Akbar PRN Reason Stop Dose Admin Diazepam 2.5 mg 11/13/24 17:49 11/13/24 18:03 Diazepam 10 Mg/2 Ml Cartridge IVPUSH 11/13/24 17:50 2.5 mg STAT STA Administration Droperidol 1.25 mg 11/13/24 05:25 11/13/24 05:55 Droperidol 5 Mg/2 Ml Vial IVPUSH 11/13/24 05:26 1.25 mg ONCE ONE Administration Haloperidol Lactate 10 mg 11/13/24 19:18 11/13/24 19:28 Haloperidol Lactate 5 Mg/Ml Vial IM 11/13/24 19:19 10 mg STAT STA Administration Thiamine HCl 200 mg/ Sodium 102 mls @ 204 mls/hr 11/13/24 07:05 11/13/24 08:18 Chloride IV 11/13/24 07:34 Infused ONCE ONE Infusion Midazolam HCl 5 mg 11/13/24 03:27 11/13/24 03:41 Midazolam Hcl 5 Mg/Ml Vial IVPUSH 11/13/24 03:28 5 mg ONCE ONE Administration Phenobarbital 45 mg 11/13/24 21:00 11/15/24 09:45 Phenobarbital 15 Mg Tablet PO 11/15/24 09:01 45 mg BID ANA ROSA Administration Protocol Phenobarbital Sodium 219 mg 11/13/24 08:00 11/13/24 07:33 Phenobarbital Sodium 130 Mg/Ml Im Once IM 11/13/24 08:01 219 mg ONCE ONE Administration Protocol Phenobarbital Sodium 164 mg 11/13/24 11:00 11/13/24 14:06 Phenobarbital Sodium 130 Mg/Ml Vial Im Q3hx2 IM 11/13/24 14:01 164 mg Q3H ANA ROSA Administration Protocol Medical Decision Making Medical Decision Making [facility] Narrative: Patient presents today with a chief complaint of altered mental status. Differential diagnosis for AMS is incredibly broad and includes infection, intracranial process such as hemorrhage, stroke or mass, electrolyte abnormality, hypercarbia, hypoxia, toxic encephalopathy, among many others. Broad-based workup was initiated to further evaluate the etiology of patient's symptoms based on the above exam and history including head CT, blood work and EKG. 3:58 a.m. I reviewed the images for CT scan that did not show any evidence of bleed. She did require Versed to facilitate her workup. As will also help with any kind of alcohol withdrawal if that is actually dealing with. Initial blood work does not show significant leukocytosis, hyponatremia, liver dysfunction, anemia or other electrolyte abnormality. As she is having alcohol withdrawal, she is having delirium which would require admission, high-dose thiamine. Awaiting drug screen, final head CT read and final disposition. Resting comfortably after Versed. Differential Diagnosis Differential Diagnoses: The differential diagnosis associated with the presentation includes (As above) Admission/Observation Consideration of admission/observation: Escalation of care including admission/observation considered Lab Data MDM Lab Attestation statement: I reviewed the patient's lab results. 11/13/24 03:13 11/15/24 08:11 Labs: Lab Results 11/13/24 11/13/24 11/13/24 Range/Units 03:13 03:19 03:21 WBC 7.9 (4.8-10.8) X10*3/uL RBC 3.26 L (4.20-5.50) X10*6/uL Hgb 12.0 (12.0-16.0) g/dl Hct 33.5 L (37.0-47.0) % MCV 102.8 H (80.0-98.0) fL MCH 36.8 H (27.0-33.0) pg MCHC 35.8 H (31.0-35.0) g/dl RDW 14.7 (11.0-16.0) % Plt Count 233 (160-400) X10*3/uL MPV 8.5 L (9.4-12.3) fL Immature Gran % (Auto) 0.3 (0.0-0.4) % Neut % (Auto) 72.5 (45-73) % Lymph % (Auto) 16.4 L (20-40) % [place] % (Auto) 8.9 (2-11) % Eos % (Auto) 1.3 (0-4) % Baso % (Auto) 0.6 (0-2) % Lymph # (Auto) 1.3 (1.2-4.9) X10*3/uL [place] # (Auto) 0.7 (0.1-1.2) X10*3/uL Eos # (Auto) 0.1 (0.0-0.4) X10*3/uL Baso # (Auto) 0.1 (0.0-0.2) X10*3/uL Abs Immat Gran (auto) 0.02 (0.00-0.03) X10*3/uL Absolute Neuts (auto) 5.7 (2.0-8.3) x10*3/uL Absolute Nucleated RBC 0.000 (0.0-0.012) X10*3/uL Nucleated RBC % (auto) 0.0 (0.0-0.2) /100WBC VBG pH 7.44 H (7.32-7.43) VBG pCO2 34 mmHg VBG pO2 87 mmHg VBG HCO3 23 (22-26) mmol/L VBG O2 Saturation 96.0 % VBG Base Excess 0.2 mmol/L Sodium 134 L (135-145) mmol/L Potassium 3.9 (3.3-5.1) mmol/L Chloride 103 (96-108) mmol/L Carbon Dioxide 19 L (22-29) mmol/L Anion Gap 16 (12-20) BUN 14 (9-16) mg/dL Creatinine 1.02 (0.5-1.4) mg/dL Estim Creat Clear Calc 66.0 Estimated GFR 57 Random Glucose 110 (60-115) mg/dL Lactic Acid 1.2 (0.5-2.0) mmol/L Calcium 10.2 D (8.4-10.2) mg/dL Magnesium 1.8 (1.6-2.6) mg/dL Total Bilirubin 0.9 (0.0-1.0) mg/dL AST 125 H (5-31) U/L ALT 127 H (0-31) U/L Alkaline Phosphatase 141 H (39-117) U/L Ammonia (13-55) umol/L Total Creatine Kinase 309 H (26-140) U/L C-Reactive Protein 1.23 H (< or = 0.50) mg/dL Total Protein 8.4 H (6.5-8.0) g/dL Albumin 4.9 (3.5-5.0) g/dL Urine Color Yellow Urine Appearance Clear Urine pH 7.0 (5.0-9.0) Ur Specific [place] <= 1.005 (1.005-1.025) Urine Protein Negative (Neg-Trace) mg/dL Urine Glucose (UA) 100 H (Negative) mg/dL Urine Ketones Negative (Negative) mg/dL Urine Blood Negative (Negative) Urine Nitrite Negative (Negative) Ur Leukocyte Esterase Trace H (Negative) Urine RBC 0-2 (0-2) /HPF Urine WBC 0-5 (0-5) /HPF Ur Squamous Epith Cells 0-2 (0-2) /HPF Urine Bacteria None Seen (None Seen) Hyaline Casts 0-2 (0-2) /LPF Salicylates (15-30) mg/dL Urine Opiates Screen Not Detected (Not Detect) Ur Buprenorphine Scrn Not Detected (Not Detect) ng/mL Ur Oxycodone Screen Not Detected (Not Detect) ng/mL Urine Methadone Screen Not Detected (Not Detect) ng/mL Urine Fentanyl Screen Not Detected (Not Detect) Acetaminophen (<30) mcg/mL Ur Barbiturates Screen POSITIVE H (Not Detect) Ur Phencyclidine Scrn Not Detected (Not Detect) Ur Amphetamines Screen Not Detected (Not Detect) U Benzodiazepines Scrn Not Detected (Not Detect) Urine Cocaine Screen Not Detected (Not Detect) U Marijuana (THC) Screen POSITIVE H (Not Detect) Ethyl Alcohol < 10 mg/dL 11/13/24 Range/Units 04:07 WBC (4.8-10.8) X10*3/uL RBC (4.20-5.50) X10*6/uL Hgb (12.0-16.0) g/dl Hct (37.0-47.0) % MCV (80.0-98.0) fL MCH (27.0-33.0) pg MCHC (31.0-35.0) g/dl RDW (11.0-16.0) % Plt Count (160-400) X10*3/uL MPV (9.4-12.3) fL Immature Gran % (Auto) (0.0-0.4) % Neut % (Auto) (45-73) % Lymph % (Auto) (20-40) % [place] % (Auto) (2-11) % Eos % (Auto) (0-4) % Baso % (Auto) (0-2) % Lymph # (Auto) (1.2-4.9) X10*3/uL [place] # (Auto) (0.1-1.2) X10*3/uL Eos # (Auto) (0.0-0.4) X10*3/uL Baso # (Auto) (0.0-0.2) X10*3/uL Abs Immat Gran (auto) (0.00-0.03) X10*3/uL Absolute Neuts (auto) (2.0-8.3) x10*3/uL Absolute Nucleated RBC (0.0-0.012) X10*3/uL Nucleated RBC % (auto) (0.0-0.2) /100WBC VBG pH (7.32-7.43) VBG pCO2 mmHg VBG pO2 mmHg VBG HCO3 (22-26) mmol/L VBG O2 Saturation % VBG Base Excess mmol/L Sodium (135-145) mmol/L Potassium (3.3-5.1) mmol/L Chloride (96-108) mmol/L Carbon Dioxide (22-29) mmol/L Anion Gap (12-20) BUN (9-16) mg/dL Creatinine (0.5-1.4) mg/dL Estim Creat Clear Calc Estimated GFR Random Glucose (60-115) mg/dL Lactic Acid (0.5-2.0) mmol/L Calcium (8.4-10.2) mg/dL Magnesium (1.6-2.6) mg/dL Total Bilirubin (0.0-1.0) mg/dL AST (5-31) U/L ALT (0-31) U/L Alkaline Phosphatase (39-117) U/L Ammonia 49 (13-55) umol/L Total Creatine Kinase (26-140) U/L C-Reactive Protein (< or = 0.50) mg/dL Total Protein (6.5-8.0) g/dL Albumin (3.5-5.0) g/dL Urine Color Urine Appearance Urine pH (5.0-9.0) Ur Specific [place] (1.005-1.025) Urine Protein (Neg-Trace) mg/dL Urine Glucose (UA) (Negative) mg/dL Urine Ketones (Negative) mg/dL Urine Blood (Negative) Urine Nitrite (Negative) Ur Leukocyte Esterase (Negative) Urine RBC (0-2) /HPF Urine WBC (0-5) /HPF Ur Squamous Epith Cells (0-2) /HPF Urine Bacteria (None Seen) Hyaline Casts (0-2) /LPF Salicylates < 5.0 L (15-30) mg/dL Urine Opiates Screen (Not Detect) Ur Buprenorphine Scrn (Not Detect) ng/mL Ur Oxycodone Screen (Not Detect) ng/mL Urine Methadone Screen (Not Detect) ng/mL Urine Fentanyl Screen (Not Detect) Acetaminophen < 3 (<30) mcg/mL Ur Barbiturates Screen (Not Detect) Ur Phencyclidine Scrn (Not Detect) Ur Amphetamines Screen (Not Detect) U Benzodiazepines Scrn (Not Detect) Urine Cocaine Screen (Not Detect) U Marijuana (THC) Screen (Not Detect) Ethyl Alcohol mg/dL ABG Data Attestation ABG: I personally reviewed and interpreted this ABG as follows: Interpretation: No significant acidosis or alkalosis. Radiology Impression Discussion of test interpretation with radiology: I have reviewed the radiologist's reading. Independent Historian Clinical information obtained from an independent historian. History obtained from or confirmed by: Parent and EMS External Record Review External record reviewed: Inpatient record Chronic Conditions Patient?s care impacted by: Hypertension and Other (Alcohol use disorder, chronic hyponatremia) Social Determinants Patient?s care significantly limited by Social Determinants of Health including: Alcoholism and drug addiction in family Critical Care Time Critical Care Time Critical Care Time: Yes Total Critical Care Time: 55 Attestation: CRITICAL CARE TIME: 55 minutes of critical care time was spent in direct patient care at the bedside or in the immediate area with this patient. Critical care was necessary to treat or prevent imminent or life-threatening deterioration of the following conditions acute agitated delirium due to potential alcohol withdrawal or drug intoxication. This patient is high risk for decompensation and/or . This time was spent assessing and managing the patient, interpreting labs and imaging, coordinating care with other medical providers, gathering history from either the patient, their representatives, EMS or chart review, and discussing management with?admitting team. Discharge Plan Discharge Clinical Impression: Alcohol withdrawal Qualifiers: Complication of substance-induced condition: with delirium Qualified Code(s): F 10.931 - Alcohol use, unspecified with withdrawal delirium Patient Disposition: Admitted As Inpatient Interventions: Admission Worksheet (ED) Last Done: 11/14/24 02:30 Discharge Date/Time: 11/14/24 04:00
[2024-11-13 03:48] LABS: Cannabinoid Screen Urine POSITIVE (Not Detect)
[2024-11-13 03:51] LABS: Alanine Aminotransferase 127 U/L (0-31); Albumin Level 4.9 g/dL (3.5-5.0); Alkaline Phosphatase 141 U/L (39-117); Anion Gap 16 (12-20); Aspartate Amino Transferase 125 U/L (5-31); Blood Urea Nitrogen 14 mg/dL (9-16); Calcium 10.2 mg/dL (8.4-10.2); Carbon Dioxide 19 mmol/L (22-29); Chloride 103 mmol/L (96-108); Creatinine Clr Calc Pharmacy 66.0; Estimated Glomerular Filt Rate 57; Potassium 3.9 mmol/L (3.3-5.1); Sodium 134 mmol/L (135-145); Total Protein 8.4 g/dL (6.5-8.0)
[2024-11-13 04:24] LABS: Ammonia 49 umol/L (13-55)
--- NOTE | 2024-11-13 04:24 | PC.NURSE ---
Pt arrived via EMS very confused. Pt yelling out and giggling and repeating the same comments over and over and calling out for her father. Patient switches back and forth between weepy and laughing.
[2024-11-13 04:33] LABS: Acetaminophen LAB < 3 mcg/mL (<30); Salicylate < 5.0 mg/dL (15-30)
[2024-11-13] MEDS: Thiamine HCL 200 MG in 0.9 % Sodium Chloride 100 ML 204 MG IV ×2 (07:23→08:57)
[2024-11-13] MEDS: PHENobarbitaL sodium 130 MG/ML IM ONCE 219 MG IM (07:33)
--- NOTE | 2024-11-13 07:42 | PC.NURSE ---
Assumed care of pt approx 0700, resting in stretcher very tearful at this time. A/O x 1 with disorganized thoughts and frequently calling out for her son Perry. Pt redirected/oriented to situation. Medications administered per JUN.
--- NOTE | 2024-11-13 09:00 | PC.NURSE ---
Pt assist x 1 to [facility], voided moderate amount of CYU.
--- NOTE | 2024-11-13 09:31 | PHA.MEDREC ---
Addendum entered by Aparna Monroy RPh 11/13/24 13:05: MED REC REVIEWED BY [facility] Original Note: Pharmacy Consult ? Medication Reconciliation Pharmacy has completed the medication reconciliation. Patient confused. Parents report she took 1 dose of cefuroxime for UTI but stopped due to an adverse reaction. No changes in medications besides losartan-HCTZ being DC'ed. Used claims and previous discharge papers to confirm.
--- NOTE | 2024-11-13 09:57 | PM.NEUROCN ---
History of Present Illness Data of Consult Service Date: 11/13/24 Primary Care Provider: Unknown Physician HPI Reason for consult: Confusion 54 years old woman who according to previous notes have history of hypertension and alcohol drinking I was asked to see for encephalopathy or confusion. She was unable to provide any meaningful history. I saw her in emergency room and she was sitting with the parents. When I asked her why she came to hospital, she stated ?seizures?. When I asked her if she has seizure disorder, she was not sure. When asked about her children, she started crying saying that she did not know where her 1 child was while she was waiting for her son to visit. She knew that she was in [facility]. She was admitted with serum sodium 120 and now her serum sodium was in 130s. Her initial tox screen did not revealed significant alcohol level. She was not taking any medicine that typically could lower serum sodium. Review of Systems Review of Systems: No recent cold or flu-like illness PMFSH Past Medical History Medical History Alcohol use HTN (hypertension) Nicotine dependence, cigarettes, uncomplicated Pain of left thumb Degenerative disc disease, cervical Seborrheic keratosis Family History Family History Maternal Grandmother Mental health disorder Surgical History Surgical History History of back surgery H/O carpal tunnel repair History of facial surgery Social History Social History Household Members: Significant Other Housing: House Do you presently have visiting nurse or other home services: Yes Alcohol intake: current Alcohol intake frequency: a few times a month Alcohol type: beer and hard liquor Comment: counts correct Patient Tobacco Use Status: Tobacco use Unknown Tobacco use type: Cigarette Cigarette Packs Per Day: 0.5 Cigarettes Per Day: 10.0 Years Smoked: 33 e-Cigarette/Vaping Use: Never Used Second Hand Smoke Exposure: No Advance Directives: No Advance Directives Information Provided: Yes service: No Current occupational status: employed Current occupation: meter tech/ [employer] Cognitive needs: No Hearing needs: No Vision needs: Yes Meds Allergies Allergy/AdvReac Type Severity Reaction Status Date / Time cefuroxime Allergy Hives Verified 11/13/24 02:30 Active Medications: Current Medications Acetaminophen (Acetaminophen 325 Mg Tablet) 650 mg PO Q6H PRN PRN Reason: Pain, Mild 1-3,fever,headache Calcium Carbonate (Calcium Carbonate 750 Mg Tab.Chew) 750 mg PO Q4H PRN PRN Reason: Heartburn Folic Acid (Folic Acid 1 Mg Tablet) 1 mg PO DAILY [facility] Last Admin: 11/13/24 08:34 Dose: 1 mg Thiamine HCl 200 mg/ Sodium (Chloride) 102 mls @ 204 mls/hr IV Q8H [facility] Last Admin: 11/13/24 08:57 Dose: 204 mls/hr Magnesium Hydroxide (Milk Of Magnesia 30 Ml Oral.Susp) 30 ml PO DAILY PRN PRN Reason: Constipation Melatonin (Melatonin 3 Mg Tablet) 6 mg PO BEDTIME PRN PRN Reason: Insomnia Pharmacy Consult (Consult Rx Etoh Phenob Im/Po) 1 each MISCELLANE ONCE PRN; Protocol PRN Reason: Consult order Phenobarbital (Phenobarbital 15 Mg Tablet) 45 mg PO BID [facility]; Protocol Stop: 11/15/24 09:01 Phenobarbital (Phenobarbital 30 Mg Tablet) 30 mg PO BID [facility]; Protocol Stop: 11/17/24 09:01 Phenobarbital (Phenobarbital 30 Mg Tablet) 30 mg PO DAILY [facility]; Protocol Stop: 11/19/24 09:01 Phenobarbital Sodium (Phenobarbital Sodium 130 Mg/Ml Vial Im Q3hx2) 164 mg IM Q3H [facility]; Protocol Stop: 11/13/24 14:01 Sodium Chloride (0.9 % Sodium Chloride Flush 3 Ml Syringe) 3 ml IVFLUSH QSHIFT [facility] Last Admin: 11/13/24 07:46 Dose: Not Given Home Medications ?Medication ?Instructions ?Recorded ?Confirmed ?Last Taken ?Type ferrous sulfate 324 mg (65 mg 324 mg PO 2XW 09/28/23 11/13/24 Unknown History iron) tablet,delayed release acetaminophen 500 mg tablet 1,000 mg PO Q6H PRN Pain 11/05/24 11/13/24 Unknown History cyclobenzaprine 10 mg tablet 10 mg PO BID@0600,1400 for muscle 11/05/24 11/13/24 11/05/24 History spasm multivitamin 1 tab PO DAILY 11/05/24 11/13/24 11/05/24 History psyllium husk (with sugar) 3.4 1 tbsp PO DAILY PRN Constipation 11/05/24 11/13/24 Unknown History gram/12 gram oral powder (Metamucil (with sugar)) Physical Exam Vital Signs: Vital Signs: Last Vital Signs Temp 98.2 F 11/13/24 07:23 Pulse 88 11/13/24 08:00 Resp 17 11/13/24 08:00 BP 155/80 H 11/13/24 07:23 Pulse Ox 98 11/13/24 07:23 O2 Del Method Room Air 11/13/24 07:23 O2 Flow Rate 2 11/13/24 04:14 BMI result Body Mass Index 30.3 Neuro: Other: She is alert and awake with normal spontaneity and fluency of speech but her responses sometime did not make sense. She sometime followed commands. When talked about her children, she became depressed and started crying. When asked why she was in hospital, she said that she had seizures. Elementary neurological examination revealed normal cranial nerves and no obvious weakness. [id number] testing revealed mild bilateral ataxia. Plantars were withdrawing. Results Labs 11/13/24 03:13 11/13/24 03:13 Labs: Short CBC 11/13/24 Range/Units 03:13 WBC 7.9 (4.8-10.8) X10*3/uL Hgb 12.0 (12.0-16.0) g/dl Hct 33.5 L (37.0-47.0) % Plt Count 233 (160-400) X10*3/uL BMP 11/13/24 03:13 Sodium 134 L Potassium 3.9 Chloride 103 Carbon Dioxide 19 L BUN 14 Creatinine 1.02 Calcium 10.2 D Cardiac Enzymes 11/13/24 Range/Units 03:13 Total Creatine Kinase 309 H (26-140) U/L Liver Function 11/13/24 Range/Units 03:13 Total Bilirubin 0.9 (0.0-1.0) mg/dL AST 125 H (5-31) U/L ALT 127 H (0-31) U/L Alkaline Phosphatase 141 H (39-117) U/L Albumin 4.9 (3.5-5.0) g/dL Urine 11/13/24 Range/Units 03:13 Urine Color Yellow Urine Appearance Clear Urine pH 7.0 (5.0-9.0) Ur Specific [place] <= 1.005 (1.005-1.025) Urine Protein Negative (Neg-Trace) mg/dL Urine Glucose (UA) 100 H (Negative) mg/dL Head CT revealed significant cerebellar and frontoparietal cortical atrophy. Assessment and Plan (1) Encephalopathy acute: Status: Acute 54 years old woman who probably had hyponatremic metabolic acute encephalopathy. Exact reason for hyponatremia was unclear. Her head CT reveals significant cerebellar and frontoparietal cortical atrophy, which could be genetic degenerative or might have been triggered by significant alcohol intake. Clinical correlation or historical correlation can help to make that distinction. For now, treatment with thiamine, folate, B complex vitamins and avoid is of medicine that could lower serum sodium is recommended. She should be advised to completely quit alcohol. She also is quite depressed and a formal psychiatric consultation is also recommended. Finally, as her mental status is not improve to much with correction of sodium, an EEG of brain and a noncontrast MRI of brain is recommended to rule out any acute brain injury. Procedures Date of Service Date of Service: 11/13/24
--- NOTE | 2024-11-13 11:06 | PM.IMHP ---
History of Present Illness Date of Service: 11/13/24 Attending physician on admission: Rosa Mora Chief Complaint: delirum vs encephalopathy 54 y/o F with pmhx of hypertension, recent acute on chronic hyponatremia( admission), alcohol use disorder with a history of alcohol withdrawal seizure, asthma, GERD came to ed accompanied by both of her parents. She lives with her boyfriend. Evidently her mom states that her boyfriend called them saying that he was worried about She is having outbursts, confusion, blabbering for few hours .Unable to tell me when this started, what else is bothering her. She denies drug or alcohol use but can not tell me when her last use of alcohol was. as per ed: No report of seizure activity tonight. her recent admission was on past week on 11/07/2024 with hyponatremia of 120(which thught to be related to hctz? ), her sodium seems to be improved to 132 withfluid restriction and her losartan and HCTZ had been stopped. Parents report that she was called at home -said her she is concerned about uti( recent admssion ua positive and urine culture : ecoli)-cefuroxime which she had a single dose of yesterday and possible had an adverse reaction to the cefuroxime in which she had muscle spasms that were transient. Parents report normal mentation ?on Symptoms began late Thursday night. No reported fever. No reported vomiting. ed labs imaging reviewed: Review of Systems Review of Systems: as above . Yes all other systems are reviewed and are negative [facility] Medical History Alcohol use HTN (hypertension) Nicotine dependence, cigarettes, uncomplicated Pain of left thumb Degenerative disc disease, cervical Seborrheic keratosis Family History Maternal Grandmother Mental health disorder Surgical History History of back surgery H/O carpal tunnel repair History of facial surgery Social History Household Members: Spouse Housing: House Do you presently have visiting nurse or other home services: No Alcohol intake: current Alcohol intake frequency: a few times a month Alcohol type: beer and hard liquor Comment: counts correct Patient Tobacco Use Status: Current everyday Tobacco user Tobacco use type: Cigarette Cigarette Packs Per Day: 0.5 Cigarettes Per Day: 10.0 Years Smoked: 33 Smoked in Last 30 Days: Yes e-Cigarette/Vaping Use: Never Used Patient Interested in Nicotine Replacement: Yes Patient Given Instructions on How to Stop Smoking: Yes Date Education Initiated: 11/14/24 Second Hand Smoke Exposure: Yes Currently Displaying Signs/Symptoms of Drug Intoxication Withdrawal: No Have you been hit, kicked, punched, or otherwise hurt by someone within the past year? If so, by whom?: No Do you feel safe in your current relationship?: Yes Is there a partner from a previous relationship who is making you feel unsafe now?: No Are you made to feel afraid or neglected: No [employer] Practices: Pt is [employer] Advance Directives: No Advance Directives Information Provided: Yes Recently lost weight without trying: No Eating poorly because of decreased appetite: No Nutrition Risks: No Nutritional Risk Patient : No : No Poor oral hygiene: No service: No Current occupational status: employed Current occupation: [employer] Cognitive needs: No Hearing needs: No Vision needs: Yes Meds Allergies Allergy/AdvReac Type Severity Reaction Status Date / Time cefuroxime Allergy Hives Verified 11/13/24 02:30 Active Medications: Current Medications Acetaminophen (Acetaminophen 325 Mg Tablet) 650 mg PO Q6H PRN PRN Reason: Pain, Mild 1-3,fever,headache Calcium Carbonate (Calcium Carbonate 750 Mg Tab.Chew) 750 mg PO Q4H PRN PRN Reason: Heartburn Folic Acid (Folic Acid 1 Mg Tablet) 1 mg PO DAILY [facility] Last Admin: 11/13/24 08:34 Dose: 1 mg Thiamine HCl 200 mg/ Sodium (Chloride) 102 mls @ 204 mls/hr IV Q8H [facility] Last Infusion: 11/13/24 10:27 Dose: Infused Magnesium Hydroxide (Milk Of Magnesia 30 Ml Oral.Susp) 30 ml PO DAILY PRN PRN Reason: Constipation Melatonin (Melatonin 3 Mg Tablet) 6 mg PO BEDTIME PRN PRN Reason: Insomnia Pharmacy Consult (Consult Rx Etoh Phenob Im/Po) 1 each MISCELLANE ONCE PRN; Protocol PRN Reason: Consult order Phenobarbital (Phenobarbital 15 Mg Tablet) 45 mg PO BID [facility]; Protocol Stop: 11/15/24 09:01 Phenobarbital (Phenobarbital 30 Mg Tablet) 30 mg PO BID [facility]; Protocol Stop: 11/17/24 09:01 Phenobarbital (Phenobarbital 30 Mg Tablet) 30 mg PO DAILY [facility]; Protocol Stop: 11/19/24 09:01 Phenobarbital Sodium (Phenobarbital Sodium 130 Mg/Ml Vial Im Q3hx2) 164 mg IM Q3H [facility]; Protocol Stop: 11/13/24 14:01 Sodium Chloride (0.9 % Sodium Chloride Flush 3 Ml Syringe) 3 ml IVFLUSH QSHIFT [facility] Last Admin: 11/13/24 07:46 Dose: Not Given Home Medications ?Medication ?Instructions ?Recorded ?Confirmed ?Last Taken ?Type ferrous sulfate 324 mg (65 mg 324 mg PO 2XW 09/28/23 11/13/24 Unknown History iron) tablet,delayed release acetaminophen 500 mg tablet 1,000 mg PO Q6H PRN Pain 11/05/24 11/13/24 Unknown History cyclobenzaprine 10 mg tablet 10 mg PO BID@0600,1400 for muscle 11/05/24 11/13/24 11/05/24 History spasm multivitamin 1 tab PO DAILY 11/05/24 11/13/24 11/05/24 History psyllium husk (with sugar) 3.4 1 tbsp PO DAILY PRN Constipation 11/05/24 11/13/24 Unknown History gram/12 gram oral powder (Metamucil (with sugar)) Physical Exam Vital Signs and Narrative: Vital Signs: Last Vital Signs Temp 98.2 F 11/13/24 07:23 Pulse 88 11/13/24 08:00 Resp 17 11/13/24 08:00 BP 155/80 H 11/13/24 07:23 Pulse Ox 98 11/13/24 07:23 O2 Del Method Room Air 11/13/24 07:23 O2 Flow Rate 2 11/13/24 04:14 BMI result Body Mass Index 30.3 Appearance: Alert.? Oriented X3,anxious , crying ,intermitent agitation vs delirum cvs: rrr, [id number] res: clear to auscultation ,no rhonchii or wheezing abd: no rebound or guarding ,nt, bs present. ext pulses present , no cyanosis . neuro: axo3 , nonfocal. Results Labs 11/13/24 03:13 07/27/25 03:13 Labs: Laboratory Results - last 24 hr 11/13/24 11/13/24 11/13/24 03:13 03:19 03:21 MCV 102.8 H MCH 36.8 H MCHC 35.8 H RDW 14.7 Plt Count 233 MPV 8.5 L Immature Gran % (Auto) 0.3 Neut % (Auto) 72.5 Lymph % (Auto) 16.4 L [place] % (Auto) 8.9 Eos % (Auto) 1.3 Baso % (Auto) 0.6 Lymph # (Auto) 1.3 [place] # (Auto) 0.7 Eos # (Auto) 0.1 Baso # (Auto) 0.1 Abs Immat Gran (auto) 0.02 Absolute Neuts (auto) 5.7 Absolute Nucleated RBC 0.000 Nucleated RBC % (auto) 0.0 VBG pH 7.44 H VBG pCO2 34 VBG pO2 87 VBG HCO3 23 VBG O2 Saturation 96.0 VBG Base Excess 0.2 Anion Gap 16 Estim Creat Clear Calc 66.0 Estimated GFR 57 Random Glucose 110 Lactic Acid 1.2 Calcium 10.2 D Magnesium 1.8 Total Bilirubin 0.9 AST 125 H ALT 127 H Alkaline Phosphatase 141 H Ammonia Total Creatine Kinase 309 H C-Reactive Protein 1.23 H Total Protein 8.4 H Albumin 4.9 Urine Color Yellow Urine Appearance Clear Urine pH 7.0 Ur Specific [place] <= 1.005 Urine Protein Negative Urine Glucose (UA) 100 H Urine Ketones Negative Urine Blood Negative Urine Nitrite Negative Ur Leukocyte Esterase Trace H Urine RBC 0-2 Urine WBC 0-5 Ur Squamous Epith Cells 0-2 Urine Bacteria None Seen Hyaline Casts 0-2 Salicylates Urine Opiates Screen Not Detected Ur Buprenorphine Scrn Not Detected Ur Oxycodone Screen Not Detected Urine Methadone Screen Not Detected Urine Fentanyl Screen Not Detected Acetaminophen Ur Barbiturates Screen POSITIVE H Ur Phencyclidine Scrn Not Detected Ur Amphetamines Screen Not Detected U Benzodiazepines Scrn Not Detected Urine Cocaine Screen Not Detected U Marijuana (THC) Screen POSITIVE H Ethyl Alcohol < 10 11/13/24 04:07 MCV MCH MCHC RDW Plt Count MPV Immature Gran % (Auto) Neut % (Auto) Lymph % (Auto) [place] % (Auto) Eos % (Auto) Baso % (Auto) Lymph # (Auto) [place] # (Auto) Eos # (Auto) Baso # (Auto) Abs Immat Gran (auto) Absolute Neuts (auto) Absolute Nucleated RBC Nucleated RBC % (auto) VBG pH VBG pCO2 VBG pO2 VBG HCO3 VBG O2 Saturation VBG Base Excess Anion Gap Estim Creat Clear Calc Estimated GFR Random Glucose Lactic Acid Calcium Magnesium Total Bilirubin AST ALT Alkaline Phosphatase Ammonia 49 Total Creatine Kinase C-Reactive Protein Total Protein Albumin Urine Color Urine Appearance Urine pH Ur Specific [place] Urine Protein Urine Glucose (UA) Urine Ketones Urine Blood Urine Nitrite Ur Leukocyte Esterase Urine RBC Urine WBC Ur Squamous Epith Cells Urine Bacteria Hyaline Casts Salicylates < 5.0 L Urine Opiates Screen Ur Buprenorphine Scrn Ur Oxycodone Screen Urine Methadone Screen Urine Fentanyl Screen Acetaminophen < 3 Ur Barbiturates Screen Ur Phencyclidine Scrn Ur Amphetamines Screen U Benzodiazepines Scrn Urine Cocaine Screen U Marijuana (THC) Screen Ethyl Alcohol Assessment and Plan (1) Alcohol withdrawal: Qualifiers: Complication of substance-induced condition: with delirium Qualified Code(s): F10.931 - Alcohol use, unspecified with withdrawal delirium Status: Acute Plan 54 y/o F with pmhx of hypertension, recent acute on chronic hyponatremia( admission), alcohol use disorder with a history of alcohol withdrawal seizure, asthma, GERD -came with in acute encephalopathy symptom versus delirium 1. acute encepahlopathy unclear etiology possible multifactorial( d/d alcohol withdrawal,cerebellar and frontoparietal cortical atrophy, which could be genetic degenerative or might have been triggered by significant alcohol intake vs recent electrolytic abnormalities /mark ) versus delirium. recent admission -seizure like activity hyponatremia/mark imporving tylenol , salicylate levels are fine, BUN and creatinine seems to be improving, sodium 134 today. Potassium 3.9 magnesium 1.8 No hypoxia, liver enzymes ALT AST mildly elevated then baseline, alk-phos is improving from previous, ammonia level normal, CPK is 309. UA negative Urine drug screen ordered ct head:No acute intracranial hemorrhage. No evidence of acute infarction. Mild diffuse cortical volume loss. Mild nonspecific white matter hypodensities, most commonly associated with chronic microangiopathic changes. plan: neurochecks,seizure precautions ,[facility] ,ed started phenobarbital protocol. seen by neuro:CT reveals significant cerebellar and frontoparietal cortical atrophy, which could be genetic degenerative or might have been triggered by significant alcohol intake will add mri ,eeg, quit alcohol,treatment with thiamine, folate, B complex vitamins and avoid is of medicine that could lower serum sodium is recommended. sitter for agitation , added diazepam 2 mgx1 dose for agaiation.quite depressed and a formal psychiatric consultation is also recommended. Addiction consult. d/w psych-added zyprexa 5 mg tid prn for agitation ,until MARK and hyponatremia: Both her improving since last admission, monitor electrolytes closely. Avoid medications that can cause MARK/hyponatremia. Hypotension: Continue amlodipine. GERD Continue PPI. ? Recent UA shows pyuria/bacteriuria : Patient denies any urinary symptoms today, UA negative, we will defer antibiotic for now. Patient has no leukocytosis or fever,? Unclear blood cultures were sent from ED. We will continue to monitor. DVT prophylaxis subQ Lovenox. ongoing need: Acute encephalopathy unclear etiology-need further neuro workup, electrolyte monitoring closely. Patient will benefit from 2 midnight stay due to above. Above management discussed with the patient's parents in detail length -they both understand and in agreement with the above plan, time spent 70 minute, patient full code. Quality Stroke Does the patient have a stroke diagnosis?: No VTE Prior VTE?: No VTE Risk Level:: Medical - moderate - high VTE Device Contraindication: N/A - Device Ordered VTE Drug Contraindication: N/A - Med Ordered
[2024-11-13] MEDS: PHENobarbitaL sodium 130 MG/ML VIAL IM Q3Hx2 164 MG IM ×2 (11:49→14:06)
--- NOTE | 2024-11-13 13:07 | PC.NURSE ---
Pt noted to be increasingly agitated, yelling out profanities. Attempts to redirect unsucessful, MD Mora notified.
--- NOTE | 2024-11-13 14:40 | PC.NURSE ---
Attempted to obtain VS, pt refused and became increasingly agitated.
--- NOTE | 2024-11-13 16:27 | P.CNPS_ITS ---
History of Present Illness Date of Service: 11/13/24 Chief Complaint: ? Alcohol Withdrawals Reason for Consult: Mental status change Requesting physician: Rosa Mora Discussed with referring provider: Yes Sources of Information: patient interviewed and chart reviewed Additional Sources of Information: Spoke to patient's mother HPI Narrative: Patient is a 54 year old female with pmhx of hypertension, recent acute on chronic hyponatremia( admission), alcohol use disorder with a history of alcohol withdrawal seizure, asthma, GERD came to ed accompanied by both of her parents. She lives with her boyfriend. Evidently her mom states that her boyfriend called them saying that he was worried about She is having outbursts, confusion, blabbering for few hours .Unable to tell me when this started, what else is bothering her. She denies drug or alcohol use but can not tell me when her last use of alcohol was. as per ed: No report of seizure activity tonight. her recent admission was on past week on 11/07/2024 with hyponatremia of 120(which thught to be related to hctz? ), her sodium seems to be improved to 132 withfluid restriction and her losartan and HCTZ had been stopped. Parents report that she was called at home -said her she is concerned about uti( recent admssion ua positive and urine culture : ecoli)-cefuroxime which she had a single dose of yesterday and possible had an adverse reaction to the cefuroxime in which she had muscle spasms that were transient. Parents report normal mentation ?on Symptoms began late Thursday night. No reported fever. No reported vomiting. Patient is seen in the ED. She is confused, fearful, labile, picking on things on her bed sheets, looking around, laughing and crying, and is pressured with disorganized speech and loose associations. She is sitting in the hospital ED bed but is restless. Looking at her hands and appears to be having illusions. She is alert. She is able to say she is in [facility], she knows it's Thursday the . Poor attention. Easily distracted. Patient says I feel hot and sweaty.. there are people outside the hospital.. there is a light, it's braden light. When this feature writer introduces himself, she looks at the badge and says Dr. Man, Dr. Hernández, Dr. Conner Hernandez to Erica.. the medicine I took had a C [cefuroxime], L.C. She believes she sees her son Perry. This feature writer spoke to patient's mom who says she has never acted this way before. She reports she has had a history of anxiety and possible depression. She had a history of alcohol use and her family had an intervention after which she quit, however she returned to drinking. She says that she came to her house Thursday and was having a period of confusion for a couple of hours and cleared. This was after she took one dose of the Cefuroxime. She then left. She told her she had a moment of clarity and decided to stop drinking after her recent hospital stay when she presented with hyponatremia. When mom saw her the next time on Thursday patient was acting bizarrely, confused, seeing things, and acting delusional. They brought her to the hospital. Mom says at baseline her house is not well kept and she doesn't attend to it or clean it well. She says she stopped working less than a year ago. Past Psychiatric History: Psychotherapy per mom. Not recently. No inpatient hospitalizations. No suicide attempts. No prior psychosis. Alcohol use Medical Evaluation Reviewed: Yes Personal & Social History: Never . 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 Has 2 children. One born when patient was 19 and given away for adoption. She has another son who is 32. She is partnered with the father of her 32 year old son for the last few years. [facility] Medical History Alcohol use HTN (hypertension) Nicotine dependence, cigarettes, uncomplicated Pain of left thumb Degenerative disc disease, cervical Seborrheic keratosis Surgical History History of back surgery H/O carpal tunnel repair History of facial surgery Family History: Maternal grandmother mental illness and was at [facility]. Social History: Never . 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 Has 2 children. One born when patient was 19 and given away for adoption. She has another son who is 32. She is partnered with the father of her 32 year old son for the last few years. Substance History: Alcohol. THC gummies. Trauma History: unknown Diagnostics Vital Signs (24Hr): Vital Signs - 24 hr 11/13/24 02:51 11/13/24 03:43 11/13/24 04:14 Temperature 99.4 F Pulse Rate 80 76 Respiratory Rate 14 Blood Pressure 111/83 163/91 H Pulse Oximetry 100 Oxygen Delivery Method Nasal Cannula Oxygen Flow Rate 2 11/13/24 06:00 11/13/24 06:16 11/13/24 07:23 Temperature 98.1 F 98.2 F Pulse Rate 77 70 81 Respiratory Rate 12 18 12 Blood Pressure 149/79 H 135/77 155/80 H Pulse Oximetry 98 98 98 Oxygen Delivery Method Room Air Room Air Room Air Oxygen Flow Rate 11/13/24 08:00 Temperature Pulse Rate 88 Respiratory Rate 17 Blood Pressure Pulse Oximetry Oxygen Delivery Method Oxygen Flow Rate BMI result Body Mass Index 30.3 Labs 11/13/24 03:13 11/13/24 03:13 Labs: Laboratory Results - last 48 hr 11/13/24 11/13/24 11/13/24 03:13 03:19 03:21 WBC 7.9 RBC 3.26 L Hgb 12.0 Hct 33.5 L MCV 102.8 H MCH 36.8 H MCHC 35.8 H RDW 14.7 Plt Count 233 MPV 8.5 L Immature Gran % (Auto) 0.3 Neut % (Auto) 72.5 Lymph % (Auto) 16.4 L [place] % (Auto) 8.9 Eos % (Auto) 1.3 Baso % (Auto) 0.6 Lymph # (Auto) 1.3 [place] # (Auto) 0.7 Eos # (Auto) 0.1 Baso # (Auto) 0.1 Abs Immat Gran (auto) 0.02 Absolute Neuts (auto) 5.7 Absolute Nucleated RBC 0.000 Nucleated RBC % (auto) 0.0 VBG pH 7.44 H VBG pCO2 34 VBG pO2 87 VBG HCO3 23 VBG O2 Saturation 96.0 VBG Base Excess 0.2 Sodium 134 L Potassium 3.9 Chloride 103 Carbon Dioxide 19 L Anion Gap 16 BUN 14 Creatinine 1.02 Estim Creat Clear Calc 66.0 Estimated GFR 57 Random Glucose 110 Lactic Acid 1.2 Calcium 10.2 D Magnesium 1.8 Total Bilirubin 0.9 AST 125 H ALT 127 H Alkaline Phosphatase 141 H Ammonia Total Creatine Kinase 309 H C-Reactive Protein 1.23 H Total Protein 8.4 H Albumin 4.9 Urine Color Yellow Urine Appearance Clear Urine pH 7.0 Ur Specific [place] <= 1.005 Urine Protein Negative Urine Glucose (UA) 100 H Urine Ketones Negative Urine Blood Negative Urine Nitrite Negative Ur Leukocyte Esterase Trace H Urine RBC 0-2 Urine WBC 0-5 Ur Squamous Epith Cells 0-2 Urine Bacteria None Seen Hyaline Casts 0-2 Salicylates Urine Opiates Screen Not Detected Ur Buprenorphine Scrn Not Detected Ur Oxycodone Screen Not Detected Urine Methadone Screen Not Detected Urine Fentanyl Screen Not Detected Acetaminophen Ur Barbiturates Screen POSITIVE H Ur Phencyclidine Scrn Not Detected Ur Amphetamines Screen Not Detected U Benzodiazepines Scrn Not Detected Urine Cocaine Screen Not Detected U Marijuana (THC) Screen POSITIVE H Ethyl Alcohol < 10 11/13/24 04:07 WBC RBC Hgb Hct MCV MCH MCHC RDW Plt Count MPV Immature Gran % (Auto) Neut % (Auto) Lymph % (Auto) [place] % (Auto) Eos % (Auto) Baso % (Auto) Lymph # (Auto) [place] # (Auto) Eos # (Auto) Baso # (Auto) Abs Immat Gran (auto) Absolute Neuts (auto) Absolute Nucleated RBC Nucleated RBC % (auto) VBG pH VBG pCO2 VBG pO2 VBG HCO3 VBG O2 Saturation VBG Base Excess Sodium Potassium Chloride Carbon Dioxide Anion Gap BUN Creatinine Estim Creat Clear Calc Estimated GFR Random Glucose Lactic Acid Calcium Magnesium Total Bilirubin AST ALT Alkaline Phosphatase Ammonia 49 Total Creatine Kinase C-Reactive Protein Total Protein Albumin Urine Color Urine Appearance Urine pH Ur Specific [place] Urine Protein Urine Glucose (UA) Urine Ketones Urine Blood Urine Nitrite Ur Leukocyte Esterase Urine RBC Urine WBC Ur Squamous Epith Cells Urine Bacteria Hyaline Casts Salicylates < 5.0 L Urine Opiates Screen Ur Buprenorphine Scrn Ur Oxycodone Screen Urine Methadone Screen Urine Fentanyl Screen Acetaminophen < 3 Ur Barbiturates Screen Ur Phencyclidine Scrn Ur Amphetamines Screen U Benzodiazepines Scrn Urine Cocaine Screen U Marijuana (THC) Screen Ethyl Alcohol Mental Status Exam Mental Status Exam Patient Appearance: Perspiring Patient Orientation: Person, Place and Time Level of Consciousness: Awake, Restless and Alert Patient Behavior: Talkative, Restless, Anxious, Fearful, Distractible, Confused and Crying Mood Description: Fearful, Anxious, Labile, Nervous and Apprehensive Affect Description: Labile, Nervous and Apprehensive Ability to Follow Directions: Good Speech Pattern: Perseverating, Rambling, Excessive and Pressured Hallucinations: Visual Perceptual Disturbances: Hallucinations and Illusions Thought Process: Incoherent, Distracted and Confusion Thought Content: positive for Flight of Ideas, positive for Loose Associations, positive for Tangential and positive for Disorganized Abnormal Motor Activity Signs and Symptoms: Hyperactivity and Restlessness Judgement: Poor Medications Medications Current Medications Acetaminophen (Acetaminophen 325 Mg Tablet) 650 mg PO Q6H PRN PRN Reason: Pain, Mild 1-3,fever,headache Albuterol Sulfate (Albuterol Sulfate 90 Mcg 8 Gm Inhaler) 1 puff INHALE Q4H PRN PRN Reason: shortness of breath or wheezing Amlodipine Besylate (Amlodipine Besylate 2.5 Mg Tablet) 2.5 mg PO DAILY [facility]; Protocol Calcium Carbonate (Calcium Carbonate 750 Mg Tab.Chew) 750 mg PO Q4H PRN PRN Reason: Heartburn Enoxaparin Sodium (Enoxaparin Sodium 40 Mg/0.4 Ml Syringe) 40 mg SUBCUT Q24H [facility] Ferrous Sulfate (Ferrous Sulfate 324 Mg Tablet.) 324 mg PO MoTh@0900 [facility] Folic Acid (Folic Acid 1 Mg Tablet) 1 mg PO DAILY [facility] Last Admin: 11/13/24 08:34 Dose: 1 mg Gabapentin (Gabapentin 100 Mg Capsule) 200 mg PO TID [facility] Last Admin: 11/13/24 14:02 Dose: 200 mg Thiamine HCl 200 mg/ Sodium (Chloride) 102 mls @ 204 mls/hr IV Q8H [facility] Last Infusion: 11/13/24 10:27 Dose: Infused Magnesium Hydroxide (Milk Of Magnesia 30 Ml Oral.Susp) 30 ml PO DAILY PRN PRN Reason: Constipation Magnesium Oxide (Magnesium Oxide 400 Mg Tablet) 400 mg PO DAILY [facility] Melatonin (Melatonin 3 Mg Tablet) 6 mg PO BEDTIME PRN PRN Reason: Insomnia Multivitamins/Vitamin C (Multivitamin Tablet) 1 tab PO DAILY [facility] Olanzapine (Olanzapine 5 Mg Tablet) 5 mg PO TID PRN PRN Reason: agitation Last Admin: 11/13/24 14:56 Dose: 5 mg Omeprazole (Omeprazole 20 Mg Capsule.) 20 mg PO DAILY@0630 [facility] Pharmacy Consult (Consult Rx Etoh Phenob Im/Po) 1 each MISCELLANE ONCE PRN; Protocol PRN Reason: Consult order Phenobarbital (Phenobarbital 15 Mg Tablet) 45 mg PO BID [facility]; Protocol Stop: 11/15/24 09:01 Phenobarbital (Phenobarbital 30 Mg Tablet) 30 mg PO BID A[facility] ROS[facility]; Protocol Stop: 11/17/24 09:01 Phenobarbital (Phenobarbital 30 Mg Tablet) 30 mg PO DAILY [facility] ROS[facility]; Protocol Stop: 11/19/24 09:01 Psyllium Hydrophilic Mucilloid (Psyllium Seed 3.7 Gm Packet) 3.7 gm PO DAILY PRN PRN Reason: Constipation Sodium Chloride (0.9 % Sodium Chloride Flush 3 Ml Syringe) 3 ml IVFLUSH QSHIFT ANA ROSA Last Admin: 11/13/24 07:46 Dose: Not Given Allergies Allergies Allergy/AdvReac Type Severity Reaction Status Date / Time cefuroxime Allergy Hives Verified 11/13/24 02:30 Assessment & Plan Assessment & Plan (1) Alcohol withdrawal: Qualifiers: Complication of substance-induced condition: with delirium Qualified Code(s): F10.931 - Alcohol use, unspecified with withdrawal delirium Status: Acute Code(s): F10.939 - Alcohol use, unspecified with withdrawal, unspecified (2) Encephalopathy acute: Status: Acute Code(s): G93.40 - Encephalopathy, unspecified (3) Delirium due to another medical condition, acute, hyperactive: Status: Acute Code(s): F05 - Delirium due to known physiological condition Plan 54 yo presenting with acute mental status change, most likely delirium secondary to acute alcohol withdrawal. Other differential diagnoses include delirium from other causes although labs are normal and unclear other localizing symptoms or signs at this time. Keep in mind possibility of autoimmune encephalopathy if not better with treatment. Acute non-organic psychosis lower on the differential diagnosis given the absence of prior history, age, acuity, and visual hallucinations and illusions. Recommend: - Suggest covering patient with benzodiazepine to prevent alcohol withdrawal seizures. Ativan preferred given elevated LFT's. Can give 1 mg QID to start. Monitor VS. CIWA. Titrate Ativan as needed. - Zyprexa 5 mg TID PRN hallucinations/psychosis/agitation. - FU EEG and MRI. - Consider LP if not better. - Discussed with Dr. Mora. Thank you for the consultation. Total time managing care of this patient today ____ minutes.
[2024-11-13] MEDS: diazePAM 10 MG/2 ML CARTRIDGE 2.5 MG IVPUSH (18:03)
--- NOTE | 2024-11-13 18:13 | PC.NURSE ---
Pt to MRI and frequently yelling out and moving-unable to sit still, per Dr Pederson pt medicated to tolerate scan.
[2024-11-13] MEDS: Thiamine HCL 200 MG in 0.9 % Sodium Chloride 100 ML IV (18:49)
[2024-11-14] VITALS (7 sets, daily range): BP systolic 121–155; BP diastolic 73–84; PULSE 71–96; RESP 13–20; TEMP 36.2–36.8; O2SAT 94–98
[2024-11-14] MEDS: 0.9 % Sodium Chloride Flush 3 ML SYRINGE IVFLUSH ×4 (00:17→20:55)
[2024-11-14] MEDS: diazePAM 10 MG/2 ML CARTRIDGE 7.5 MG IVPUSH (01:29)
[2024-11-14] MEDS: Thiamine HCL 200 MG in 0.9 % Sodium Chloride 100 ML IV (01:30)
--- NOTE | 2024-11-14 01:31 | PC.NURSE ---
patient woke up requesting to bedside commode, once back to bed, began swearing and screaming attempted to redirect and calm but unable too, medicated according to MAR
[2024-11-14] MEDS: Ferrous Sulfate 324 MG TABLET.DR PO (07:32)
[2024-11-14] MEDS: Thiamine HCL 200 MG in 0.9 % Sodium Chloride 100 ML 204 MG IV ×2 (07:44→16:45)
[2024-11-14 15:19] LABS: Cannabinoid Screen Urine POSITIVE (Not Detect)
--- NOTE | 2024-11-14 16:39 | P.PNIM_ITS ---
Subjective Subjective Date of Service: 11/14/24 Interval History: encephalopathy Review of Systems mental status seems improving denies new c/o still somewhat anxious Review of Systems: Yes all other systems are reviewed and are negative Physical Exam 2 Exam: Exam: Appearance: Alert.? Oriented X3.?no more hallucination bite her tangue while quick talking cvs: rrr, [id number] res: clear to auscultation ,no rhonchii or wheezing abd: no rebound or guarding ,nt, bs present. ext pulses present , no cyanosis . neuro: moves all ext, has mild tremers Vital Signs: Vital Signs: Last Vital Signs Temp 97.6 F 11/14/24 15:19 Pulse 96 11/14/24 15:19 Resp 17 11/14/24 15:19 BP 144/77 H 11/14/24 15:19 Pulse Ox 97 11/14/24 15:19 O2 Del Method Room Air 11/14/24 15:19 O2 Flow Rate 2 11/14/24 04:00 BMI result Body Mass Index 30.3 Objective Data Active Medications Acetaminophen (Acetaminophen 325 Mg Tablet) 650 mg PO Q6H PRN PRN Reason: Pain, Mild 1-3,fever,headache Albuterol Sulfate (Albuterol Sulfate 90 Mcg 8 Gm Inhaler) 1 puff INHALE Q4H PRN PRN Reason: shortness of breath or wheezing Amlodipine Besylate (Amlodipine Besylate 2.5 Mg Tablet) 2.5 mg PO DAILY [facility]; Protocol Last Admin: 11/14/24 07:32 Dose: 2.5 mg Documented By: QIANA Calcium Carbonate (Calcium Carbonate 750 Mg Tab.Chew) 750 mg PO Q4H PRN PRN Reason: Heartburn Diazepam (Diazepam 10 Mg/2 Ml Cartridge) 7.5 mg IVPUSH Q6H PRN PRN Reason: agitation Last Admin: 11/14/24 01:29 Dose: 7.5 mg Documented By: SAMANTHA Enoxaparin Sodium (Enoxaparin Sodium 40 Mg/0.4 Ml Syringe) 40 mg SUBCUT Q24H [facility] Last Admin: 11/13/24 18:48 Dose: Not Given Documented By: FAVIOLA Non-Admin Reason: Patient Refused Ferrous Sulfate (Ferrous Sulfate 324 Mg Tablet.) 324 mg PO MoTh@0900 [facility] Last Admin: 11/14/24 07:32 Dose: 324 mg Documented By: QIANA Folic Acid (Folic Acid 1 Mg Tablet) 1 mg PO DAILY [facility] Last Admin: 11/14/24 07:32 Dose: 1 mg Documented By: QIANA Gabapentin (Gabapentin 100 Mg Capsule) 200 mg PO TID [facility] Last Admin: 11/14/24 07:32 Dose: 200 mg Documented By: QIANA Thiamine HCl 200 mg/ Sodium (Chloride) 102 mls @ 204 mls/hr IV Q8H [facility] Last Infusion: 11/14/24 08:49 Dose: Infused Documented By: QIANA Magnesium Hydroxide (Milk Of Magnesia 30 Ml Oral.Susp) 30 ml PO DAILY PRN PRN Reason: Constipation Magnesium Oxide (Magnesium Oxide 400 Mg Tablet) 400 mg PO DAILY [facility] Last Admin: 11/14/24 07:32 Dose: 400 mg Documented By: QIANA Melatonin (Melatonin 3 Mg Tablet) 6 mg PO BEDTIME PRN PRN Reason: Insomnia Multivitamins/Vitamin C (Multivitamin Tablet) 1 tab PO DAILY [facility] Last Admin: 11/14/24 07:32 Dose: 1 tab Documented By: QIANA Olanzapine (Olanzapine 5 Mg Tablet) 5 mg PO TID PRN PRN Reason: agitation Last Admin: 11/13/24 14:56 Dose: 5 mg Documented By: FAVIOLA Omeprazole (Omeprazole 20 Mg Capsule.Dr) 20 mg PO DAILY@0630 [facility] Last Admin: 11/14/24 05:40 Dose: Not Given Documented By: ALICIA Non-Admin Reason: Patient Refused Pharmacy Consult (Consult Rx Etoh Phenob Im/Po) 1 each MISCELLANE ONCE PRN; Protocol PRN Reason: Consult order Phenobarbital (Phenobarbital 15 Mg Tablet) 45 mg PO BID [facility]; Protocol Stop: 11/15/24 09:01 Last Admin: 11/14/24 07:38 Dose: 45 mg Documented By: QIANA Phenobarbital (Phenobarbital 30 Mg Tablet) 30 mg PO BID [facility]; Protocol Stop: 11/17/24 09:01 Phenobarbital (Phenobarbital 30 Mg Tablet) 30 mg PO DAILY [facility]; Protocol Stop: 11/19/24 09:01 Psyllium Hydrophilic Mucilloid (Psyllium Seed 3.7 Gm Packet) 3.7 gm PO DAILY PRN PRN Reason: Constipation Sodium Chloride (0.9 % Sodium Chloride Flush 3 Ml Syringe) 3 ml IVFLUSH QSHIFT [facility]NA ROSA Last Admin: 11/14/24 07:33 Dose: 3 ml Documented By: QIANA Labs 11/13/24 03:13 11/13/24 03:13 Labs: Laboratory Results - last 24 hr 11/14/24 14:50 Urine Opiates Screen Not Detected Ur Buprenorphine Scrn Not Detected Ur Oxycodone Screen Not Detected Urine Methadone Screen Not Detected Urine Fentanyl Screen Not Detected Ur Barbiturates Screen POSITIVE H Ur Phencyclidine Scrn Not Detected Ur Amphetamines Screen Not Detected U Benzodiazepines Scrn POSITIVE H Urine Cocaine Screen Not Detected U Marijuana (THC) Screen POSITIVE H Microbiology Microbiology Results: Microbiology 11/13/24 04:07 Blood Culture - Preliminary Blood - Venous No growth after 24 hours. 11/13/24 03:13 Blood Culture - Preliminary Blood - Venous No growth after 24 hours. Assessment and Plan (1) Alcohol withdrawal: Status: Acute Plan 54 y/o F with pmhx of hypertension, recent acute on chronic hyponatremia( admission), alcohol use disorder with a history of alcohol withdrawal seizure, asthma, GERD -came with in acute encephalopathy symptom versus delirium 1. acute encepahlopathy unclear etiology possible multifactorial( d/d alcohol withdrawal,cerebellar and frontoparietal cortical atrophy, which could be genetic degenerative or might have been triggered by significant alcohol intake vs recent electrolytic abnormalities /mark ) versus delirium. recent admission -seizure like activity hyponatremia/mark imporving tylenol , salicylate levels are fine, BUN and creatinine seems to be improving, sodium 134 today. Potassium 3.9 magnesium 1.8 No hypoxia, liver enzymes ALT AST mildly elevated then baseline, alk-phos is improving from previous, ammonia level normal, CPK is 309. UA negative Urine drug screen ordered ct head:No acute intracranial hemorrhage. No evidence of acute infarction. Mild diffuse cortical volume loss. Mild nonspecific white matter hypodensities, most commonly associated with chronic microangiopathic changes. mri:1. No acute intracranial abnormality identified. 2. Few scattered T2/FLAIR signal hyperintensities throughout supratentorial white matter. Differential diagnostic considerations include early white matter microvascular ischemic changes, sequela of prior infectious/inflammatory process, Sequela of prior migraine headaches or possible demyelinating process. 3. Additional findings as above. urine drug screen positive for marijuana plan: neurochecks,seizure precautions ,moniter marianna ,ed started phenobarbital protocol. seen by neuro:CT reveals significant cerebellar and frontoparietal cortical atrophy, which could be genetic degenerative or might have been triggered by significant alcohol intake mri as above ,eeg, quit alcohol,treatment with thiamine, folate, B complex vitamins and avoid is of medicine that could lower serum sodium is recommended. sitter d/w neuro -continue current management , patient mental status improving, neuro will re-evaluate after EEG report. d/w psych-added zyprexa 5 mg tid prn for agitation ,until MARK and hyponatremia: Both her improving since last admission, monitor electrolytes closely. Avoid medications that can cause MARK/hyponatremia. Hypotension: Continue amlodipine. GERD Continue PPI. ? Recent UA shows pyuria/bacteriuria : Patient denies any urinary symptoms today, UA negative, we will defer antibiotic for now. Patient has no leukocytosis or fever,? Unclear blood cultures were sent from ED. We will continue to monitor. DVT prophylaxis subQ Lovenox. ongoing need: Acute encephalopathy unclear etiology-need further neuro workup, electrolyte monitoring closely. Quality Stroke Does the patient have a stroke diagnosis?: No VTE Prior VTE?: No VTE Risk Level:: Medical - moderate - high VTE Device Contraindication: N/A - Device Ordered VTE Drug Contraindication: N/A - Med Ordered
[2024-11-15] VITALS (8 sets, daily range): BP systolic 136–166; BP diastolic 75–90; PULSE 68–99; RESP 15–18; TEMP 36.1–37.1; O2SAT 95–97
--- NOTE | 2024-11-15 | ECG_ITS ---
Test Reason : tachycardia Blood Pressure : */* mmHG Vent. Rate : 109 BPM Atrial Rate : 109 BPM P-R Int : 164 ms QRS Dur : 80 ms QT Int : 316 ms P-R-T Axes : 55 35 55 degrees QTcB Int : 425 ms Sinus tachycardia Otherwise normal ECG When compared with ECG of 13-Nov-2024 04:07, Vent. rate has increased by 36 bpm Referred By: Rosa Mora Electronically Signed By: JAYA HERNANDES MD
[2024-11-15] MEDS: Thiamine HCL 200 MG in 0.9 % Sodium Chloride 100 ML 204 MG IV ×2 (01:25→09:46)
[2024-11-15 08:31] LABS: Alanine Aminotransferase 132 U/L (0-31); Albumin Level 4.7 g/dL (3.5-5.0); Alkaline Phosphatase 143 U/L (39-117); Anion Gap 13 (12-20); Aspartate Amino Transferase 113 U/L (5-31); Blood Urea Nitrogen 17 mg/dL (9-16); Calcium 9.9 mg/dL (8.4-10.2); Carbon Dioxide 22 mmol/L (22-29); Chloride 104 mmol/L (96-108); Creatinine Clr Calc Pharmacy 59.6; Estimated Glomerular Filt Rate 51; Potassium 4.5 mmol/L (3.3-5.1); Sodium 134 mmol/L (135-145); Total Protein 7.9 g/dL (6.5-8.0)
[2024-11-15] MEDS: 0.9 % Sodium Chloride Flush 3 ML SYRINGE IVFLUSH ×2 (09:45→17:58)
--- NOTE | 2024-11-15 09:55 | MHC.CM.PN ---
Risa 11/15/24, Pt. lives with her boyfriend. PCP is Raffaele Desir NP. HCP is on file and confirmed: [facility]. Pt. does not use home health services or DME. She is able to arrange a ride home at [place], DCP: home, self care. CM to follow for DC needs.
--- NOTE | 2024-11-15 14:10 | P.PNIM_ITS ---
Subjective Subjective Date of Service: 11/15/24 Interval History: encephalopathy Physical Exam 2 Exam: Exam: Appearance: Alert.? Oriented X3.?no more hallucination bite her tangue while quick talking cvs: rrr, [id number] res: clear to auscultation ,no rhonchii or wheezing abd: no rebound or guarding ,nt, bs present. ext pulses present , no cyanosis . neuro: moves all ext, has mild tremers Vital Signs: Vital Signs: Last Vital Signs Temp 97.0 F 11/15/24 11:16 Pulse 99 11/15/24 11:16 Resp 16 11/15/24 11:16 BP 145/84 H 11/15/24 11:16 Pulse Ox 95 11/15/24 11:16 O2 Del Method Room Air 11/15/24 11:16 O2 Flow Rate 2 11/14/24 04:00 BMI result Body Mass Index 30.3 Objective Data Active Medications Acetaminophen (Acetaminophen 325 Mg Tablet) 650 mg PO Q6H PRN PRN Reason: Pain, Mild 1-3,fever,headache Albuterol Sulfate (Albuterol Sulfate 90 Mcg 8 Gm Inhaler) 1 puff INHALE Q4H PRN PRN Reason: shortness of breath or wheezing Amlodipine Besylate (Amlodipine Besylate 2.5 Mg Tablet) 2.5 mg PO DAILY [facility]; Protocol Last Admin: 11/15/24 09:46 Dose: 2.5 mg Documented By: WILLARD Calcium Carbonate (Calcium Carbonate 750 Mg Tab.Chew) 750 mg PO Q4H PRN PRN Reason: Heartburn Diazepam (Diazepam 10 Mg/2 Ml Cartridge) 7.5 mg IVPUSH Q6H PRN PRN Reason: agitation Last Admin: 11/14/24 01:29 Dose: 7.5 mg Documented By: SAMANTHA Enoxaparin Sodium (Enoxaparin Sodium 40 Mg/0.4 Ml Syringe) 40 mg SUBCUT Q24H [facility] Last Admin: 11/14/24 16:46 Dose: 40 mg Documented By: QIANA Ferrous Sulfate (Ferrous Sulfate 324 Mg Tablet.) 324 mg PO MoTh@0900 [facility] Last Admin: 11/14/24 07:32 Dose: 324 mg Documented By: QIANA Folic Acid (Folic Acid 1 Mg Tablet) 1 mg PO DAILY [facility] Last Admin: 11/15/24 09:46 Dose: 1 mg Documented By: WILLARD Gabapentin (Gabapentin 100 Mg Capsule) 200 mg PO TID [facility] Last Admin: 11/15/24 09:45 Dose: 200 mg Documented By: WILLARD Thiamine HCl 200 mg/ Sodium (Chloride) 102 mls @ 204 mls/hr IV Q8H [facility] Last Infusion: 11/15/24 11:38 Dose: Infused Documented By: WILLARD Magnesium Hydroxide (Milk Of Magnesia 30 Ml Oral.Susp) 30 ml PO DAILY PRN PRN Reason: Constipation Magnesium Oxide (Magnesium Oxide 400 Mg Tablet) 400 mg PO DAILY [facility] Last Admin: 11/15/24 09:46 Dose: 400 mg Documented By: WILLARD Melatonin (Melatonin 3 Mg Tablet) 6 mg PO BEDTIME PRN PRN Reason: Insomnia Multivitamins/Vitamin C (Multivitamin Tablet) 1 tab PO DAILY [facility] Last Admin: 11/15/24 09:46 Dose: 1 tab Documented By: WILLARD Olanzapine (Olanzapine 5 Mg Tablet) 5 mg PO TID PRN PRN Reason: agitation Last Admin: 11/13/24 14:56 Dose: 5 mg Documented By: FAVIOLA Omeprazole (Omeprazole 20 Mg Capsule.Dr) 20 mg PO DAILY@0630 [facility] Last Admin: 11/15/24 05:51 Dose: 20 mg Documented By: STEFANO Pharmacy Consult (Consult Rx Etoh Phenob Im/Po) 1 each MISCELLANE ONCE PRN; Protocol PRN Reason: Consult order Phenobarbital (Phenobarbital 30 Mg Tablet) 30 mg PO BID [facility]; Protocol Stop: 11/17/24 09:01 Phenobarbital (Phenobarbital 30 Mg Tablet) 30 mg PO DAILY [facility]; Protocol Stop: 11/19/24 09:01 Psyllium Hydrophilic Mucilloid (Psyllium Seed 3.7 Gm Packet) 3.7 gm PO DAILY PRN PRN Reason: Constipation Sodium Chloride (0.9 % Sodium Chloride Flush 3 Ml Syringe) 3 ml IVFLUSH QSHIFT [facility] Last Admin: 11/15/24 09:45 Dose: 3 ml Documented By: WILLARD Labs 11/13/24 03:13 11/15/24 08:11 Labs: Laboratory Results - last 24 hr 11/14/24 11/15/24 14:50 08:11 Anion Gap 13 Estim Creat Clear Calc 59.6 Estimated GFR 51 Random Glucose 108 Calcium 9.9 Total Bilirubin 0.9 AST 113 H ALT 132 H Alkaline Phosphatase 143 H Total Protein 7.9 Albumin 4.7 Urine Opiates Screen Not Detected Ur Buprenorphine Scrn Not Detected Ur Oxycodone Screen Not Detected Urine Methadone Screen Not Detected Urine Fentanyl Screen Not Detected Ur Barbiturates Screen POSITIVE H Ur Phencyclidine Scrn Not Detected Ur Amphetamines Screen Not Detected U Benzodiazepines Scrn POSITIVE H Urine Cocaine Screen Not Detected U Marijuana (THC) Screen POSITIVE H Microbiology Microbiology Results: Microbiology 11/13/24 04:07 Blood Culture - Preliminary Blood - Venous No growth after 48 hours. 11/13/24 03:13 Blood Culture - Preliminary Blood - Venous No growth after 48 hours. Assessment and Plan (1) Alcohol withdrawal: Status: Acute Plan 54 y/o F with pmhx of hypertension, recent acute on chronic hyponatremia( admission), alcohol use disorder with a history of alcohol withdrawal seizure, asthma, GERD -came with in acute encephalopathy symptom versus delirium 1. acute encepahlopathy unclear etiology possible multifactorial( d/d alcohol withdrawal,cerebellar and frontoparietal cortical atrophy, which could be genetic degenerative or might have been triggered by significant alcohol intake vs recent electrolytic abnormalities /mark ) versus delirium. recent admission -seizure like activity hyponatremia/mark imporving tylenol , salicylate levels are fine, BUN and creatinine seems to be improving, sodium 134 today. Potassium 3.9 magnesium 1.8 No hypoxia, liver enzymes ALT AST mildly elevated then baseline, alk-phos is improving from previous, ammonia level normal, CPK is 309. UA negative Urine drug screen ordered ct head:No acute intracranial hemorrhage. No evidence of acute infarction. Mild diffuse cortical volume loss. Mild nonspecific white matter hypodensities, most commonly associated with chronic microangiopathic changes. mri:1. No acute intracranial abnormality identified. 2. Few scattered T2/FLAIR signal hyperintensities throughout supratentorial white matter. Differential diagnostic considerations include early white matter microvascular ischemic changes, sequela of prior infectious/inflammatory process, Sequela of prior migraine headaches or possible demyelinating process. 3. Additional findings as above. urine drug screen positive for marijuana , patient said she took 1 marijuana gummy few weeks ago. EEG -will be today plan: neurochecks,seizure precautions ,moniter ciwa ,ed started phenobarbital protocol. seen by neuro:CT reveals significant cerebellar and frontoparietal cortical atrophy, which could be genetic degenerative or might have been triggered by significant alcohol intake mri as above ,eeg, quit alcohol,treatment with thiamine, folate, B complex vitamins and avoid is of medicine that could lower serum sodium is recommended. sitter d/w neuro -continue current management , patient mental status improving, neuro will re-evaluate after EEG report. d/w psych-added zyprexa 5 mg tid prn for agitation ,until MARK and hyponatremia: Both her improving since last admission, monitor electrolytes closely. Avoid medications that can cause MARK/hyponatremia. Hypotension: Continue amlodipine. GERD Continue PPI. ? Recent UA shows pyuria/bacteriuria : Patient denies any urinary symptoms today, UA negative, we will defer antibiotic for now. Patient has no leukocytosis or fever,? Unclear blood cultures were sent from ED. We will continue to monitor. DVT prophylaxis subQ Lovenox. ongoing need: Acute encephalopathy unclear etiology-need further neuro workup and follow-up, electrolyte monitoring closely. Quality Stroke Does the patient have a stroke diagnosis?: No VTE Prior VTE?: No VTE Risk Level:: Medical - moderate - high VTE Device Contraindication: N/A - Device Ordered VTE Drug Contraindication: N/A - Med Ordered
--- NOTE | 2024-11-15 19:04 | PC.NURSE ---
Patient needing a new IV and this keno writer / runner was unsuccessful twice. Charge nurse did attempt but patient wanted to wait until after dinner to try the IV again. Night nurse Carlo is aware that Thiamine was not given and the medication was wasted as not hung in the appropriate time frame.
[2024-11-16] MEDS: Thiamine HCL 200 MG in 0.9 % Sodium Chloride 100 ML 204 MG IV ×3 (00:23→16:49)
[2024-11-16] MEDS: 0.9 % Sodium Chloride Flush 3 ML SYRINGE IVFLUSH ×3 (00:26→15:53)
[2024-11-16 04:00] VITALS: BP 150/88; PULSE 86; RESP 16; TEMP 36.7; O2SAT 96
[2024-11-16 07:12] VITALS: BP 164/86; PULSE 84; RESP 18; TEMP 36.7; O2SAT 98
[2024-11-16 11:36] VITALS: BP 142/88; PULSE 86; RESP 18; TEMP 36.6; O2SAT 98
[2024-11-16 15:02] VITALS: BP 165/93; PULSE 85; RESP 18; TEMP 36.8; O2SAT 96
[2024-11-16 19:50] VITALS: BP 129/78; PULSE 71; RESP 16; TEMP 36.8; O2SAT 100
--- NOTE | 2024-11-16 20:21 | P.PNIM_ITS ---
Subjective Subjective Date of Service: 11/16/24 Interval History: Reports feeling ?fantastic?, at 140% , better than yesterday Denies hallucinations Chronic back pain, otherwise no acute complaints Mood overly bright, speech pressured, emotionally labile EEG concerning for possible left frontal central paroxysmal discharges Spoke to family at length who are at bedside Physical Exam 2 Exam: Exam: General: AOx3, no acute distress Resp: CTA bilaterally CVS: S1, S2, RRR GI: +BS, NT, no distention Skin: Warm, dry Neuro: Cranial nerves II-XII grossly intact bilaterally. Motor grossly intact bilaterally Extremities: No edema Psych: Mood overly bright, manic, with pressured speech and emotional lability Vital Signs: Vital Signs: Last Vital Signs Temp 98.3 F 11/16/24 19:50 Pulse 71 11/16/24 19:50 Resp 16 11/16/24 19:50 BP 129/78 11/16/24 19:50 Pulse Ox 100 11/16/24 19:50 O2 Del Method Room Air 11/16/24 19:50 O2 Flow Rate 2 11/14/24 04:00 BMI result Body Mass Index 30.3 Objective Data Active Medications Acetaminophen (Acetaminophen 325 Mg Tablet) 650 mg PO Q6H PRN PRN Reason: Pain, Mild 1-3,fever,headache Last Admin: 11/16/24 11:30 Dose: 650 mg Documented By: QIANA Albuterol Sulfate (Albuterol Sulfate 90 Mcg 8 Gm Inhaler) 1 puff INHALE Q4H PRN PRN Reason: shortness of breath or wheezing Amlodipine Besylate (Amlodipine Besylate 2.5 Mg Tablet) 2.5 mg PO DAILY [facility]; Protocol Last Admin: 11/16/24 08:41 Dose: 2.5 mg Documented By: QIANA Calcium Carbonate (Calcium Carbonate 750 Mg Tab.Chew) 750 mg PO Q4H PRN PRN Reason: Heartburn Diazepam (Diazepam 10 Mg/2 Ml Cartridge) 7.5 mg IVPUSH Q6H PRN PRN Reason: agitation Last Admin: 11/14/24 01:29 Dose: 7.5 mg Documented By: SAMANTHA Divalproex Sodium (Divalproex Sodium 250 Mg Tablet.Dr) 250 mg PO BID [facility] Last Admin: 11/16/24 16:19 Dose: 250 mg Documented By: CUCO Enoxaparin Sodium (Enoxaparin Sodium 40 Mg/0.4 Ml Syringe) 40 mg SUBCUT Q24H [facility] Last Admin: 11/16/24 15:52 Dose: 40 mg Documented By: CUCO Ferrous Sulfate (Ferrous Sulfate 324 Mg Tablet.) 324 mg PO MoTh@0900 [facility] Last Admin: 11/14/24 07:32 Dose: 324 mg Documented By: QIANA Folic Acid (Folic Acid 1 Mg Tablet) 1 mg PO DAILY [facility] Last Admin: 11/16/24 08:41 Dose: 1 mg Documented By: QIANA Gabapentin (Gabapentin 100 Mg Capsule) 200 mg PO TID [facility] Last Admin: 11/16/24 19:55 Dose: 200 mg Documented By: MICHAEL Thiamine HCl 200 mg/ Sodium (Chloride) 102 mls @ 204 mls/hr IV Q8H [facility] Last Infusion: 11/16/24 17:28 Dose: Infused Documented By: CUCO Magnesium Hydroxide (Milk Of Magnesia 30 Ml Oral.Susp) 30 ml PO DAILY PRN PRN Reason: Constipation Magnesium Oxide (Magnesium Oxide 400 Mg Tablet) 400 mg PO DAILY [facility] Last Admin: 11/16/24 08:41 Dose: 400 mg Documented By: QIANA Melatonin (Melatonin 3 Mg Tablet) 6 mg PO BEDTIME PRN PRN Reason: Insomnia Multivitamins/Vitamin C (Multivitamin Tablet) 1 tab PO DAILY [facility] Last Admin: 11/16/24 08:41 Dose: 1 tab Documented By: QIANA Olanzapine (Olanzapine 5 Mg Tablet) 5 mg PO TID PRN PRN Reason: agitation Last Admin: 11/16/24 15:52 Dose: 5 mg Documented By: CUCO Omeprazole (Omeprazole 20 Mg Capsule.) 20 mg PO DAILY@0630 [facility] Last Admin: 11/16/24 06:07 Dose: 20 mg Documented By: SILVERIO Pharmacy Consult (Consult Rx Etoh Phenob Im/Po) 1 each MISCELLANE ONCE PRN; Protocol PRN Reason: Consult order Phenobarbital (Phenobarbital 30 Mg Tablet) 30 mg PO BID [facility]; Protocol Stop: 11/17/24 09:01 Last Admin: 11/16/24 19:55 Dose: 30 mg Documented By: HO.BELANGB Phenobarbital (Phenobarbital 30 Mg Tablet) 30 mg PO DAILY [facility]; Protocol Stop: 11/19/24 09:01 Psyllium Hydrophilic Mucilloid (Psyllium Seed 3.7 Gm Packet) 3.7 gm PO DAILY PRN PRN Reason: Constipation Sodium Chloride (0.9 % Sodium Chloride Flush 3 Ml Syringe) 3 ml IVFLUSH QSHIFT [facility] Last Admin: 11/16/24 15:53 Dose: 3 ml Documented By: CUCO Kyle 11/13/24 03:13 11/15/24 08:11 Assessment and Plan (1) Encephalopathy acute: Status: Acute Plan 54 y/o F with pmhx of hypertension, recent acute on chronic hyponatremia, alcohol use disorder with a history of alcohol withdrawal seizure, asthma, GERD -came with in acute encephalopathy symptom versus delirium. Acute encephalopathy Unclear etiology: Possibly multifactorial due to alcohol withdrawal, cerebellar and frontoparietal cortical atrophy (either genetic, degenerative, or triggered by alcohol intake), electrolyte abnormalities, or delirium Pt no longer confused, but mood hyper-bright, possibly manic with pressured speech and emotional lability No known significant psychiatric hx Seen by psychiatry in ED who thought acute mental status change most likely delirium secondary to acute alcohol withdrawal Would appreciate re-evaluation by psychiatry Monitor mental status Partial complex seizure disorder Pt with seizure-like activity and recent admission for similar earlier in the month EEG somewhat limited due to continuous artifact, but suggestive of left frontocentral paroxysmal activity suggestive of seizure disorder Neurology following Will start on Depakote 250 mg b.i.d. Needs to follow up outpatient with Neurology for ambulatory EEG Seizure precautions Chronic hyponatremia Stable, now back to baseline Transaminitis Improving Secondary to alcohol use disorder Alcohol use disorder Long hx of previous heavy alcohol use w/withdrawal On previous admission on 11/[address] back on alcohol Appears now has continued to have heavy alcohol use; unclear how much or last drink Continue phenobarb protocol [facility] Addiction medicine consult Asthma Not in acute exacerbation Continue home inhalers HTN Continue amlodipine GERD Continue PPI Pt requires continued hospitalization for monitoring of mental status, treatment for alcohol withdrawal, and new consultation with psychiatry and addiction medicine for safe disposition home. Quality Stroke Does the patient have a stroke diagnosis?: No VTE Prior VTE?: No VTE Risk Level:: Medical - moderate - high VTE Device Contraindication: N/A - Device Ordered VTE Drug Contraindication: N/A - Med Ordered
[2024-11-16 23:37] VITALS: BP 119/72; PULSE 65; RESP 16; TEMP 36.7; O2SAT 95
[2024-11-17] MEDS: Thiamine HCL 200 MG in 0.9 % Sodium Chloride 100 ML 204 MG IV ×3 (01:06→16:38)
[2024-11-17] MEDS: 0.9 % Sodium Chloride Flush 3 ML SYRINGE IVFLUSH ×2 (01:10→20:07)
[2024-11-17 03:46] VITALS: BP 140/90; PULSE 86; RESP 16; TEMP 36.4; O2SAT 98
[2024-11-17 07:56] VITALS: BP 136/91; PULSE 82; RESP 17; TEMP 36.5; O2SAT 98
[2024-11-17] MEDS: Ferrous Sulfate 324 MG TABLET.DR PO (08:55)
[2024-11-17 11:53] VITALS: BP 149/84; PULSE 90; RESP 17; TEMP 37; O2SAT 98
--- NOTE | 2024-11-17 14:35 | PC.NURSE ---
pt stated her chest is warm and itchy with some redness after eating. pt stated she has no food allergies. informed
[2024-11-17 15:49] VITALS: BP 163/92; PULSE 86; RESP 17; TEMP 36.4; O2SAT 97
--- NOTE | 2024-11-17 18:28 | P.PNIM_ITS ---
Subjective Subjective Date of Service: 11/17/24 Interval History: No acute events overnight Continues to feel much better than time of presentation Denies SI/HI or hallucinations Chronic back pain Review of Systems Review of Systems: Yes all other systems are reviewed and are negative Physical Exam 2 Exam: Exam: General: AOx3, no acute distress Resp: CTA bilaterally CVS: S1, S2, RRR GI: +BS, NT, no distention Skin: Warm, dry Neuro: Cranial nerves II-XII grossly intact bilaterally. Motor grossly intact bilaterally Extremities: No edema Psych: Mood overly bright, manic, with pressured speech Vital Signs: Vital Signs: Last Vital Signs Temp 97.5 F 11/17/24 15:49 Pulse 86 11/17/24 15:49 Resp 17 11/17/24 15:49 BP 163/92 H 11/17/24 15:49 Pulse Ox 97 11/17/24 15:49 O2 Del Method Room Air 11/17/24 15:49 O2 Flow Rate 2 11/14/24 04:00 BMI result Body Mass Index 30.3 Objective Data Active Medications Acetaminophen (Acetaminophen 325 Mg Tablet) 650 mg PO Q6H PRN PRN Reason: Pain, Mild 1-3,fever,headache Last Admin: 11/16/24 11:30 Dose: 650 mg Documented By: QIANA Albuterol Sulfate (Albuterol Sulfate 90 Mcg 8 Gm Inhaler) 1 puff INHALE Q4H PRN PRN Reason: shortness of breath or wheezing Amlodipine Besylate (Amlodipine Besylate 2.5 Mg Tablet) 2.5 mg PO DAILY [facility]; Protocol Last Admin: 11/17/24 08:56 Dose: Not Given Documented By: CANDE Non-Admin Reason: Patient Refused Calcium Carbonate (Calcium Carbonate 750 Mg Tab.Chew) 750 mg PO Q4H PRN PRN Reason: Heartburn Diazepam (Diazepam 10 Mg/2 Ml Cartridge) 7.5 mg IVPUSH Q6H PRN PRN Reason: agitation Last Admin: 11/14/24 01:29 Dose: 7.5 mg Documented By: SAMANTHA Divalproex Sodium (Divalproex Sodium 250 Mg Tablet.Dr) 250 mg PO BID [facility] Last Admin: 11/17/24 13:03 Dose: 250 mg Documented By: CANDE Enoxaparin Sodium (Enoxaparin Sodium 40 Mg/0.4 Ml Syringe) 40 mg SUBCUT Q24H [facility] Last Admin: 11/17/24 15:00 Dose: 40 mg Documented By: CANDE Ferrous Sulfate (Ferrous Sulfate 324 Mg Tablet.) 324 mg PO MoTh@0900 [facility] Last Admin: 11/17/24 08:55 Dose: 324 mg Documented By: CANDE Folic Acid (Folic Acid 1 Mg Tablet) 1 mg PO DAILY [facility] Last Admin: 11/17/24 08:54 Dose: 1 mg Documented By: CANDE Gabapentin (Gabapentin 100 Mg Capsule) 200 mg PO TID [facility] Last Admin: 11/17/24 15:00 Dose: 200 mg Documented By: CANDE Thiamine HCl 200 mg/ Sodium (Chloride) 102 mls @ 204 mls/hr IV Q8H [facility] Last Infusion: 11/17/24 17:12 Dose: Infused Documented By: CANDE Magnesium Hydroxide (Milk Of Magnesia 30 Ml Oral.Susp) 30 ml PO DAILY PRN PRN Reason: Constipation Magnesium Oxide (Magnesium Oxide 400 Mg Tablet) 400 mg PO DAILY [facility] Last Admin: 11/17/24 08:54 Dose: 400 mg Documented By: CANDE Melatonin (Melatonin 3 Mg Tablet) 6 mg PO BEDTIME PRN PRN Reason: Insomnia Multivitamins/Vitamin C (Multivitamin Tablet) 1 tab PO DAILY [facility] Last Admin: 11/17/24 08:54 Dose: 1 tab Documented By: CANDE Olanzapine (Olanzapine 5 Mg Tablet) 5 mg PO TID PRN PRN Reason: agitation Last Admin: 11/16/24 15:52 Dose: 5 mg Documented By: CUCO Omeprazole (Omeprazole 20 Mg Capsule.) 20 mg PO DAILY@0630 [facility] Last Admin: 11/17/24 05:47 Dose: 20 mg Documented By: MICHAEL Pharmacy Consult (Consult Rx Etoh Phenob Im/Po) 1 each MISCELLANE ONCE PRN; Protocol PRN Reason: Consult order Phenobarbital (Phenobarbital 30 Mg Tablet) 30 mg PO DAILY [facility]; Protocol Stop: 11/19/24 09:01 Psyllium Hydrophilic Mucilloid (Psyllium Seed 3.7 Gm Packet) 3.7 gm PO DAILY PRN PRN Reason: Constipation Sodium Chloride (0.9 % Sodium Chloride Flush 3 Ml Syringe) 3 ml IVFLUSH QSHIFT [facility] Last Admin: 11/17/24 12:17 Dose: Not Given Documented By: CANDE Non-Admin Reason: Previously Administered Labs 11/13/24 03:13 11/15/24 08:11 Assessment and Plan (1) Encephalopathy acute: Status: Acute Plan 54 y/o F with pmhx of hypertension, recent acute on chronic hyponatremia, alcohol use disorder with a history of alcohol withdrawal seizure, asthma, GERD -came with in acute encephalopathy symptom versus delirium. Acute encephalopathy Unclear etiology: Possibly multifactorial due to alcohol withdrawal, cerebellar and frontoparietal cortical atrophy (either genetic, degenerative, or triggered by alcohol intake), electrolyte abnormalities, or delirium Pt no longer confused, but mood hyper-bright, possibly manic with pressured speech and emotional lability No known significant psychiatric hx Seen by psychiatry in ED who thought acute mental status change most likely delirium secondary to acute alcohol withdrawal Would appreciate re-evaluation by psychiatry Monitor mental status Partial complex seizure disorder Pt with seizure-like activity and recent admission for similar earlier in the month EEG somewhat limited due to continuous artifact, but suggestive of left frontocentral paroxysmal activity suggestive of seizure disorder Neurology following Will start on Depakote 250 mg b.i.d. Needs to follow up outpatient with Neurology for ambulatory EEG Seizure precautions Chronic hyponatremia Stable, now back to baseline Transaminitis Improving Secondary to alcohol use disorder Alcohol use disorder Long hx of previous heavy alcohol use w/withdrawal On previous admission on 11/[address] back on alcohol Appears now has continued to have heavy alcohol use; unclear how much or last drink Continue phenobarb protocol [facility] Addiction medicine consult Asthma Not in acute exacerbation Continue home inhalers HTN Continue amlodipine GERD Continue PPI Pt requires continued hospitalization for monitoring of mental status, treatment for alcohol withdrawal, and new consultation with psychiatry and addiction medicine for safe disposition home. Quality Stroke Does the patient have a stroke diagnosis?: No VTE Prior VTE?: No VTE Risk Level:: Medical - moderate - high VTE Device Contraindication: N/A - Device Ordered VTE Drug Contraindication: N/A - Med Ordered
[2024-11-17 19:36] VITALS: BP 140/78; PULSE 88; RESP 18; TEMP 36.7; O2SAT 98
[2024-11-17] MEDS: Lidocaine 4 % Patch ADH..PATCH 2 PATCH TRANSDERMA (20:08)
[2024-11-17 23:22] VITALS: BP 163/74; PULSE 80; TEMP 36.6; O2SAT 97
[2024-11-18] MEDS: Thiamine HCL 200 MG in 0.9 % Sodium Chloride 100 ML 204 MG IV ×2 (00:44→09:53)
[2024-11-18] MEDS: Milk of Magnesia 30 ML ORAL.SUSP PO (01:57)
[2024-11-18 04:00] VITALS: BP 144/78; PULSE 68; RESP 18; TEMP 36.4; O2SAT 96
[2024-11-18 07:14] VITALS: BP 145/94; PULSE 84; RESP 20; TEMP 37; O2SAT 100
[2024-11-18] MEDS: Lidocaine 4 % Patch ADH..PATCH 2 PATCH TRANSDERMA (09:56)
[2024-11-18] MEDS: 0.9 % Sodium Chloride Flush 3 ML SYRINGE IVFLUSH (10:09)
[2024-11-18 10:50] VITALS: PULSE 76; RESP 20; TEMP 36.6; O2SAT 100
--- NOTE | 2024-11-18 12:13 | P.DS_ITS ---
DS: Providers Provider Date of Service: 11/18/24 Date of admission: 11/14/24 10:20 Date of discharge: 11/18/24 Primary care physician: MIRNA Montenegro- Consults: 11/13/24 08:07 Consult to Neurology Routine Consulting Provider: [facility] Reason for consultation: Encephalopathy 11/13/24 13:06 Consult for Sitter Routine Reason for consultation: agiatation Has provider been notified: No Consult to Psychiatry Routine Consulting Provider: [facility] [place] [facility] Psych Covering Reason for consultation: delirum /agiattaion Has provider been notified: No 11/16/24 23:06 Addiction Medicine Provider Routine Consulting Provider: Addiction Covering Reason for consultation: Alcohol use disorder; ?recovery options Consult to Psychiatry Routine Consulting Provider: [facility] Psych Covering Reason for consultation: Re-evaluation for possible fadi; pt with pressured speech, overly bright DS: Diagnosis Discharge Diagnosis (1) Encephalopathy acute: Status: Acute (2) Alcohol withdrawal: Status: Acute DS: Summary Hospital Course Hospital Course: From H&P on the day of admission 54 y/o F with pmhx of hypertension, recent acute on chronic hyponatremia( admission), alcohol use disorder with a history of alcohol withdrawal seizure, asthma, GERD came to ed accompanied by both of her parents. She lives with her boyfriend. Evidently her mom states that her boyfriend called them saying that he was worried about She is having outbursts, confusion, blabbering for few hours .Unable to tell me when this started, what else is bothering her. She denies drug or alcohol use but can not tell me when her last use of alcohol was. as per ed: No report of seizure activity tonight. her recent admission was on past week on 11/07/2024 with hyponatremia of 120(which thught to be related to hctz? ), her sodium seems to be improved to 132 withfluid restriction and her losartan and HCTZ had been stopped. Parents report that she was called at home -said her she is concerned about uti( recent admssion ua positive and urine culture : ecoli)-cefuroxime which she had a single dose of yesterday and possible had an adverse reaction to the cefuroxime in which she had muscle spasms that were transient. Parents report normal mentation ?on Symptoms began late Thursday night. No reported fever. No reported vomiting Acute encephalopathy likely multifactorial due to alcohol withdrawal, cerebellar and frontoparietal cortical atrophy, electrolyte abnormalities, or delirium. No known significant psychiatric hx, seen by psych, recommended to increase Depakote (initially started due to seizures) to 500 twice daily to assist with mood stability. Did not feel that patient met criteria for inpatient care. Encephalopathy resolved, patient is alert and oriented. Will need outpatient follow-up for mood, does not currently have a psychiatrist but does have a PCP. Recommended outpatient partial hospitalization program, resources provided and reviewed by care team. Partial complex seizure disorder Pt with seizure-like activity and recent admission for similar earlier in the month EEG somewhat limited due to continuous artifact, but suggestive of left frontocentral paroxysmal activity suggestive of seizure disorder. Seen by Neurology who recommended to start Depakote. Results of MRI discussed with Samantha martínezlogkristin, findings most consistent with atrophy due to alcohol use, remainder of findings mild and not clinically relevant. Recommend outpatient follow-up with Neurology and ambulatory EEG. Chronic hyponatremia Stable, now back to baseline Transaminitis Improving. likely secondary to alcohol use disorder. recommend outpatient follow up. Repeat LFTs in 1 week Alcohol use disorder Long hx of previous heavy alcohol use w/withdrawal. Treated with phenobarbital protocol, and vitamin supplementation, CIWA now 0. No evidence of active withdrawal at this time. Seen by addiction Medicine, recommend outpatient follow-up in the [facility] Time Attestation Discharge Coordination Time (in mins): 35 Quality: Safe Use of Opioids Does Pt have an Active Cancer Diagnosis on the Problem List?: No Quality: Stroke Does the patient have a stroke diagnosis?: No Physical Exam Vital Signs: Vital Signs: Last Vital Signs Temp 97.8 F 11/18/24 10:50 Pulse 76 11/18/24 10:50 Resp 20 11/18/24 10:50 BP 145/94 H 11/18/24 07:14 Pulse Ox 100 11/18/24 10:50 O2 Del Method Room Air 11/18/24 10:50 O2 Flow Rate 2 11/14/24 04:00 BMI result Body Mass Index 30.3 Const: General: cooperative, comfortable, no acute distress, alert and awake Nutritional Appearance: average body habitus Orientation/consciousness: patient oriented x3 Resp: Effort & Inspection: normal respiratory effort, able to speak in complete sentences, no respiratory distress and no use of accessory muscles Cardio: Rate: regular rate Neuro: Other: Grossly nonfocal General: patient oriented x3 DS: Data Data Completed and Pending Completed studies during hospitalization [Text1]: Procedures Detoxification Services for Substance Abuse Treatment (01/21/22) Discharge Plan Discharge Anticipated Discharge Date/Time: 11/18/24 14:34 Patient Disposition: Home, Self-Care Discharge Diagnosis: Alcohol withdrawal Acute on chronic hyponatremia Transaminitis Encephalopathy Referrals: [facility] [Provider Group] - 1 Week Referral Note: etoh use Raffaele Desir FNP- [Primary Care Provider, Internal Medicine] - 1 Week Ad Loja MD [Physician, Neurology] - 1 Week Discharge Medications: New divalproex 500 mg Tablet,Delayed Release (Dr/Ec) 500 mg PO BID 90 Days Qty: 180 0RF thiamine HCl (vitamin B1) 100 mg tablet 100 mg PO DAILY 90 Days Qty: 90 0RF Continued magnesium oxide 400 mg (241.3 mg magnesium) tablet 400 mg PO DAILY Qty: 90 1RF albuterol sulfate 90 mcg/actuation aerosol powdr breath activated 1 inh inhalation Q4-6H PRN (Reason: shortness of breath or wheezing) 30 Days Qty: 1 1RF omeprazole 20 mg capsule,delayed release(DR/EC) 20 mg PO DAILY Qty: 90 1RF gabapentin 100 mg capsule 200 mg PO TID 30 Days Qty: 180 2RF meloxicam 15 mg tablet 15 mg PO DAILY 30 Days Qty: 30 3RF diclofenac sodium 3 % gel 1 appl topical BID PRN (Reason: pain) Qty: 100 0RF multivitamin Tablet 1 tab PO DAILY acetaminophen 500 mg Tablet 1,000 mg PO Q6H PRN (Reason: Pain) cyclobenzaprine 10 mg tablet 10 mg PO BID@0600,1400 Metamucil (with sugar) 3.4 gram/12 gram powder 1 tbsp PO DAILY PRN (Reason: Constipation) ferrous sulfate 324 mg (65 mg iron) tablet,delayed release (DR/EC) 324 mg PO 2XW amlodipine 2.5 mg tablet 2.5 mg PO DAILY Qty: 90 1RF Discontinued alprazolam 0.5 mg tablet 0.5 mg PO DAILY PRN (Reason: anxiety) 30 Days Qty: 30 1RF Discharge Orders: Discharge Order (Routine); Ordered 11/18/24 Ordered By: Kimberly Dick Activity on Discharge: As tolerated Stand Alone Forms: Patient Portal Discharge page Print Language: Sinhala Other Ambulatory Orders: Liver Panel (Routine) Timeframe: 1 Week Facility: [facility] - Location: Laboratory Ordered By: Kimberly Dick Care Plan Goals: see below Health Concerns: alcohol withdrawal partial seizure disorder encephalopathy transaminitis Plan of Treatment: Recommend to abstain from drinking alcohol Start taking Depakote as prescribed for seizures and mood It is recommended not to drive or bath/swim alone recommend outpatient follow-up with Neurology/outpatient ambulatory EEG Call to schedule follow-up appointment with your primary care provider You have been provided resources regarding the partial hospitalization program Call to schedule a follow-up appointment in the [facility] will need repeat labs for liver function Assessment: see discharge summary
--- NOTE | 2024-11-18 14:01 | PM.PSYCN ---
History of Present Illness Date of Service: 11/18/24 Chief Complaint: ? Alcohol Withdrawals Reason for Consult: ?fadi behavior. Safe to discharge? Requesting physician: Guillermo Mary Discussed with referring provider: Yes Sources of Information: patient interviewed, chart reviewed and crisis/core team assessment reviewed Additional Sources of Information: Case discussed with the attending on 11/16. HPI Narrative: Patient is a 54 year old female with pmhx of hypertension, recent acute on chronic hyponatremia( admission), alcohol use disorder with a history of alcohol withdrawal seizure, asthma, GERD came to ed accompanied by both of her parents. She lives with her boyfriend. Evidently her mom states that her boyfriend called them saying that he was worried about Past Psychiatric History: Psychotherapy per mom. Not recently. No inpatient hospitalizations. No suicide attempts. No prior psychosis. Alcohol use Medical Evaluation Reviewed: Yes Review of Systems Review of Systems Constitutional: Denies fatigue and Denies fever(s) Cardiovascular: Denies chest pain and Denies dyspnea Respiratory: Denies dyspnea Gastrointestinal: Denies abdominal pain Psychiatric: denies suicidal ideation Endocrine: Denies fatigue Yes all other systems are reviewed and are negative [facility] Medical History Alcohol use HTN (hypertension) Nicotine dependence, cigarettes, uncomplicated Pain of left thumb Degenerative disc disease, cervical Seborrheic keratosis Surgical History History of back surgery H/O carpal tunnel repair History of facial surgery Family History: Maternal grandmother mental illness and was at [facility]. Social History: Never . 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 Has 2 children. One born when patient was 19 and given away for adoption. She has another son who is 32. She is partnered with the father of her 32 year old son for the last few years. Substance History: Alcohol use, causing seizure episode. Trauma History: unknown Diagnostics Vital Signs (24Hr): Vital Signs - 24 hr 11/17/24 15:49 11/17/24 19:36 11/17/24 23:22 Temperature 97.5 F 98.1 F 97.8 F Pulse Rate 86 88 80 Respiratory Rate 17 18 Blood Pressure 163/92 H 140/78 H 163/74 H Pulse Oximetry 97 98 97 Oxygen Delivery Method Room Air Room Air Room Air 11/18/24 04:00 11/18/24 07:14 11/18/24 10:50 Temperature 97.6 F 98.6 F 97.8 F Pulse Rate 68 84 76 Respiratory Rate 18 20 20 Blood Pressure 144/78 H 145/94 H Pulse Oximetry 96 100 100 Oxygen Delivery Method Room Air Room Air Room Air BMI result Body Mass Index 30.3 Labs 11/13/24 03:13 11/15/24 08:11 Mental Status Exam Mental Status Exam Narrative: Patient is alert and awake x4. Social, mostly calm, and cooperative. No irritability. Speech is some what pressure, hyperverbal, tangential. No mood tone and rate. Denies safety concerns. Reports mild depressed and anxiety, but motivated to be better, and not go back to drink. Thought process and thought content are within normal limit. Fair judgment and insight. No behavior issues. Patient is medically clear. Medications Medications Current Medications Acetaminophen (Acetaminophen 325 Mg Tablet) 650 mg PO Q6H PRN PRN Reason: Pain, Mild 1-3,fever,headache Last Admin: 11/18/24 00:44 Dose: 650 mg Albuterol Sulfate (Albuterol Sulfate 90 Mcg 8 Gm Inhaler) 1 puff INHALE Q4H PRN PRN Reason: shortness of breath or wheezing Amlodipine Besylate (Amlodipine Besylate 2.5 Mg Tablet) 2.5 mg PO DAILY [facility]; Protocol Last Admin: 11/18/24 10:04 Dose: Not Given Calcium Carbonate (Calcium Carbonate 750 Mg Tab.Chew) 750 mg PO Q4H PRN PRN Reason: Heartburn Diazepam (Diazepam 10 Mg/2 Ml Cartridge) 7.5 mg IVPUSH Q6H PRN PRN Reason: agitation Last Admin: 11/14/24 01:29 Dose: 7.5 mg Divalproex Sodium (Divalproex Sodium 250 Mg Tablet.) 250 mg PO BID [facility] Last Admin: 11/18/24 09:54 Dose: 250 mg Enoxaparin Sodium (Enoxaparin Sodium 40 Mg/0.4 Ml Syringe) 40 mg SUBCUT Q24H [facility] Last Admin: 11/17/24 15:00 Dose: 40 mg Ferrous Sulfate (Ferrous Sulfate 324 Mg Tablet.) 324 mg PO MoTh@0900 [facility] Last Admin: 11/17/24 08:55 Dose: 324 mg Folic Acid (Folic Acid 1 Mg Tablet) 1 mg PO DAILY [facility] Last Admin: 11/18/24 09:54 Dose: 1 mg Gabapentin (Gabapentin 100 Mg Capsule) 200 mg PO TID [facility] Last Admin: 11/18/24 09:54 Dose: 200 mg Thiamine HCl 200 mg/ Sodium (Chloride) 102 mls @ 204 mls/hr IV Q8H [facility] Last Infusion: 11/18/24 10:30 Dose: Infused Lidocaine (Lidocaine 4 % Patch Adh..Patch) 2 patch TRANSDERMA DAILY [facility]; Protocol Last Admin: 11/18/24 09:56 Dose: 1 patch Magnesium Hydroxide (Milk Of Magnesia 30 Ml Oral.Susp) 30 ml PO DAILY PRN PRN Reason: Constipation Last Admin: 11/18/24 01:57 Dose: 30 ml Magnesium Oxide (Magnesium Oxide 400 Mg Tablet) 400 mg PO DAILY [facility] Last Admin: 11/18/24 10:09 Dose: 400 mg Melatonin (Melatonin 3 Mg Tablet) 6 mg PO BEDTIME PRN PRN Reason: Insomnia Multivitamins/Vitamin C (Multivitamin Tablet) 1 tab PO DAILY [facility] Last Admin: 11/18/24 09:53 Dose: 1 tab Olanzapine (Olanzapine 5 Mg Tablet) 5 mg PO TID PRN PRN Reason: agitation Last Admin: 11/16/24 15:52 Dose: 5 mg Omeprazole (Omeprazole 20 Mg Capsule.Dr) 20 mg PO DAILY@0630 [facility] Last Admin: 11/18/24 06:07 Dose: 20 mg Pharmacy Consult (Consult Rx Etoh Phenob Im/Po) 1 each MISCELLANE ONCE PRN; Protocol PRN Reason: Consult order Phenobarbital (Phenobarbital 30 Mg Tablet) 30 mg PO DAILY [facility]; Protocol Stop: 11/19/24 09:01 Last Admin: 11/18/24 09:54 Dose: 30 mg Psyllium Hydrophilic Mucilloid (Psyllium Seed 3.7 Gm Packet) 3.7 gm PO DAILY PRN PRN Reason: Constipation Sodium Chloride (0.9 % Sodium Chloride Flush 3 Ml Syringe) 3 ml IVFLUSH QSHIFT [facility] Last Admin: 11/18/24 10:09 Dose: 3 ml Allergies Allergies Allergy/AdvReac Type Severity Reaction Status Date / Time cefuroxime Allergy Hives Verified 11/13/24 02:30 Assessment & Plan Assessment & Plan (1) Alcohol withdrawal: Qualifiers: Complication of substance-induced condition: with delirium Qualified Code(s): F10.931 - Alcohol use, unspecified with withdrawal delirium Status: Acute Code(s): F10.939 - Alcohol use, unspecified with withdrawal, unspecified (2) Fadi: Status: Acute Code(s): F30.9 - Manic episode, unspecified Plan HPI: Patient is a 54 year old female with pmhx of hypertension, recent acute on chronic hyponatremia( admission), alcohol use disorder with a history of alcohol withdrawal seizure, asthma, GERD came to ed accompanied by both of her parents. She lives with her boyfriend. Evidently her mom states that her boyfriend called them saying that he was worried about Patient was seen by 1 of the psych provider on 11/13. Since then, mental status continued to improve. She is clear, not disorganized. Motivated to be healthier, not go back to drink. Patient seen in medical floor, to assess for if the patient fadi behavior. Patient is pleasant and cooperative, tangential, hyperverbal, somewhat pressured, normal rate tone. No irritability. Reports no history of psychiatric, denies safety concerns, motivated to getting better by not drinking. She said she can not afford for that anymore as she can if she continues drinking. She does not want to going to do diagnosis/psychiatric admission, but does agree to go to AA meeting, in [facility]. Unless she has volunteered to be admitted to [facility], does no safety concerns. Discussed with attending, patient would need information regarding PHP, and AA meetings. Patient then can be discharged home with family. Plan: Increase Depakote from 250mg BID to 500 b.i.d. for seizure/mood stabilizer. Patient to follow-up with outpatient providers. Probably will have transportation issues. Total time managing care of this patient today ____ minutes. Patient educated on: diagnosis, medication risk/benefits, substance abuse and therapeutic strategies Informed Consent: understands
--- NOTE | 2024-11-18 15:10 | MHC.CM.PN ---
Pt. has been medically cleared to [place], She will go home via private transport, plan is self care.
== END 2024-11-18 17:04 | disposition home or self-care (01) | DRG 775 ==
LOC: HO.ED 07:28 → HO.EDOVER 07:35 → HO.IMC 11-14 02:26
PROVIDERS: Emergency Medicine; Admitting Provider Internal Medicine; Emergency Provider Emergency Medicine; PCP Nurse Practitioner Family; Visit Provider Physician Assistant Medical
DX: F10.931 Alcohol use, unspecified with withdrawal delirium (principal); G93.41 Metabolic encephalopathy; N17.9 Acute kidney failure, unspecified; G40.209 Localization-related (focal) (partial) symptomatic epilepsy and epileptic syndromes with complex partial seizures, not intractable, without status epilepticus; I95.9 Hypotension, unspecified; E87.1 Hypo-osmolality and hyponatremia; F17.210 Nicotine dependence, cigarettes, uncomplicated; J45.909 Unspecified asthma, uncomplicated; I10 Essential (primary) hypertension; F30.9 Manic episode, unspecified; Z71.6 Tobacco abuse counseling; G31.9 Degenerative disease of nervous system, unspecified; K21.9 Gastro-esophageal reflux disease without esophagitis; Z79.899 Other long term (current) drug therapy
CPT/HCPCS: 36415; 70450; 70551; 80053; 80143; 80179; 80307; 81001; 82140; 82550; 82803; 83605; 83735; 85025; 86140; 87040; 93005; 95816; 99285; J1630; J1650; J1790; J2250; J2560; J3360; J3411; S9485

== ENCOUNTER → 2024-11-13 03:13 | Outpatient (BNV) | payer OTHER, SELFPAY | PROVIDERS: Emergency Provider Emergency Medicine; Visit Provider Radiology Diagnostic Radiology | DX: R90.82 White matter disease, unspecified (principal); R41.82 Altered mental status, unspecified | CPT/HCPCS: 70450; 70551 ==

== ENCOUNTER → 2024-11-13 03:13 | Outpatient (BNV) | payer OTHER, SELFPAY | PROVIDERS: Admitting Provider Internal Medicine; Emergency Provider Emergency Medicine; Visit Provider Internal Medicine Cardiovascular Disease | DX: R41.82 Altered mental status, unspecified (principal) | CPT/HCPCS: 93010 ==

== ENCOUNTER → 2024-11-13 07:23 | Outpatient (BNV) | payer OTHER, SELFPAY | PROVIDERS: Admitting Provider Internal Medicine; Emergency Provider Emergency Medicine; Visit Provider Psychiatry & Neurology Psychiatry | DX: F10.931 Alcohol use, unspecified with withdrawal delirium (principal); G93.40 Encephalopathy, unspecified; F05 Delirium due to known physiological condition | CPT/HCPCS: 99232 ==

== ENCOUNTER → 2024-11-13 07:23 | Outpatient (BNV) | payer OTHER, SELFPAY | PROVIDERS: Admitting Provider Internal Medicine; Emergency Provider Emergency Medicine; Visit Provider Psychiatry & Neurology Neurology | DX: G93.41 Metabolic encephalopathy (principal) | CPT/HCPCS: 99222 ==

== ENCOUNTER 2024-11-14 10:20 | Outpatient (BNV) | payer OTHER, SELFPAY | END 2024-11-15 08:58 | PROVIDERS: Admitting Provider Internal Medicine; Emergency Provider Emergency Medicine; Visit Provider Internal Medicine Cardiovascular Disease | DX: R00.0 Tachycardia, unspecified (principal) | CPT/HCPCS: 93010 ==

== ENCOUNTER 2025-01-16 10:05 | Outpatient (AMB) | payer OTHER, SELFPAY ==
[2025-01-16 10:15] VITALS: BP 140/92; PULSE 87; RESP 16; O2SAT 99; BMI 28.5
--- NOTE | 2025-01-16 10:15 | MHC.PC.OV ---
Vital Signs 01/16/25 10:15 01/16/25 11:08 Height 5 ft 4 in Weight 166 lb BMI 28.5 BP 140/92 H 140/98 H Blood Pressure Location Lt brachial Lt brachial Position Sitting Sitting Respiration 16 Pulse 87 Pulse Source Pulse Oximeter Pulse Oximetry (%) 99 Oxygen Delivery Method Room Air Intake Visit Reasons: Dizziness Flight Line Mechanic Required: No Accompanied by: Self / Same As Patient Allergies cefuroxime Allergy (Verified 01/16/25 10:43) Hives Medication List - Last Reconciled 01/16/25 by Raffaele Desir, PLAYER DEVELOPMENT EXECUTIVE- acetaminophen 1,000 mg PO Q6H PRN albuterol sulfate 90 mcg/actuation 1 inh inhalation Q4-6H PRN 30 days cyclobenzaprine 10 mg PO BID@0600,1400 30 days diclofenac sodium 3% 1 appl topical BID PRN divalproex Take 2 tab oral am, take 3 tab oral pm. Max dose 5 tab/24 hour ferrous sulfate 324 mg PO 2XW gabapentin 200 mg (2 x 100 mg) PO TID 30 days losartan 100 mg PO DAILY 30 days magnesium oxide 400 mg PO DAILY meloxicam 15 mg PO DAILY 30 days multivitamin 1 tab PO DAILY olanzapine (Zyprexa) 5 mg PO DAILY psyllium husk (with sugar) 3.4 gram/12 gram (Metamucil (with sugar)) 1 tbsp PO DAILY PRN Tobacco use date assessed: 01/16/25 Dental Screening Dental Screen Date: 01/16/25 Did you have a dental visit in the last 12 months?: Yes Did you have a dental problem in the last 6 months where you did not have access to dental care?: No Was dental information given to patient?: Patient has dentist HPI Dizziness HPI Details Chief Complaint The patient presents for follow-up after hospital discharge due to seizure-like activity and altered mental status. History of Present Illness The patient is a 54-year-old female presenting with a hospital discharge follow-up. She was admitted in mid-November for seizure-like activity and altered mental status, with an acute kidney injury and manic episode. She was diagnosed with hypertension and started on Depakote, 500 mg in the morning and 750 mg at night. The patient has ceased alcohol consumption, which was a factor in her previous health issues. She has an upcoming psychiatrist appointment and is awaiting a therapist referral. Post-discharge, she has not experienced seizure-like activity, and her MRI and EEG were negative. Her liver function tests were elevated, likely due to alcohol use, and will be repeated. She monitors her blood pressure at home, noting higher readings in the morning that stabilize with medication. She denies dizziness, chest pain, shortness of breath, headaches, blurred vision, fever, chills, or seizure activity since discharge. Social History - Substance Use: The patient reports cessation of alcohol consumption. Health Maintenance Review of Systems - Neurological: Denies seizure activity since discharge. - Cardiovascular: Denies dizziness, chest pain, or shortness of breath. - General: Denies fever or chills. - Ophthalmologic: Denies blurred vision. - Neurological: Denies headaches. Physical Exam General: Cooperative, healthy appearing, comfortable, no acute distress and well developed Orientation: Patient oriented x3 Limitations: No limitations Head: Normal to inspection Ears: Hearing grossly normal bilaterally Nose: Normal external nose present Face and sinus: Normal facial exam Eyes: Appearance normal, both eyes and all related structures Neck: Normal visual inspection and Yes full ROM Respiratory: Normal respiratory effort and able to speak in complete sentences. Clear to auscultation bilaterally Cardiovascular: Regular rate and rhythm. Normal S1 and S2 GI: Normal to inspection. Soft to palpation and nontender Skin: No rashes or lesions noted Neuro: Patient oriented x3 Extremities: Normal to inspection Results - Imaging: MRI of the brain was negative. - EEG: Negative for seizure-like activity. - Labs: Elevated liver function tests, likely due to alcohol use. Plan 1. Seizure-Like Activity The patient will follow up with a neurologist for further evaluation of seizure-like activity, which may be related to alcohol withdrawal. MRI and EEG results were negative, and no further seizure-like activity has been reported since discharge. 2. Hypertension The patient is advised to continue monitoring her blood pressure at home and report values. Her blood pressure stabilizes with medication throughout the day. 3. Alcohol Use Disorder (In Remission) The patient has ceased alcohol consumption, which previously contributed to elevated liver function tests. Liver function tests will be repeated to monitor improvement. 4. Manic Episode The patient is scheduled to see a psychiatrist for ongoing management of her manic episode. A therapist referral is being arranged to provide additional support. Discussion Notes I discussed with the patient the importance of following up with a neurologist for her seizure-like activity, which may be related to alcohol withdrawal. We reviewed her blood pressure management, emphasizing the need for home monitoring and medication adherence. I also highlighted the significance of her upcoming psychiatric appointment and the therapist referral to support her mental health. Patient Instructions - Continue taking Depakote as prescribed. - Monitor blood pressure at home and report values. - Attend upcoming psychiatrist appointment and follow up with a neurologist. - Abstain from alcohol consumption. - Follow up with therapist referral once arranged. [facility] Medical History Alcohol use HTN (hypertension) Nicotine dependence, cigarettes, uncomplicated Pain of left thumb Degenerative disc disease, cervical Seborrheic keratosis Surgical History History of back surgery H/O carpal tunnel repair History of facial surgery Family History Maternal Grandmother Mental health disorder Social History Household Members: Spouse Housing: House Do you presently have visiting nurse or other home services: No Alcohol intake: current Alcohol intake frequency: a few times a month Alcohol type: beer and hard liquor Comment: Sitter Patient Tobacco Use Status: Current everyday Tobacco user Tobacco use type: Cigarette Cigarette Packs Per Day: 0.5 Cigarettes Per Day: 10.0 Years Smoked: 33 e-Cigarette/Vaping Use: Never Used Second Hand Smoke Exposure: Yes service: No Current occupational status: employed Current occupation: [employer] Cognitive needs: No Hearing needs: No Vision needs: Yes Female Reproductive History Menstrual Age of Menarche: 13 Questionnaire Thrive Questionnaire Date Thrive assessed: 11/15/24 I am a: Patient What is your living situation today?: I have a steady place to live Within the past 12 months, did the food you bought not last and you didn't have the money to get more?: Never true Within the past 12 months, did you worry whether your food would run out before you got money to buy more?: I choose not to answer this question Do you have trouble paying for medicines?: No Do you have trouble getting transportation to medical appointments?: No Do you have trouble paying your heating and electricity bill?: No Do you have trouble taking care of your child, family member or friend?: I choose not to answer this question Do you have trouble with day-to-day activities such as bathing, preparing meals, shopping, managing finances, etc.?: No Are you currently unemployed and looking for a job?: I choose not to answer this question Are you interested in more education?: I choose not to answer this question Please select the resources that you would like help with: None Currently or been in a relationship where the following occur: No concerns reported THRIVE Score: 0 MASOOD-7 AMB Questionnaire MASOOD-7 Date MASOOD - 7 assessed: 08/01/24 Source: Developed by Drs. Santos Vargas, Mayi Jorge, Josh Domínguez and colleagues, with an educational micky from [employer]. Physical exam (Primary Care) Vital Signs: Last Vital Signs Pulse 87 01/16/25 10:15 Resp 16 01/16/25 10:15 BP 140/92 H 01/16/25 10:15 Pulse Ox 99 01/16/25 10:15 Oxygen Delivery Method Room Air 01/16/25 10:15 BMI result Body Mass Index 28.5 Tobacco/Smoking Status: Tobacco use Status Tobacco use date assessed 01/16/25 01/16/25 10:26 Patient Tobacco Use Status Current everyday Tobacco 01/16/25 10:26 Tobacco use type Cigarette 01/16/25 10:26 e-Cigarette/Vaping Use Never Used 01/16/25 10:26 Thrive Assessment: Date of Thrive Assessment Date Thrive assessed 11/15/24 01/16/25 10:26 Currently or been in a relationship where the following occur: No concerns reported Coding Level of Care Code Est Pt Level 4 (82787) Diagnoses Primary hypertension I10 Hypertension type: primary hypertension Alcohol withdrawal F10.931 Complication of substance-induced condition: with delirium Seizure-like activity R56.9 Bipolar 1 disorder F31.9 Assessment & Plan Assessment & Plan (1) HTN (hypertension): Code(s): I10 - Essential (primary) hypertension Category: Medical Qualifiers: Hypertension type: primary hypertension Qualified Code(s): I10 - Essential (primary) hypertension (2) Alcohol withdrawal: Code(s): F10.939 - Alcohol use, unspecified with withdrawal, unspecified Category: Medical Qualifiers: Complication of substance-induced condition: with delirium Qualified Code(s): F1 - Alcohol use, unspecified with withdrawal delirium (3) Seizure-like activity: Comment: on depakote Code(s): R56.9 - Unspecified convulsions Category: Medical (4) Bipolar 1 disorder: Code(s): F31.9 - Bipolar disorder, unspecified Category: Medical Plan . Orders: Orders Comprehensive [place]. Panel Fast Today - Alcohol use, unspecified with withdrawal delirium, F31.9 - Bipolar disorder, unspecified, I10 - Essential (primary) hypertension, R56.9 - Unspecified convulsions TSH reflex Free T4 Today - Alcohol use, unspecified with withdrawal delirium, F31.9 - Bipolar disorder, unspecified, I10 - Essential (primary) hypertension, R56.9 - Unspecified convulsions Complete Blood Count Auto Diff Today - Alcohol use, unspecified with withdrawal delirium, F31.9 - Bipolar disorder, unspecified, I10 - Essential (primary) hypertension, R56.9 - Unspecified convulsions UA CC w/rflx Micro + Cult Today - Alcohol use, unspecified with withdrawal delirium, F31.9 - Bipolar disorder, unspecified, I10 - Essential (primary) hypertension, R56.9 - Unspecified convulsions Lipid Panel Today - Alcohol use, unspecified with withdrawal delirium, F31.9 - Bipolar disorder, unspecified, I10 - Essential (primary) hypertension, R56.9 - Unspecified convulsions Valproate Today F31.9 - Bipolar disorder, unspecified
[2025-01-16 11:08] VITALS: BP 140/98
--- OUTSIDE RECORDS SUMMARY | 2025-01-16 11:17 | XMS_ITS | Clinical Summary ---
Author Organization [facility] Facility Address [address] [address] Care Team Providers Care Seed Tester Name Role Phone Raffaele Desir NP Primary Care Provider [phone] Social History Tobacco Use Types Packs/Day Years [...] PCV) 022 Influenza Vaccine (#1) 2024 Insurance [facility] Care Teams Seed Tester Relationship Specialty Start Date End Date Raffaele Desir NP [address] [place], [place] [id number] PCP - General Nurse Practitioner 01/23/22
== END 2025-01-16 11:34 | disposition home or self-care (01) ==
LOC: HO.HMCC 10:06
PROVIDERS: PCP Nurse Practitioner Family; Visit Provider Nurse Practitioner Family
DX: I10 Essential (primary) hypertension (principal); F10.931 Alcohol use, unspecified with withdrawal delirium; R56.9 Unspecified convulsions; F31.9 Bipolar disorder, unspecified

== ENCOUNTER → 2025-01-16 10:05 | Outpatient (BNVA) | payer OTHER, SELFPAY | PROVIDERS: PCP Nurse Practitioner Family; Visit Provider Nurse Practitioner Family | DX: I10 Essential (primary) hypertension (principal); F31.9 Bipolar disorder, unspecified; R56.9 Unspecified convulsions; R79.89 Other specified abnormal findings of blood chemistry; F10.931 Alcohol use, unspecified with withdrawal delirium; F17.210 Nicotine dependence, cigarettes, uncomplicated; Z79.899 Other long term (current) drug therapy | CPT/HCPCS: 99212 ==